=== PATIENT | female | born 1985 | race Caucasian/White ===

== ENCOUNTER → 2017-10-26 15:57 | Outpatient (CLI) | payer OTHER, MEDICAID, SELFPAY ==
[2017-10-26 18:53] LABS: Clostridium Difficile Tox PCR Negative for C. diff
== END ==
PROVIDERS: PCP Physician Assistant; Visit Provider Internal Medicine Gastroenterology
DX: R19.7 Diarrhea, unspecified (principal); A04.72 Enterocolitis due to Clostridium difficile, not specified as recurrent
CPT/HCPCS: 87493

== ENCOUNTER → 2017-10-27 11:32 | Outpatient (CLI) | payer OTHER, MEDICAID, SELFPAY | PROVIDERS: Family Provider Physician Assistant; PCP Physician Assistant; Visit Provider Nurse Practitioner Family | DX: N39.0 Urinary tract infection, site not specified (principal) | CPT/HCPCS: 87086 ==

== ENCOUNTER 2017-11-10 09:04 | Day surgery (SDC) | payer OTHER, MEDICAID, SELFPAY ==
--- NOTE | 2017-11-10 | PATH_ITS ---
[facility] Accession Number: [id number] . 01 Material submitted: . PART A: RANDOM COLON PART B: COLON BIOPSY AT SIGMOID . 02 Diagnosis: A. Random Colon, Biopsies: Colonic mucosa with no diagnostic abnormality. Negative for active or microscopic colitis. Negative for granulomata, dysplasia or malignancy. . B. Sigmoid Colon, Biopsy: Fragments of tubular adenoma. MRV/11/11/2017 . 02 Electronically signed: . Peter Guerrero MD, PhD, Pathologist NPI- [id number] . 01 Gross description: . Received are two formalin-filled containers, both labeled with the patient's name: . A. In a container labeled random colon, are three less than 0.1 cm to 0.3 cm portions of tissue, entirely submitted in cassette A. B. In a container labeled colon polyp at sigmoid, are two 0.2-0.3 cm portions of tissue, entirely submitted in cassette B. ([id number]) /FRR . 02 Pathologist provided ICD-10: D12.5, R19.7 . 02 CPT . 151201, [id number] Performed at: 01 [facility] [address] [facility], [place], [place] [id number] MD Harjeet Pulliam MD Phone: [phone] Performed at: 02 [facility] [address] [place], [place] [id number] MD Danny Dumont MD Phone: [phone]
--- NOTE | 2017-11-10 09:13 | PM.PREOP ---
Pre-operative Note Interval Note Pre-op Check: History & Physical Reviewed by Physician and Exam Performed ASA Class (for procedural sedation): II
--- NOTE | 2017-11-10 09:13 | PM.OP.ENDO ---
Operative Date/Time/Diagnoses - Date of procedure: 11/10/17 Time of procedure: 09:30 Pre-op diagnosis: Diarrhea Post-op diagnosis: same Procedure & Clinicians Surgeon: Luis A Garcia Procedure Notes Procedure in detail: After informed consent was obtained the patient was placed in the left lateral decubitus position. The video colonoscope was introduced in the rectum slowly advanced to cecum. Preparation was good. On slow withdrawal because was carefully examined. The scope was removed, the patient tolerated the procedure well Medications fentanyl 200 mcg Versed 10 mg, Benadryl 25 mg Total sedation time 20 min Blood loss none Complications none Findings: 1. Normal terminal ileum 2. Normal colonoscopy to cecum. Random biopsies taken to rule out microscopic colitis 3. 6 mm sigmoid polyp at 20 cm from the anal verge seen. This was cold biopsied x2 and removed completely Scope withdrawal time: na Sedation minutes: 20 Recommendations: Continue medication(s) and Will call with biopsy results Plan for aftercare: At this point she should remain on probiotics and we will discussed by telephone the results of the biopsies. I doubt that the polyp is adenomatous so she will not likely need any routine follow-up other than colonoscopy at age 49. The issue will be the resolution of her diarrhea.
[2017-11-10 09:22] VITALS: BMI 24.3
[2017-11-10 09:26] VITALS: BP 109/74; PULSE 69; RESP 15; TEMP 36.3; O2SAT 100
[2017-11-10 09:38] VITALS: BMI 24.3
[2017-11-10] MEDS: SODIUM CHLORIDE 0.9% 1,000 ML 200 ML IV (09:39)
[2017-11-10] MEDS: diphenhydrAMINE 50 MG/ML VIAL 25 MG IV (10:04)
[2017-11-10] MEDS: fentaNYL 250 MCG/5 ML INJ IV (10:15)
[2017-11-10] MEDS: MIDAZOLAM 5 MG/5 ML VIAL IV (10:16)
[2017-11-10 10:18] VITALS: BP 103/76; PULSE 66; RESP 13; TEMP 36.6; O2SAT 95
[2017-11-10 10:23] VITALS: BP 110/82; PULSE 70; RESP 14; O2SAT 95
[2017-11-10 10:28] VITALS: BP 101/74; PULSE 66; RESP 16; TEMP 36.4; O2SAT 97
[2017-11-10 11:09] VITALS: BP 94/60; PULSE 60; RESP 15; TEMP 36.9; O2SAT 99
[2017-11-10 11:20] VITALS: BP 101/66; PULSE 62; RESP 15; TEMP 36.8; O2SAT 99
--- NOTE | 2017-11-10 11:22 | SUR.PHASEII ---
pt up to BR to void and pass gas, abdomen is round and soft. Dr Garcia aware that pt is still having abdominal discomfort, pt states she has had this same feeling before procedure and is requesting pain medication. Dr Garcia notified and states no and for her to follow up with pain clinic. instructions reviewed with pt and her mom with verbalized understanding.
== END 2017-11-10 11:30 ==
LOC: ENDO 09:06
PROVIDERS: Family Provider Physician Assistant; PCP Physician Assistant; Visit Provider Internal Medicine Gastroenterology
PROC: 0DJD8ZZ Inspection of Lower Intestinal Tract, Via Natural or Artificial Opening Endoscopic (ICD-10-PCS; CPT 45378; principal; 2017-11-10 10:00)
DX: R19.7 Diarrhea, unspecified (principal); D12.5 Benign neoplasm of sigmoid colon; J45.909 Unspecified asthma, uncomplicated; F17.210 Nicotine dependence, cigarettes, uncomplicated; F10.21 Alcohol dependence, in remission; Z87.19 Personal history of other diseases of the digestive system; Z80.0 Family history of malignant neoplasm of digestive organs
CPT/HCPCS: 45380; J1200; J2250; J3010

== ENCOUNTER → 2018-03-07 10:03 | Outpatient (CLI) | payer OTHER, MEDICAID, SELFPAY ==
[2018-03-16 15:15] LABS: C.trachomatis RNA NOT DETECTED
[2018-03-16 15:16] LABS: N.gonorrhoeae RNA NOT DETECTED
== END ==
PROVIDERS: PCP Family Medicine; Visit Provider Family Medicine
DX: Z01.419 Encounter for gynecological examination (general) (routine) without abnormal findings (principal)
CPT/HCPCS: 87210; 87491; 87591

== ENCOUNTER → 2018-03-07 11:24 | Outpatient (CLI) | payer OTHER, MEDICAID, SELFPAY ==
[2018-03-07 12:40] LABS: Add Manual Diff / Slide Review NO; Basophils Percent Auto 0.4 % (0-2); Eosinophils Percent Auto 0.3 % (2-4); Hematocrit 41.5 % (36-46); Lymphocytes Percent Auto 26.2 % (25-40); Mean Corpuscular HGB Conc 33.7 % (30-36); Mean Corpuscular Hemoglobin 32.4 PG (26-34); Mean Corpuscular Volume 96.1 fL (80-100); Monocytes Percent Auto 3.7 % (3-14); Neutrophils Absolute Auto 7400 /uL (3000-5900); Neutrophils Percent Auto 69.4 % (50-75); Platelet Count 257 X10^3/uL (150-400); Red Blood Cell Count 4.32 X10^6/uL (4.0-5.2); Red Cell Distribution Width 13.1 % (11.6-14.8); White Blood Cell Count 10.7 X10^3/uL (4.5-11.0)
[2018-03-07 12:59] LABS: Cholesterol 182 mg/dL (140-199); HDL Cholesterol 58 mg/dL (40-60); LDL Cholesterol Calculated 87 mg/dL (<100); Triglycerides 185 mg/dL (35-150)
[2018-03-07 13:33] LABS: TSH w/ Reflex to FT4 1.42 uIU/mL (0.47-4.68)
== END ==
PROVIDERS: PCP Family Medicine; Visit Provider Family Medicine
DX: Z01.419 Encounter for gynecological examination (general) (routine) without abnormal findings (principal)
CPT/HCPCS: 36415; 80061; 84443; 85025; 87210; 87491; 87591

== ENCOUNTER → 2018-06-07 12:38 | Outpatient (CLI) | payer OTHER, MEDICAID, SELFPAY ==
[2018-06-07 13:11] LABS: Influenza A and B by PCR Rapid Negative (Negative)
== END ==
PROVIDERS: PCP Family Medicine; Visit Provider Physician Assistant
DX: R50.9 Fever, unspecified (principal); R52 Pain, unspecified
CPT/HCPCS: 87400

== ENCOUNTER → 2018-12-28 12:29 | Outpatient (CLI) | payer OTHER, MEDICAID, SELFPAY ==
[2018-12-28 12:58] LABS: Add Manual Diff / Slide Review NO; Basophils Absolute Auto 0 /uL (0-100); Basophils Percent Auto 0.5 % (0-2); Eosinophils Absolute Auto 100 /uL (0-450); Eosinophils Percent Auto 1.2 % (2-4); Hematocrit 42.4 % (36-46); Lymphocytes Absolute Auto 3800 /uL (1100-4500); Lymphocytes Percent Auto 40.5 % (25-40); Mean Corpuscular HGB Conc 33.1 % (30-36); Mean Corpuscular Hemoglobin 31.2 PG (26-34); Mean Corpuscular Volume 94.3 fL (80-100); Monocytes Absolute Auto 500 /uL (0-900); Monocytes Percent Auto 5.3 % (3-14); Neutrophils Absolute Auto 4900 /uL (1500-7000); Neutrophils Percent Auto 52.5 % (50-75); Platelet Count 241 X10^3/uL (150-400); Red Blood Cell Count 4.49 X10^6/uL (4.0-5.2); Red Cell Distribution Width 12.8 % (11.6-14.8); White Blood Cell Count 9.3 X10^3/uL (4.5-11.0)
[2018-12-28 14:08] LABS: Alanine Aminotransferase 12 IU/L (9-52); Albumin 4.5 g/dL (3.5-5.0); Albumin Globulin Ratio 1.6 (1.0-2.8); Alkaline Phosphatase 66 U/L (38-126); Aspartate Aminotransferase 18 IU/L (14-36); BUN Creatinine Ratio 21.7 (6-22); Bilirubin Total 0.5 mg/dL (0.2-1.3); Blood Urea Nitrogen 13 mg/dL (7-17); Calcium 9.6 mg/dL (8.4-10.2); Carbon Dioxide 27 mmol/L (22-32); Chloride 104 mmol/L (98-107); Cholesterol 177 mg/dL (140-199); Estimated Glomerular Filt Rate > 60.0 mL/min (>60); Globulin 2.8 g/dL (1.7-4.1); Glucose 87 mg/dL (70-100); HDL Cholesterol 51 mg/dL (40-60); HEMOLYSIS < 15 (0-50); LDL Cholesterol Calculated 112 mg/dL (<100); Potassium 4.4 mmol/L (3.4-5.1); Sodium 140 mmol/L (137-145); Total Protein 7.3 g/dL (6.3-8.2); Triglycerides 69 mg/dL (35-150)
[2018-12-28 14:38] LABS: Thyroid Stimulating Hormone 1.59 uIU/mL (0.47-4.68)
== END ==
PROVIDERS: PCP Family Medicine; Visit Provider Family Medicine
DX: Z13.220 Encounter for screening for lipoid disorders (principal); Z51.81 Encounter for therapeutic drug level monitoring
CPT/HCPCS: 36415; 80053; 80061; 84443; 85025

== ENCOUNTER → 2019-02-06 12:59 | Outpatient (CLI) | payer OTHER, MEDICAID, SELFPAY | PROVIDERS: PCP Family Medicine; Visit Provider Physician Assistant | DX: N89.8 Other specified noninflammatory disorders of vagina (principal); R30.0 Dysuria | CPT/HCPCS: 87210 ==

== ENCOUNTER → 2019-04-04 11:48 | Outpatient (CLI) | payer OTHER, MEDICAID, SELFPAY ==
[2019-04-04 12:18] LABS: Hematocrit 41.2 % (36-46); Mean Corpuscular Volume 94.1 fL (80-100); Platelet Count 265 X10^3/uL (150-400); Red Blood Cell Count 4.38 X10^6/uL (4.0-5.2); Red Cell Distribution Width 12.7 % (11.6-14.8); White Blood Cell Count 8.5 X10^3/uL (4.5-11.0)
[2019-04-04 12:25] LABS: INR 1.1 (0.9-1.3); Prothrombin Time 12.3 SECONDS (10.1-12.7)
[2019-04-04 12:39] LABS: Alanine Aminotransferase 12 IU/L (<35); Albumin Globulin Ratio 1.7 (1.0-2.8); Alkaline Phosphatase 73 U/L (38-126); Aspartate Aminotransferase 22 IU/L (14-36); BUN Creatinine Ratio 18.6 (6-22); Bilirubin Total 0.4 mg/dL (0.2-1.3); Blood Urea Nitrogen 13 mg/dL (7-17); Calcium 10.2 mg/dL (8.4-10.2); Carbon Dioxide 28 mmol/L (22-32); Chloride 101 mmol/L (98-107); Estimated Glomerular Filt Rate > 60.0 mL/min (>60); Globulin 2.9 g/dL (1.7-4.1); Glucose 97 mg/dL (70-100); HEMOLYSIS < 15 (0-50); Lipase 86 U/L (23-300); Potassium 4.3 mmol/L (3.4-5.1); Sodium 139 mmol/L (137-145); Total Protein 7.9 g/dL (6.3-8.2)
== END ==
PROVIDERS: PCP Family Medicine; Visit Provider Student in an Organized Health Care Education/Training Program
DX: K52.9 Noninfective gastroenteritis and colitis, unspecified (principal); R10.9 Unspecified abdominal pain; F10.20 Alcohol dependence, uncomplicated; R23.8 Other skin changes; Z86.19 Personal history of other infectious and parasitic diseases
CPT/HCPCS: 36415; 80053; 83516; 83690; 85027; 85610

== ENCOUNTER → 2019-05-08 14:10 | Outpatient (CLI) | payer OTHER, MEDICAID, SELFPAY ==
--- NOTE | 2019-05-08 14:11 | DI.US.S_ITS ---
PROCEDURE: US OB <= 14 WEEKS FETUS INDICATIONS: INTITIAL OB DATING OUTSIDE/PRIOR DATING DATA: Last menstrual period (LMP): 02/02/2019? LMP-based estimated date of delivery (FREDRICK): 11/09/2019. First dating scan (date and location): 05/08/2019. [facility]. Estimated date of delivery (FREDRICK) from first dating scan: 12/25/2019. TECHNIQUE: Real-time scanning was performed of the fetus and maternal pelvic organs, with image documentation. COMPARISON: None. FINDINGS: Embryo: [place]-rump length measures 1 cm corresponding to 7 weeks 0 days. Yolk sac is visualized. No perigestational hemorrhage. Measurement variability in dating: +/- 4 weeks by LMP, +/- 7 days by mean sac diameter (use before 6 weeks gestation if crown-rump length not able to be measured), +/- 5 days by crown-rump length (up to 8 weeks 6 days gestation), +/- 7 days by crown-rump length (up to 13 weeks 6 days gestation). Maternal organs: Ovaries are within normal limits. Right corpus luteum measuring 1.9 cm. IMPRESSION: 1. Lee living intrauterine at 7 weeks 0 days based on today's crown-rump length. 2. No perigestational hemorrhage. Dictated by: Seth Umanzor M.D. on 05/08/2019 at 17:26 Approved by: Seth Umanzor M.D. on 05/08/2019 at 17:28
== END ==
PROVIDERS: PCP Family Medicine; Visit Provider Specialist
DX: Z34.91 Encounter for supervision of normal pregnancy, unspecified, first trimester (principal); Z3A.01 Less than 8 weeks gestation of pregnancy
CPT/HCPCS: 76801

== ENCOUNTER → 2019-05-18 13:04 | Outpatient (CLI) | payer OTHER, MEDICAID, SELFPAY ==
[2019-05-18 13:44] LABS: Influenza A - CEPHEID Flu A NEGATIVE (NEGATIVE); Influenza B - CEPHEID Flu B POSITIVE (NEGATIVE)
== END ==
PROVIDERS: PCP Family Medicine; Visit Provider Physician Assistant
DX: R05 Cough (principal); R07.0 Pain in throat
CPT/HCPCS: 87070; 87502

== ENCOUNTER → 2019-06-05 14:00 | Outpatient (CLI) | payer OTHER, MEDICAID, SELFPAY ==
[2019-06-05 14:38] LABS: Add Manual Diff / Slide Review NO; Appearance Urine UA CLEAR; Basophils Absolute Auto 100 /uL (0-100); Basophils Percent Auto 0.5 % (0-2); Bilirubin Urine UA NEGATIVE (NEGATIVE); Color Urine UA YELLOW; Eosinophils Absolute Auto 100 /uL (0-450); Eosinophils Percent Auto 0.9 % (2-4); Glucose Urine UA NEGATIVE (Negative); Hematocrit 36.2 % (36-46); Hemoglobin 12.8 g/dL (12.0-16.0); Ketones Urine UA NEGATIVE (NEGATIVE); Leukocyte Esterase Urine UA NEGATIVE (NEGATIVE); Lymphocytes Absolute Auto 2600 /uL (1100-4500); Lymphocytes Percent Auto 25.9 % (25-40); Mean Corpuscular HGB Conc 35.4 % (30-36); Mean Corpuscular Hemoglobin 32.2 PG (26-34); Mean Corpuscular Volume 91.1 fL (80-100); Monocytes Absolute Auto 500 /uL (0-900); Monocytes Percent Auto 4.5 % (3-14); Neutrophils Absolute Auto 6900 /uL (1500-7000); Neutrophils Percent Auto 68.2 % (50-75); Nitrite Urine UA NEGATIVE (Negative); Occult Blood Urine UA NEGATIVE (Negative); Platelet Count 266 X10^3/uL (150-400); Protein Urine UA NEGATIVE (Negative); Red Blood Cell Count 3.98 X10^6/uL (4.0-5.2); Red Cell Distribution Width 12.8 % (11.6-14.8); Urobilinogen Urine UA 0.2 E.U./dL (0.2)
[2019-06-05 16:23] LABS: Hepatitis B Surface Antigen NEGATIVE s/c (NEGATIVE); Rubella Antibody IgG 13.3 IU/mL (>15)
[2019-06-05 16:42] LABS: HIV 1 & 2 Ab/Ag 4th Gen Combo NEGATIVE (NEGATIVE); Hep C Virus Ab w/Reflex Quant NEGATIVE s/c (NEGATIVE)
[2019-06-07 18:24] LABS: RPR Screen Nonreactive (Nonreactive)
== END ==
PROVIDERS: PCP Family Medicine; Visit Provider Specialist
DX: O09.529 Supervision of elderly multigravida, unspecified trimester (principal); Z34.81 Encounter for supervision of other normal pregnancy, first trimester; Z3A.11 11 weeks gestation of pregnancy
CPT/HCPCS: 36415; 80055; 81003; 81420; 86787; 86803; 86850; 86900; 86901; 87086; 87389

== ENCOUNTER 2019-07-13 09:39 | Emergency (ER) | payer OTHER, MEDICAID, SELFPAY ==
[2019-07-13 09:43] VITALS: BP 118/62; PULSE 111; RESP 20; TEMP 36.6; O2SAT 99; BMI 23.3
[2019-07-13 10:58] LABS: Add Manual Diff / Slide Review NO; Basophils Absolute Auto 100 /uL (0-100); Basophils Percent Auto 0.6 % (0-2); Eosinophils Absolute Auto 0 /uL (0-450); Eosinophils Percent Auto 0.3 % (2-4); Hematocrit 36.5 % (36-46); Hemoglobin 12.5 g/dL (12.0-16.0); Lymphocytes Absolute Auto 3000 /uL (1100-4500); Mean Corpuscular HGB Conc 34.1 % (30-36); Mean Corpuscular Hemoglobin 31.6 PG (26-34); Mean Corpuscular Volume 92.8 fL (80-100); Monocytes Absolute Auto 600 /uL (0-900); Monocytes Percent Auto 4.4 % (3-14); Neutrophils Absolute Auto 10600 /uL (1500-7000); Neutrophils Percent Auto 73.7 % (50-75); Platelet Count 253 X10^3/uL (150-400); Red Blood Cell Count 3.94 X10^6/uL (4.0-5.2); Red Cell Distribution Width 13.1 % (11.6-14.8); White Blood Cell Count 14.3 X10^3/uL (4.5-11.0)
[2019-07-13 11:09] LABS: PTT Partial Thromboplastin Tim 31 SECONDS (26.4-36.2); Prothrombin Time 11.1 SECONDS (10.1-12.7)
[2019-07-13 11:10] LABS: Alanine Aminotransferase 12 IU/L (<35); Albumin 4.1 g/dL (3.5-5.0); Albumin Globulin Ratio 1.2 (1.0-2.8); Alkaline Phosphatase 48 U/L (38-126); Aspartate Aminotransferase 22 IU/L (14-36); Bilirubin Total 0.3 mg/dL (0.2-1.3); Blood Urea Nitrogen 7 mg/dL (7-17); Calcium 9.3 mg/dL (8.4-10.2); Carbon Dioxide 25 mmol/L (22-32); Chloride 104 mmol/L (98-107); Estimated Glomerular Filt Rate > 60.0 mL/min (>60); Globulin 3.3 g/dL (1.7-4.1); Glucose 84 mg/dL (70-100); HEMOLYSIS < 15 (0-50); Lipase 55 U/L (23-300); Sodium 135 mmol/L (137-145); Total Protein 7.4 g/dL (6.3-8.2)
--- NOTE | 2019-07-13 11:22 | ED.PEDGIA ---
HPI - Pediatric GI General Chief Complaint: Abdominal Pain Stated Complaint: extreme pain ride side Time Seen by Provider: 07/13/19 09:40 Source: patient Mode of arrival: Ambulatory Limitations: no limitations History of Present Illness HPI narrative: 34-year-old female at 15 weeks presents with the chief complaint of severe right-sided flank pain is seems to radiate into her groin. She states that there is no provocation or palliation of her pain that radiates as stated. Her pain is sharp and stabbing and very intense. She denies any dysuria, frequency or urgency. She denies any fever or chills. She has had no vaginal bleeding or discharge. MD complaint: nausea and flank pain Onset (ago): hour(s) Fever: No Hydration status: tolerating fluids Activity level: normal Severity: severe Quality of pain: sharp Consistency of pain: intermittent Relieving factors: nothing Exacerbating factors: nothing Associated symptoms: nausea Related Data Home Medications Medication Instructions Recorded Confirmed Probiotic with Prebiotic 2 cap PO .QDAY 06/07/18 06/30/19 Previous Rx's Medication Instructions Recorded albuterol sulfate 90 mcg/actuation 2 puff INHALATION QIDP PRN #1 ea 09/29/17 aerosol inhaler ondansetron 4 mg disintegrating 4 mg SUBLINGUAL Q6HP PRN #20 odt 08/08/18 tablet vits no.126-ferrous fum 1 tab PO .QD #100 tab 04/28/19 28 mg iron-folic acid 800 mcg tablet ondansetron 4 mg PO TID-QID PRN #10 tab 07/13/19 Allergies Allergy/AdvReac Type Severity Reaction Status Date / Time venom-honey bee Allergy Severe TROUBLE Verified 07/13/19 09:42 [BEE VENOM (HONEY BEE)] BREATHING sertraline Allergy Intermediate Migraine Verified 07/13/19 09:42 cefaclor [CEFACLOR] Allergy Unknown I was Verified 07/13/19 09:42 young. I can't remember. Sulfa (Sulfonamide Allergy Unknown I was Verified 07/13/19 09:42 Antibiotics) young. I [SULFA (SULFONAMIDE can't ANTIBIOTICS)] remember. cyclobenzaprine AdvReac Intermediate Migraine Verified 07/13/19 09:42 methocarbamol AdvReac Intermediate Migraine Verified 07/13/19 09:42 metronidazole AdvReac Intermediate diarrhea Verified 07/13/19 09:42 and cramps Pediatric Review of Systems All systems ED: reviewed and negative except as stated Constitutional: Denies fever and chills Eyes: Denies eye pain and eye discharge ENT: Denies ear pain and sore throat Cardiovascular: Denies chest pain and palpitations Respiratory: Denies cough and dyspnea Gastrointestinal: Reports abdominal pain Genitourinary: Denies dysuria and polyuria Musculoskeletal: Denies back pain and joint swelling Integumentary: Denies rash and lesions Neurological: Denies headache and weakness Psychiatric: Denies change in energy level and fussiness Endocrine: Denies fatigue and heat intolerance Hematological/Lymphatic: Denies easy bleeding and easy bruising Allergic/Immunologic: Denies facial swelling and urticaria Patient History Medical History Abnormal Pap smear of cervix (Chronic 10/30/16) Alcohol abuse (Chronic ~10/2015) Anxiety (Chronic) Arthritis (Chronic) Bacterial vaginosis (Inactive) C. difficile colitis (Resolved 09/2016) Scoliosis (Acute) Surgical History History of umbilical hernia repair (Resolved) Status post appendectomy (Resolved) Family History Brother Age: 31 Asthma NF2 (neurofibromatosis 2) Mother Age: 65 Asthma Thyroid disease Diabetes mellitus Sister Age: 28 Thyroid disease Bipolar 1 disorder Son Alopecia Social History marital status: unmarried,living together household members: significant other and children pets and animals: Yes (indoor and outdoor cat - aware) education level: college (some) occupational status: employed (teaches at the pool) special krupa needs: No Smoking Status: Smoker, status unknown Tobacco: How many years used: 10 quit status: considering quitting (She is working on reducing how many cigarettes she smokes per day : down to 4 per day 05/23/19) second hand exposure: No alcohol intake: former (It is has been over a year ago since I drank (today is 06/07/18).) substance use type: marijuana (stopped with diagnosis) Smoking Status: Smoker, status unknown Pediatric Exam Narrative Physical exam: GENERAL: [34] year old patient appears stated age. Well-nourished, well-developed patient, in moderate distress, tearful, rocking in her garden clutching her right flank HEAD: Atraumatic. Normocephalic. EYES: Pupils equal round and reactive. Extraocular motions intact. No scleral icterus. No injection or drainage. ENT: Nose without bleeding, purulent drainage. Throat without erythema, tonsillar hypertrophy or exudate. Airway patent. NECK: Trachea midline. Non tender CARDIOVASCULAR: Regular rate and rhythm without murmurs, gallops, or rubs. RESPIRATORY: Clear to auscultation. Breath sounds equal bilaterally. No wheezes, rales, or rhonchi. GASTROINTESTINAL: Abdomen soft, non-tender, nondistended. EXTREMITIES: No edema or joint tenderness. BACK: Nontender without deformity or crepitance. Minimal right-sided CVA tenderness. NEURO: AOx3. SKIN: No rash or erythema of visible areas Initial Vital Signs Initial Vital Signs: Vital Signs Temperature 97.8 F 07/13/19 09:43 Pulse Rate 111 H 07/13/19 09:43 Respiratory Rate 07/13/19 09:43 Blood Pressure 118/62 07/13/19 09:43 Pulse Oximetry 99 07/13/19 09:43 General Limitations: no limitations Course Orders Ordered: ED Orders 07/13/19 09:49 EKG-12 Lead Stat 07/13/19 10:50 Complete Blood Count AUTO DIFF Stat Comprehensive Metabolic Panel Stat Lipase Stat Partial Thromboplastin Time Stat Prothrombin Time INR Stat 07/13/19 11:20 Test Urine Stat Urinalysis and Microscopic Stat 07/13/19 11:37 US renal complete Stat Discontinued Medications Hydromorphone HCl (Dilaudid) 0.5 mg IV NOW ONE Stop: 07/13/19 11:45 Last Admin: 07/13/19 12:08 Dose: 0.5 mg Documented by: RASHMISENJacinto Hydromorphone HCl (Dilaudid) 1 mg IV NOW ONE Stop: 07/13/19 14:29 Last Admin: 07/13/19 14:38 Dose: 1 mg Documented by: TRINI Ondansetron HCl (Zofran) 4 mg IV NOW ONE Stop: 07/13/19 12:06 Last Admin: 07/13/19 12:08 Dose: 4 mg Documented by: JAKY Ondansetron HCl (Zofran) 4 mg IV NOW ONE Stop: 07/13/19 15:56 Last Admin: 07/13/19 16:03 Dose: 4 mg Documented by: TRINI Vital Signs Vital signs: Vital Signs - 8 hr 07/13/19 15:06 Pulse Rate 67 Respiratory Rate 16 Blood Pressure [Left Arm] 99/55 L Pulse Oximetry 97 Medical Decision Making Lab Data Result diagrams: 07/13/19 10:50 07/13/19 10:50 Labs: Lab Results 07/13/19 07/13/19 07/13/19 Range/Units 10:50 10:50 10:50 WBC 14.3 H (4.5-11.0) X10^3/uL RBC 3.94 L (4.0-5.2) X10^6/uL Hgb 12.5 (12.0-16.0) g/dL Hct 36.5 (36-46) % MCV 92.8 (80-100) fL MCH 31.6 (26-34) PG MCHC 34.1 (30-36) % RDW 13.1 (11.6-14.8) % Plt Count 253 (150-400) X10^3/uL Neut % (Auto) 73.7 (50-75) % Lymph % (Auto) 21.0 L (25-40) % [place] % (Auto) 4.4 (3-14) % Eos % (Auto) 0.3 L (2-4) % Baso % (Auto) 0.6 (0-2) % Neut # (Auto) 25296 H (3708-8716) /uL Lymph # (Auto) 3000 (3606-3919) /uL [place] # (Auto) 600 (0-900) /uL Eos # (Auto) 0 (0-450) /uL Baso # (Auto) 100 (0-100) /uL PT 11.1 (10.1-12.7) SECONDS INR 1.0 (0.9-1.3) APTT 31 (26.4-36.2) SECONDS Sodium 135 L (137-145) mmol/L Potassium 4.0 (3.4-5.1) mmol/L Chloride 104 (98-107) mmol/L Carbon Dioxide 25 (22-32) mmol/L BUN 7 (7-17) mg/dL Creatinine 0.50 L (0.52-1.04) mg/dL Estimated GFR > 60.0 (>60) mL/min BUN/Creatinine Ratio 14.0 (6-22) Glucose 84 (70-100) mg/dL Calcium 9.3 (8.4-10.2) mg/dL Total Bilirubin 0.3 (0.2-1.3) mg/dL AST 22 (14-36) IU/L ALT 12 (<35) IU/L Alkaline Phosphatase 48 (38-126) U/L Total Protein 7.4 (6.3-8.2) g/dL Albumin 4.1 (3.5-5.0) g/dL Globulin 3.3 (1.7-4.1) g/dL Albumin/Globulin Ratio 1.2 (1.0-2.8) Lipase 55 (23-300) U/L Urine Color Urine Appearance Urine pH (4.5-8.0) Ur Specific [place] (1.000-1.035) Urine Protein (Negative) Urine Glucose (UA) (Negative) g/dL Urine Ketones (NEGATIVE) Urine Occult Blood (Negative) Urine Nitrate (Negative) Urine Bilirubin (NEGATIVE) Urine Urobilinogen (0.2) E.U./dL Ur Leukocyte Esterase (NEGATIVE) Urine RBC (0-5/HPF) Urine WBC (0-5/HPF) Ur Squamous Epith Cells (0-5/HPF) Urine Bacteria (None) Ur Culture Indicated? Urine Test (Negative) 07/13/19 07/13/19 Range/Units 11:20 11:20 WBC (4.5-11.0) X10^3/uL RBC (4.0-5.2) X10^6/uL Hgb (12.0-16.0) g/dL Hct (36-46) % MCV (80-100) fL MCH (26-34) PG MCHC (30-36) % RDW (11.6-14.8) % Plt Count (150-400) X10^3/uL Neut % (Auto) (50-75) % Lymph % (Auto) (25-40) % [place] % (Auto) (3-14) % Eos % (Auto) (2-4) % Baso % (Auto) (0-2) % Neut # (Auto) (4979-0452) /uL Lymph # (Auto) (5435-5876) /uL [place] # (Auto) (0-900) /uL Eos # (Auto) (0-450) /uL Baso # (Auto) (0-100) /uL PT (10.1-12.7) SECONDS INR (0.9-1.3) APTT (26.4-36.2) SECONDS Sodium (137-145) mmol/L Potassium (3.4-5.1) mmol/L Chloride (98-107) mmol/L Carbon Dioxide (22-32) mmol/L BUN (7-17) mg/dL Creatinine (0.52-1.04) mg/dL Estimated GFR (>60) mL/min BUN/Creatinine Ratio (6-22) Glucose (70-100) mg/dL Calcium (8.4-10.2) mg/dL Total Bilirubin (0.2-1.3) mg/dL AST (14-36) IU/L ALT (<35) IU/L Alkaline Phosphatase (38-126) U/L Total Protein (6.3-8.2) g/dL Albumin (3.5-5.0) g/dL Globulin (1.7-4.1) g/dL Albumin/Globulin Ratio (1.0-2.8) Lipase (23-300) U/L Urine Color Yellow Urine Appearance Clear Urine pH 7.0 (4.5-8.0) Ur Specific [place] 1.020 (1.000-1.035) Urine Protein Negative (Negative) Urine Glucose (UA) Negative (Negative) g/dL Urine Ketones Negative (NEGATIVE) Urine Occult Blood Negative (Negative) Urine Nitrate Negative (Negative) Urine Bilirubin Negative (NEGATIVE) Urine Urobilinogen 0.2 (0.2) E.U./dL Ur Leukocyte Esterase Negative (NEGATIVE) Urine RBC None seen (0-5/HPF) Urine WBC None seen (0-5/HPF) Ur Squamous Epith Cells 0-1 /hpf (0-5/HPF) Urine Bacteria None seen (None) Ur Culture Indicated? Cult not indicated Urine Test Positive H (Negative) Point of Care Testing Test Results Positive Urine Dip Bedside Urine Glucose Negative Bedside Urine Bilirubin - Negative Bedside Urine Ketone - Negative Urine Specific [place] 1.020 Bedside Urine Occult Blood - Negative Bedside Urine pH 6.0 Bedside Urine Protein +/- 15 Bedside Urine Urobilinogen - Negative Bedside Urine Nitrite - Negative Bedside Urine Leukocytes +/- 15 Esterase Point of care testing: Point of Care Testing Test Results Positive Urine Dip Bedside Urine Glucose Negative Bedside Urine Bilirubin - Negative Bedside Urine Ketone - Negative Urine Specific [place] 1.020 Bedside Urine Occult Blood - Negative Bedside Urine pH 6.0 Bedside Urine Protein +/- 15 Bedside Urine Urobilinogen - Negative Bedside Urine Nitrite - Negative Bedside Urine Leukocytes +/- 15 Esterase Imaging Data Renal US: Radiologist's Impression: [address] [address] Ultrasound Report Signed Patient: Annie Tamez [facility]#: [id number] : 1985Acct:[id number] Age/Sex: 34 / FDate of Service: 07/13/19 Loc: ED Accession Number: [id number] Procedure: US renal complete Ordering Provider: Piyush Dyson D.O. PROCEDURE: US RENAL COMPLETE INDICATIONS: SEVERE RT FLANK PAIN, AT 15 WEEKS GEST TECHNIQUE: Real-time scanning was performed of the kidneys and bladder, with image documentation. COMPARISON: None. FINDINGS: Kidneys: Kidneys are normal in size. Right kidney measures 11.8 cm long; left kidney measures 10.9 cm long. Right renal cortical thickness is 1.4 cm; left renal cortical thickness is 1.3 cm. Renal cortical echotexture is normal. No hydronephrosis or nephrolithiasis. No suspicious solid mass lesions. Bladder: Pre-void bladder volume is 136 mL. Post-void residual is 32 mL. Pre-void images demonstrate no intraluminal masses or stones. On pre-void images, bilateral ureteral jets are noted with color Doppler interrogation. (Of note, ureteral jets may not be detectable in up to 25% of cases due to insufficient differences in specific gravity between ureteral and bladder urine). Miscellaneous: No free pelvic fluid. Single intrauterine gestation is seen with heart rate measured at 139 beats per minute. IMPRESSION: Unremarkable ultrasound examination of bilateral kidneys and urinary bladder. Dictated by: Aiden Gibbs M.D. on 07/13/2019 at 12:52 Approved by: Aiden Gibbs M.D. on 07/13/2019 at 12:56 [facility] Narrative Medical decision making narrative: Patient presents with colicky type severe right flank pain that radiates into her groin. Urine showed no sign of infection or blood. Ultrasound did not show any hydronephrosis to suggest hydronephrosis of or obstructive uropathy. Patient had a complete resolution of symptoms when visited by gynecology at the bedside. We sure the opinion that the patient's presentation is most consistent with a kidney stone that likely passed. She has a follow-up appointment already scheduled and has been given return precautions. Discharge Plan Departure Patient Disposition: Home Clinical Impression: Renal colic on right side Discharge Date/Time: 07/13/19 16:32 Instructions: Kidney Stones -- Adult Activity Restrictions/Additional Instructions: *You have been diagnosed with [right flank pain ] *What to do: *Take medications as directed *Follow up with your primary care provider in 2-3 days, call for an appointment. Let them know you were seen in the Emergency Department and that we ask that you be seen in follow up *Return to ER if you should have any new, worsening or concerning symptoms Prescriptions: New ondansetron 4 mg tablet,disintegrating 4 mg PO TID-QID PRN (Reason: nausea and vomiting) Qty: 10 RF: 0 No Action Probiotic with Prebiotic 2 cap PO .QDAY RF: 0 albuterol sulfate [Ventolin HFA] 90 mcg/actuation HFA aerosol inhaler 2 puff INHALATION QIDP PRN (Reason: shortness of breath or wheezing) Qty: 1 RF: 3 Hold Instructions: ondansetron [Zofran ODT] 4 mg tablet,disintegrating 4 mg Sublingual Q6HP PRN (Reason: nausea and vomiting) Qty: 20 RF: 1 Hold Instructions: 9278 Classic 28 mg iron- 800 mcg tablet 1 tab PO .QD Qty: 100 RF: 3
[2019-07-13 11:34] LABS: Bacteria Urine None Seen; RBC Urine None Seen (0-5/HPF); WBC Urine None Seen (0-5/HPF)
[2019-07-13 11:36] LABS: Appearance Urine UA CLEAR; Bilirubin Urine UA NEGATIVE (NEGATIVE); Color Urine UA YELLOW; Glucose Urine UA NEGATIVE (Negative); Ketones Urine UA NEGATIVE (NEGATIVE); Leukocyte Esterase Urine UA NEGATIVE (NEGATIVE); Nitrite Urine UA NEGATIVE (Negative); Occult Blood Urine UA NEGATIVE (Negative); Protein Urine UA NEGATIVE (Negative); Urobilinogen Urine UA 0.2 E.U./dL (0.2)
[2019-07-13 11:37] LABS: Pregnancy Test Urine Positive (Negative)
--- NOTE | 2019-07-13 11:37 | DI.US.S_ITS ---
PROCEDURE: US RENAL COMPLETE INDICATIONS: SEVERE RT FLANK PAIN, AT 15 WEEKS GEST TECHNIQUE: Real-time scanning was performed of the kidneys and bladder, with image documentation. COMPARISON: None. FINDINGS: Kidneys: Kidneys are normal in size. Right kidney measures 11.8 cm long; left kidney measures 10.9 cm long. Right renal cortical thickness is 1.4 cm; left renal cortical thickness is 1.3 cm. Renal cortical echotexture is normal. No hydronephrosis or nephrolithiasis. No suspicious solid mass lesions. Bladder: Pre-void bladder volume is 136 mL. Post-void residual is 32 mL. Pre-void images demonstrate no intraluminal masses or stones. On pre-void images, bilateral ureteral jets are noted with color Doppler interrogation. (Of note, ureteral jets may not be detectable in up to 25% of cases due to insufficient differences in specific gravity between ureteral and bladder urine). Miscellaneous: No free pelvic fluid. Single intrauterine gestation is seen with heart rate measured at 139 beats per minute. IMPRESSION: Unremarkable ultrasound examination of bilateral kidneys and urinary bladder. Dictated by: Aiden Gibbs M.D. on 07/13/2019 at 12:52 Approved by: Aiden Gibbs M.D. on 07/13/2019 at 12:56
[2019-07-13 11:49] LABS: Culture Indicated Urine Cult Not Indicated; Squamous Epithelial Cell Urine 0-1 /HPF (0-5/HPF)
[2019-07-13] MEDS: HYDROMORPHONE 0.5 MG INJ IV (12:08)
[2019-07-13] MEDS: ONDANSETRON 4 MG/2 ML INJ IV ×2 (12:08→16:03)
[2019-07-13] MEDS: HYDROMORPHONE 1 MG INJ IV (14:38)
[2019-07-13 15:06] VITALS: BP 99/55; PULSE 67; RESP 16; O2SAT 97
--- NOTE | 2019-07-13 22:55 | PM.CN ---
History of Present Illness Consult details Date Patient Seen: 07/13/19 Time Patient Seen: 15:45 Chief complaint: extreme pain ride side Reason for consult: Severe right flank pain, Requesting provider: ED* *Temp Narrative: 34-year-old female, currently 16 weeks presented to the ED earlier today reporting severe back to flank pain. By report, her general appearance was of not being able to get comfortable. She reported colicky pain, and visibly she appears consistent with someone who may have nephrolithiasis. Urinalysis was negative, including no blood.. Renal ultrasound was normal with no signs of hydronephrosis. Her pain had decreased with pain medication, but then returned as severe and I was consulted. She does have a history of chronic back pain. Patient reports that this does not feel like her back pain. She awoke with sharp pain in right lower back radiating to her side. She reports that the discomfort did move lower during her time in the ED to the lower abdomen then inguinal area. She reports to me that with her last time up to the bathroom she felt a sharp pain from her urethra with urinating which then resolved. She reports the pain is now improved, but has concern that it is only better current may due to the pain medication. She has nausea, but this has been ongoing during , no increase. She has received Zofran here in the ED, and requested some prior to my exam. Meds Home Medications and Allergies Home Medications Medication Instructions Recorded Confirmed Type albuterol sulfate 90 mcg/actuation 2 puff INHALATION QIDP PRN #1 ea 09/29/17 06/30/19 Rx aerosol inhaler Probiotic with Prebiotic 2 cap PO .QDAY 06/07/18 06/30/19 History ondansetron 4 mg disintegrating 4 mg SUBLINGUAL Q6HP PRN #20 odt 08/08/18 06/30/19 Rx tablet vits no.126-ferrous fum 1 tab PO .QD #100 tab 04/28/19 06/30/19 Rx 28 mg iron-folic acid 800 mcg tablet ondansetron 4 mg PO TID-QID PRN #10 tab 07/13/19 Rx Allergies Allergy/AdvReac Type Severity Reaction Status Date / Time venom-honey bee Allergy Severe TROUBLE Verified 07/13/19 09:42 [BEE VENOM (HONEY BEE)] BREATHING sertraline Allergy Intermediate Migraine Verified 07/13/19 09:42 cefaclor [CEFACLOR] Allergy Unknown I was Verified 07/13/19 09:42 young. I can't remember. Sulfa (Sulfonamide Allergy Unknown I was Verified 07/13/19 09:42 Antibiotics) young. I [SULFA (SULFONAMIDE can't ANTIBIOTICS)] remember. cyclobenzaprine AdvReac Intermediate Migraine Verified 07/13/19 09:42 methocarbamol AdvReac Intermediate Migraine Verified 07/13/19 09:42 metronidazole AdvReac Intermediate diarrhea Verified 07/13/19 09:42 and cramps Review of Systems Review of Systems Narrative: Positive for right back, radiating to flank pain, now improved Positive for nausea. Denies fever or chills. Denies vaginal bleeding, menstrual type cramping or leakage of fluid. Exam Vital Signs (past 8 hours): - 07/13/19 15:06 Pulse Rate 67 Respiratory Rate 16 Blood Pressure [Left Arm] 99/55 L Pulse Oximetry 97 Oxygen Delivery Method Room Air Narrative Exam Narrative: General: Appears comfortable. She does get teary eyed on discussing whether pain could recur Back: Some minimal right-sided CVA tenderness, reportedly much improved Abdomen: Soft, nondistended, nontender Note made of fetus with heart rate 139, during bladder ultrasound Objective Labs Result Diagrams: 07/13/19 10:50 07/13/19 10:50 Labs: Laboratory Results - last 24 hr 07/13/19 07/13/19 07/13/19 10:50 10:50 10:50 WBC 14.3 H RBC 3.94 L Hgb 12.5 Hct 36.5 MCV 92.8 MCH 31.6 MCHC 34.1 RDW 13.1 Plt Count 253 Neut % (Auto) 73.7 Lymph % (Auto) 21.0 L [place] % (Auto) 4.4 Eos % (Auto) 0.3 L Baso % (Auto) 0.6 Neut # (Auto) 24338 H Lymph # (Auto) 3000 [place] # (Auto) 600 Eos # (Auto) 0 Baso # (Auto) 100 PT 11.1 INR 1.0 APTT 31 Sodium 135 L Potassium 4.0 Chloride 104 Carbon Dioxide 25 BUN 7 Creatinine 0.50 L Estimated GFR > 60.0 BUN/Creatinine Ratio 14.0 Glucose 84 Calcium 9.3 Total Bilirubin 0.3 AST 22 ALT 12 Alkaline Phosphatase 48 Total Protein 7.4 Albumin 4.1 Globulin 3.3 Albumin/Globulin Ratio 1.2 Lipase 55 Urine Color Urine Appearance Urine pH Ur Specific [place] Urine Protein Urine Glucose (UA) Urine Ketones Urine Occult Blood Urine Nitrate Urine Bilirubin Urine Urobilinogen Ur Leukocyte Esterase Urine RBC Urine WBC Ur Squamous Epith Cells Urine Bacteria Ur Culture Indicated? Urine Test 07/13/19 07/13/19 11:20 11:20 WBC RBC Hgb Hct MCV MCH MCHC RDW Plt Count Neut % (Auto) Lymph % (Auto) [place] % (Auto) Eos % (Auto) Baso % (Auto) Neut # (Auto) Lymph # (Auto) [place] # (Auto) Eos # (Auto) Baso # (Auto) PT INR APTT Sodium Potassium Chloride Carbon Dioxide BUN Creatinine Estimated GFR BUN/Creatinine Ratio Glucose Calcium Total Bilirubin AST ALT Alkaline Phosphatase Total Protein Albumin Globulin Albumin/Globulin Ratio Lipase Urine Color Yellow Urine Appearance Clear Urine pH 7.0 Ur Specific [place] 1.020 Urine Protein Negative Urine Glucose (UA) Negative Urine Ketones Negative Urine Occult Blood Negative Urine Nitrate Negative Urine Bilirubin Negative Urine Urobilinogen 0.2 Ur Leukocyte Esterase Negative Urine RBC None seen Urine WBC None seen Ur Squamous Epith Cells 0-1 /hpf Urine Bacteria None seen Ur Culture Indicated? Cult not indicated Urine Test Positive H Assessment & Plan Assessment and plan (1) Renal colic on right side: Problem details: Urinalysis showed no blood in imaging was negative. However, symptoms and sequential areas of her discomfort are suspicious for acute nephrolithiasis, resolved. Patient anxious regarding not known for certain what discussed the pain, in epic could recur. I discussed with her symptoms appear consistent with possibly passing a kidney stone and thus hopefully not recur in the near future. I advised her to continue with good hydration to help prevent any possible recurrence of a kidney stone. Advised to call or return if severe pain recurs. Otherwise keep next scheduled OB appointment. Current visit: No Status: Acute (2) : Current visit: No Status: Acute (3) Generalized anxiety disorder with panic attacks: Current visit: No Status: Chronic
== END 2019-07-13 16:32 | disposition home or self-care (01) ==
PROVIDERS: Emergency Provider Emergency Medicine
DX: N23 Unspecified renal colic (principal)
CPT/HCPCS: 36415; 76770; 80053; 81001; 81003; 81025; 83690; 85025; 85610; 85730; 93005; 96374; 96375; 96376; 99285; J1170; J2405

== ENCOUNTER → 2019-07-28 09:20 | Outpatient (CLI) | payer OTHER, MEDICAID, SELFPAY ==
[2019-07-31 19:36] LABS: AFP Value 46.5 ng/mL (.); Gest Age on Col Date 23.4 weeks (.); Insulin Dep Diabetes No (.); OSBR Risk 1IN 10000 (.); Results Report (.); Test Results *Screen Negative* (.)
== END ==
PROVIDERS: Referring Provider Specialist; Visit Provider Specialist
DX: O09.522 Supervision of elderly multigravida, second trimester (principal)
CPT/HCPCS: 82105

== ENCOUNTER → 2019-08-03 15:05 | Outpatient (CLI) | payer OTHER, MEDICAID, SELFPAY ==
--- NOTE | 2019-08-03 15:07 | DI.US.S_ITS ---
PROCEDURE: US OB >= 14 WEEKS FETUS INDICATIONS: 20 WEEK ANATOMY SCAN, CHECK CERVICAL LENGTH OUTSIDE/PRIOR DATING DATA: Last menstrual period (LMP): 02/02/2019? LMP-based estimated date of delivery (FREDRICK): 11/09/2019. First dating scan (date and location): 05/08/2019. [facility]. Estimated date of delivery (FREDRICK) from first dating scan: 12/25/2019. TECHNIQUE: Real-time scanning was performed of the fetus, with image documentation and biometric measurements. Endovaginal scanning: No COMPARISON: [facility], , OB >= 14 WEEKS FETUS, 08/03/2019, 9:13. FINDINGS: General: A single living intrauterine gestation is present. Presentation: Variable. Placenta: Placental position is anterior, with a marginal placenta previa with the inferior margin extending to the internal cervical os level. Amniotic fluid index: 18.3 cm, normal range is 5-24 cm. heart rate: 157 beats per minute. Maternal cervical canal: 5.3 cm long. Normal lower limit is 2.5 cm. biometrics: Biparietal diameter: 20 weeks 3 days Head circumference: 19 weeks 3 days Abdominal circumference: 19 weeks 4 days Femur length: 19 weeks 1 day Estimated gestational age from initial scan: 19 weeks 3 days Composite gestational age from present scan: 19 weeks 4 days Estimated weight and percentile: 2 and 90 g; 43rd percentile Measurement variability for biometric dating: +/- 7 days from 14 weeks to 15 weeks 6 days gestation, +/- 10 days from 16 weeks to 21 weeks 6 days gestation, +/- 2 weeks from 22 weeks to 27 weeks 6 days gestation, +/- 3 weeks for 28 weeks gestation or later. weight reference: 4500 g or EFW >90/95% is considered macrosomia or large for gestational age. EFW <10% is small for gestational age. EFW 5% or less is considered intra-uterine growth restriction. Anatomic survey: Neuro: Ventricles are non-dilated at less than 10 mm. Cisterna magna is normal at 3-11 mm. Cerebellum is normal in size and morphology. Nuchal skin fold: Normal at less than 6 mm between 14-21 weeks gestational age. Face: Nose and lips, facial profile are normal. Spine: No evidence for spina bifida. Heart: Suboptimally visualized. Diaphragm: Diaphragm is intact. Stomach: Left-sided stomach is present. Kidneys: No hydronephrosis. Normal is less than 5 mm in 2nd trimester, less than 7 mm in 3rd trimester. Cord: 3-vessel cord has orthotopic insertion. Bladder: Normal in size. Extremities: All 4 extremities identified. IMPRESSION: 1. Normal interval growth. 2. heart not well-visualized; otherwise normal anatomy. 3. Marginal placenta previa. Followup recommended. Dictated by: Diogenes Bal [facility] Interpreted: Farzaneh Neville MD on 08/03/2019 at 16:26 Approved by: Farzaneh Neville M.D. on 08/03/2019 at 16:47
== END ==
PROVIDERS: Referring Provider Specialist; Visit Provider Specialist
DX: Z34.82 Encounter for supervision of other normal pregnancy, second trimester (principal); Z3A.19 19 weeks gestation of pregnancy
CPT/HCPCS: 76811; 76817

== ENCOUNTER → 2019-08-21 09:50 | Outpatient (CLI) | payer OTHER, MEDICAID, SELFPAY ==
--- NOTE | 2019-08-21 09:52 | DI.US.S_ITS ---
PROCEDURE: US OB FOLLOW UP INDICATIONS: FOLLOW UP ON ANATOMY SURVEY, HEART OUTSIDE/PRIOR DATING DATA: Last menstrual period (LMP): 02/02/19. LMP-based estimated date of delivery (FREDRICK): 11/09/19. First dating scan (date and location): 05/08/19. Estimated date of delivery (FREDRICK) from first dating scan: 12/25/19. TECHNIQUE: Real-time scanning was performed of the fetus, with image documentation. Endovaginal scanning: Not needed. COMPARISON: [facility], OB >= 14 WEEKS FETUS, 08/03/2019, 9:13. [facility], , OB >= 14 WEEKS FETUS, 08/03/2019, 15:25. FINDINGS: A single living intrauterine gestation is present. Presentation: Vertex. Placenta: Placental position is anterior, without previa. heart rate: 158 beats per minute. Maternal cervical canal: 3.6 cm long. Normal lower limit is 2.5 cm. Estimated gestational age from initial scan: 22 weeks 0 days. Note: The placental margin is now 2.5 cm from the internal os of the cervical canal. heart four-chamber view and ventricular outflow tract appearance is normal. IMPRESSION: Completion of anatomic survey. The delivery date is projected to be centered on 12/25/19. Currently there is no suspicion for placenta previa by this examination. Dictated by: Antonio Pantoja M.D. on 08/21/2019 at 12:37 Approved by: Antonio Pantoja M.D. on 08/21/2019 at 12:39
== END ==
PROVIDERS: PCP Specialist; Referring Provider Specialist; Visit Provider Obstetrics & Gynecology
DX: Z36.2 Encounter for other antenatal screening follow-up (principal); Z3A.22 22 weeks gestation of pregnancy
CPT/HCPCS: 76816

== ENCOUNTER → 2019-09-11 12:23 | Outpatient (CLI) | payer OTHER, MEDICAID, SELFPAY ==
[2019-09-11 14:37] LABS: Hematocrit 36.1 % (36-46); Hemoglobin 12.2 g/dL (12.0-16.0)
[2019-09-11 14:56] LABS: GTT (PREG) 1 Hour PP 50gm Dose 83 mg/dL (76-139)
== END ==
PROVIDERS: PCP Specialist; Referring Provider Specialist; Visit Provider Specialist
DX: Z34.82 Encounter for supervision of other normal pregnancy, second trimester (principal)
CPT/HCPCS: 36415; 82950; 85014; 85018

== ENCOUNTER 2019-11-22 11:37 | Observation (INO) | payer OTHER, MEDICAID, SELFPAY ==
[2019-11-22] MEDS: LACTATED RINGERS 1,000 ML 1000 ML IV (13:00)
[2019-11-22] MEDS: NIFEdipine 10 MG CAPSULE PO ×4 (13:40→14:45)
[2019-11-22] MEDS: NIFEdipine 30 MG TAB ER PO (15:40)
[2019-11-22] MEDS: PROMETHAZINE 25 MG TABLET PO (15:40)
[2019-11-22] MEDS: MEPERIDINE 50 MG/ML INJ IM (15:42)
--- NOTE | 2019-11-22 16:00 | PM.OBTRLD ---
Visit Information Visit Information Date of evaluation: 11/22/19 Primary OB Provider: Kassie Clifford Reason for Evaluation: Yes pre-term labor [facility] Medical History (Updated 11/22/19 @ 16:03 by Kassie Clifford MD) Abnormal Pap smear of cervix (Chronic 10/30/16) Alcohol abuse (Chronic ~10/2015) Anxiety (Chronic) Arthritis (Chronic) Bacterial vaginosis (Inactive) C. 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 No leakage of fluid. Patient continues to have significant pain. Percocet did not help much for her to get rest. Evaluation Evaluation Variability: Moderate (11-25) monitor accelerations: Present monitor decelerations: Absent Contraction Frequency (minutes): 3 Uterine Contraction Intensity: Moderate Category of Tracing: I Cervical dilation (cm): 0 Cervical effacement (%): 20 station: -1 Diagnosis, Plan/Disposition Final Diagnosis (1) False labor before 37 completed weeks of gestation: Status: Acute Problem details: Patient with contractions that decreased with nifedipine and IV hydration. Patient will continue nifedipine for another week. Return if contractions recur. (2) Back pain with sciatica: Status: Chronic Problem details: Patient with significant pain will give her Demerol and Phenergan prior to discharge to help her get a small amount of rest. Plan/Disposition Plan: Continue p.o. nifedipine OB Disposition: home
== END 2019-11-22 15:45 | disposition home or self-care (01) ==
PROVIDERS: Admitting Provider Specialist; PCP Specialist; Referring Provider Specialist; Visit Provider Specialist
DX: O47.03 False labor before 37 completed weeks of gestation, third trimester (principal); M54.40 Lumbago with sciatica, unspecified side; Z3A.35 35 weeks gestation of pregnancy
CPT/HCPCS: 59025; 96360; 96372; G0378; G0379; J2175

== ENCOUNTER 2019-11-23 12:51 | Outpatient (CLI) | payer OTHER, MEDICAID, SELFPAY ==
--- NOTE | 2019-11-23 13:27 | PM.OBTRLD ---
Visit Information Visit Information Date of evaluation: 11/23/19 Primary OB Provider: Kassie Clifford Reason for Evaluation: Yes pre-term labor Vital Signs Vital Signs: Blood pressure 105/56, temperature 36.6?, pulse of 86 [facility] Medical History (Updated 11/23/19 @ 13:33 by Kassie Clifford MD) 35 weeks gestation of (Acute) Abnormal Pap smear of cervix (Chronic 10/30/16) Alcohol abuse (Chronic ~10/2015) Anxiety (Chronic) Arthritis (Chronic) Bacterial vaginosis (Inactive) C. 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 She did get some short relief with the shot of Demerol yesterday and would like another shot today. Evaluation Evaluation Baseline heart rate: 130 Variability: Moderate (11-25) monitor accelerations: Present monitor decelerations: Absent Contraction Frequency (minutes): 5 Uterine Contraction Intensity: Mild Category of Tracing: I Cervical dilation (cm): 0 Cervical effacement (%): 50 station: 0 Diagnosis, Plan/Disposition Final Diagnosis (1) False labor before 37 completed weeks of gestation: Status: Acute Problem details: Patient with contractions that decreased with nifedipine and IV hydration. Patient will continue nifedipine for another week. Return if contractions recur. (2) 35 weeks gestation of : Status: Acute Plan/Disposition Plan: Patient with no significant change since yesterday. Patient is taking the nifedipine. OB Disposition: home
[2019-11-23] MEDS: ONDANSETRON 4 MG ODT 8 MG PO (13:57)
== END 2019-11-23 14:00 | disposition home or self-care (01) ==
LOC: LABOR 13:27 → OB 11-24 12:44
PROVIDERS: PCP Specialist; Referring Provider Specialist; Visit Provider Specialist
DX: O47.03 False labor before 37 completed weeks of gestation, third trimester (principal); O09.523 Supervision of elderly multigravida, third trimester; O99.333 Smoking (tobacco) complicating pregnancy, third trimester; Z3A.35 35 weeks gestation of pregnancy
CPT/HCPCS: 59025; 96372; G0378; G0379

== ENCOUNTER 2019-11-24 19:28 | Outpatient (CLI) | payer OTHER, MEDICAID, SELFPAY ==
[2019-11-24] MEDS: NIFEdipine 10 MG CAPSULE PO ×4 (20:14→21:16)
[2019-11-24 21:16] LABS: Appearance Urine UA CLEAR; Bilirubin Urine UA NEGATIVE (NEGATIVE); Color Urine UA YELLOW; Glucose Urine UA NEGATIVE (Negative); Ketones Urine UA TRACE (NEGATIVE); Leukocyte Esterase Urine UA TRACE (NEGATIVE); Nitrite Urine UA NEGATIVE (Negative); Occult Blood Urine UA NEGATIVE (Negative); Protein Urine UA NEGATIVE (Negative); Urobilinogen Urine UA 0.2 E.U./dL (0.2)
[2019-11-24] MEDS: ONDANSETRON 4 MG ODT 8 MG PO (21:22)
[2019-11-24] MEDS: MORPHINE 10 MG/ML INJ IM (21:23)
[2019-11-24 21:26] LABS: Bacteria Urine Many (>30); Culture Indicated Urine Cult Not Indicated; RBC Urine 0-1/HPF (0-5/HPF); Squamous Epithelial Cell Urine 5-10 /HPF (0-5/HPF); WBC Urine 0-1/HPF (0-5/HPF)
--- NOTE | 2019-11-25 09:48 | PM.OBTRLD ---
Visit Information Visit Information Date of evaluation: 11/24/19 Primary OB Provider: Kassie Clifford On-call OB Provider: Perla Cannon Reason for Evaluation: Yes non-stress test Comments/Additional reasons for admission: This patient is a 34yo P2 @35+4 presenting for symptomatic contractions as well as rib pain with movement and right hip pain. Denies pelvic pressure, LOF, VB, decreased movement, dysuria, or any other complaints. Has 10mg nifedipine at home, took last dose at 10AM day of admission. Vital Signs Vital Signs: 92/50, HR 69 PFSH Medical History 35 weeks gestation of (Acute) Abnormal Pap smear of cervix (Chronic 10/30/16) Alcohol abuse (Chronic ~10/2015) Anxiety (Chronic) Arthritis (Chronic) Bacterial vaginosis (Inactive) C. 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 Smoking Status: Smoker, status unknown Tobacco: How many years used: 10 quit status: considering quitting (She is working on reducing how many cigarettes she smokes per day : down to 4 per day 05/23/19) second hand exposure: No alcohol intake: former (It is has been over a year ago since I drank (today is 06/07/18).) substance use type: marijuana (stopped with diagnosis) Review of Systems Constitutional Constitutional: Reports system reviewed and no additional complaints, except as documented Objective Labs Labs: Laboratory Results - last 24 hr 11/24/19 21:00 Urine Color Yellow Urine Appearance Clear Urine pH 8.0 Ur Specific [place] 1.010 Urine Protein Negative Urine Glucose (UA) Negative Urine Ketones Trace H Urine Occult Blood Negative Urine Nitrate Negative Urine Bilirubin Negative Urine Urobilinogen 0.2 Ur Leukocyte Esterase Trace H Urine RBC 0-1/hpf Urine WBC 0-1/hpf Ur Squamous Epith Cells 5-10 /hpf H Urine Bacteria Many (>30) H Ur Culture Indicated? Cult not indicated Evaluation Evaluation Baseline heart rate: 135 Variability: Moderate (11-25) monitor accelerations: Present monitor decelerations: Absent Contraction Frequency (minutes): 5 Category of Tracing: I Cervical dilation (cm): 0 Cervical effacement (%): 50 station: -1 Laboratory results: Laboratory Tests 11/24/19 21:00 Urine Color Yellow Urine Appearance Clear Urine pH 8.0 Ur Specific [place] 1.010 Urine Protein Negative Urine Glucose (UA) Negative Urine Ketones Trace H Urine Occult Blood Negative Urine Nitrate Negative Urine Bilirubin Negative Urine Urobilinogen 0.2 Ur Leukocyte Esterase Trace H Urine RBC 0-1/hpf Urine WBC 0-1/hpf Ur Squamous Epith Cells 5-10 /hpf H Urine Bacteria Many (>30) H Ur Culture Indicated? Cult not indicated Comments: Patient received 10mg nifedipine q20 minutes per protocol along with 10mg morphine, and symptoms improved significantly. Diagnosis, Plan/Disposition Plan/Disposition Plan: The patient was not found to be making cervical change during this visit and had not made change from prior visits. Her pain was partly contractions, but did seem to have hip and rib components. status was reassuring and patient did not appear to have a UTI, abruption, intraamniotic infection, or other causes of contractions. Patient desired discharge and was driven home by her partner, discharged with antepartum precautions. OB Disposition: home
== END 2019-11-24 21:51 | disposition home or self-care (01) ==
LOC: OB 11-27 15:27
PROVIDERS: PCP Specialist; Referring Provider Obstetrics & Gynecology; Visit Provider Obstetrics & Gynecology
DX: O47.03 False labor before 37 completed weeks of gestation, third trimester (principal); O09.523 Supervision of elderly multigravida, third trimester; O99.333 Smoking (tobacco) complicating pregnancy, third trimester; M25.551 Pain in right hip; R07.81 Pleurodynia; Z3A.35 35 weeks gestation of pregnancy
CPT/HCPCS: 59050; 81001; 96372; G0378; G0379; J2270

== ENCOUNTER → 2019-11-27 15:18 | Outpatient (CLI) | payer OTHER, MEDICAID, SELFPAY ==
[2019-11-28 14:50] LABS: Strep Grp B PCR NEG for Grp B Strep
== END ==
PROVIDERS: PCP Specialist; Visit Provider Specialist
DX: Z34.83 Encounter for supervision of other normal pregnancy, third trimester (principal); Z3A.36 36 weeks gestation of pregnancy
CPT/HCPCS: 87653

== ENCOUNTER 2019-12-05 23:55 | Observation (INO) | payer OTHER, MEDICAID, SELFPAY ==
[2019-12-06] MEDS: CALCIUM CARBONATE 500 MG TAB PO (01:13)
[2019-12-06] MEDS: MEPERIDINE 50 MG/ML INJ IM (01:13)
--- NOTE | 2019-12-06 17:58 | PM.OBTRLD ---
Visit Information Visit Information Date of evaluation: 12/06/19 Primary OB Provider: Kassie Clifford Reason for Evaluation: Yes rule out labor Vital Signs Vital Signs: Blood pressure 98/61, pulse 71, temperature 97.8? [facility] Medical History (Updated 12/06/19 @ 18:00 by Kassie Clifford MD) Abnormal Pap smear of cervix (Chronic 10/30/16) Alcohol abuse (Chronic ~10/2015) Anxiety (Chronic) Arthritis (Chronic) Bacterial vaginosis (Inactive) C. 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 Good movement. No headaches, scotomata or epigastric pain. Evaluation Evaluation Baseline heart rate: 130 Variability: Moderate (11-25) monitor accelerations: Present monitor decelerations: Absent Contraction Frequency (minutes): 4 Uterine Contraction Intensity: Moderate Category of Tracing: I Cervical dilation (cm): 1 Cervical effacement (%): 50 station: -1 Diagnosis, Plan/Disposition Final Diagnosis (1) 37 weeks gestation of : Status: Acute (2) False labor: Status: Acute Plan/Disposition Plan: Patient was given IM Demerol to help with sleep. OB Disposition: home
== END 2019-12-06 01:20 | disposition home or self-care (01) ==
LOC: LABOR 12-06 00:11
PROVIDERS: Admitting Provider Specialist; PCP Specialist; Referring Provider Specialist; Visit Provider Specialist
DX: O09.523 Supervision of elderly multigravida, third trimester (principal); O99.333 Smoking (tobacco) complicating pregnancy, third trimester; Z3A.37 37 weeks gestation of pregnancy
CPT/HCPCS: 59025; 96372; G0378; G0379; J2175

== ENCOUNTER 2019-12-19 07:22 | Inpatient (IN) | payer OTHER, MEDICAID, SELFPAY ==
[2019-12-19] MEDS: LACTATED RINGERS 1,000 ML 100 ML IV ×3 (08:25→16:39)
[2019-12-19] MEDS: OXYTOCIN PREMIX 30 UNIT/500 ML PLAST..BAG IV (08:25)
[2019-12-19 08:26] LABS: Add Manual Diff / Slide Review NO; Basophils Absolute Auto 100 /uL (0-100); Basophils Percent Auto 0.4 % (0-2); Eosinophils Absolute Auto 100 /uL (0-450); Eosinophils Percent Auto 0.8 % (2-4); Hematocrit 34.2 % (36-46); Hemoglobin 11.7 g/dL (12.0-16.0); Lymphocytes Absolute Auto 3100 /uL (1100-4500); Lymphocytes Percent Auto 26.6 % (25-40); Mean Corpuscular HGB Conc 34.3 % (30-36); Mean Corpuscular Hemoglobin 32.1 PG (26-34); Mean Corpuscular Volume 93.4 fL (80-100); Monocytes Absolute Auto 800 /uL (0-900); Monocytes Percent Auto 7.1 % (3-14); Neutrophils Absolute Auto 7500 /uL (1500-7000); Neutrophils Percent Auto 65.1 % (50-75); Platelet Count 215 X10^3/uL (150-400); Red Blood Cell Count 3.66 X10^6/uL (4.0-5.2); Red Cell Distribution Width 13.6 % (11.6-14.8); White Blood Cell Count 11.5 X10^3/uL (4.5-11.0)
--- NOTE | 2019-12-19 08:45 | PM.OBHP.1 ---
OB HPI Date/Time Date of admission: 12/19/19 Date Patient Seen: 12/19/19 Time Patient Seen: 07:20 History of Present Condition Chief complaint: OBSERVATION OF LABOR : 4 Para: 2 Estimated Date of Delivery: 12/25/19 Estimated Gestational Age (weeks): 39 Narrative: Annie Tamez is a 34 year old female admitted for induction for maternal discomfort Indications Indication for induction OB: maternal discomfort History of Present care: good care, initiated at week # (9), number of visits (13) and pounds weight gain (21) Dating criteria: based on 1st trimester US only Ultrasounds: normal mid trimester US Obstetrical complications: none Medical complications: musculoskeletal ( severe back and sciatic pain from scoliosis) Preadmission Labs Blood type: O (+) positive -: Antibody screen: negative, GBS status: negative, HBsAG: negative, HIV: negative and RPR/VDLR: negative -: Rubella: not immune and Varicella: immune HCAB: negative Cell-free DNA: normal male 1 hr GTT: 83 Prior (ies) History: 2 prior vaginal deliveries see visit records Evaluation Evaluation Baseline heart rate: 125 Variability: Moderate (11-25) monitor accelerations: Present monitor decelerations: Absent Contraction Frequency (minutes): 0 Category of Tracing: I Cervical dilation (cm): 2 Cervical effacement (%): 75 station: -1 Laboratory results: Laboratory Tests 12/19/19 08:05 WBC 11.5 H RBC 3.66 L Hgb 11.7 L Hct 34.2 L MCV 93.4 MCH 32.1 MCHC 34.3 RDW 13.6 Plt Count 215 Neut % (Auto) 65.1 Lymph % (Auto) 26.6 [place] % (Auto) 7.1 Eos % (Auto) 0.8 L Baso % (Auto) 0.4 Neut # (Auto) 7500 H Lymph # (Auto) 3100 [place] # (Auto) 800 Eos # (Auto) 100 Baso # (Auto) 100 PFSH Medical History (Updated 12/11/19 @ 15:04 by Kassie Clifford MD) Abnormal Pap smear of cervix (Chronic 10/30/16) Alcohol abuse (Chronic ~10/2015) Anxiety (Chronic) Arthritis (Chronic) Bacterial vaginosis (Inactive) C. 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[employer]) special krupa needs: No Smoking Status: Smoker, status unknown Tobacco: How many years used: 10 quit status: considering quitting (She is working on reducing how many cigarettes she smokes per day : down to 4 per day 05/23/19) second hand exposure: No alcohol intake: former (It is has been over a year ago since I drank (today is 06/07/18).) substance use type: marijuana (stopped with diagnosis) Meds Home Medications and Allergies Home Medications Medication Instructions Recorded Confirmed Type albuterol sulfate 90 mcg/actuation 2 puff INHALATION QIDP PRN #1 ea 09/29/17 12/11/19 Rx aerosol inhaler Probiotic with Prebiotic 2 cap PO .QDAY 06/07/18 12/11/19 History ondansetron 4 mg disintegrating 4 mg SUBLINGUAL Q6HP PRN #20 odt 08/08/18 12/11/19 Rx tablet vits no.126-ferrous fum 1 tab PO .QD #100 tab 04/28/19 12/11/19 Rx 28 mg iron-folic acid 800 mcg tablet clobetasol 0.05 % topical ointment 1 applictn TOP .COMPLEX #15 gram 08/03/19 12/11/19 Rx omeprazole 40 mg capsule,delayed 40 mg PO DAILY #30 cap 10/06/19 12/11/19 Rx release ondansetron 4 mg disintegrating 4 mg PO TID-QID PRN #10 tab 12/15/19 Rx tablet oxycodone-acetaminophen 5 mg-325 1 tab PO Q4-6H PRN #20 tab 12/15/19 Rx mg tablet Allergies Allergy/AdvReac Type Severity Reaction Status Date / Time venom-honey bee Allergy Severe TROUBLE Verified 12/11/19 14:53 [BEE VENOM (HONEY BEE)] BREATHING sertraline Allergy Intermediate Migraine Verified 12/11/19 14:53 cefaclor [CEFACLOR] Allergy Unknown I was Verified 12/11/19 14:53 young. I can't remember. Sulfa (Sulfonamide Allergy Unknown I was Verified 12/11/19 14:53 Antibiotics) young. I [SULFA (SULFONAMIDE can't ANTIBIOTICS)] remember. cyclobenzaprine AdvReac Intermediate Migraine Verified 12/11/19 14:53 methocarbamol AdvReac Intermediate Migraine Verified 12/11/19 14:53 metronidazole AdvReac Intermediate diarrhea Verified 12/11/19 14:53 and cramps Review of Systems Review of Systems Narrative: Patient denies any change in contractions. Good movement. No leakage of fluid. No headaches, scotomata, epigastric pain. ROS: Yes All systems reviewed with the patient and are negative except as otherwise documented Exam Vital Signs (past 8 hours): Blood pressure 109/63, temperature 98.3?, pulse 71 Narrative Exam Narrative: HEENT exam within normal limits. Lungs are clear to auscultation percussion. Heart is regular rate and rhythm no S3-S4 or murmurs. Abdomen is gravid. Infant is vertex. Extremities without edema and nontender. Objective Labs Result Diagrams: 12/19/19 08:05 Labs: Laboratory Results - last 24 hr 12/19/19 08:05 WBC 11.5 H RBC 3.66 L Hgb 11.7 L Hct 34.2 L MCV 93.4 MCH 32.1 MCHC 34.3 RDW 13.6 Plt Count 215 Neut % (Auto) 65.1 Lymph % (Auto) 26.6 [place] % (Auto) 7.1 Eos % (Auto) 0.8 L Baso % (Auto) 0.4 Neut # (Auto) 7500 H Lymph # (Auto) 3100 [place] # (Auto) 800 Eos # (Auto) 100 Baso # (Auto) 100 Assessment and Plan Assessment and Plan Assessment and Plan narrative: 39 week gestation with significant maternal discomfort admitted for Pitocin induction. Patient signed [facility] consent form for tubal ligation. Time Spent with Patient Total time spent with greater than 50% in coordination of care (as documented) at patient's floor/unit and/or counseling patient:: less than 15 minutes
[2019-12-19 09:01] LABS: COVID19 -Nasal RAPID Negative (Negative)
[2019-12-19 09:40] VITALS: BP 109/63
--- NOTE | 2019-12-19 12:24 | PM.OBPNLAB ---
Date/Time Date Patient Seen: 12/19/19 Time Patient Seen: 12:00 Pain Control Pain control: epidural (patient strongly desires epidural) Pelvic Exam Dilation (cm): 3 Effacement (%): 80 station: -1 Amniotic membrane status: Intact (AROM attempted, poorly tolerated. Patient for epidural, will reattempt.) Contractions Pitocin rate (mU/min): 15 Contraction frequency (min): 1 Contraction duration (min): 1 Contraction pattern: Regular Status status: Category l Heart Rate Baseline: 125 Monitor Accelerations: Present Monitor Decelerations: Absent Monitor Variability: Moderate Assessment and Plan Assessment: induction ongoing Plan: continuous present management
--- NOTE | 2019-12-19 16:51 | PM.OBPRVD ---
Events: Labor Induction (Maternal discomfort) Labor & Delivery Delivery date: 12/19/19 Intrapartal events: None Induction method: per pitocin protocol Delivery monitor: external FHT and external uterine Route of delivery: L&D Laceration Description: None Estimated blood loss (mL): 150 Anesthesia type: Epidural Narrative: Patient arrived on Labor and delivery for induction for maternal discomfort. She was started on Pitocin. She received an epidural catheter for pain control. heart tones category 1 to category 2 throughout labor. Patient had a spontaneous vaginal delivery. The viable male was taken to the warmer per maternal request after approximately 30 seconds delay cord clamping. The placenta delivered spontaneously, intact, with 3 vessels. There were no cervical, vaginal, or perineal tears. Both and mother doing well. Baby 1: Infant gender: Male Presentation: vertex position: Right Occiput Anterior Placenta delivery description: Spontaneous score (1 min): 8 score (5 min): 9 Plan for aftercare: Routine care with planned tubal ligation in am
[2019-12-19] MEDS: IBUPROFEN 600 MG TABLET PO (19:18)
[2019-12-19] MEDS: OXYCODONE/ACETAMINOPHEN 5/325 TABLET 2 TAB PO (20:11)
--- NOTE | 2019-12-20 | PATH_ITS ---
[facility] Accession Number: [id number] . 01 Material submitted: . fallopian tube - BILATERAL FALLOPIAN TUBE SEGMENTS . 02 Diagnosis: Bilateral Fallopian Tube Segments, Bilateral Salpingectomy: Two fimbriated fallopian tubes with simple benign paratubal cysts. No evidence of neoplasm. [facility] 12/22/2019 1237 Local . 02 Electronically signed: . Peter Guerrero MD, PhD, Pathologist NPI- [id number] . 01 Gross description: . Specimen A is received in formalin, labeled with patient identification and bilateral fallopian tube segments. It consists of two undesignated and fimbriated fallopian tube segments measuring 2.9 to 3.8 cm in length and 0.5 cm in diameter each. The longer fallopian tube segment has a 2.7 x 1.9 x 1.2 cm smooth lining, and clear liquidy filling paratubal cysts which is next to the fimbria. The serosae are pink-chaudhary and dull. Sectioning reveals pinpoint and patent lumina which are lined by yellow-chaudhary and grossly unremarkable mucosa. The entire specimen is submitted in five cassettes. . Summary of sections: A1-A2 - the entire bisected fimbria with entire paratubal cysts, longer fallopian tube segment, pair, one piece each. A3 - the entire cross-sections of longer fallopian tube segment, five pieces. A4 - the entire bisected fimbria of shorter fallopian tube segment, two pieces. A5 - the entire cross-sections of shorter fallopian tube segment, four pieces. ([id number]) /[facility] 12/21/2019 1453 Local . 02 Microscopic: . Complete cross-sections of fallopian tube are seen from each tubular structure submitted. . 02 Pathologist provided ICD-10: Z30.2, N83.9 . 02 CPT . 787109 Performed at: 01 [facility] [address] [place] [address], [place], [place] [id number] MD Harjeet Pulliam MD Phone: [phone] Performed at: [facility] [place] [address] [place], [place] [id number] MD Britney Griffiths MD Phone: [phone]
[2019-12-20] MEDS: IBUPROFEN 600 MG TABLET PO ×2 (01:07→07:28)
[2019-12-20] MEDS: OXYCODONE/ACETAMINOPHEN 5/325 TABLET 2 TAB PO ×5 (04:33→16:54)
[2019-12-20] MEDS: PANTOPRAZOLE 40 MG TABLET PO (07:27)
[2019-12-20] MEDS: PRENATAL VIT,CALC/IRON/FOLIC 1 TABLET 1 TAB PO (07:28)
[2019-12-20] MEDS: DOCUSATE 100 MG CAPSULE PO (07:28)
--- NOTE | 2019-12-20 07:53 | PM.PREOP ---
Pre-operative Note COVID-19 COVID-19 status: Negative Result date/Date tested (Pos, Neg/Pending): 12/19/19 Interval Note History & Physical reviewed/Exam performed by Physician: Yes Changes to H&P: No
[2019-12-20] MEDS: MORPHINE 2 MG/ML INJ IV ×2 (08:04→16:55)
[2019-12-20 08:05] LABS: Add Manual Diff / Slide Review NO; Basophils Absolute Auto 100 /uL (0-100); Basophils Percent Auto 0.6 % (0-2); Eosinophils Absolute Auto 0 /uL (0-450); Eosinophils Percent Auto 0.4 % (2-4); Hematocrit 32.8 % (36-46); Hemoglobin 11.3 g/dL (12.0-16.0); Lymphocytes Absolute Auto 2400 /uL (1100-4500); Mean Corpuscular HGB Conc 34.3 % (30-36); Mean Corpuscular Hemoglobin 32.7 PG (26-34); Mean Corpuscular Volume 95.2 fL (80-100); Monocytes Absolute Auto 800 /uL (0-900); Monocytes Percent Auto 7.1 % (3-14); Neutrophils Absolute Auto 7500 /uL (1500-7000); Neutrophils Percent Auto 69.9 % (50-75); Platelet Count 204 X10^3/uL (150-400); Red Blood Cell Count 3.44 X10^6/uL (4.0-5.2); Red Cell Distribution Width 13.7 % (11.6-14.8); White Blood Cell Count 10.7 X10^3/uL (4.5-11.0)
--- NOTE | 2019-12-20 08:52 | P.PNOB_ITS ---
Subjective - OB Subjective Patient comments: other ( patient with significant back, abdominal, hip pain) [place] baby status: nursing well [place] feeding status: exclusively breast feeding Date Patient Seen: 12/20/19 Time Patient Seen: 07:50 Exam Vital Signs (past 8 hours): Blood pressure 104/62, pulse 60 temperature 98? point Narrative Exam Narrative: Abdomen is soft nontender. Uterus is firm, at U, appropriately tender. Mild lochia. Extremities without edema and nontender. Consent form was reviewed with the patient risk of damage to internal structures such as the bowel that might require opening the abdomen to repair or additional surgery. Risk of bleeding enough to require blood transfusion minimal. Risk of infection. 1 in 400 risk of ectopic after tubal ligation and the symptoms of ectopic reviewed with the patient. Con sent form was signed and her questions answered. Objective Labs Result Diagrams: 12/20/19 08:00 Labs: Laboratory Results - last 24 hr 12/19/19 12/19/19 12/20/19 08:05 08:40 08:00 WBC 10.7 RBC 3.44 L Hgb 11.3 L Hct 32.8 L MCV 95.2 MCH 32.7 MCHC 34.3 RDW 13.7 Plt Count 204 Neut % (Auto) 69.9 Lymph % (Auto) 22.0 L [place] % (Auto) 7.1 Eos % (Auto) 0.4 L Baso % (Auto) 0.6 Neut # (Auto) 7500 H Lymph # (Auto) 2400 [place] # (Auto) 800 Eos # (Auto) 0 Baso # (Auto) 100 COVID-19 PCR Negative Blood Type O Positive Antibody Screen Negative Assessment & Plan Assessment and Plan (1) Admission for sterilization: Status: Acute (2) Normal vaginal delivery: Status: Acute (3) Back pain with sciatica: Status: Chronic Plan day: 1 plan OB: routine care Comments: patient is scheduled for tubal ligation later today Time Spent With Patient Time: Total time spent is greater than 50% in coordination of care (as documented) at patient's floor/unit and/or counseling patient: Time with patient: less than 15 minutes
[2019-12-20] MEDS: CLINDAMYCIN 900 MG/50 ML PIGGYBACK 50 MG IV (10:15)
[2019-12-20] MEDS: BUPIVACAINE 0.5% W/ EPI (PF) 30 ML VIAL INJ (10:24)
--- NOTE | 2019-12-20 10:47 | PM.OP.1 ---
Operative Date/Time/Diagnoses Date of procedure: 12/20/19 Time of procedure: 10:47 Pre-op diagnosis: undesired fertility Post-op diagnosis: same Procedure & Clinicians Procedure: mini-laparotomy bilateral tubal ligation Same procedure as scheduled: Yes Indications: undesired fertility Surgeon: Kassie Clifford Click Yes if Unassisted: Yes Anesthesia Type: General Operative Notes Findings: normal fallopian tubes with bilateral paratubal cysts left greater than right Closure Type: primary Specimen(s): other ( bilateral tubal sections) Estimated Blood Loss (mL): 1 Blood products transfused: none Procedure in detail: Patient was brought to the operating room where she underwent general anesthesia. She was prepped and draped in the usual sterile fashion. A check system was reviewed with the staff in the room prior to beginning the case. She was given 900 mg of IV clindamycin prior to the surgery. The area of the umbilical incision was injected with 0.5% Marcaine with epi. An incision was made with scalpel and incision was carried down the fascial layer which was incised transversely. The perineum was entered sharply with no damage to internal structures. The right fallopian tube was grasped with the Cooper and the end of the tube with the paratubal cyst was tied off x2 with 0 plain suture. The section was removed. Adequate hemostasis was noted. The tube was allowed to fall back in the abdomen. the same procedure was performed on the opposite side. The Fascial layer was closed with 0 Vicryl suture. The skin was closed with 4 0 Vicryl. Patient went to the recovery room in good condition. Counts of instruments and sponge were correct. Complications: none Post-operative Condition: stable Disposition: other ( Center) Plan for aftercare: home when recovered from surgery
[2019-12-20 11:01] VITALS: BP 106/66; PULSE 136; RESP 11; O2SAT 99
[2019-12-20 11:06] VITALS: BP 106/80; PULSE 121; RESP 11; O2SAT 97
[2019-12-20 11:12] VITALS: BP 107/79; PULSE 97; RESP 12; O2SAT 96
[2019-12-20 11:15] VITALS: BP 109/80; PULSE 97; RESP 14; TEMP 36.6; O2SAT 96
--- NOTE | 2019-12-20 11:18 | SUR.PHASEI ---
Stable PACU stay, to after reported to [facility].
--- NOTE | 2019-12-20 13:43 | PM.OBDS.1 ---
Discharge Providers Provider Date of admission: 12/19/19 07:22 Discharge Date: 12/20/19 Primary care physician: Kassie Clifford MD Consults: 12/20/19 16:56 Consult to Faculty Neuropsychologist Routine Comment: Discharge provider: Kassie Clifford MD Summary Hospital Course Date Patient Seen: 12/20/19 Time Patient Seen: 13:44 Procedures: Pitocin induction, epidural catheter, spontaneous vaginal delivery, mini-laparotomy tubal ligation Hospital Course: Patient was admitted for induction for maternal discomfort. She had a spontaneous vaginal delivery of a viable male infant. She underwent a tubal ligation the day after delivery. She feels she is ready to go home. She is breast-feeding without difficulty. She is urinating and ambulating well. She continues to have pain from her are back and sciatic as well as cramping from her uterus when she breast feeds. Peripartum Data Infant Delivery Method: Natural Vaginal Laceration Description: None Procedures: Pitocin induction, epidural catheter, spontaneous vaginal delivery, tubal ligation complications: none [place] 1: Gender: Male Discharge Diagnosis (1) Admission for sterilization: Status: Acute (2) Normal vaginal delivery: Status: Acute (3) Back pain with sciatica: Status: Chronic Status at Discharge Cognitive/behavioral status at discharge: oriented Functional status at discharge: independent ambulation Overall status at discharge: patient is progressing back to baseline Time Spent with Patient Time attestation: Total time spent providing and/or coordinating discharge services: Time spent: Less than 30 minutes Objective Labs Result Diagrams: 12/20/19 08:00 Labs: Laboratory Results - last 24 hr 12/20/19 08:00 WBC 10.7 RBC 3.44 L Hgb 11.3 L Hct 32.8 L MCV 95.2 MCH 32.7 MCHC 34.3 RDW 13.7 Plt Count 204 Neut % (Auto) 69.9 Lymph % (Auto) 22.0 L [place] % (Auto) 7.1 Eos % (Auto) 0.4 L Baso % (Auto) 0.6 Neut # (Auto) 7500 H Lymph # (Auto) 2400 [place] # (Auto) 800 Eos # (Auto) 0 Baso # (Auto) 100 Exam Vital Signs (past 8 hours): - 12/20/19 11:01 12/20/19 11:06 12/20/19 11:12 Temperature Pulse Rate 136 H 121 H 97 H Respiratory Rate 11 L 11 L 12 Blood Pressure 106/66 106/80 107/79 Pulse Oximetry 99 97 96 12/20/19 11:15 Temperature 97.8 F Pulse Rate 97 H Respiratory Rate 14 Blood Pressure 109/80 Pulse Oximetry 96 Oxygen Delivery Method Room Air Narrative Exam Narrative: Abdomen is soft, minimally tender. Band-Aid from tubal ligation is dry. Mild lochia. Extremities without edema and nontender. Patient is O positive. She is rubella nonimmune and is still deciding if she will get the vaccine prior to discharge. She did received Tdap in the 3rd trimester Discharge Plan Discharge Plan Patient Disposition: Home Discharge orders & Medications Prescriptions: New oxycodone-acetaminophen 5-325 mg Tablet 2 tab PO Q4HR PRN (Reason: Pain, Severe (7-10)) Qty: 30 RF: 0 ibuprofen 600 mg Tablet 600 mg PO Q6HR PRN (Reason: Pain, Mild (1-3)) Qty: 30 RF: 0 Continued Probiotic with Prebiotic 2 cap PO .QDAY RF: 0 albuterol sulfate [Ventolin HFA] 90 mcg/actuation HFA aerosol inhaler 2 puff INHALATION QIDP PRN (Reason: shortness of breath or wheezing) Qty: 1 RF: 3 Hold Instructions: ondansetron 4 mg tablet,disintegrating 4 mg PO TID-QID PRN (Reason: nausea and vomiting) Qty: 10 RF: 0 oxycodone-acetaminophen 5-325 mg tablet 1 tab PO Q4-6H PRN (Reason: pain) Qty: 20 RF: 0 Classic 28 mg iron- 800 mcg tablet 1 tab PO .QD Qty: 100 RF: 3 clobetasol 0.05 % ointment 1 applictn TOP .COMPLEX Qty: 15 RF: 1 omeprazole 40 mg capsule,delayed release(DR/EC) 40 mg PO DAILY Qty: 30 RF: 1 Discontinued ondansetron [Zofran ODT] 4 mg tablet,disintegrating 4 mg Sublingual Q6HP PRN (Reason: nausea and vomiting) Qty: 20 RF: 1 Hold Instructions: 9278 Follow up/Referrals: Kassie Clifford MD [Primary Care Provider] - 1 Month Diet/Activity/Treatments Diet: Regular Activity: Nothing in vagina for 4 weeks Skin/Wound/Dressing Care Report to your healthcare provider any signs of infection, such as:: chills, fever, increased pain and unusual redness Dressing: May remove Band-Aid in 24 hours. Discharge Data Primary Care Provider: Kassie Clifford
[2019-12-20] MEDS: KETOROLAC 30 MG/ML VIAL IV (16:56)
[2019-12-20 17:19] VITALS: BP 109/80; PULSE 97; RESP 14; TEMP 36.6
== END 2019-12-20 18:00 | disposition home or self-care (01) | DRG 541 ==
PROVIDERS: Admitting Provider Specialist; PCP Specialist; Referring Provider Specialist; Visit Provider Specialist
PROC: (CPT 58605; principal; 2019-12-20 09:45)
DX: O26.813 Pregnancy related exhaustion and fatigue, third trimester (principal); Z3A.39 39 weeks gestation of pregnancy; Z37.0 Single live birth; Z30.2 Encounter for sterilization; O99.334 Smoking (tobacco) complicating childbirth; M54.40 Lumbago with sciatica, unspecified side; Z11.59 Encounter for screening for other viral diseases
CPT/HCPCS: 01967; 36415; 58605; 59050; 59409; 85025; 86850; 86900; 86901; 87635; A9270; G0379; J0330; J1100; J1885; J2270; J2405; J2590; J2704; J3010

== ENCOUNTER → 2019-12-25 13:40 | Outpatient (CLI) | payer OTHER, MEDICAID, SELFPAY ==
[2019-12-25 13:55] LABS: Add Manual Diff / Slide Review NO; Basophils Absolute Auto 0 /uL (0-100); Basophils Percent Auto 0.5 % (0-2); Eosinophils Absolute Auto 200 /uL (0-450); Eosinophils Percent Auto 2.4 % (2-4); Hematocrit 39.2 % (36-46); Hemoglobin 13.6 g/dL (12.0-16.0); Lymphocytes Absolute Auto 3200 /uL (1100-4500); Lymphocytes Percent Auto 37.2 % (25-40); Mean Corpuscular HGB Conc 34.7 % (30-36); Mean Corpuscular Hemoglobin 32.9 PG (26-34); Mean Corpuscular Volume 94.8 fL (80-100); Monocytes Absolute Auto 400 /uL (0-900); Monocytes Percent Auto 4.7 % (3-14); Neutrophils Absolute Auto 4800 /uL (1500-7000); Neutrophils Percent Auto 55.2 % (50-75); Platelet Count 305 X10^3/uL (150-400); Red Blood Cell Count 4.14 X10^6/uL (4.0-5.2); Red Cell Distribution Width 13.6 % (11.6-14.8); White Blood Cell Count 8.6 X10^3/uL (4.5-11.0)
== END ==
PROVIDERS: Referring Provider Specialist; Visit Provider Specialist
DX: O90.89 Other complications of the puerperium, not elsewhere classified (principal); R10.9 Unspecified abdominal pain; R52 Pain, unspecified
CPT/HCPCS: 36415; 85025

== ENCOUNTER 2020-07-15 09:27 | Emergency (ER) | payer OTHER, MEDICAID, SELFPAY ==
[2020-07-15] VITALS (13 sets, daily range): BP systolic 101–115; BP diastolic 55–79; PULSE 62–96; RESP 12–16; TEMP 37.3; O2SAT 92–99; BMI 22.3
--- NOTE | 2020-07-15 09:38 | ED.GENADULT ---
HPI - General Adult General Chief complaint: Back Pain/Injury Stated complaint: think I'm having kidney trouble, maybe stones Time Seen by Provider: 07/15/20 09:33 Source: patient Mode of arrival: Ambulatory Limitations: no limitations History of Present Illness HPI narrative: Patient is a 35-year-old female here for evaluation of left-sided flank/left lower quadrant abdominal pain. She states she has had pain similar to this but not as bad off and on for the past 4 weeks. She states that the symptoms she is currently having have been going on since Wednesday. She has tried uefk-soa-rtshoga anti-inflammatories without any improvement. She has not had any fevers. Minimal increase in discomfort with movement or palpation. She denies any vaginal bleeding. No urinary symptoms. She has had a kidney stone in the past and she states that this feels very similar. She did pass that stone on her own. Related Data Home Medications Medication Instructions Recorded Confirmed Probiotic with Prebiotic 2 cap PO .QDAY 06/07/18 12/25/19 Previous Rx's Medication Instructions Recorded albuterol sulfate 90 mcg/actuation 2 puff INHALATION QIDP PRN #1 ea 09/29/17 aerosol inhaler vits no.126-ferrous fum 1 tab PO .QD #100 tab 04/28/19 28 mg iron-folic acid 800 mcg tablet omeprazole 40 mg capsule,delayed 40 mg PO DAILY #30 cap 10/06/19 release docusate sodium 100 mg tablet 100 mg PO BID #30 tab 12/22/19 ibuprofen 600 mg tablet 600 mg PO Q6HR PRN #30 tab 12/25/19 clotrimazole 1 % vaginal cream 1 applicator VAG BEDTIME #45 gram 02/20/20 ondansetron 4 mg PO Q6H PRN #10 tab 07/15/20 tramadol [Ultram] 50 mg PO Q6H PRN #10 tab 07/15/20 Allergies Allergy/AdvReac Type Severity Reaction Status Date / Time venom-honey bee Allergy Severe TROUBLE Verified 12/25/19 14:09 [BEE VENOM (HONEY BEE)] BREATHING sertraline Allergy Intermediate Migraine Verified 12/25/19 14:09 cefaclor [CEFACLOR] Allergy Unknown I was Verified 12/25/19 14:09 young. I can't remember. Sulfa (Sulfonamide Allergy Unknown I was Verified 12/25/19 14:09 Antibiotics) young. I [SULFA (SULFONAMIDE can't ANTIBIOTICS)] remember. cyclobenzaprine AdvReac Intermediate Migraine Verified 12/25/19 14:09 methocarbamol AdvReac Intermediate Migraine Verified 12/25/19 14:09 metronidazole AdvReac Intermediate diarrhea Verified 12/25/19 14:09 and cramps Review of Systems Constitutional Constitutional: Denies fever(s) and Denies headache(s) ENT Ears, Nose, Mouth, and Throat: Denies headache(s) Cardiovascular Cardiovascular: Denies chest pain and Denies dyspnea Respiratory Respiratory: Denies dyspnea Gastrointestinal Gastrointestinal: Reports abdominal pain, Denies change in bowel habits, Reports nausea and Denies vomiting Genitourinary Genitourinary: Denies dysuria and Reports urinary hesitancy Genitourinary: Denies dysuria and Reports urinary hesitancy Musculoskeletal Musculoskeletal: Reports back pain and Denies myalgias Integumentary/Breasts Skin/Breast: Denies lesions and Denies rash Neurologic Neurologic: Denies behavioral changes and Denies headache(s) Psychiatric Psychiatric: Denies behavioral changes Hematologic/Lymphatic On Anticoagulants: No Allergic/Immunologic Allergic/Immunologic: Denies urticaria Patient History Medical History Abnormal Pap smear of cervix (10/30/16) Alcohol abuse (~10/2015) Anxiety Arthritis Bacterial vaginosis C. difficile colitis (09/2016) Scoliosis Surgical History History of umbilical hernia repair Status post appendectomy Family History Brother Age: 32 Asthma NF2 (neurofibromatosis 2) Mother Age: 66 Asthma Thyroid disease Diabetes mellitus Sister Age: 29 Thyroid disease Bipolar 1 disorder Son Alopecia Social History marital status: unmarried,living together household members: significant other and children pets and animals: Yes (indoor and outdoor cat - aware) education level: college (some) occupational status: employed (teaches at the pool) special krupa needs: No Smoking Status: Current every day smoker Tobacco: How many years used: 10 quit status: considering quitting (She is working on reducing how many cigarettes she smokes per day : down to 4 per day 05/23/19) second hand exposure: No alcohol intake: former (It is has been over a year ago since I drank (today is 06/07/18).) substance use type: marijuana (stopped with diagnosis) Smoking Status: Current every day smoker Exam Initial Vital Signs Initial Vital Signs: Vital Signs Temperature 99.1 F 07/15/20 09:43 Pulse Rate 96 H 07/15/20 09:43 Respiratory Rate 16 07/15/20 09:43 Blood Pressure 115/79 07/15/20 09:43 Pulse Oximetry 97 07/15/20 09:43 Const General: cooperative Limitations: mental status not altered HENMT Head: normal to inspection and normocephalic Resp Effort & Inspection: normal respiratory effort Auscultation: clear to auscultation bilaterally Cardio Rate: regular rate Rhythm: regular rhythm GI Inspection: non-distended Palpation: soft and tender (Left lower quadrant) Skin Lesions: no lesions Rashes: no rashes Neuro General: patient alert, patient awake and patient oriented x3 Cognition: normal cognition Speech: speech normal Extrem General: normal to inspection and capillary refill normal Psych Appearance: grossly normal and well kempt Course Orders Ordered: ED Orders 07/15/20 09:30 Test Urine Stat Urinalysis and Microscopic Stat 07/15/20 09:41 Complete Blood Count AUTO DIFF Stat Comprehensive Metabolic Panel Stat Lipase Stat 07/15/20 09:50 CT abdomen pelvis w con Stat 07/15/20 11:29 US pelvic complete Stat Discontinued Medications Hydromorphone HCl (Hydromorphone 1 Mg Inj) 1 mg IV NOW ONE Stop: 07/15/20 09:43 Last Admin: 07/15/20 09:53 Dose: 1 mg Documented by: SHARITA Hydromorphone HCl (Hydromorphone 0.5 Mg Inj) 0.5 mg IV NOW ONE Stop: 07/15/20 11:29 Last Admin: 07/15/20 11:35 Dose: 0.5 mg Documented by: MARITZA Hydromorphone HCl (Hydromorphone 0.5 Mg Inj) 0.5 mg IV NOW ONE Stop: 07/15/20 13:32 Last Admin: 07/15/20 13:43 Dose: 0.5 mg Documented by: Ketorolac Tromethamine (Ketorolac 60 Mg/2 Ml Vial) 30 mg IV NOW ONE Stop: 07/15/20 09:43 Last Admin: 07/15/20 09:53 Dose: 30 mg Documented by: SHARITA Ondansetron HCl (Ondansetron 4 Mg/2 Ml Inj) 4 mg IV NOW ONE Stop: 07/15/20 09:43 Last Admin: 07/15/20 09:53 Dose: 4 mg Documented by: SHARITA Ondansetron HCl (Ondansetron 4 Mg/2 Ml Inj) 4 mg IV NOW ONE Stop: 07/15/20 11:43 Last Admin: 07/15/20 11:45 Dose: 4 mg Documented by: MARITZA Ondansetron HCl (Ondansetron 4 Mg/2 Ml Inj) 4 mg IV NOW ONE Stop: 07/15/20 13:33 Last Admin: 07/15/20 13:44 Dose: 4 mg Documented by: Vital Signs Vital signs: Vital Signs - 8 hr 07/15/20 09:43 07/15/20 09:56 07/15/20 10:00 Temperature 99.1 F Pulse Rate 96 H 81 85 Respiratory Rate 16 Blood Pressure 115/79 Pulse Oximetry 97 97 92 07/15/20 10:30 07/15/20 11:00 07/15/20 11:30 Temperature Pulse Rate 78 73 62 Respiratory Rate Blood Pressure 113/65 108/67 Pulse Oximetry 93 99 98 07/15/20 12:17 07/15/20 12:19 07/15/20 12:30 Temperature Pulse Rate 68 64 62 Respiratory Rate Blood Pressure 105/64 101/58 L Pulse Oximetry 97 98 96 07/15/20 12:57 07/15/20 13:00 07/15/20 13:30 Temperature Pulse Rate 68 68 76 Respiratory Rate Blood Pressure 106/73 102/60 112/55 L Pulse Oximetry 99 96 98 Medical Decision Making Medical Records Medical records reviewed: Yes I reviewed the patient's medical records. Lab Data Lab results reviewed: Yes I reviewed the patient's lab results. Result diagrams: 07/15/20 09:41 07/15/20 09:41 Labs: Lab Results 07/15/20 07/15/20 07/15/20 Range/Units 09:30 09:30 09:41 WBC 9.8 (4.5-11.0) X10^3/uL RBC 4.27 (4.0-5.2) X10^6/uL Hgb 13.3 (12.0-16.0) g/dL Hct 39.8 (36-46) % MCV 93.1 (80-100) fL MCH 31.2 (26-34) PG MCHC 33.5 (30-36) % RDW 12.3 (11.6-14.8) % Plt Count 246 (150-400) X10^3/uL Neut % (Auto) 50.6 (50-75) % Lymph % (Auto) 41.7 H (25-40) % Willacy % (Auto) 6.1 (3-14) % Eos % (Auto) 0.9 L (2-4) % Baso % (Auto) 0.7 (0-2) % Neut # (Auto) 4900 (6259-4339) /uL Lymph # (Auto) 4100 (4172-8699) /uL Willacy # (Auto) 600 (0-900) /uL Eos # (Auto) 100 (0-450) /uL Baso # (Auto) 100 (0-100) /uL Sodium (137-145) mmol/L Potassium (3.4-5.1) mmol/L Chloride (98-107) mmol/L Carbon Dioxide (22-32) mmol/L BUN (7-17) mg/dL Creatinine (0.52-1.04) mg/dL Estimated GFR (>60) mL/min BUN/Creatinine Ratio (6-22) Glucose (70-100) mg/dL Calcium (8.4-10.2) mg/dL Total Bilirubin (0.2-1.3) mg/dL AST (14-36) IU/L ALT (<35) IU/L Alkaline Phosphatase (38-126) U/L Total Protein (6.3-8.2) g/dL Albumin (3.5-5.0) g/dL Globulin (1.7-4.1) g/dL Albumin/Globulin Ratio (1.0-2.8) Lipase (23-300) U/L Urine Color Yellow Urine Appearance Clear Urine pH 6.5 (4.5-8.0) Ur Specific Isabella 1.010 (1.000-1.035) Urine Protein Negative (Negative) Urine Glucose (UA) Negative (Negative) g/dL Urine Ketones Negative (NEGATIVE) Urine Occult Blood Negative (Negative) Urine Nitrate Negative (Negative) Urine Bilirubin Negative (NEGATIVE) Urine Urobilinogen 0.2 (0.2) E.U./dL Ur Leukocyte Esterase Negative (NEGATIVE) Urine RBC None seen (0-5/HPF) Urine WBC None seen (0-5/HPF) Ur Squamous Epith Cells 10-30 /hpf H (0-5/HPF) Urine Bacteria Occasional (0-1) D (None) Ur Culture Indicated? Cult not indicated Urine Test Negative (Negative) 07/15/20 Range/Units 09:41 WBC (4.5-11.0) X10^3/uL RBC (4.0-5.2) X10^6/uL Hgb (12.0-16.0) g/dL Hct (36-46) % MCV (80-100) fL MCH (26-34) PG MCHC (30-36) % RDW (11.6-14.8) % Plt Count (150-400) X10^3/uL Neut % (Auto) (50-75) % Lymph % (Auto) (25-40) % Willacy % (Auto) (3-14) % Eos % (Auto) (2-4) % Baso % (Auto) (0-2) % Neut # (Auto) (5498-4126) /uL Lymph # (Auto) (1419-4340) /uL Willacy # (Auto) (0-900) /uL Eos # (Auto) (0-450) /uL Baso # (Auto) (0-100) /uL Sodium 137 (137-145) mmol/L Potassium 4.2 (3.4-5.1) mmol/L Chloride 107 (98-107) mmol/L Carbon Dioxide 21 L (22-32) mmol/L BUN 14 (7-17) mg/dL Creatinine 0.64 (0.52-1.04) mg/dL Estimated GFR > 60.0 (>60) mL/min BUN/Creatinine Ratio 21.9 (6-22) Glucose 96 (70-100) mg/dL Calcium 9.3 (8.4-10.2) mg/dL Total Bilirubin 0.1 L (0.2-1.3) mg/dL AST 25 (14-36) IU/L ALT 16 (<35) IU/L Alkaline Phosphatase 67 (38-126) U/L Total Protein 7.4 (6.3-8.2) g/dL Albumin 4.7 (3.5-5.0) g/dL Globulin 2.7 (1.7-4.1) g/dL Albumin/Globulin Ratio 1.7 (1.0-2.8) Lipase 98 (23-300) U/L Urine Color Urine Appearance Urine pH (4.5-8.0) Ur Specific Isabella (1.000-1.035) Urine Protein (Negative) Urine Glucose (UA) (Negative) g/dL Urine Ketones (NEGATIVE) Urine Occult Blood (Negative) Urine Nitrate (Negative) Urine Bilirubin (NEGATIVE) Urine Urobilinogen (0.2) E.U./dL Ur Leukocyte Esterase (NEGATIVE) Urine RBC (0-5/HPF) Urine WBC (0-5/HPF) Ur Squamous Epith Cells (0-5/HPF) Urine Bacteria (None) Ur Culture Indicated? Urine Test (Negative) Imaging Data CT scan - abdomen/pelvis: Radiologist's Impression: [address] Scan ReportSigned Patient: Annie Tamez [facility]#: [id number]: 1985Acct:[id number]/Sex: 35 / FDate of Service: 07/15/20Loc: EDAccession Number: [id number] Procedure: CT abdomen pelvis w con Ordering Provider: Pro Gee D.O. PROCEDURE: CT ABDOMEN PELVIS W CON INDICATIONS: Left-sided abdominal pain TECHNIQUE: After the administration of intravenous contrast, 5 mm thick sections acquired from the diaphragm to the symphysis. 5 mm coronal and sagittal reformats were acquired. For radiation dose reduction, the following was used: automated exposure control, adjustment of mA and/or kV according to patient size. COMPARISON: [facility], CT, ABDOMEN/PELVIS WITH CONTRAST, 11/01/2016, 10:35. FINDINGS: Image quality: Excellent. ABDOMEN: Lung bases: Bibasilar atelectasis/scarring. Hepatic steatosis. The gallbladder is grossly unremarkable. Biliary system is non dilated. Pancreas enhances normally. Spleen is normal in size and enhancement. No adrenal nodules. Kidneys demonstrate normal size and enhancement, without hydronephrosis. Peritoneum and bowel: Bowel loops demonstrate normal wall thickness and caliber. No free fluid or air. Appendix is not clearly identified however no suspicious pericecal inflammatory changes are seen. It may be surgically absent although recommend clinical correlation. Nodes and vessels: No retroperitoneal or mesenteric adenopathy by size criteria. Aorta and inferior vena cava are normal in size. Miscellaneous: No ventral hernias. PELVIS: Genitourinary: Heterogeneous appearance of the uterus raising the possibility of fibroids which could be confirmed with ultrasound as clinically warranted. The bladder is grossly unremarkable. Ring-enhancing left adnexal lesion image 55/2, image 25/4. This measures approximately 1.5 x 1.4 cm. Miscellaneous: No inguinal hernias or adenopathy. Bones: No suspicious bony lesions. No vertebral body compression fractures. IMPRESSION: Heterogeneous appearance of the uterus raising possibility of fibroids. This could be further assessed and confirmed with pelvic ultrasound as clinically necessary. Left adnexal ring-enhancing lesion, technically indeterminate. This could represent hemorrhagic ovarian cyst although recommend confirmation of negative test. Further evaluation could be obtained with dedicated pelvic ultrasound Dictated by: Leobardo Franks M.D. on 07/15/2020 at 11:07 Approved by: Leobardo Franks M.D. on 07/15/2020 at 11:17 US - SEED COLLECTOR: Radiologist's Impression: [address] [id number] ReportSigned Patient: Annie Tamez [facility]#: [id number]: 1985Acct:[id number]/Sex: 35 / FDate of Service: 07/15/20Loc: EDAccession Number: [id number] Procedure: US pelvic complete Ordering Provider: Pro Gee D.O. PROCEDURE: US PELVIC COMPLETE INDICATIONS: LEFT ADNEXAL RING ADHANCING LESION ON CT. History of tubal ligation, LMP 07/01/20. TECHNIQUE: Real-time scanning was performed of the pelvic organs, with image documentation. Additional endovaginal scanning was necessary due to incomplete visualization of the adnexal and endometrial structures by transabdominal scanning. COMPARISON: [facility], CT, CT ABDOMEN PELVIS W CON, 07/15/2020, 10:50. [facility], US, PELVIC COMPLETE, 11/01/2016, 9:47. FINDINGS: Uterus: Uterus is normal in size at 8.7 x 5.3 x 4.2 cm. The endometrium measures 8-9 mm in combined thickness. Simple appearing anterior endometrial cyst measuring 3 mm. Ovaries: Right ovary measures 3.3 x 3.1 x 3.5 cm. Left ovary measures 4.1 x 2.5 x 2.2 cm. Doppler interrogation demonstrates expected waveforms in both ovaries. Simple appearing follicle seen within the right ovary measuring 2.3 cm. Within the left ovary, there is a 1.9 x 1.9 x 1.8 cm heterogeneous lesion with hyperechoic appearance and internal echoes, and associated vascularity . Left ovary was suboptimally imaged by ultrasound due to difficulty with patient positioning and discomfort at the time of the examination. Other: No pathologic free abdominal or pelvic fluid. IMPRESSION: Ill-defined heterogeneous left ovarian focus with associated vascularity (probably reflecting the appearance on the prior CT). Unclear if the vascularity is internal versus peripheral given the small size of the lesion. This could still represent involuting or hemorrhagic ovarian cyst although technically indeterminate and recommend follow-up in 6 weeks with pelvic ultrasound to demonstrate resolution and exclude other etiologies. If clinical suspicion of contraception failure, correlation with test could be performed. Dictated by: Leobardo Franks M.D. on 07/15/2020 at 13:26 Approved by: Leobardo Franks M.D. on 07/15/2020 at 13:36 MDM Narrative Medical decision making narrative: Labs unremarkable, test is negative. CT scan showed left-sided pelvic mass. Ultrasound shows left-sided ovarian cyst. Have low suspicion for ectopic . She has had a tubal ligation and her urine test is negative. Will treat symptomatically for now. Low suspicion for torsion baseline ultrasound result. Patient does have a follow-up appointment already scheduled with a new primary provider. Also informed her that she could contact her old OBGYN for follow-up as well. She was given return precautions. She expressed understanding and agreement plan. Discharge Plan Departure Patient Disposition: Home Clinical Impression: Ovarian cyst Instructions: DI for Ovarian Cyst, DI for Pelvic Pain Activity Restrictions/Additional Instructions: Continue all of your medications as directed. Recommend you contact your prior [employer] providers they may be able to provide further assistance in the treatment of your ovarian cyst. Keep all of your scheduled medical appointments. Return to the emergency department for any new or worsening symptoms Prescriptions: New ondansetron 4 mg tablet,disintegrating 4 mg PO Q6H PRN (Reason: nausea and vomiting) Qty: 10 RF: 0 tramadol [Ultram] 50 mg tablet 50 mg PO Q6H PRN (Reason: pain) Qty: 10 RF: 0 No Action Probiotic with Prebiotic 2 cap PO .QDAY RF: 0 albuterol sulfate [Ventolin HFA] 90 mcg/actuation HFA aerosol inhaler 2 puff INHALATION QIDP PRN (Reason: shortness of breath or wheezing) Qty: 1 RF: 3 Hold Instructions: clotrimazole [Clotrimazole-7] 1 % cream 1 applicator VAG BEDTIME Qty: 45 RF: 1 Classic 28 mg iron- 800 mcg tablet 1 tab PO .QD Qty: 100 RF: 3 omeprazole 40 mg capsule,delayed release(DR/EC) 40 mg PO DAILY Qty: 30 RF: 1 docusate sodium 100 mg tablet 100 mg PO BID Qty: 30 RF: 0 ibuprofen 600 mg tablet 600 mg PO Q6HR PRN (Reason: Pain, Mild (1-3)) Qty: 30 RF: 0 Referrals: Ella Holley DO [Primary Care Provider] -
[2020-07-15 09:40] LABS: RBC Urine None Seen (0-5/HPF); WBC Urine None Seen (0-5/HPF)
[2020-07-15 09:44] LABS: Appearance Urine UA CLEAR; Bilirubin Urine UA NEGATIVE (NEGATIVE); Color Urine UA YELLOW; Glucose Urine UA NEGATIVE (Negative); Ketones Urine UA NEGATIVE (NEGATIVE); Leukocyte Esterase Urine UA NEGATIVE (NEGATIVE); Nitrite Urine UA NEGATIVE (Negative); Occult Blood Urine UA NEGATIVE (Negative); Protein Urine UA NEGATIVE (Negative); Urobilinogen Urine UA 0.2 E.U./dL (0.2); pH Urine UA 6.5 (4.5-8.0)
[2020-07-15 09:46] LABS: Pregnancy Test Urine Negative (Negative)
[2020-07-15 09:48] LABS: Add Manual Diff / Slide Review NO; Basophils Absolute Auto 100 /uL (0-100); Basophils Percent Auto 0.7 % (0-2); Eosinophils Absolute Auto 100 /uL (0-450); Eosinophils Percent Auto 0.9 % (2-4); Hematocrit 39.8 % (36-46); Hemoglobin 13.3 g/dL (12.0-16.0); Lymphocytes Absolute Auto 4100 /uL (1100-4500); Lymphocytes Percent Auto 41.7 % (25-40); Mean Corpuscular HGB Conc 33.5 % (30-36); Mean Corpuscular Hemoglobin 31.2 PG (26-34); Mean Corpuscular Volume 93.1 fL (80-100); Monocytes Absolute Auto 600 /uL (0-900); Monocytes Percent Auto 6.1 % (3-14); Neutrophils Absolute Auto 4900 /uL (1500-7000); Neutrophils Percent Auto 50.6 % (50-75); Platelet Count 246 X10^3/uL (150-400); Red Blood Cell Count 4.27 X10^6/uL (4.0-5.2); Red Cell Distribution Width 12.3 % (11.6-14.8); White Blood Cell Count 9.8 X10^3/uL (4.5-11.0)
--- NOTE | 2020-07-15 09:50 | DI.CT.S_ITS ---
PROCEDURE: CT ABDOMEN PELVIS W CON INDICATIONS: Left-sided abdominal pain TECHNIQUE: After the administration of intravenous contrast, 5 mm thick sections acquired from the diaphragm to the symphysis. 5 mm coronal and sagittal reformats were acquired. For radiation dose reduction, the following was used: automated exposure control, adjustment of mA and/or kV according to patient size. COMPARISON: [facility], CT, ABDOMEN/PELVIS WITH CONTRAST, 11/01/2016, 10:35. FINDINGS: Image quality: Excellent. ABDOMEN: Lung bases: Bibasilar atelectasis/scarring. Hepatic steatosis. The gallbladder is grossly unremarkable. Biliary system is non dilated. Pancreas enhances normally. Spleen is normal in size and enhancement. No adrenal nodules. Kidneys demonstrate normal size and enhancement, without hydronephrosis. Peritoneum and bowel: Bowel loops demonstrate normal wall thickness and caliber. No free fluid or air. Appendix is not clearly identified however no suspicious pericecal inflammatory changes are seen. It may be surgically absent although recommend clinical correlation. Nodes and vessels: No retroperitoneal or mesenteric adenopathy by size criteria. Aorta and inferior vena cava are normal in size. Miscellaneous: No ventral hernias. PELVIS: Genitourinary: Heterogeneous appearance of the uterus raising the possibility of fibroids which could be confirmed with ultrasound as clinically warranted. The bladder is grossly unremarkable. Ring-enhancing left adnexal lesion image 55/2, image 25/4. This measures approximately 1.5 x 1.4 cm. Miscellaneous: No inguinal hernias or adenopathy. Bones: No suspicious bony lesions. No vertebral body compression fractures. IMPRESSION: Heterogeneous appearance of the uterus raising possibility of fibroids. This could be further assessed and confirmed with pelvic ultrasound as clinically necessary. Left adnexal ring-enhancing lesion, technically indeterminate. This could represent hemorrhagic ovarian cyst although recommend confirmation of negative test. Further evaluation could be obtained with dedicated pelvic ultrasound Dictated by: Leobardo Franks M.D. on 07/15/2020 at 11:07 Approved by: Leobardo Franks M.D. on 07/15/2020 at 11:17
[2020-07-15 09:52] LABS: Bacteria Urine Occasional (0-1); Culture Indicated Urine Cult Not Indicated; Squamous Epithelial Cell Urine 10-30 /HPF (0-5/HPF)
[2020-07-15] MEDS: KETOROLAC 60 MG/2 ML VIAL 30 MG IV (09:53)
[2020-07-15] MEDS: HYDROMORPHONE 1 MG INJ IV (09:53)
[2020-07-15] MEDS: ONDANSETRON 4 MG/2 ML INJ IV ×3 (09:53→13:44)
[2020-07-15 09:59] LABS: Alanine Aminotransferase 16 IU/L (<35); Albumin 4.7 g/dL (3.5-5.0); Albumin Globulin Ratio 1.7 (1.0-2.8); Alkaline Phosphatase 67 U/L (38-126); Aspartate Aminotransferase 25 IU/L (14-36); BUN Creatinine Ratio 21.9 (6-22); Bilirubin Total 0.1 mg/dL (0.2-1.3); Blood Urea Nitrogen 14 mg/dL (7-17); Calcium 9.3 mg/dL (8.4-10.2); Carbon Dioxide 21 mmol/L (22-32); Chloride 107 mmol/L (98-107); Estimated Glomerular Filt Rate > 60.0 mL/min (>60); Globulin 2.7 g/dL (1.7-4.1); Glucose 96 mg/dL (70-100); HEMOLYSIS < 15 (0-50); Lipase 98 U/L (23-300); Potassium 4.2 mmol/L (3.4-5.1); Sodium 137 mmol/L (137-145); Total Protein 7.4 g/dL (6.3-8.2)
--- NOTE | 2020-07-15 11:29 | DI.US.S_ITS ---
PROCEDURE: US PELVIC COMPLETE INDICATIONS: LEFT ADNEXAL RING ADHANCING LESION ON CT. History of tubal ligation, LMP 07/01/20. TECHNIQUE: Real-time scanning was performed of the pelvic organs, with image documentation. Additional endovaginal scanning was necessary due to incomplete visualization of the adnexal and endometrial structures by transabdominal scanning. COMPARISON: [facility], CT, CT ABDOMEN PELVIS W CON, 07/15/2020, 10:50. [facility], US, PELVIC COMPLETE, 11/01/2016, 9:47. FINDINGS: Uterus: Uterus is normal in size at 8.7 x 5.3 x 4.2 cm. The endometrium measures 8-9 mm in combined thickness. Simple appearing anterior endometrial cyst measuring 3 mm. Ovaries: Right ovary measures 3.3 x 3.1 x 3.5 cm. Left ovary measures 4.1 x 2.5 x 2.2 cm. Doppler interrogation demonstrates expected waveforms in both ovaries. Simple appearing follicle seen within the right ovary measuring 2.3 cm. Within the left ovary, there is a 1.9 x 1.9 x 1.8 cm heterogeneous lesion with hyperechoic appearance and internal echoes, and associated vascularity . Left ovary was suboptimally imaged by ultrasound due to difficulty with patient positioning and discomfort at the time of the examination. Other: No pathologic free abdominal or pelvic fluid. IMPRESSION: Ill-defined heterogeneous left ovarian focus with associated vascularity (probably reflecting the appearance on the prior CT). Unclear if the vascularity is internal versus peripheral given the small size of the lesion. This could still represent involuting or hemorrhagic ovarian cyst although technically indeterminate and recommend follow-up in 6 weeks with pelvic ultrasound to demonstrate resolution and exclude other etiologies. If clinical suspicion of contraception failure, correlation with test could be performed. Dictated by: Leobardo Franks M.D. on 07/15/2020 at 13:26 Approved by: Leobardo Franks M.D. on 07/15/2020 at 13:36
[2020-07-15] MEDS: HYDROMORPHONE 0.5 MG INJ IV ×2 (11:35→13:43)
--- NOTE | 2020-07-15 14:34 | PC.NURSE ---
The patient left the facility in her vehicle. She was immediately called and informed that she was not safe to drive due to her pain medication and needed to pin puller and find a ride home. She stated that [place] the [place] hospital and was already at her house safely.
== END 2020-07-15 14:35 | disposition home or self-care (01) ==
PROVIDERS: Emergency Provider Emergency Medicine; PCP Family Medicine
DX: N83.202 Unspecified ovarian cyst, left side (principal); R11.0 Nausea; M54.9 Dorsalgia, unspecified
CPT/HCPCS: 36415; 74177; 76830; 76856; 80053; 81001; 81025; 83690; 85025; 96374; 96375; 96376; 99284; J1170; J1885; J2405; Q9967

== ENCOUNTER → 2020-07-30 12:36 | Outpatient (CLI) | payer OTHER, MEDICAID, SELFPAY ==
--- NOTE | 2020-07-30 12:38 | DI.RAD.S_ITS ---
PROCEDURE: XR LUMBAR SPINE MIN 4V INDICATIONS: back pain TECHNIQUE: 5 views of the lumbar spine were acquired, including bilateral oblique views. COMPARISON: [facility], CR, XR THORACIC SPINE 2V, 07/30/2020, 12:36. FINDINGS: Bones: 5 nonrib-bearing vertebrae are present. There is normal bony alignment. No vertebral body compression fractures. No suspicious bony lesions. Soft tissues: Overlying bowel gas pattern is normal. No suspicious soft tissue calcifications. Oblique images: No pars defects. IMPRESSION: Normal lumbar spine. Dictated by: Frank Frias M.D. on 07/30/2020 at 17:16 Approved by: Frank Frias M.D. on 07/30/2020 at 17:17
--- NOTE | 2020-07-30 12:38 | DI.RAD.S_ITS ---
PROCEDURE: XR CERVICAL SPINE 4V OR 5V INDICATIONS: back pain TECHNIQUE: 5 views of the cervical spine acquired. COMPARISON: None. FINDINGS: Bones: No fractures or dislocations to the T1 level. Straightening of cervical curvature. Mild facet arthropathy at C4-C5 and C5-C6. Oblique images demonstrate no bony foraminal stenoses. Soft tissues: No prevertebral soft tissue swelling. IMPRESSION: 1. Mild facet arthropathy at C4-C5 and C5-C6. Dictated by: Frank Frias M.D. on 07/30/2020 at 17:14 Approved by: Frank Frias M.D. on 07/30/2020 at 17:16
--- NOTE | 2020-07-30 12:38 | DI.RAD.S_ITS ---
PROCEDURE: XR THORACIC SPINE 2V INDICATIONS: back pain TECHNIQUE: 3 views of the thoracic spine were acquired. COMPARISON: [facility], CR, XR LUMBAR SPINE MIN 4V, 07/30/2020, 12:36. FINDINGS: Bones: No fractures or dislocations. No suspicious bony lesions. 11 pairs of ribs are noted, and appear intact where visualized. There is vestigial 12 rib on the right. Soft tissues: No paravertebral stripe thickening. IMPRESSION: 1. Vestigial right 12th rib. Otherwise normal thoracic spine. Dictated by: Frank Frias M.D. on 07/30/2020 at 17:18 Approved by: Frank Frias M.D. on 07/30/2020 at 17:19
== END ==
PROVIDERS: PCP Registered Nurse Diabetes Educator; Referring Provider Registered Nurse Diabetes Educator; Visit Provider Registered Nurse Diabetes Educator
DX: M54.10 Radiculopathy, site unspecified (principal); M54.9 Dorsalgia, unspecified; M47.812 Spondylosis without myelopathy or radiculopathy, cervical region
CPT/HCPCS: 72050; 72070; 72110

== ENCOUNTER → 2020-08-20 10:06 | Outpatient (CLI) | payer OTHER, MEDICAID, SELFPAY ==
--- NOTE | 2020-08-20 10:07 | DI.RAD.S_ITS ---
PROCEDURE: XR HAND RT MIN 3V INDICATIONS: firm tender mass palmar aspect R hand TECHNIQUE: 3 views of the hand(s) acquired. COMPARISON: None. FINDINGS: Bones: No fractures or dislocations. Carpal bones are normally aligned. No suspicious bony lesions. Soft tissues: No suspicious soft tissue calcifications. IMPRESSION: No trauma found. Source of current pain is not seen. Dictated by: Antonio Pantoja M.D. on 08/20/2020 at 11:02 Approved by: Antonio Pantoja M.D. on 08/20/2020 at 11:03
[2020-08-20 10:51] LABS: Add Manual Diff / Slide Review NO; Basophils Absolute Auto 100 /uL (0-100); Basophils Percent Auto 0.4 % (0-2); Eosinophils Absolute Auto 100 /uL (0-450); Eosinophils Percent Auto 0.5 % (2-4); Hematocrit 37.9 % (36-46); Hemoglobin 12.8 g/dL (12.0-16.0); Lymphocytes Absolute Auto 3400 /uL (1100-4500); Lymphocytes Percent Auto 24.5 % (25-40); Mean Corpuscular HGB Conc 33.9 % (30-36); Mean Corpuscular Hemoglobin 31.6 PG (26-34); Mean Corpuscular Volume 93.2 fL (80-100); Monocytes Absolute Auto 600 /uL (0-900); Monocytes Percent Auto 4.1 % (3-14); Neutrophils Absolute Auto 9700 /uL (1500-7000); Neutrophils Percent Auto 70.5 % (50-75); Platelet Count 238 X10^3/uL (150-400); Red Blood Cell Count 4.07 X10^6/uL (4.0-5.2); Red Cell Distribution Width 12.8 % (11.6-14.8); White Blood Cell Count 13.8 X10^3/uL (4.5-11.0)
[2020-08-20 11:23] LABS: Rheumatoid Factor < 8.6 IU/mL (<12.0)
[2020-08-20 11:51] LABS: TSH w/ Reflex to FT4 1.75 uIU/mL (0.47-4.68)
[2020-08-20 13:39] LABS: Erythrocyte Sedimentation Rate 5 MM/HR (0-20)
[2020-08-21 16:27] LABS: C-Reactive Protein Quant < 0.5 mg/dL (<1.0)
[2020-08-21 18:26] LABS: ANA Screen, IFA Negative (.); Deamidated Gliadin Ab IgA 3 units (0-19); Deamidated Gliadin Ab IgG 1 units (0-19); Immunoglobulin A,Qn 161 mg/dL (87-352); t-Transglutaminase IgA <2 U/mL (0-3)
[2020-08-22 20:56] LABS: CCP Antibodies IgG/IgA 2 units (0-19)
[2020-08-29 00:44] LABS: HLA B27 Negative (.)
== END ==
PROVIDERS: PCP Registered Nurse Diabetes Educator; Referring Provider Registered Nurse Diabetes Educator; Visit Provider Registered Nurse Diabetes Educator
DX: R22.31 Localized swelling, mass and lump, right upper limb (principal); M25.50 Pain in unspecified joint; M54.9 Dorsalgia, unspecified; R10.9 Unspecified abdominal pain; R19.4 Change in bowel habit
CPT/HCPCS: 36415; 73130; 81374; 82784; 83516; 84443; 85025; 85651; 86038; 86140; 86200; 86430

== ENCOUNTER → 2020-08-22 15:35 | Outpatient (CLI) | payer OTHER, MEDICAID, SELFPAY ==
--- NOTE | 2020-08-22 15:36 | DI.US.S_ITS ---
PROCEDURE: US EXTREMELY NONVASC UPPER RT INDICATIONS: FIRM TENDER MASS RIGHT RIGHT PALMAR HAND TECHNIQUE: Real-time scanning was performed of the right hand, with image documentation. COMPARISON: None. FINDINGS: Multiple grayscale and color Doppler images of the right hand were acquired targeting the patient directed area of palpable concern. There is a superficial wider than tall 0.4 x 0.4 x 0.2 cm simple appearing cyst. No suspicious solid mass lesions. Overlying skin appears normal. IMPRESSION: There is a 0.4 cm simple appearing cyst in the palmar aspect of the right hand correlating with palpable area of patient concern. No suspicious solid mass lesions. Recommend continued clinical surveillance with repeat imaging as indicated. Dictated by: Renny Bedolla M.D. on 08/22/2020 at 16:01 Approved by: Renny Bedolla M.D. on 08/22/2020 at 16:03
== END ==
PROVIDERS: PCP Registered Nurse Diabetes Educator; Referring Provider Registered Nurse Diabetes Educator; Visit Provider Registered Nurse Diabetes Educator
DX: R22.31 Localized swelling, mass and lump, right upper limb (principal)
CPT/HCPCS: 76882

== ENCOUNTER → 2021-03-01 12:42 | Outpatient (CLI) | payer OTHER, MEDICAID, SELFPAY ==
--- NOTE | 2021-03-01 | DI.MRI.S_ITS ---
PROCEDURE: MR HAND RT WO CON INDICATIONS: Ganglion, right hand TECHNIQUE: Noncontrast coronal T1 spin echo and T2 fast spin echo with fat saturation, axial proton density fast spin echo and T2 fast spin echo with fat saturation, sagittal T1 spin echo and STIR through the hand and fingers. COMPARISON: None. FINDINGS: Image quality: Excellent. Bones: The bones are normally aligned, without marrow contusions or fractures. No intra-osseous lesions. Soft tissues: An ovoid lesion is seen in the subcutaneous tissues at the volar aspect of the hand, superficial to the 3rd flexor tendons, of the level of the 3rd metacarpal neck that measures 10 x 4 x 12 mm. The lesion is hypointense on T1-weighted images and hyperintense on T2-weighted images, but slightly less hyperintense than simple fluid. No communication with a joint space is seen. The adjacent flexor tendons are intact. No osseous involvement is seen. No additional soft tissue lesion is seen. Visualized muscles demonstrate normal bulk and internal signal. No intramuscular masses identified. IMPRESSION: Ovoid 12 x 10 x 4 mm lesion is seen in the subcutaneous tissues at the volar aspect of the hand overlying the 3rd flexor tendon. Differential considerations include a nonspecific benign or malignant soft tissue mass such as a tenosynovial giant cell tumor, versus a cystic lesion. Targeted ultrasound or repeat MRI with contrast could be performed to evaluate if lesion is cystic or solid. No definite involvement of the flexor tendons or osseous structures is seen. Dictated by: Ancelmo Barney M.D. on 03/03/2021 at 9:30 Approved by: Ancelmo Barney M.D. on 03/03/2021 at 9:46
== END ==
PROVIDERS: PCP Registered Nurse Diabetes Educator; Referring Provider Physician Assistant; Visit Provider Physician Assistant
DX: M67.441 Ganglion, right hand (principal)
CPT/HCPCS: 73218

== ENCOUNTER 2021-08-15 15:03 | Emergency (ER) | payer OTHER, MEDICAID, SELFPAY ==
[2021-08-15] VITALS (10 sets, daily range): BP systolic 100–106; BP diastolic 53–57; PULSE 73–101; RESP 18; TEMP 37.3; O2SAT 95–98; BMI 20.7
--- NOTE | 2021-08-15 15:13 | ED_ITS ---
HPI - Female Genitourinary General Chief complaint: Urogenital-Female Stated complaint: Thinks possible UTI or Kidney stone Time Seen by Provider: 08/15/21 15:13 History of Present Illness HPI Narrative: 36-year-old female daily smoker with history of ovarian cysts and kidney stones presents with a chief complaint of gradually worsening suprapubic discomfort and burning with urination over the past 12 hours or so. She denies nausea, vomiting or diarrhea. She has no chest pain or shortness of breath. She denies any vaginal bleeding or discharge. She states her symptoms are worse with motion and improves with rest. Related Data Home Medications Medication Instructions Recorded Confirmed Probiotic with Prebiotic 2 cap PO .QDAY 06/07/18 01/07/21 Previous Rx's Medication Instructions Recorded albuterol sulfate 90 mcg/actuation 2 puff INHALATION QIDP PRN #1 ea 09/29/17 aerosol inhaler (Ventolin HFA) ondansetron 4 mg disintegrating 4 mg PO Q6H PRN #10 tab 07/15/20 tablet epinephrine 0.3 mg/0.3 mL 0.3 mg (0.3 mL) IM ONCE #2 ea 08/14/20 injection, auto-injector (EpiPen 2-Al) duloxetine 60 mg capsule,delayed 60 mg PO DAILY #90 cap 01/14/21 release doxycycline hyclate 100 mg tablet 100 mg PO BID #20 tab 08/15/21 hydrocodone 5 mg-acetaminophen 325 1 tab PO Q4-6H PRN #10 tab 08/15/21 mg tablet ondansetron 4 mg disintegrating 4 mg PO TID-QID PRN #10 tab 08/15/21 tablet Allergies Allergy/AdvReac Type Severity Reaction Status Date / Time venom-honey bee Allergy Severe TROUBLE Verified 02/12/21 18:07 [BEE VENOM (HONEY BEE)] BREATHING sertraline Allergy Intermediate Migraine Verified 02/12/21 18:07 cefaclor [CEFACLOR] Allergy Unknown I was Verified 02/12/21 18:07 young. I can't remember. Sulfa (Sulfonamide Allergy Unknown I was Verified 02/12/21 18:07 Antibiotics) young. I [SULFA (SULFONAMIDE can't ANTIBIOTICS)] remember. cyclobenzaprine AdvReac Intermediate Migraine Verified 02/12/21 18:07 escitalopram AdvReac Intermediate vertigo, Verified 02/12/21 18:07 headache, weak feeling, and extremely tired. methocarbamol AdvReac Intermediate Migraine Verified 02/12/21 18:07 metronidazole AdvReac Intermediate diarrhea Verified 02/12/21 18:07 and cramps Review of Systems Review of Systems Narrative: GENERAL: See HPI HEENT: Denies sinus pain, ear pain, sore throat, difficulty swallowing, dizziness. RESPIRATORY: Denies dyspnea, cough, wheezing, hemoptysis, sputum. CARDIOVASCULAR: Denies chest pain, palpitations, orthopnea, edema, GASTROINTESTINAL: Denies nausea, vomiting, abdominal pain, diarrhea, con stipation, melena. : See HPI MUSCULOSKELETAL: denies weakness, joint pain, or bony pain SKIN: Denies rash, skin lesions, or other NEUROLOGIC: Denies weakness, headache, numbness, change in speech, confusion, seizures, incoordination. PSYCHIATRIC: No concerning psychosocial issues. 12 point review of systems is negative except for those stated above Patient History Medical History Abnormal Pap smear of cervix (10/30/16) Admission for sterilization (~12/20/19) Alcohol abuse (~10/2015) Anxiety Arthritis Asthma Bacterial vaginosis Bilateral temporomandibular joint pain C. difficile colitis (09/2016) Chicken pox Chronic back pain Chronic migraine w/o aura w/o status migrainosus, not intractable Chronic neck pain Eczema Scoliosis Surgical History Anesthesia History of umbilical hernia repair Status post appendectomy Family History Brother Age: 33 Asthma NF2 (neurofibromatosis 2) Mother Age: 67 Asthma Thyroid disease Diabetes mellitus Sister Age: 30 Thyroid disease Bipolar 1 disorder Son Alopecia Substance Use Type: marijuana Exam Narrative Exam Narrative: GENERAL: [36] year old patient appears stated age. Well-developed patient, in mild distress. Rubbing her lower abdomen, obviously uncomfortable HEAD: Atraumatic. Normocephalic. EYES: Pupils equal round and reactive. Extraocular motions intact. No scleral icterus. No injection or drainage. ENT: Nose without bleeding, purulent drainage. Throat without erythema, tonsillar hypertrophy or exudate. Airway patent. NECK: Trachea midline. Non tender CARDIOVASCULAR: Regular rate and rhythm without murmurs, gallops, or rubs. RESPIRATORY: Clear to auscultation. Breath sounds equal bilaterally. No wheezes, rales, or rhonchi. GASTROINTESTINAL: Abdomen soft, non-tender, nondistended. PELVIC: Very minimal if any discharge, no cervical erythema or obvious irritation. EXTREMITIES: No edema or joint tenderness. BACK: Nontender without deformity or crepitance. No flank tenderness. NEURO: AOx3. SKIN: No rash or erythema of visible areas Initial Vital Signs Initial Vital Signs: Vital Signs Pulse Rate 98 H 08/15/21 15:14 Pulse Oximetry 97 08/15/21 15:14 Course Orders Ordered: ED Orders 08/15/21 15:30 Complete Blood Count AUTO DIFF Stat Comprehensive Metabolic Panel Stat 08/15/21 16:12 US pelvic complete Stat 08/15/21 17:34 Genital Culture Stat Wet Prep Tric BV Teagan Stat Discontinued Medications Hydromorphone HCl (Hydromorphone 0.5 Mg Inj) 0.5 mg IV NOW ONE Stop: 08/15/21 16:13 Last Admin: 08/15/21 16:21 Dose: 0.5 mg Documented by: DOMINIC Sodium Chloride (Normal Saline 0.9%) 1,000 mls @ 1,000 mls/hr IV BOLUS ONE Stop: 08/15/21 16:20 Last Infusion: 08/15/21 16:46 Dose: 0 mls/hr Documented by: Admin: 08/15/21 15:44 Dose: 1,000 mls/hr Documented by: STEVE Ceftriaxone Sodium 500 mg/ (Dextrose) 50 mls @ 100 mls/hr IV NOW ONE Stop: 08/15/21 17:36 Ketorolac Tromethamine (Ketorolac 30 Mg/Ml Vial) 15 mg IV NOW ONE Stop: 08/15/21 15:22 Last Admin: 08/15/21 15:43 Dose: 15 mg Documented by: STEVE Vital Signs Vital signs: Vital Signs - 8 hr 08/15/21 15:14 08/15/21 15:15 08/15/21 15:18 Temperature 99.1 F Pulse Rate 98 H 101 H 90 Respiratory Rate 18 Blood Pressure 100/57 L 100/57 L Pulse Oximetry 97 97 98 08/15/21 15:30 08/15/21 16:00 08/15/21 16:30 Temperature Pulse Rate 83 77 74 Respiratory Rate Blood Pressure Pulse Oximetry 97 97 96 08/15/21 17:00 08/15/21 17:30 Temperature Pulse Rate 73 76 Respiratory Rate Blood Pressure Pulse Oximetry 96 97 MDM - Female Genitourinary Lab Data Result diagrams: 08/15/21 15:30 08/15/21 15:30 Labs: Lab Results 08/15/21 08/15/21 Range/Units 15:30 15:30 WBC 9.2 (4.5-11.0) X10^3/uL RBC 3.99 L (4.0-5.2) X10^6/uL Hgb 12.9 (12.0-16.0) g/dL Hct 37.0 (36-46) % MCV 92.7 (80-100) fL MCH 32.3 (26-34) PG MCHC 34.8 (30-36) % RDW 12.5 (11.6-14.8) % Plt Count 249 (150-400) X10^3/uL Neut % (Auto) 50.6 (50-75) % Lymph % (Auto) 43.5 H (25-40) % [place] % (Auto) 4.3 (3-14) % Eos % (Auto) 1.0 L (2-4) % Baso % (Auto) 0.6 (0-2) % Neut # (Auto) 4600 (6758-2768) /uL Lymph # (Auto) 4000 (5873-5423) /uL [place] # (Auto) 400 (0-900) /uL Eos # (Auto) 100 (0-450) /uL Baso # (Auto) 100 (0-100) /uL Sodium 140 (137-145) mmol/L Potassium 3.9 (3.4-5.1) mmol/L Chloride 105 (98-107) mmol/L Carbon Dioxide 28 (22-32) mmol/L BUN 14 (7-17) mg/dL Creatinine 0.69 (0.52-1.04) mg/dL Estimated GFR > 60.0 (>60) mL/min BUN/Creatinine Ratio 20.3 (6-22) Glucose 112 H (70-100) mg/dL Calcium 8.7 (8.4-10.2) mg/dL Total Bilirubin 0.5 (0.2-1.3) mg/dL AST 25 (14-36) IU/L ALT 15 (<35) IU/L Alkaline Phosphatase 43 (38-126) U/L Total Protein 7.2 (6.3-8.2) g/dL Albumin 4.4 (3.5-5.0) g/dL Globulin 2.8 (1.7-4.1) g/dL Albumin/Globulin Ratio 1.6 (1.0-2.8) Point of Care Testing Test Results Negative Urine Dip Bedside Urine Glucose Negative Bedside Urine Bilirubin - Negative Bedside Urine Ketone - Negative Urine Specific New Site 1.015 Bedside Urine Occult Blood - Negative Bedside Urine pH 6.5 Bedside Urine Protein - Negative Bedside Urine Urobilinogen - Negative Bedside Urine Nitrite - Negative Bedside Urine Leukocytes - Negative Esterase Imaging Data US - TRAFFIC CONTROL TECHNICIAN: Radiologist's Impression: Chart Viewer Diagnostics Subcategory All Activity ??:?? All Time ??:?? All Subcategories Filter Laboratory Imaging Microbiology Pathology Blood Bank Tests Cardiovascular Other Specialty DATE TYPE STATUS REF RANGE/AUTHOR Hx Today 16:12 Pelvis Ultrasound Signed Karie Owusu 03/01/21 00:00 Hand MRI Signed Ancelmo Barney 08/22/20 15:36 Extremity Ultrasound Signed Renny Bedolla 08/20/20 10:07 Hand X-Ray Signed Antonio Pantoja 07/30/20 12:38 Thoracic Spine X-Ray Signed Ashwini Frias 07/30/20 12:38 Thoracic Spine X-Ray Cancelled 07/30/20 12:38 Lumbar Spine X-Ray Signed Ashwini Frias 07/30/20 12:38 Cervical Spine X-Ray Signed Ashwini Frias 07/30/20 12:38 Cervical Spine X-Ray Cancelled 07/15/20 11:29 Pelvis Ultrasound Signed Leobardo Franks 07/15/20 09:50 Abdomen/Pelvis CT Signed Leobardo Franks 12/19/19 07:22 Telemetry Strips ? 11/22/19 11:37 Telemetry Strips ? 08/21/19 09:52 Obstetrics Ultrasound Signed Antonio Pantoja 08/03/19 15:07 Ultrasound Signed Farzaneh Neville 07/13/19 11:37 Renal Ultrasound Signed Aiden Gibbs 05/08/19 14:11 Ultrasound Signed CallSeth 11/10/17 09:04 Telemetry Strips ? 11/01/16 10:21 Radiology - Historical ? 11/01/16 08:44 Radiology - Historical ? Annie Tamez ED 36, F?1985 MRN#? [id number] [facility] ER,?Main ED??R06?? 162.56cm 54.885kg BMI: 20.8kg/m? Urogenital-Female Acc#? [id number] Resus Status Not Ordered Hx Avail Special Indicators No Data to Display Home Meds Not Confirmed Prescription Monitoring Program Total 30 MME/Day Pending Discharge MEDICATIONS (INSTRUCTIONS) LAST TAKEN Active ??albuterol sulfate 90 mcg/actuation aerosol inhaler ??2 puffINHALATIONQIDPPRN#1 ea doxycycline hyclate 100 mgPOBID#20 tab ??duloxetine 60 mg capsule,delayed release ??60 mgPODAILY#90 cap ??epinephrine 0.3 mg/0.3 mL injection, auto-injector ??0.3 gp2MXXYRV#2 ea hydrocodone-acetaminophen 1 tabPOQ4-6HPRN#10 tab 30 MME/Day ??ondansetron ??4 olDGS4ZWVP#10 tab ondansetron 4 mgPOTID-QIDPRN#10 tab ??Probiotic with Prebiotic ??2 capPO.QDAY ?Not Included in Conflicts Allergies venom-honey bee (BEE VENOM (HONEY BEE)) TROUBLE BREATHING sertraline Migraine cefaclor (CEFACLOR) I was young. I can't remember. Sulfa (Sulfonamide Antibiotics) (SULFA (SULFONAMIDE ANTIBIOTICS)) I was young. I can't remember. cyclobenzaprine Migraine escitalopram vertigo, headache, weak feeling, and extremely tired. methocarbamol Migraine metronidazole diarrhea and cramps Problems ? ONSET Pelvic pain Pelvic congestion Chronic migraine w/o aura w/o status migrainosus, not intractable Bilateral temporomandibular joint pain Eczema Asthma Left lower quadrant pain Dysmenorrhea Menorrhagia with regular cycle Chronic neck pain Chronic back pain Candidiasis of genitalia in female Skin irritation due to topical agent Normal vaginal delivery ~12/19/19 Influenza Chronic diarrhea Back pain with sciatica Alcoholism in remission Generalized anxiety disorder with panic attacks Vital Signs Today 17:30 Pulse 76? O2 Sat 97? Diagnostics Reports Annie Tamez??36??F??1985 ? Allergy/Adv: venom-honey bee, sertraline, cefaclor, Sulfa (Sulfonamide Antibiotics), cyclobenzaprine, escitalopram, methocarbamol, metronidazole (More??) Close Pelvis Ultrasound (Signed) Karie Owusu - 08/15/21 Hand MRI (Signed) Ancelmo Barney - 03/01/21 Extremity Ultrasound (Signed) Renny Bedolla - 08/22/20 Hand X-Ray (Signed) Antonio Pantoja - 08/20/20 Thoracic Spine X-Ray (Signed) Ashwini Frias - 07/30/20 Thoracic Spine X-Ray (Cancelled) 07/30/20 Lumbar Spine X-Ray (Signed) Ashwini Frias - 07/30/20 Cervical Spine X-Ray (Signed) Ashwini Frias - 07/30/20 Cervical Spine X-Ray (Cancelled) 07/30/20 Pelvis Ultrasound (Signed) Leobardo Franks - 07/15/20 Abdomen/Pelvis CT (Signed) Leobardo Franks - 07/15/20 Telemetry Strips 12/19/19 Telemetry Strips 11/22/19 Obstetrics Ultrasound (Signed) Antonio Pantoja - 08/21/19 Ultrasound (Signed) Farzaneh Neville - 08/03/19 Renal Ultrasound (Signed) Aiden Gibbs - 07/13/19 Ultrasound (Signed) Seth Umanzor - 05/08/19 Telemetry Strips 11/10/17 Radiology - Historical 11/01/16 Radiology - Historical 11/01/16 [place] [address] Ultrasound Report Signed Patient: Annie Tamez MR#: [id number] : 1985 Acct:[id number] Age/Sex: 36 / F Date of Service: 08/15/21 Loc: ED Accession Number: [id number] ?? Procedure: US pelvic complete Ordering Provider: Piyush Dyson D.O. PROCEDURE:? US PELVIC COMPLETE ? INDICATIONS:? RLQ PAIN ? TECHNIQUE:? Real-time scanning was performed of the pelvic organs, with image documentation.? Additional endovaginal scanning was necessary due to incomplete visualization of the adnexal and endometrial structures by transabdominal scanning.? ? COMPARISON:? [facility], , US PELVIC COMPLETE, 08/20/2020, 10:58. ? FINDINGS:? ?? Uterus:? Uterus is anteverted and normal in size at 8.4 x 4.0 x 4.8 cm. The myometrium is homogeneous. ? The endometrium measures 5.0 mm combined thickness. ? There incidentally noted tortuous periuterine veins. ? Ovaries:? The right ovary measures 3.4 x 2.8 x 2.4 cm. The left ovary measures 3.2 x 2.4 x 2.6 cm. The ovaries have a normal sonographic appearance. No adnexal masses are seen. ? Other:? No pathologic free abdominal or pelvic fluid. ? ? IMPRESSION:? ? 1. Ectatic vessels adjacent to the uterus.? This is a nonspecific finding but can be associated with pelvic congestion syndrome. ? 2. Otherwise unremarkable pelvic ultrasound. ? We strive to produce accurate, complete, and clear reports of imaging services. To assist us in improving patient care, this report was composed using standard report templates and voice recognition software. Therefore, it may contain abnormal punctuation, insertions and/or omissions. Occasional wrong-word or sound-alike substitutions may occur. Though we review the report and make efforts to correct it, we do recommend that the report be read carefully in proper context to recognize any text inaccuracies. ? ? Dictated by: Karie Owusu M.D. on 08/15/2021 at 16:52 ? ? Approved by: Karie Owusu M.D. on 08/15/2021 at 16:54 MDM Narrative Medical decision making narrative: Multiple etiologies for patient's symptoms considered including: [Kidney stone versus urinary tract infection versus pelvic infection including pelvic inflammatory disease and tubo-ovarian abscess versus torsion versus appendicitis versus other Patient's symptoms improved over duration of stay with above-stated therapies. Findings and discharge diagnosis discussed with patient/family followed by verbalization of understanding Return precautions discussed with patient/family whom verbalize understanding. Discharge Plan Departure Patient Disposition: Home Clinical Impression: Pelvic pain, Pelvic congestion Instructions: DI for Pelvic Pain Activity Restrictions/Additional Instructions: *You have been diagnosed with [pelvic pain. As we discussed your urine shows no sign of infection, your ultrasound would suggest the possibility of pelvic congestion but no ovarian issue. *What to do: *Please continue to take your regular medications as directed. [ x] New medication prescriptions sent to your pharmacy: [[facility] ] [ ] New medication written as a paper prescription [ ] No new medications given *Please follow up with your primary care provider in 2-3 days, call for an appointment. Let them know you were seen in the Emergency Department and that we ask that you be seen in follow up. We will electronically transmit a record of today's note if your PCP is in our system *If you do not have a primary care provider please contact the [facility] line at [phone]. They will ask some questions about your medical history and help get you set up with a doctor in the community. *Return to Emergency Department if you should have any new, worsening or concerning symptoms, such as [fever greater than 101 F, shaking chills, worsening pain, persistent vomiting or other bothersome symptoms] Prescriptions: New hydrocodone-acetaminophen 5-325 mg tablet 1 tab PO Q4-6H PRN (Reason: pain) Qty: 10 0RF ondansetron 4 mg tablet,disintegrating 4 mg PO TID-QID PRN (Reason: nausea and vomiting) Qty: 10 0RF doxycycline hyclate 100 mg tablet 100 mg PO BID Qty: 20 0RF No Action Probiotic with Prebiotic 2 cap PO .QDAY 0RF albuterol sulfate [Ventolin HFA] 90 mcg/actuation HFA aerosol inhaler 2 puff INHALATION QIDP PRN (Reason: shortness of breath or wheezing) Qty: 1 3RF Hold Instructions: duloxetine 60 mg capsule,delayed release(DR/EC) 60 mg PO DAILY Qty: 90 3RF epinephrine [EpiPen 2-Al] 0.3 mg/0.3 mL auto-injector 0.3 mg IM ONCE Qty: 2 0RF Rx Instructions: as a single dose; may repeat once ondansetron 4 mg tablet,disintegrating 4 mg PO Q6H PRN (Reason: nausea and vomiting) Qty: 10 0RF Referrals: Feroz Max ARNP [Primary Care Provider] - Darrell Lopez MD [Physician] -
[2021-08-15 15:42] LABS: Add Manual Diff / Slide Review NO; Basophils Absolute Auto 100 /uL (0-100); Basophils Percent Auto 0.6 % (0-2); Eosinophils Absolute Auto 100 /uL (0-450); Hemoglobin 12.9 g/dL (12.0-16.0); Lymphocytes Absolute Auto 4000 /uL (1100-4500); Lymphocytes Percent Auto 43.5 % (25-40); Mean Corpuscular HGB Conc 34.8 % (30-36); Mean Corpuscular Hemoglobin 32.3 PG (26-34); Mean Corpuscular Volume 92.7 fL (80-100); Monocytes Absolute Auto 400 /uL (0-900); Monocytes Percent Auto 4.3 % (3-14); Neutrophils Absolute Auto 4600 /uL (1500-7000); Neutrophils Percent Auto 50.6 % (50-75); Platelet Count 249 X10^3/uL (150-400); Red Blood Cell Count 3.99 X10^6/uL (4.0-5.2); Red Cell Distribution Width 12.5 % (11.6-14.8); White Blood Cell Count 9.2 X10^3/uL (4.5-11.0)
[2021-08-15] MEDS: KETOROLAC 30 MG/ML VIAL 15 MG IV (15:43)
[2021-08-15] MEDS: SODIUM CHLORIDE 0.9% 1,000 ML 1000 ML IV (15:44)
[2021-08-15 15:55] LABS: Alanine Aminotransferase 15 IU/L (<35); Albumin 4.4 g/dL (3.5-5.0); Albumin Globulin Ratio 1.6 (1.0-2.8); Alkaline Phosphatase 43 U/L (38-126); Aspartate Aminotransferase 25 IU/L (14-36); BUN Creatinine Ratio 20.3 (6-22); Bilirubin Total 0.5 mg/dL (0.2-1.3); Blood Urea Nitrogen 14 mg/dL (7-17); Calcium 8.7 mg/dL (8.4-10.2); Carbon Dioxide 28 mmol/L (22-32); Chloride 105 mmol/L (98-107); Estimated Glomerular Filt Rate > 60.0 mL/min (>60); Globulin 2.8 g/dL (1.7-4.1); Glucose 112 mg/dL (70-100); HEMOLYSIS 22 (0-50); Potassium 3.9 mmol/L (3.4-5.1); Sodium 140 mmol/L (137-145); Total Protein 7.2 g/dL (6.3-8.2)
--- NOTE | 2021-08-15 16:12 | DI.US.S_ITS ---
PROCEDURE: US PELVIC COMPLETE INDICATIONS: RLQ PAIN TECHNIQUE: Real-time scanning was performed of the pelvic organs, with image documentation. Additional endovaginal scanning was necessary due to incomplete visualization of the adnexal and endometrial structures by transabdominal scanning. COMPARISON: [facility], US, US PELVIC COMPLETE, 08/20/2020, 10:58. FINDINGS: Uterus: Uterus is anteverted and normal in size at 8.4 x 4.0 x 4.8 cm. The myometrium is homogeneous. The endometrium measures 5.0 mm combined thickness. There incidentally noted tortuous periuterine veins. Ovaries: The right ovary measures 3.4 x 2.8 x 2.4 cm. The left ovary measures 3.2 x 2.4 x 2.6 cm. The ovaries have a normal sonographic appearance. No adnexal masses are seen. Other: No pathologic free abdominal or pelvic fluid. IMPRESSION: 1. Ectatic vessels adjacent to the uterus. This is a nonspecific finding but can be associated with pelvic congestion syndrome. 2. Otherwise unremarkable pelvic ultrasound. We strive to produce accurate, complete, and clear reports of imaging services. To assist us in improving patient care, this report was composed using standard report templates and voice recognition software. Therefore, it may contain abnormal punctuation, insertions and/or omissions. Occasional wrong-word or sound-alike substitutions may occur. Though we review the report and make efforts to correct it, we do recommend that the report be read carefully in proper context to recognize any text inaccuracies. Dictated by: Karie Owusu M.D. on 08/15/2021 at 16:52 Approved by: Karie Owusu M.D. on 08/15/2021 at 16:54
[2021-08-15] MEDS: HYDROMORPHONE 0.5 MG INJ IV ×2 (16:21→18:08)
[2021-08-15] MEDS: cefTRIAXone 500 MG in DEXTROSE 5 % IN WATER 50 ML 100 ML IV (17:57)
== END 2021-08-15 18:29 | disposition home or self-care (01) ==
PROVIDERS: Emergency Provider Emergency Medicine; PCP Registered Nurse Diabetes Educator
DX: R10.2 Pelvic and perineal pain (principal); N94.89 Other specified conditions associated with female genital organs and menstrual cycle; F17.200 Nicotine dependence, unspecified, uncomplicated; Z88.2 Allergy status to sulfonamides
CPT/HCPCS: 36415; 76830; 76856; 80053; 81003; 81025; 85025; 87070; 87205; 87210; 87252; 96361; 96374; 96375; 96376; 99284; J0696; J1170; J1885

== ENCOUNTER 2021-08-31 17:05 | Emergency (ER) | payer OTHER, MEDICAID, SELFPAY ==
[2021-08-31 17:12] VITALS: BP 111/65; PULSE 84; RESP 20; TEMP 36.7; O2SAT 98
[2021-08-31 17:29] LABS: Appearance Urine UA CLOUDY; Bilirubin Urine UA NEGATIVE (NEGATIVE); Color Urine UA YELLOW; Glucose Urine UA NEGATIVE (Negative); Ketones Urine UA NEGATIVE (NEGATIVE); Leukocyte Esterase Urine UA NEGATIVE (NEGATIVE); Nitrite Urine UA NEGATIVE (Negative); Occult Blood Urine UA NEGATIVE (Negative); Protein Urine UA NEGATIVE (Negative); Specific Gravity Urine UA 1.015 (1.000-1.035); Urobilinogen Urine UA 0.2 E.U./dL (0.2)
[2021-08-31 17:30] LABS: Add Manual Diff / Slide Review NO; Basophils Absolute Auto 100 /uL (0-100); Basophils Percent Auto 0.6 % (0-2); Eosinophils Absolute Auto 200 /uL (0-450); Eosinophils Percent Auto 1.6 % (2-4); Hematocrit 38.3 % (36-46); Hemoglobin 13.1 g/dL (12.0-16.0); Lymphocytes Absolute Auto 2500 /uL (1100-4500); Lymphocytes Percent Auto 21.8 % (25-40); Mean Corpuscular HGB Conc 34.3 % (30-36); Mean Corpuscular Hemoglobin 31.7 PG (26-34); Mean Corpuscular Volume 92.3 fL (80-100); Monocytes Absolute Auto 700 /uL (0-900); Monocytes Percent Auto 5.9 % (3-14); Neutrophils Absolute Auto 8000 /uL (1500-7000); Neutrophils Percent Auto 70.1 % (50-75); Platelet Count 268 X10^3/uL (150-400); Red Blood Cell Count 4.15 X10^6/uL (4.0-5.2); Red Cell Distribution Width 12.8 % (11.6-14.8); White Blood Cell Count 11.4 X10^3/uL (4.5-11.0)
[2021-08-31 17:33] LABS: Pregnancy Test Urine Negative (Negative)
[2021-08-31 17:40] LABS: Alanine Aminotransferase 15 IU/L (<35); Albumin 4.6 g/dL (3.5-5.0); Albumin Globulin Ratio 1.6 (1.0-2.8); Alkaline Phosphatase 51 U/L (38-126); Amorphous Sediment Urine 2+; Aspartate Aminotransferase 23 IU/L (14-36); BUN Creatinine Ratio 20.3 (6-22); Bacteria Urine None Seen; Bilirubin Total 0.2 mg/dL (0.2-1.3); Blood Urea Nitrogen 14 mg/dL (7-17); Calcium 9.1 mg/dL (8.4-10.2); Carbon Dioxide 28 mmol/L (22-32); Chloride 106 mmol/L (98-107); Culture Indicated Urine Cult Not Indicated; Estimated Glomerular Filt Rate > 60 mL/min (>60); Globulin 2.9 g/dL (1.7-4.1); Glucose 115 mg/dL (70-100); HEMOLYSIS < 15 (0-50); Lipase 164 U/L (23-300); Potassium 3.9 mmol/L (3.4-5.1); RBC Urine None Seen (0-5/HPF); Sodium 141 mmol/L (137-145); Squamous Epithelial Cell Urine 10-30 /HPF (0-5/HPF); Total Protein 7.5 g/dL (6.3-8.2); WBC Urine None Seen (0-5/HPF)
--- NOTE | 2021-08-31 18:32 | ED.ABDPAIN ---
HPI - Abdominal Pain <Britney Cortez, [facility] - Last Filed: 08/31/21 18:44> General Chief Complaint: Abdominal Pain Stated Complaint: Intestinal Pain Time Seen by Provider: 08/31/21 18:13 Source: patient Mode of arrival: Ambulatory History of Present Illness HPI narrative: This is a 36 old female of pelvic congestion diagnosed on 08/15/2021 from the emergency department, alcoholism in remission, back pain with sciatica, and chronic migraines presents to the emergency department complaining of pelvic pain that started today after she ate something and says states she had 2 episodes of vomiting and multiple episodes of diarrhea. Currently she is not vomiting or feeling the need to have a bowel movement but states that she is nauseated. She denies any recent illness, fever, cough, shortness of breath, chest pain, abdominal pain or other. She does endorse low back pain which is associated with her chronic back pain. Pelvic ultrasound on 08/15/2021 vessels adjacent to the uterus and states it is nonspecific but can be associated with pelvic congestion syndrome. Patient states that she took 800 mg of ibuprofen just prior to arrival. Related Data Home Medications Medication Instructions Recorded Confirmed Probiotic with Prebiotic 2 cap PO .QDAY 06/07/18 01/07/21 Previous Rx's Medication Instructions Recorded albuterol sulfate 90 mcg/actuation 2 puff INHALATION QIDP PRN #1 ea 09/29/17 aerosol inhaler (Ventolin HFA) ondansetron 4 mg disintegrating 4 mg PO Q6H PRN #10 tab 07/15/20 tablet epinephrine 0.3 mg/0.3 mL 0.3 mg (0.3 mL) IM ONCE #2 ea 08/14/20 injection, auto-injector (EpiPen 2-Al) duloxetine 60 mg capsule,delayed 60 mg PO DAILY #90 cap 01/14/21 release doxycycline hyclate 100 mg tablet 100 mg PO BID #20 tab 08/15/21 hydrocodone 5 mg-acetaminophen 325 1 tab PO Q4-6H PRN #10 tab 08/15/21 mg tablet ondansetron 4 mg disintegrating 4 mg PO TID-QID PRN #10 tab 08/15/21 tablet hydrocodone 5 mg-acetaminophen 325 1 tab PO Q6H PRN #10 tab 08/31/21 mg tablet lidocaine 5 % topical patch 1 patch TOPICAL DAILY PRN #15 ea 08/31/21 Allergies Allergy/AdvReac Type Severity Reaction Status Date / Time venom-honey bee Allergy Severe TROUBLE Verified 02/12/21 18:07 [BEE VENOM (HONEY BEE)] BREATHING sertraline Allergy Intermediate Migraine Verified 02/12/21 18:07 cefaclor [CEFACLOR] Allergy Unknown I was Verified 02/12/21 18:07 young. I can't remember. Sulfa (Sulfonamide Allergy Unknown I was Verified 02/12/21 18:07 Antibiotics) young. I [SULFA (SULFONAMIDE can't ANTIBIOTICS)] remember. cyclobenzaprine AdvReac Intermediate Migraine Verified 02/12/21 18:07 escitalopram AdvReac Intermediate vertigo, Verified 02/12/21 18:07 headache, weak feeling, and extremely tired. methocarbamol AdvReac Intermediate Migraine Verified 02/12/21 18:07 metronidazole AdvReac Intermediate diarrhea Verified 02/12/21 18:07 and cramps Review of Systems <ASHU Ballard - Last Filed: 08/31/21 18:44> Review of Systems Narrative: General: denies fever, chills, malaise, sweats, fatigue Head/Neck: denies headache, neck pain, dizziness Eyes: denies visual changes, eye pain Cardio: denies chest pain, palpitations, edema Respiratory: denies dyspnea, cough, orthopnea GI: denies abdominal pain, nausea, vomiting, or diarrhea : denies dysuria, hematuria, urinary retention, frequency or incontinence Building Contractor: Denies any abnormal vaginal discharge, states pelvic cramping MSK: denies joint pain, muscle weakness Skin: denies rash, itching, skin lesions or other Neuro: denies numbness, tingling Patient History <ASHU Ballard - Last Filed: 08/31/21 18:44> Medical History Abnormal Pap smear of cervix (10/30/16) Admission for sterilization (~12/20/19) Alcohol abuse (~10/2015) Anxiety Arthritis Asthma Bacterial vaginosis Bilateral temporomandibular joint pain C. difficile colitis (09/2016) Chicken pox Chronic back pain Chronic migraine w/o aura w/o status migrainosus, not intractable Chronic neck pain Eczema Scoliosis Surgical History Anesthesia History of umbilical hernia repair Status post appendectomy Family History Brother Age: 33 Asthma NF2 (neurofibromatosis 2) Mother Age: 67 Asthma Thyroid disease Diabetes mellitus Sister Age: 30 Thyroid disease Bipolar 1 disorder Son Alopecia Social History marital status: unmarried,living together household members: significant other and children pets and animals: Yes (indoor and outdoor cat - aware) education level: college occupational status: employed special krupa needs: No Smoking Status: Current every day smoker Tobacco: How many years used: 10 quit status: considering quitting second hand exposure: No alcohol intake: former substance use type: marijuana Smoking Status: Current every day smoker Substance Use Type: marijuana Exam <ASHU Ballard - Last Filed: 08/31/21 18:44> Narrative Exam Narrative: Independently reviewed vitals signs and nursing notes. General: cooperative, comfortable, in no acute distress, well developed and well groomed Head: atraumatic, symmetrical facial expressions Neck: supple, atraumatic, without lymphadenopathy. Eyes: pupils equal round and reactive, EOMI, conjunctiva normal Nose: nares patent, no rhinorrhea Mouth/Throat: uvula midline, moist mucus membranes Cardiovascular: regular rate and rhythm, no peripheral edema, warm extremities Respiratory: normal effort, able to speak in complete sentences, no audible wheezing, stridor, or rales. No retractions or tachypnea. GI: abdomen soft, nontender to palpation, nondistended, no masses, no exquisite tenderness with exam, without guarding or rebound. MSK: moves all extremities, ambulatory w/steady gait, neurovascularly intact, no weakness Skin: brisk capillary refill, no rash, no erythema Neuro: normal speech and cognition, A&O x3, normal tone Psych: mental status is grossly normal, congruent mood, normal affect, pleasant and cooperative Initial Vital Signs Initial Vital Signs: Vital Signs Temperature 98.1 F 08/31/21 17:12 Pulse Rate 84 08/31/21 17:12 Respiratory Rate 20 08/31/21 17:12 Blood Pressure 111/65 08/31/21 17:12 Pulse Oximetry 98 08/31/21 17:12 <Norma Parker DO - Last Filed: 09/02/21 09:56> Initial Vital Signs Initial Vital Signs: Vital Signs Temperature 98.1 F 08/31/21 17:12 Pulse Rate 84 08/31/21 17:12 Respiratory Rate 20 08/31/21 17:12 Blood Pressure 111/65 08/31/21 17:12 Pulse Oximetry 98 08/31/21 17:12 Course <ASHU Ballard - Last Filed: 08/31/21 18:44> Orders Ordered: Discontinued Medications Hydrocodone Bitart/Acetaminophen (Hydrocodone/Acet 5/325 Prepack) 1 bottle MISC SEEINSTR ONE Stop: 08/31/21 18:31 Last Admin: 08/31/21 18:41 Dose: 1 bottle Documented by: SHARITA Lidocaine (Lidocaine Patch 1 Each Adh..Patch) 1 each TOP NOW ONE Stop: 08/31/21 18:23 Last Admin: 08/31/21 18:41 Dose: 1 each Documented by: SHARITA Ondansetron HCl (Ondansetron 4 Mg/2 Ml Inj) 4 mg IV NOW ONE Stop: 08/31/21 18:23 Last Admin: 08/31/21 18:41 Dose: 4 mg Documented by: SHARITA Ondansetron HCl (Ondansetron 4 Mg Odt Prepack) 1 bottle MISC SEEINSTR ONE Stop: 08/31/21 18:33 Last Admin: 08/31/21 18:41 Dose: 1 bottle Documented by: SHARITA Oxycodone/Acetaminophen (Oxycodone/Acetaminophen 5/325 Tablet) 1 tab PO NOW ONE Stop: 08/31/21 18:23 Last Admin: 08/31/21 18:41 Dose: 1 tab Documented by: SHARITA Vital Signs Vital signs: Vital Signs - 8 hr 08/31/21 17:12 Temperature 98.1 F Pulse Rate 84 Respiratory Rate 20 Blood Pressure 111/65 Pulse Oximetry 98 <Norma Parker DO - Last Filed: 09/02/21 09:56> Orders Ordered: Discontinued Medications Hydrocodone Bitart/Acetaminophen (Hydrocodone/Acet 5/325 Prepack) 1 bottle MISC SEEINSTR ONE Stop: 08/31/21 18:31 Last Admin: 08/31/21 18:41 Dose: 1 bottle Documented by: SHARITA Lidocaine (Lidocaine Patch 1 Each Adh..Patch) 1 each TOP NOW ONE Stop: 08/31/21 18:23 Last Admin: 08/31/21 18:41 Dose: 1 each Documented by: SHARITA Ondansetron HCl (Ondansetron 4 Mg/2 Ml Inj) 4 mg IV NOW ONE Stop: 08/31/21 18:23 Last Admin: 08/31/21 18:41 Dose: 4 mg Documented by: SHARITA Ondansetron HCl (Ondansetron 4 Mg Odt Prepack) 1 bottle MISC SEEINSTR ONE Stop: 08/31/21 18:33 Last Admin: 08/31/21 18:41 Dose: 1 bottle Documented by: SHARITA Oxycodone/Acetaminophen (Oxycodone/Acetaminophen 5/325 Tablet) 1 tab PO NOW ONE Stop: 08/31/21 18:23 Last Admin: 08/31/21 18:41 Dose: 1 tab Documented by: SHARITA Vital Signs Vital signs: Vital Signs - 8 hr 08/31/21 17:12 Temperature 98.1 F Pulse Rate 84 Respiratory Rate 20 Blood Pressure 111/65 Pulse Oximetry 98 MDM - Abdominal Pain <ASHU Ballard - Last Filed: 08/31/21 18:44> Lab Data Result diagrams: 08/31/21 17:18 08/31/21 17:18 Labs: Lab Results 08/31/21 08/31/21 08/31/21 Range/Units 17:18 17:18 17:18 WBC 11.4 H (4.5-11.0) X10^3/uL RBC 4.15 (4.0-5.2) X10^6/uL Hgb 13.1 (12.0-16.0) g/dL Hct 38.3 (36-46) % MCV 92.3 (80-100) fL MCH 31.7 (26-34) PG MCHC 34.3 (30-36) % RDW 12.8 (11.6-14.8) % Plt Count 268 (150-400) X10^3/uL Neut % (Auto) 70.1 (50-75) % Lymph % (Auto) 21.8 L (25-40) % Baxter % (Auto) 5.9 (3-14) % Eos % (Auto) 1.6 L (2-4) % Baso % (Auto) 0.6 (0-2) % Neut # (Auto) 8000 H (4637-2821) /uL Lymph # (Auto) 2500 (0538-7796) /uL Baxter # (Auto) 700 (0-900) /uL Eos # (Auto) 200 (0-450) /uL Baso # (Auto) 100 (0-100) /uL Sodium 141 (137-145) mmol/L Potassium 3.9 (3.4-5.1) mmol/L Chloride 106 (98-107) mmol/L Carbon Dioxide 28 (22-32) mmol/L BUN 14 (7-17) mg/dL Creatinine 0.69 (0.52-1.04) mg/dL Estimated GFR > 60 (>60) mL/min BUN/Creatinine Ratio 20.3 (6-22) Glucose 115 H (70-100) mg/dL Calcium 9.1 (8.4-10.2) mg/dL Total Bilirubin 0.2 (0.2-1.3) mg/dL AST 23 (14-36) IU/L ALT 15 (<35) IU/L Alkaline Phosphatase 51 (38-126) U/L Total Protein 7.5 (6.3-8.2) g/dL Albumin 4.6 (3.5-5.0) g/dL Globulin 2.9 (1.7-4.1) g/dL Albumin/Globulin Ratio 1.6 (1.0-2.8) Lipase 164 (23-300) U/L Urine Color Yellow Urine Appearance Cloudy Urine pH 8.0 (4.5-8.0) Ur Specific [place] 1.015 (1.000-1.035) Urine Protein Negative (Negative) Urine Glucose (UA) Negative (Negative) g/dL Urine Ketones Negative (NEGATIVE) Urine Occult Blood Negative (Negative) Urine Nitrate Negative (Negative) Urine Bilirubin Negative (NEGATIVE) Urine Urobilinogen 0.2 (0.2) E.U./dL Ur Leukocyte Esterase Negative (NEGATIVE) Urine RBC None seen (0-5/HPF) Urine WBC None seen (0-5/HPF) Ur Squamous Epith Cells 10-30 /hpf H (0-5/HPF) Amorphous Sediment 2+ Urine Bacteria None seen (None) Ur Culture Indicated? Cult not indicated Urine Test (Negative) 08/31/21 Range/Units 17:18 WBC (4.5-11.0) X10^3/uL RBC (4.0-5.2) X10^6/uL Hgb (12.0-16.0) g/dL Hct (36-46) % MCV (80-100) fL MCH (26-34) PG MCHC (30-36) % RDW (11.6-14.8) % Plt Count (150-400) X10^3/uL Neut % (Auto) (50-75) % Lymph % (Auto) (25-40) % Baxter % (Auto) (3-14) % Eos % (Auto) (2-4) % Baso % (Auto) (0-2) % Neut # (Auto) (7771-6546) /uL Lymph # (Auto) (1748-6110) /uL Baxter # (Auto) (0-900) /uL Eos # (Auto) (0-450) /uL Baso # (Auto) (0-100) /uL Sodium (137-145) mmol/L Potassium (3.4-5.1) mmol/L Chloride (98-107) mmol/L Carbon Dioxide (22-32) mmol/L BUN (7-17) mg/dL Creatinine (0.52-1.04) mg/dL Estimated GFR (>60) mL/min BUN/Creatinine Ratio (6-22) Glucose (70-100) mg/dL Calcium (8.4-10.2) mg/dL Total Bilirubin (0.2-1.3) mg/dL AST (14-36) IU/L ALT (<35) IU/L Alkaline Phosphatase (38-126) U/L Total Protein (6.3-8.2) g/dL Albumin (3.5-5.0) g/dL Globulin (1.7-4.1) g/dL Albumin/Globulin Ratio (1.0-2.8) Lipase (23-300) U/L Urine Color Urine Appearance Urine pH (4.5-8.0) Ur Specific [place] (1.000-1.035) Urine Protein (Negative) Urine Glucose (UA) (Negative) g/dL Urine Ketones (NEGATIVE) Urine Occult Blood (Negative) Urine Nitrate (Negative) Urine Bilirubin (NEGATIVE) Urine Urobilinogen (0.2) E.U./dL Ur Leukocyte Esterase (NEGATIVE) Urine RBC (0-5/HPF) Urine WBC (0-5/HPF) Ur Squamous Epith Cells (0-5/HPF) Amorphous Sediment Urine Bacteria (None) Ur Culture Indicated? Urine Test Negative (Negative) MDM Narrative Medical decision making narrative: This is a 36-year-old female with history of pelvic congestion syndrome with pelvic ultrasound from 08/15/2021 from an emergency department visit for the same complaints. Patient states that she ate something which caused 2 episodes of emesis and diarrhea and this started today. She has been afebrile, denies any blood in her stool her emesis, presents to the emergency department complaining severe pelvic pain and she states she took 800 mg of ibuprofen just prior to arrival. Patient is nontoxic appearing, without any bleeding, lab work is unremarkable, mild leukocytosis of 11.4 nontender abdominal exam, abdomen is nondistended without any peritoneal signs. Patient is not vomiting or having diarrhea at this moment. Recommend supportive care at home. Patient was given Zofran in the emergency department, followed by 1 Percocet, and a lidocaine patch. Patient does not have any concerning signs of an acute abdomen. This could be gastroenteritis, colitis, IBS, pain from an ovarian cyst. No peritoneal signs on abdominal exam. Patient remains p.o. tolerant. Serial abdominal exam without increase in abdominal pain. Given history and exam, low suspicion for acute abdominal process, such as acute cholecystitis, pancreatitis, perforated viscus, atypical appendicitis, colitis, diverticulitis or torsion. Extensive conversation about ER return precautions and need for close follow-up. Discussed responsible use of the emergency department for medications and to follow-up with her primary care provider if she is seeking opiate medications for this in the future. Patient is appropriate and amenable to discharge home. Vital signs are stable on repeat examination is unremarkable. Patient has been informed of results. Patient has been given strict return to ER precautions for any new or worsening symptoms. Patient understands to follow up closely with outpatient providers as instructed. Patient understands plan and agrees to discharge home. All questions and concerns answered at this time. <Normaindy Borgeschristian, DO - Last Filed: 09/02/21 09:56> Lab Data Labs: Lab Results 08/31/21 08/31/21 08/31/21 Range/Units 17:18 17:18 17:18 WBC 11.4 H (4.5-11.0) X10^3/uL RBC 4.15 (4.0-5.2) X10^6/uL Hgb 13.1 (12.0-16.0) g/dL Hct 38.3 (36-46) % MCV 92.3 (80-100) fL MCH 31.7 (26-34) PG MCHC 34.3 (30-36) % RDW 12.8 (11.6-14.8) % Plt Count 268 (150-400) X10^3/uL Neut % (Auto) 70.1 (50-75) % Lymph % (Auto) 21.8 L (25-40) % Baxter % (Auto) 5.9 (3-14) % Eos % (Auto) 1.6 L (2-4) % Baso % (Auto) 0.6 (0-2) % Neut # (Auto) 8000 H (4895-6099) /uL Lymph # (Auto) 2500 (3100-2989) /uL Baxter # (Auto) 700 (0-900) /uL Eos # (Auto) 200 (0-450) /uL Baso # (Auto) 100 (0-100) /uL Sodium 141 (137-145) mmol/L Potassium 3.9 (3.4-5.1) mmol/L Chloride 106 (98-107) mmol/L Carbon Dioxide 28 (22-32) mmol/L BUN 14 (7-17) mg/dL Creatinine 0.69 (0.52-1.04) mg/dL Estimated GFR > 60 (>60) mL/min BUN/Creatinine Ratio 20.3 (6-22) Glucose 115 H (70-100) mg/dL Calcium 9.1 (8.4-10.2) mg/dL Total Bilirubin 0.2 (0.2-1.3) mg/dL AST 23 (14-36) IU/L ALT 15 (<35) IU/L Alkaline Phosphatase 51 (38-126) U/L Total Protein 7.5 (6.3-8.2) g/dL Albumin 4.6 (3.5-5.0) g/dL Globulin 2.9 (1.7-4.1) g/dL Albumin/Globulin Ratio 1.6 (1.0-2.8) Lipase 164 (23-300) U/L Urine Color Yellow Urine Appearance Cloudy Urine pH 8.0 (4.5-8.0) Ur Specific [place] 1.015 (1.000-1.035) Urine Protein Negative (Negative) Urine Glucose (UA) Negative (Negative) g/dL Urine Ketones Negative (NEGATIVE) Urine Occult Blood Negative (Negative) Urine Nitrate Negative (Negative) Urine Bilirubin Negative (NEGATIVE) Urine Urobilinogen 0.2 (0.2) E.U./dL Ur Leukocyte Esterase Negative (NEGATIVE) Urine RBC None seen (0-5/HPF) Urine WBC None seen (0-5/HPF) Ur Squamous Epith Cells 10-30 /hpf H (0-5/HPF) Amorphous Sediment 2+ Urine Bacteria None seen (None) Ur Culture Indicated? Cult not indicated Urine Test (Negative) 08/31/21 Range/Units 17:18 WBC (4.5-11.0) X10^3/uL RBC (4.0-5.2) X10^6/uL Hgb (12.0-16.0) g/dL Hct (36-46) % MCV (80-100) fL MCH (26-34) PG MCHC (30-36) % RDW (11.6-14.8) % Plt Count (150-400) X10^3/uL Neut % (Auto) (50-75) % Lymph % (Auto) (25-40) % Baxter % (Auto) (3-14) % Eos % (Auto) (2-4) % Baso % (Auto) (0-2) % Neut # (Auto) (8659-5380) /uL Lymph # (Auto) (1352-6084) /uL Baxter # (Auto) (0-900) /uL Eos # (Auto) (0-450) /uL Baso # (Auto) (0-100) /uL Sodium (137-145) mmol/L Potassium (3.4-5.1) mmol/L Chloride (98-107) mmol/L Carbon Dioxide (22-32) mmol/L BUN (7-17) mg/dL Creatinine (0.52-1.04) mg/dL Estimated GFR (>60) mL/min BUN/Creatinine Ratio (6-22) Glucose (70-100) mg/dL Calcium (8.4-10.2) mg/dL Total Bilirubin (0.2-1.3) mg/dL AST (14-36) IU/L ALT (<35) IU/L Alkaline Phosphatase (38-126) U/L Total Protein (6.3-8.2) g/dL Albumin (3.5-5.0) g/dL Globulin (1.7-4.1) g/dL Albumin/Globulin Ratio (1.0-2.8) Lipase (23-300) U/L Urine Color Urine Appearance Urine pH (4.5-8.0) Ur Specific [place] (1.000-1.035) Urine Protein (Negative) Urine Glucose (UA) (Negative) g/dL Urine Ketones (NEGATIVE) Urine Occult Blood (Negative) Urine Nitrate (Negative) Urine Bilirubin (NEGATIVE) Urine Urobilinogen (0.2) E.U./dL Ur Leukocyte Esterase (NEGATIVE) Urine RBC (0-5/HPF) Urine WBC (0-5/HPF) Ur Squamous Epith Cells (0-5/HPF) Amorphous Sediment Urine Bacteria (None) Ur Culture Indicated? Urine Test Negative (Negative) Discharge Plan Departure Patient Disposition: Home Clinical Impression: Pelvic congestion syndrome Diarrhea Qualifiers: Diarrhea type: unspecified type Qualified Code(s): R19.7 - Diarrhea, unspecified Instructions: DI for Pelvic Pain, Chronic Pelvic Pain-Female Activity Restrictions/Additional Instructions: *You have been diagnosed with diarrhea for 1 day likely causing your symptoms from pelvic congestion syndrome. Please use your medications as prescribed and try heat packs frequently, try loperamide for diarrhea or stool softeners for constipation. We do not regularly prescribed opiates for pelvic congestion syndrome. Please follow-up with your primary care provider for this in the future. Please continue taking ibuprofen every 8 hours with food and water. Take Tylenol in addition to your hydrocodone as needed but do not exceed 4 g per day. Please stay hydrated and return to the emergency department for any worsening of your symptoms. CONTROLLED SUBSTANCE DISCHARGE (Narcotic/benzodiazepine/Flexeril/Phenergan) 1. You have been prescribed narcotic medications, it does have acetaminophen/Tylenol/paracetamol in it, DO NOT TAKE MORE THAN 4,00mg in 24 hours of Tylenol. *Tramadol does not contain tylenol. 2. Please understand that we cannot provide further refills of narcotics, benzodiazepines or controlled substances through the ED and her pain management will need to be through your provider. 3. While on these medications you cannot drive or operate heavy machinery. 4. You cannot sign legal documents or perform any duties such as this. 5. As long as you are taking opiate pain medications he should also be taking a stool softener such as Colace, Dulcolax, MiraLAX or prune juice, to help avoid constipation. *What to do: *Please continue to take your regular medications as directed. [x ] New medication prescriptions sent to your pharmacy: [ [facility]] [ ] New medication written as a paper prescription [ ] No new medications given *Please follow up with your primary care provider in 2-3 days, call for an appointment. Let them know you were seen in the Emergency Department and that we asked that you be seen for follow-up. We will electronically transmit a record of today's note if your PCP is in our system *If you do not have a primary care provider please contact [phone] to establish care with one of [facility] primary care providers. *Return to Emergency Department if you should have any new, worsening or concerning symptoms, such as [fever greater than 101F, chills, worsening pain, persistent vomiting or other bothersome symptoms] Prescriptions: New hydrocodone-acetaminophen 5-325 mg tablet 1 tab PO Q6H PRN (Reason: pain) Qty: 10 0RF lidocaine 5 % adhesive patch,medicated 1 patch topical DAILY PRN (Reason: pain) Qty: 15 0RF Rx Instructions: leave on most painful area for up to 12 hrs No Action Probiotic with Prebiotic 2 cap PO .QDAY 0RF albuterol sulfate [Ventolin HFA] 90 mcg/actuation HFA aerosol inhaler 2 puff INHALATION QIDP PRN (Reason: shortness of breath or wheezing) Qty: 1 3RF Hold Instructions: duloxetine 60 mg capsule,delayed release(DR/EC) 60 mg PO DAILY Qty: 90 3RF epinephrine [EpiPen 2-Al] 0.3 mg/0.3 mL auto-injector 0.3 mg IM ONCE Qty: 2 0RF Rx Instructions: as a single dose; may repeat once ondansetron 4 mg tablet,disintegrating 4 mg PO Q6H PRN (Reason: nausea and vomiting) Qty: 10 0RF hydrocodone-acetaminophen 5-325 mg tablet 1 tab PO Q4-6H PRN (Reason: pain) Qty: 10 0RF ondansetron 4 mg tablet,disintegrating 4 mg PO TID-QID PRN (Reason: nausea and vomiting) Qty: 10 0RF doxycycline hyclate 100 mg tablet 100 mg PO BID Qty: 20 0RF Referrals: Feroz Max ARNP [Primary Care Provider] - <Norma Parker DO - Last Filed: 09/02/21 09:56> Cosign ED Attending Cospranavature Attestation: I was immediately available in the department for consultation. Documentation has been reviewed.
[2021-08-31] MEDS: LIDOCAINE PATCH 1 EACH ADH..PATCH TOP (18:41)
[2021-08-31] MEDS: ONDANSETRON 4 MG ODT PREPACK 1 BOTTLE MISC (18:41)
[2021-08-31] MEDS: OXYCODONE/ACETAMINOPHEN 5/325 TABLET 1 TAB PO (18:41)
[2021-08-31] MEDS: HYDROCODONE/ACET 5/325 PREPACK 1 BOTTLE MISC (18:41)
[2021-08-31] MEDS: ONDANSETRON 4 MG/2 ML INJ IV (18:41)
[2021-08-31 18:56] VITALS: BP 136/74; PULSE 74; RESP 16; O2SAT 97
== END 2021-08-31 18:57 | disposition home or self-care (01) ==
PROVIDERS: Emergency Medicine; Emergency Provider Nurse Practitioner Critical Care Medicine; PCP Registered Nurse Diabetes Educator
DX: N94.89 Other specified conditions associated with female genital organs and menstrual cycle (principal); R19.7 Diarrhea, unspecified; R11.2 Nausea with vomiting, unspecified
CPT/HCPCS: 36415; 80053; 81001; 81025; 83690; 85025; 96374; 99284; J2405

== ENCOUNTER 2022-01-21 19:19 | Emergency (ER) | payer OTHER, MEDICAID, SELFPAY ==
[2022-01-21] VITALS (9 sets, daily range): BP systolic 102–121; BP diastolic 61–65; PULSE 75–98; RESP 16; TEMP 36.9; O2SAT 95–100; BMI 20.1
--- NOTE | 2022-01-21 19:32 | ED.FEMALEGU ---
HPI - Female Genitourinary General Chief complaint: Urogenital-Female Stated complaint: UTI Time Seen by Provider: 01/21/22 19:21 Source: patient Mode of arrival: Ambulatory History of Present Illness HPI Narrative: 36-year-old female daily smoker with history of kidney stones presents with dysuria, frequency and urgency as well as suprapubic pain and left flank pain for the past day or 2. She is had no fever or chills and is nauseated but denies any vomiting. She states her pain seems to be worse when she moves and when she urinates and improves with rest. She denies any chest pain or shortness of breath. She denies any vaginal bleeding or discharge Related Data Home Medications Medication Instructions Recorded Confirmed Probiotic with Prebiotic 2 cap PO .QDAY 06/07/18 01/07/21 Previous Rx's Medication Instructions Recorded albuterol sulfate 90 mcg/actuation 2 puff inhalation QIDP PRN 09/29/17 aerosol inhaler (Ventolin HFA) shortness of breath or wheezing #1 ea ondansetron 4 mg disintegrating 4 mg PO Q6H PRN nausea and 07/15/20 tablet vomiting #10 tabs epinephrine 0.3 mg/0.3 mL 0.3 mg (0.3 mL) IM ONCE #2 ea 08/14/20 injection, auto-injector (EpiPen 2-Al) doxycycline hyclate 100 mg tablet 100 mg PO BID #20 tabs 08/15/21 hydrocodone 5 mg-acetaminophen 325 1 tab PO Q4-6H PRN pain #10 tabs 08/15/21 mg tablet ondansetron 4 mg disintegrating 4 mg PO TID-QID PRN nausea and 08/15/21 tablet vomiting #10 tabs hydrocodone 5 mg-acetaminophen 325 1 tab PO Q6H PRN pain #10 tabs 08/31/21 mg tablet lidocaine 5 % topical patch 1 patch topical DAILY PRN pain #15 08/31/21 ea duloxetine 60 mg capsule,delayed 60 mg PO DAILY #90 caps 01/13/22 release ciprofloxacin HCl 500 mg tablet 500 mg PO BID #20 tabs 01/21/22 (Cipro) hydrocodone 5 mg-acetaminophen 325 1 tab PO Q4-6H PRN pain #10 tabs 01/21/22 mg tablet ketorolac 10 mg tablet 10 mg PO Q6H PRN pain #14 tabs 01/21/22 ondansetron 4 mg disintegrating 4 mg PO TID-QID PRN nausea and 01/21/22 tablet vomiting #10 tabs Allergies Allergy/AdvReac Type Severity Reaction Status Date / Time venom-honey bee Allergy Severe TROUBLE Verified 02/12/21 18:07 [BEE VENOM (HONEY BEE)] BREATHING sertraline Allergy Intermediate Migraine Verified 02/12/21 18:07 cefaclor [CEFACLOR] Allergy Unknown I was Verified 02/12/21 18:07 young. I can't remember. Sulfa (Sulfonamide Allergy Unknown I was Verified 02/12/21 18:07 Antibiotics) young. I [SULFA (SULFONAMIDE can't ANTIBIOTICS)] remember. cyclobenzaprine AdvReac Intermediate Migraine Verified 02/12/21 18:07 escitalopram AdvReac Intermediate vertigo, Verified 02/12/21 18:07 headache, weak feeling, and extremely tired. methocarbamol AdvReac Intermediate Migraine Verified 02/12/21 18:07 metronidazole AdvReac Intermediate diarrhea Verified 02/12/21 18:07 and cramps Review of Systems Review of Systems Narrative: GENERAL: See HPI HEENT: Denies sinus pain, ear pain, sore throat, difficulty swallowing, dizziness. RESPIRATORY: Denies dyspnea, cough, wheezing, hemoptysis, sputum. CARDIOVASCULAR: Denies chest pain, palpitations, orthopnea, edema, GASTROINTESTINAL: See HPI : See HPI MUSCULOSKELETAL: denies weakness, joint pain, or bony pain SKIN: Denies rash, skin lesions, or other NEUROLOGIC: Denies weakness, headache, numbness, change in speech, confusion, seizures, incoordination. PSYCHIATRIC: No concerning psychosocial issues. 12 point review of systems is negative except for those stated above Patient History Medical History Abnormal Pap smear of cervix (10/30/16) Admission for sterilization (~12/20/19) Alcohol abuse (~10/2015) Anxiety Arthritis Asthma Bacterial vaginosis Bilateral temporomandibular joint pain C. difficile colitis (09/2016) Chicken pox Chronic back pain Chronic migraine w/o aura w/o status migrainosus, not intractable Chronic neck pain Eczema Scoliosis Surgical History Anesthesia History of umbilical hernia repair Status post appendectomy Family History Brother Age: 34 Asthma NF2 (neurofibromatosis 2) Mother Age: 68 Asthma Thyroid disease Diabetes mellitus Sister Age: 31 Thyroid disease Bipolar 1 disorder Son Alopecia Substance Use Type: marijuana Exam Narrative Exam Narrative: GENERAL: [36] year old patient appears stated age. Well-developed patient, in mild distress. Obviously uncomfortable, rubbing her left flank HEAD: Atraumatic. Normocephalic. EYES: Pupils equal round and reactive. Extraocular motions intact. No scleral icterus. No injection or drainage. ENT: Nose without bleeding, purulent drainage. Throat without erythema, tonsillar hypertrophy or exudate. Airway patent. NECK: Trachea midline. Non tender CARDIOVASCULAR: Regular rate and rhythm without murmurs, gallops, or rubs. RESPIRATORY: Clear to auscultation. Breath sounds equal bilaterally. No wheezes, rales, or rhonchi. GASTROINTESTINAL: Abdomen soft, non-tender, nondistended. EXTREMITIES: No edema or joint tenderness. BACK: Nontender without deformity or crepitance. No flank tenderness. NEURO: AOx3. SKIN: No rash or erythema of visible areas Initial Vital Signs Initial Vital Signs: Vital Signs Pulse Rate 98 H 01/21/22 19:28 Respiratory Rate 16 01/21/22 19:28 Blood Pressure 121/65 01/21/22 19:28 Pulse Oximetry 100 01/21/22 19:28 Oxygen Delivery Method 01/21/22 19:28 Course Orders Ordered: ED Orders 01/21/22 19:27 Urine Culture Stat Urine Microscopic Stat 01/21/22 19:46 CT kidney ureter bladder (KUB) Stat 01/21/22 19:50 Complete Blood Count AUTO DIFF Stat Comprehensive Metabolic Panel Stat Discontinued Medications Hydrocodone Bitart/Acetaminophen (Hydrocodone/Acet 5/325 Prepack) 1 bottle MISC SEEINSTR ONE Stop: 01/21/22 20:46 Last Admin: 01/21/22 21:04 Dose: 1 bottle Documented By: NR Hydromorphone HCl (Hydromorphone 0.5 Mg Inj) 0.5 mg IV NOW ONE Stop: 01/21/22 20:17 Last Admin: 01/21/22 20:23 Dose: 0.5 mg Documented By: NR Hydromorphone HCl (Hydromorphone 0.5 Mg Inj) 0.5 mg IV NOW ONE Stop: 01/21/22 21:19 Last Admin: 01/21/22 21:24 Dose: 0.5 mg Documented By: NR Sodium Chloride (Normal Saline 0.9%) 1,000 mls @ 1,000 mls/hr IV BOLUS ONE Stop: 01/21/22 20:44 Last Infusion: 01/21/22 21:39 Dose: 0 mls/hr Documented By: Admin: 01/21/22 20:23 Dose: 1,000 mls/hr Documented By: NR Ketorolac Tromethamine (Ketorolac 30 Mg/Ml Vial) 15 mg IV NOW ONE Stop: 01/21/22 19:46 Last Admin: 01/21/22 19:56 Dose: 15 mg Documented By: NR Levofloxacin (Levofloxacin 250 Mg Tablet) 500 mg PO NOW ONE Stop: 01/21/22 20:46 Last Admin: 01/21/22 21:04 Dose: 500 mg Documented By: NR Ondansetron HCl (Ondansetron 4 Mg/2 Ml Inj) 4 mg IV NOW ONE Stop: 01/21/22 19:46 Last Admin: 01/21/22 19:56 Dose: 4 mg Documented By: PRESTON Ondansetron HCl (Ondansetron 4 Mg Odt Prepack) 1 bottle MISC SEEINSTR ONE Stop: 01/21/22 20:46 Last Admin: 01/21/22 21:03 Dose: 1 bottle Documented By: PRESTON Vital Signs Vital signs: Vital Signs - 8 hr 01/21/22 19:28 01/21/22 19:32 01/21/22 19:44 Temperature 98.5 F Pulse Rate 98 H 88 Respiratory Rate 16 Blood Pressure 121/65 Pulse Oximetry 100 98 Oxygen Delivery Method Room Air 01/21/22 20:23 01/21/22 20:30 01/21/22 21:23 Temperature Pulse Rate 91 H 87 85 Respiratory Rate Blood Pressure Pulse Oximetry 95 95 99 Oxygen Delivery Method 01/21/22 21:30 01/21/22 21:34 01/21/22 21:35 Temperature Pulse Rate 93 H 75 Respiratory Rate Blood Pressure 102/61 Pulse Oximetry 97 96 Oxygen Delivery Method MDM - Female Genitourinary Lab Data Result diagrams: 01/21/22 19:50 01/21/22 19:50 Labs: Lab Results 01/21/22 01/21/22 01/21/22 Range/Units 19:27 19:50 19:50 WBC 11.8 H (4.5-11.0) X10^3/uL RBC 3.64 L (4.0-5.2) X10^6/uL Hgb 11.5 L (12.0-16.0) g/dL Hct 33.7 L (36-46) % MCV 92.4 (80-100) fL MCH 31.5 (26-34) PG MCHC 34.1 (30-36) % RDW 13.0 (11.6-14.8) % Plt Count 250 (150-400) X10^3/uL Neut % (Auto) 54.9 (50-75) % Lymph % (Auto) 36.6 (25-40) % [place] % (Auto) 6.1 (3-14) % Eos % (Auto) 1.7 L (2-4) % Baso % (Auto) 0.7 (0-2) % Neut # (Auto) 6500 (1245-4230) /uL Lymph # (Auto) 4300 (9227-3985) /uL [place] # (Auto) 700 (0-900) /uL Eos # (Auto) 200 (0-450) /uL Baso # (Auto) 100 (0-100) /uL Sodium 137 (137-145) mmol/L Potassium 3.8 (3.4-5.1) mmol/L Chloride 104 (98-107) mmol/L Carbon Dioxide 24 (22-32) mmol/L BUN 11 (7-17) mg/dL Creatinine 0.62 (0.52-1.04) mg/dL Estimated GFR > 60 (>60) mL/min BUN/Creatinine Ratio 17.7 (6-22) Glucose 91 (70-100) mg/dL Calcium 8.4 (8.4-10.2) mg/dL Total Bilirubin 0.2 (0.2-1.3) mg/dL AST 23 (14-36) IU/L ALT 14 (<35) IU/L Alkaline Phosphatase 47 (38-126) U/L Total Protein 6.7 (6.3-8.2) g/dL Albumin 4.0 (3.5-5.0) g/dL Globulin 2.7 (1.7-4.1) g/dL Albumin/Globulin Ratio 1.5 (1.0-2.8) Urine RBC 0-1/hpf (0-5/HPF) Urine WBC 30-100/hpf H (0-5/HPF) Ur Squamous Epith Cells 0-1 /hpf D (0-5/HPF) Ur Transition Epith Cell 0-1/hpf (0-5/HPF) Urine Bacteria Few (2-10) H (None) Ur Culture Indicated? Culture not indicate Point of Care Testing Test Results Negative Urine Dip Bedside Urine Glucose Negative Bedside Urine Bilirubin - Negative Bedside Urine Ketone - Negative Urine Specific [place] 1.015 Bedside Urine Occult Blood +++ Bedside Urine pH 6.5 Bedside Urine Protein + 30 Bedside Urine Urobilinogen - Negative Bedside Urine Nitrite + Positive Bedside Urine Leukocytes ++ 125 Esterase MDM Narrative Medical decision making narrative: Given severity of pain labs and CT KUB ordered to rule out septic stone or other underlying diagnosis. Thankfully in the end blood work and imaging is reassuring. Patient's pain is well controlled, she shows no sign of sepsis. Return precautions discussed and questions answered to her apparent satisfaction Discharge Plan Departure Patient Disposition: Home Clinical Impression: Pyelonephritis Instructions: DI for Kidney Infection Activity Restrictions/Additional Instructions: *You have been diagnosed with [left-sided pyelonephritis. As we discussed your urine is quite convincing for infection but blood work and CT scan are very reassuring and there is no significant abnormality that would require a different plan] *What to do: *Please continue to take your regular medications as directed. [x ] New medication prescriptions sent to your pharmacy: [[facility] ] [ ] New medication written as a paper prescription [ ] No new medications given *Please follow up with your primary care provider in 2-3 days, call for an appointment. Let them know you were seen in the Emergency Department and that we ask that you be seen in follow up. We will electronically transmit a record of today's note if your PCP is in our system *If you do not have a primary care provider please contact the [facility] Resource line at [phone]. They will ask some questions about your medical history and help get you set up with a doctor in the community. *Return to Emergency Department if you should have any new, worsening or concerning symptoms, such as [fever greater than 101 F, shaking chills, worsening pain, persistent vomiting or other bothersome symptoms] Prescriptions: New hydrocodone-acetaminophen 5-325 mg tablet 1 tab PO Q4-6H PRN (Reason: pain) Qty: 10 0RF ketorolac 10 mg tablet 10 mg PO Q6H PRN (Reason: pain) Qty: 14 0RF ondansetron 4 mg tablet,disintegrating 4 mg PO TID-QID PRN (Reason: nausea and vomiting) Qty: 10 0RF ciprofloxacin HCl [Cipro] 500 mg tablet 500 mg PO BID Qty: 20 0RF No Action Probiotic with Prebiotic 2 cap PO .QDAY albuterol sulfate [Ventolin HFA] 90 mcg/actuation HFA aerosol inhaler 2 puff INHALATION QIDP PRN (Reason: shortness of breath or wheezing) Qty: 1 3RF Hold Instructions: epinephrine [EpiPen 2-Al] 0.3 mg/0.3 mL auto-injector 0.3 mg IM ONCE Qty: 2 0RF Rx Instructions: as a single dose; may repeat once duloxetine 60 mg capsule,delayed release(DR/EC) 60 mg PO DAILY Qty: 90 0RF ondansetron 4 mg tablet,disintegrating 4 mg PO Q6H PRN (Reason: nausea and vomiting) Qty: 10 0RF hydrocodone-acetaminophen 5-325 mg tablet 1 tab PO Q4-6H PRN (Reason: pain) Qty: 10 0RF ondansetron 4 mg tablet,disintegrating 4 mg PO TID-QID PRN (Reason: nausea and vomiting) Qty: 10 0RF doxycycline hyclate 100 mg tablet 100 mg PO BID Qty: 20 0RF hydrocodone-acetaminophen 5-325 mg tablet 1 tab PO Q6H PRN (Reason: pain) Qty: 10 0RF lidocaine 5 % adhesive patch,medicated 1 patch topical DAILY PRN (Reason: pain) Qty: 15 0RF Rx Instructions: leave on most painful area for up to 12 hrs Referrals: Feroz Max ARNP [Primary Care Provider] - Visit Report Forms: Patient Portal/API
--- NOTE | 2022-01-21 19:46 | DI.CT.S_ITS ---
PROCEDURE: CT KIDNEY URETER BLADDER (KUB) INDICATIONS: severe L flank pain TECHNIQUE: Axial sections were acquired from the lung bases to the pubic symphysis. Coronal and sagittal reformats were performed. For radiation dose reduction, the following was used: automated exposure control, adjustment of mA and/or kV according to patient size. COMPARISON: None. FINDINGS: Image quality: Excellent. Lung bases: There is minimal atelectasis. Heart: Heart is normal in size. URINARY: Right Kidney and Ureter: There are 2 nonobstructing right renal stones with the largest stone measuring 0.2 cm. No hydronephrosis. No hydroureter. Left Kidney and Ureter: There is a nonobstructing left renal stone also measuring up to 0.2 cm with a few additional punctate nonobstructing stones suspected. No hydronephrosis. No hydroureter. Bladder: Normal wall thickness. No stones. ABDOMEN: Liver: Noncontrast evaluation of the liver demonstrates no discrete mass. Gallbladder: Within normal limits without calcified gallstones. Biliary ducts: No biliary ductal dilatation. Pancreas: Unremarkable. Spleen: Normal in size. Adrenal Glands: No adrenal nodules. Stomach and Bowel: Stomach, small bowel loops, and colon are normal in caliber and wall thickness. No pericecal inflammatory changes to suggest appendicitis. There are few colonic diverticula without acute diverticulitis. Peritoneum: No abnormal intraperitoneal fluid. No free air. Ventral Wall: No hernia. Abdominal Nodes: No retroperitoneal or mesenteric adenopathy by size criteria. Vessels: Aorta and inferior vena cava are normal in size. PELVIS: Pelvic Organs: Unremarkable. Pelvic Nodes: No enlarged lymph nodes. Miscellaneous: No inguinal hernias identified. Bones: Visualized osseous structures demonstrate no suspicious focal lesions. IMPRESSION: 1. Bilateral nephrolithiasis without evidence of obstructive uropathy Dictated by: Harjeet Goldstein M.D. on 01/21/2022 at 20:22 Approved by: Harjeet Goldstein M.D. on 01/21/2022 at 20:32
[2022-01-21] MEDS: ONDANSETRON 4 MG/2 ML INJ IV (19:56)
[2022-01-21] MEDS: KETOROLAC 30 MG/ML VIAL 15 MG IV (19:56)
[2022-01-21 19:58] LABS: Add Manual Diff / Slide Review NO; Basophils Absolute Auto 100 /uL (0-100); Basophils Percent Auto 0.7 % (0-2); Eosinophils Absolute Auto 200 /uL (0-450); Eosinophils Percent Auto 1.7 % (2-4); Hematocrit 33.7 % (36-46); Hemoglobin 11.5 g/dL (12.0-16.0); Lymphocytes Absolute Auto 4300 /uL (1100-4500); Lymphocytes Percent Auto 36.6 % (25-40); Mean Corpuscular HGB Conc 34.1 % (30-36); Mean Corpuscular Hemoglobin 31.5 PG (26-34); Mean Corpuscular Volume 92.4 fL (80-100); Monocytes Absolute Auto 700 /uL (0-900); Monocytes Percent Auto 6.1 % (3-14); Neutrophils Absolute Auto 6500 /uL (1500-7000); Neutrophils Percent Auto 54.9 % (50-75); Platelet Count 250 X10^3/uL (150-400); Red Blood Cell Count 3.64 X10^6/uL (4.0-5.2); White Blood Cell Count 11.8 X10^3/uL (4.5-11.0)
[2022-01-21] MEDS: HYDROMORPHONE 0.5 MG INJ IV ×2 (20:23→21:24)
[2022-01-21] MEDS: SODIUM CHLORIDE 0.9% 1,000 ML 1000 ML IV (20:23)
[2022-01-21 20:28] LABS: Alanine Aminotransferase 14 IU/L (<35); Albumin Globulin Ratio 1.5 (1.0-2.8); Alkaline Phosphatase 47 U/L (38-126); Aspartate Aminotransferase 23 IU/L (14-36); BUN Creatinine Ratio 17.7 (6-22); Bilirubin Total 0.2 mg/dL (0.2-1.3); Blood Urea Nitrogen 11 mg/dL (7-17); Calcium 8.4 mg/dL (8.4-10.2); Carbon Dioxide 24 mmol/L (22-32); Chloride 104 mmol/L (98-107); Estimated Glomerular Filt Rate > 60 mL/min (>60); Globulin 2.7 g/dL (1.7-4.1); Glucose 91 mg/dL (70-100); HEMOLYSIS < 15 (0-50); Potassium 3.8 mmol/L (3.4-5.1); Sodium 137 mmol/L (137-145); Total Protein 6.7 g/dL (6.3-8.2)
[2022-01-21 20:37] LABS: Bacteria Urine Few (2-10); RBC Urine 0-1/HPF (0-5/HPF); Squamous Epithelial Cell Urine 0-1 /HPF (0-5/HPF); Transitional Epi Cells Urine 0-1/HPF (0-5/HPF); WBC Urine 30-100/HPF (0-5/HPF)
[2022-01-21] MEDS: ONDANSETRON 4 MG ODT PREPACK 1 BOTTLE MISC (21:03)
[2022-01-21] MEDS: HYDROCODONE/ACET 5/325 PREPACK 1 BOTTLE MISC (21:04)
[2022-01-21] MEDS: levoFLOXacin 250 MG TABLET 500 MG PO (21:04)
== END 2022-01-21 21:41 | disposition home or self-care (01) ==
PROVIDERS: Emergency Provider Emergency Medicine; PCP Registered Nurse Diabetes Educator
DX: N12 Tubulo-interstitial nephritis, not specified as acute or chronic (principal); Z87.442 Personal history of urinary calculi
CPT/HCPCS: 74176; 80053; 81003; 81015; 81025; 85025; 87077; 87086; 87186; 96361; 96374; 96375; 96376; 99284; J1170; J1885; J2405

== ENCOUNTER 2022-01-25 20:00 | Emergency (ER) | payer OTHER, MEDICAID, SELFPAY ==
[2022-01-25 20:08] VITALS: BP 111/56; PULSE 86; RESP 18; TEMP 36.7; O2SAT 98; BMI 20.7
[2022-01-25 21:05] LABS: RBC Urine 0-1/HPF (0-5/HPF); WBC Urine 0-1/HPF (0-5/HPF)
[2022-01-25 21:06] LABS: Bacteria Urine None Seen; Culture Indicated Urine Cult Not Indicated
[2022-01-25 21:08] LABS: Add Manual Diff / Slide Review NO; Basophils Absolute Auto 0 /uL (0-100); Basophils Percent Auto 0.6 % (0-2); Eosinophils Absolute Auto 200 /uL (0-450); Eosinophils Percent Auto 2.6 % (2-4); Hematocrit 35.8 % (36-46); Hemoglobin 12.2 g/dL (12.0-16.0); Lymphocytes Absolute Auto 4400 /uL (1100-4500); Lymphocytes Percent Auto 56.6 % (25-40); Mean Corpuscular Hemoglobin 31.6 PG (26-34); Mean Corpuscular Volume 93.1 fL (80-100); Monocytes Absolute Auto 500 /uL (0-900); Monocytes Percent Auto 6.7 % (3-14); Neutrophils Absolute Auto 2600 /uL (1500-7000); Neutrophils Percent Auto 33.5 % (50-75); Platelet Count 254 X10^3/uL (150-400); Red Blood Cell Count 3.85 X10^6/uL (4.0-5.2); White Blood Cell Count 7.7 X10^3/uL (4.5-11.0)
[2022-01-25 21:10] LABS: Alanine Aminotransferase 14 IU/L (<35); Albumin 4.3 g/dL (3.5-5.0); Albumin Globulin Ratio 1.6 (1.0-2.8); Alkaline Phosphatase 51 U/L (38-126); Aspartate Aminotransferase 27 IU/L (14-36); BUN Creatinine Ratio 21.7 (6-22); Bilirubin Total 0.2 mg/dL (0.2-1.3); Blood Urea Nitrogen 15 mg/dL (7-17); Carbon Dioxide 29 mmol/L (22-32); Chloride 102 mmol/L (98-107); Estimated Glomerular Filt Rate > 60 mL/min (>60); Globulin 2.7 g/dL (1.7-4.1); Glucose 92 mg/dL (70-100); HEMOLYSIS < 15 (0-50); Lipase 274 U/L (23-300); Potassium 3.8 mmol/L (3.4-5.1); Sodium 139 mmol/L (137-145)
--- NOTE | 2022-01-25 21:11 | ED.GENADULT ---
HPI - General Adult General Chief complaint: Abdominal Pain Stated complaint: Kidney infection with stones Time Seen by Provider: 01/25/22 20:58 Source: patient Mode of arrival: Ambulatory Limitations: no limitations History of Present Illness HPI narrative: 36-year-old female. Was seen here in the emergency department within the past week for evaluation of pelvic pain. That time she had a urinalysis that was concerning for urinary tract infection. Review those records do show a nitrite positive urine. She was sent home on antibiotics. The resulting culture did show greater than 100,000 colony-forming units of E coli that was pansensitive. The CT scan that she had during that visit also showed renal stones. There was no signs of any ureteral stones. There was not any other indication on the CT scan for discomfort. She returns to the emergency department today stating that now she is having generalized abdominal discomfort. Also having lower back discomfort. She is having vaginal discharge but is currently on her menstrual cycle. No fevers. Related Data Home Medications Medication Instructions Recorded Confirmed Probiotic with Prebiotic 2 cap PO .QDAY 06/07/18 01/07/21 Previous Rx's Medication Instructions Recorded albuterol sulfate 90 mcg/actuation 2 puff inhalation QIDP PRN 09/29/17 aerosol inhaler (Ventolin HFA) shortness of breath or wheezing #1 ea ondansetron 4 mg disintegrating 4 mg PO Q6H PRN nausea and 07/15/20 tablet vomiting #10 tabs epinephrine 0.3 mg/0.3 mL 0.3 mg (0.3 mL) IM ONCE #2 ea 08/14/20 injection, auto-injector (EpiPen 2-Al) doxycycline hyclate 100 mg tablet 100 mg PO BID #20 tabs 08/15/21 hydrocodone 5 mg-acetaminophen 325 1 tab PO Q4-6H PRN pain #10 tabs 08/15/21 mg tablet ondansetron 4 mg disintegrating 4 mg PO TID-QID PRN nausea and 08/15/21 tablet vomiting #10 tabs hydrocodone 5 mg-acetaminophen 325 1 tab PO Q6H PRN pain #10 tabs 08/31/21 mg tablet lidocaine 5 % topical patch 1 patch topical DAILY PRN pain #15 08/31/21 ea duloxetine 60 mg capsule,delayed 60 mg PO DAILY #90 caps 01/13/22 release ciprofloxacin HCl 500 mg tablet 500 mg PO BID #20 tabs 01/21/22 (Cipro) hydrocodone 5 mg-acetaminophen 325 1 tab PO Q4-6H PRN pain #10 tabs 01/21/22 mg tablet ketorolac 10 mg tablet 10 mg PO Q6H PRN pain #14 tabs 01/21/22 ondansetron 4 mg disintegrating 4 mg PO TID-QID PRN nausea and 01/21/22 tablet vomiting #10 tabs Allergies Allergy/AdvReac Type Severity Reaction Status Date / Time venom-honey bee Allergy Severe TROUBLE Verified 02/12/21 18:07 [BEE VENOM (HONEY BEE)] BREATHING sertraline Allergy Intermediate Migraine Verified 02/12/21 18:07 cefaclor [CEFACLOR] Allergy Unknown I was Verified 02/12/21 18:07 young. I can't remember. Sulfa (Sulfonamide Allergy Unknown I was Verified 02/12/21 18:07 Antibiotics) young. I [SULFA (SULFONAMIDE can't ANTIBIOTICS)] remember. cyclobenzaprine AdvReac Intermediate Migraine Verified 02/12/21 18:07 escitalopram AdvReac Intermediate vertigo, Verified 02/12/21 18:07 headache, weak feeling, and extremely tired. methocarbamol AdvReac Intermediate Migraine Verified 02/12/21 18:07 metronidazole AdvReac Intermediate diarrhea Verified 02/12/21 18:07 and cramps ketorolac [From Toradol] AdvReac Headache Verified 01/25/22 22:58 Review of Systems Review of Systems ROS Unobtainable: All systems reviewed & are unremarkable except as noted in HPI and below Patient History Medical History Abnormal Pap smear of cervix (10/30/16) Admission for sterilization (~12/20/19) Alcohol abuse (~10/2015) Anxiety Arthritis Asthma Bacterial vaginosis Bilateral temporomandibular joint pain C. difficile colitis (09/2016) Chicken pox Chronic back pain Chronic migraine w/o aura w/o status migrainosus, not intractable Chronic neck pain Eczema Scoliosis Surgical History Anesthesia History of umbilical hernia repair Status post appendectomy Family History Brother Age: 34 Asthma NF2 (neurofibromatosis 2) Mother Age: 68 Asthma Thyroid disease Diabetes mellitus Sister Age: 31 Thyroid disease Bipolar 1 disorder Son Alopecia Social History marital status: unmarried,living together household members: significant other and children pets and animals: Yes (indoor and outdoor cat - aware) education level: college occupational status: employed special krupa needs: No Smoking Status: Current every day smoker Tobacco: How many years used: 10 quit status: considering quitting second hand exposure: No alcohol intake: former substance use type: marijuana Smoking Status: Current every day smoker Substance Use Type: marijuana Exam Initial Vital Signs Initial Vital Signs: Vital Signs Temperature 98.1 F 01/25/22 20:08 Pulse Rate 86 01/25/22 20:08 Respiratory Rate 18 01/25/22 20:08 Blood Pressure 111/56 L 01/25/22 20:08 Pulse Oximetry 98 01/25/22 20:08 Oxygen Delivery Method 01/25/22 20:08 Const General: cooperative and healthy appearing HENMT Head: normal to inspection and normocephalic Resp Effort & Inspection: normal respiratory effort Cardio Rate: regular rate GI Inspection: normal to inspection Palpation: soft, No firm, No guarding and tender Back/Spine/Pelvis Back: No CVA tenderness Thoracic/Lumbar Spine: paraspinal tenderness (Lumbar region) Skin General: no rashes or lesions noted Neuro General: patient alert, patient awake and moves all extremities Extrem General: normal to inspection and capillary refill normal Psych Appearance: grossly normal and well kempt Course Orders Ordered: ED Orders 01/25/22 20:00 Urine Culture Stat Urine Microscopic Stat 01/25/22 20:17 Complete Blood Count AUTO DIFF Stat Comprehensive Metabolic Panel Stat Lipase Stat 01/25/22 21:20 CT abdomen pelvis w con Stat Discontinued Medications Sodium Chloride (Normal Saline 0.9%) 1,000 mls @ 1,000 mls/hr IV BOLUS ONE Stop: 01/25/22 22:19 Last Infusion: 01/26/22 00:04 Dose: 0 mls/hr Documented By: Admin: 01/25/22 21:27 Dose: 1,000 mls/hr Documented By: AT Morphine Sulfate (Morphine 4 Mg/Ml Inj) 4 mg IV NOW ONE Stop: 01/25/22 21:21 Last Admin: 01/25/22 21:27 Dose: 4 mg Documented By: AT Morphine Sulfate (Morphine 4 Mg/Ml Inj) 4 mg IM NOW ONE Stop: 01/25/22 22:59 Last Admin: 01/25/22 23:17 Dose: 4 mg Documented By: JENNI Ondansetron HCl (Ondansetron 4 Mg/2 Ml Inj) 4 mg IV NOW ONE Stop: 01/25/22 21:21 Last Admin: 01/25/22 21:26 Dose: 4 mg Documented By: MELISSA Ondansetron HCl (Ondansetron 4 Mg/2 Ml Inj) 4 mg IV NOW ONE Stop: 01/25/22 23:22 Last Admin: 01/25/22 23:24 Dose: 4 mg Documented By: JENNI Ondansetron HCl (Ondansetron 4 Mg Odt Prepack) 1 bottle MISC SEEINSTR ONE Stop: 01/25/22 23:22 Last Admin: 01/25/22 23:24 Dose: 1 bottle Documented By: JENNI Oxycodone/Acetaminophen (Oxycodone/Apap 5/325 Prepack) 1 bottle MISC SEEINSTR ONE Stop: 01/25/22 23:00 Last Admin: 01/25/22 23:17 Dose: 1 bottle Documented By: JENNI Vital Signs Vital signs: Vital Signs - 8 hr 01/25/22 23:15 01/25/22 23:15 01/25/22 23:30 Pulse Rate 66 75 Blood Pressure 97/53 L Pulse Oximetry 96 97 Oxygen Delivery Method 01/25/22 23:33 01/25/22 23:33 01/25/22 23:52 Pulse Rate 70 Blood Pressure 94/56 L 104/64 Pulse Oximetry 96 Oxygen Delivery Method Room Air 01/25/22 23:45 01/25/22 23:45 Pulse Rate 64 Blood Pressure 97/56 L Pulse Oximetry 95 Oxygen Delivery Method Medical Decision Making Medical Records Medical records reviewed: Yes I reviewed the patient's medical records. Lab Data Lab results reviewed: Yes I reviewed the patient's lab results. Result diagrams: 01/25/22 20:17 01/25/22 20:17 Labs: Lab Results 01/25/22 01/25/22 01/25/22 Range/Units 20:00 20:17 20:17 WBC 7.7 (4.5-11.0) X10^3/uL RBC 3.85 L (4.0-5.2) X10^6/uL Hgb 12.2 (12.0-16.0) g/dL Hct 35.8 L (36-46) % MCV 93.1 (80-100) fL MCH 31.6 (26-34) PG MCHC 34.0 (30-36) % RDW 13.0 (11.6-14.8) % Plt Count 254 (150-400) X10^3/uL Neut % (Auto) 33.5 L (50-75) % Lymph % (Auto) 56.6 H (25-40) % [place] % (Auto) 6.7 (3-14) % Eos % (Auto) 2.6 (2-4) % Baso % (Auto) 0.6 (0-2) % Neut # (Auto) 2600 (0550-6171) /uL Lymph # (Auto) 4400 (7599-3351) /uL [place] # (Auto) 500 (0-900) /uL Eos # (Auto) 200 (0-450) /uL Baso # (Auto) 0 (0-100) /uL Sodium 139 (137-145) mmol/L Potassium 3.8 (3.4-5.1) mmol/L Chloride 102 (98-107) mmol/L Carbon Dioxide 29 (22-32) mmol/L BUN 15 (7-17) mg/dL Creatinine 0.69 (0.52-1.04) mg/dL Estimated GFR > 60 (>60) mL/min BUN/Creatinine Ratio 21.7 (6-22) Glucose 92 (70-100) mg/dL Calcium 9.0 (8.4-10.2) mg/dL Total Bilirubin 0.2 (0.2-1.3) mg/dL AST 27 (14-36) IU/L ALT 14 (<35) IU/L Alkaline Phosphatase 51 (38-126) U/L Total Protein 7.0 (6.3-8.2) g/dL Albumin 4.3 (3.5-5.0) g/dL Globulin 2.7 (1.7-4.1) g/dL Albumin/Globulin Ratio 1.6 (1.0-2.8) Lipase 274 (23-300) U/L Urine RBC 0-1/hpf (0-5/HPF) Urine WBC 0-1/hpf (0-5/HPF) Urine Bacteria None seen (None) Ur Culture Indicated? Cult not indicated Urine Dip Bedside Urine Glucose Negative Bedside Urine Bilirubin - Negative Bedside Urine Ketone - Negative Urine Specific [place] 1.015 Bedside Urine Occult Blood - Negative Bedside Urine pH 7.0 Bedside Urine Protein - Negative Bedside Urine Urobilinogen - Negative Bedside Urine Nitrite - Negative Bedside Urine Leukocytes - Negative Esterase Point of care testing: Urine Dip Bedside Urine Glucose Negative Bedside Urine Bilirubin - Negative Bedside Urine Ketone - Negative Urine Specific [place] 1.015 Bedside Urine Occult Blood - Negative Bedside Urine pH 7.0 Bedside Urine Protein - Negative Bedside Urine Urobilinogen - Negative Bedside Urine Nitrite - Negative Bedside Urine Leukocytes - Negative Esterase Imaging Data CT scan - abdomen/pelvis: Radiologist's Impression: [address] [address] [address] Scan Report Signed Patient: Annie Tamez MR#: [id number] : 1985 Acct:[id number] Age/Sex: 36 / F Date of Service: 01/25/22 Loc: ED Accession Number: [id number] ?? Procedure: CT abdomen pelvis w con Ordering Provider: Pro Gee D.O. PROCEDURE:? CT ABDOMEN PELVIS W CON ? INDICATIONS:? Generalized abdominal pain worse than a couple days ago ? TECHNIQUE:? After the administration of IV contrast, axial sections were acquired from the lung bases to the pubic symphysis.? Coronal and sagittal reformats were performed.? For radiation dose reduction, the following was used:? automated exposure control, adjustment of mA and/or kV according to patient size. ? COMPARISON:? [facility], CT, CT KIDNEY URETER BLADDER (KUB), 01/21/2022, 19:54.? [facility], CT, CT ABDOMEN PELVIS W CON, 07/15/2020, 10:50. ? FINDINGS:? Image quality:? None.? The liver demonstrates increased echogenicity ? Lung bases:? There is minimal dependent atelectasis.? ? Heart:? Heart is normal in size. ? ? ABDOMEN: Liver:? No mass lesion. Gallbladder:? Within normal limits without calcified gallstones.? ? Biliary ducts:? No biliary ductal dilatation.? ? Pancreas:? Unremarkable.? ? Spleen:? Normal in size.? ? Adrenal Glands:? No adrenal nodules.? ? Kidneys and Ureters:? No hydronephrosis.? There are small bilateral nonobstructing renal stones redemonstrated.? No hydroureter.? ? Stomach and Bowel:? Stomach, small bowel loops, and colon are normal in caliber and wall thickness.? There are surgical sutures along the cecum likely reflecting prior appendectomy.? Peritoneum:? No abnormal intraperitoneal fluid.? No free air.? ? Ventral Wall: ? No hernia.? Abdominal Nodes:? No retroperitoneal or mesenteric adenopathy by size criteria.? Vessels:? Aorta and inferior vena cava are normal in size.? ? PELVIS: Pelvic Organs:? The uterus and ovaries appear within normal size limits.? There are prominent parametrial vessels bilaterally, left greater than right. Bladder:? Unremarkable.? ? Pelvic Nodes: No enlarged lymph nodes.? Miscellaneous: No inguinal hernias are seen. ? ? ? Bones:? Visualized osseous structures demonstrate no suspicious focal lesions. ? IMPRESSION:? ? 1.? Bilateral nephrolithiasis redemonstrated without evidence of obstructive uropathy. ? 2. Prominent parametrial vessels demonstrated in the pelvis, left greater than right.? The findings are nonspecific but may be associated with pelvic congestion syndrome in the appropriate clinical context.? ? ? Dictated by: Harjeet Goldstein M.D. on 01/25/2022 at 22:01 ? ? Approved by: Harjeet Goldstein M.D. on 01/25/2022 at 22:17? [facility] Narrative Medical decision making narrative: Urinalysis today is not consistent with a urinary tract infection however she was being treated with antibiotics. The antibiotics she was discharged home with should be effective against the E coli that was seen on the urine culture. She does have generalized abdominal tenderness that was worse than a couple days ago. A repeat CT scan again shows the renal stones which I have low concern is the cause of her discomfort today. There is no signs of ureteral stones. There is also no CT evidence of pyelonephritis. There were no other specific findings on the EKG that would warrant change in the antibiotics or surgical consultation. She does have findings that could be consistent with pelvic congestion syndrome. I reviewed her medical record shows that she has been diagnosed with this in the past. When I discuss this with her she did stated that she is never been told this before. She has been evaluated in the past for endometriosis. Informed patient that the next step in the process of her abdominal discomfort will be to talk with her primary doctor about referral to see child caregiver private home and/or Gastroenterology. She was given return precautions. She expressed understanding and agreement. Discharge Plan Departure Patient Disposition: Home Clinical Impression: Abdominal pain Instructions: DI for Abdominal Pain-Adult Activity Restrictions/Additional Instructions: Continue all of your medications as directed. I recommend that you keep your appointment that you have scheduled with your primary doctor and discuss the indications for referral to see either Gastroenterology or OBGYN. Return to the emergency department for any new symptoms. Prescriptions: No Action Probiotic with Prebiotic 2 cap PO .QDAY albuterol sulfate [Ventolin HFA] 90 mcg/actuation HFA aerosol inhaler 2 puff INHALATION QIDP PRN (Reason: shortness of breath or wheezing) Qty: 1 3RF Hold Instructions: epinephrine [EpiPen 2-Al] 0.3 mg/0.3 mL auto-injector 0.3 mg IM ONCE Qty: 2 0RF Rx Instructions: as a single dose; may repeat once duloxetine 60 mg capsule,delayed release(DR/EC) 60 mg PO DAILY Qty: 90 0RF ondansetron 4 mg tablet,disintegrating 4 mg PO Q6H PRN (Reason: nausea and vomiting) Qty: 10 0RF hydrocodone-acetaminophen 5-325 mg tablet 1 tab PO Q4-6H PRN (Reason: pain) Qty: 10 0RF ondansetron 4 mg tablet,disintegrating 4 mg PO TID-QID PRN (Reason: nausea and vomiting) Qty: 10 0RF doxycycline hyclate 100 mg tablet 100 mg PO BID Qty: 20 0RF hydrocodone-acetaminophen 5-325 mg tablet 1 tab PO Q6H PRN (Reason: pain) Qty: 10 0RF lidocaine 5 % adhesive patch,medicated 1 patch topical DAILY PRN (Reason: pain) Qty: 15 0RF Rx Instructions: leave on most painful area for up to 12 hrs hydrocodone-acetaminophen 5-325 mg tablet 1 tab PO Q4-6H PRN (Reason: pain) Qty: 10 0RF ketorolac 10 mg tablet 10 mg PO Q6H PRN (Reason: pain) Qty: 14 0RF ondansetron 4 mg tablet,disintegrating 4 mg PO TID-QID PRN (Reason: nausea and vomiting) Qty: 10 0RF ciprofloxacin HCl [Cipro] 500 mg tablet 500 mg PO BID Qty: 20 0RF Referrals: Feroz Max ARNP [Primary Care Provider] - Visit Report Forms: Patient Portal/API
--- NOTE | 2022-01-25 21:20 | DI.CT.S_ITS ---
PROCEDURE: CT ABDOMEN PELVIS W CON INDICATIONS: Generalized abdominal pain worse than a couple days ago TECHNIQUE: After the administration of IV contrast, axial sections were acquired from the lung bases to the pubic symphysis. Coronal and sagittal reformats were performed. For radiation dose reduction, the following was used: automated exposure control, adjustment of mA and/or kV according to patient size. COMPARISON: [facility], CT, CT KIDNEY URETER BLADDER (KUB), 01/21/2022, 19:54. [facility], CT, CT ABDOMEN PELVIS W CON, 07/15/2020, 10:50. FINDINGS: Image quality: None. The liver demonstrates increased echogenicity Lung bases: There is minimal dependent atelectasis. Heart: Heart is normal in size. ABDOMEN: Liver: No mass lesion. Gallbladder: Within normal limits without calcified gallstones. Biliary ducts: No biliary ductal dilatation. Pancreas: Unremarkable. Spleen: Normal in size. Adrenal Glands: No adrenal nodules. Kidneys and Ureters: No hydronephrosis. There are small bilateral nonobstructing renal stones redemonstrated. No hydroureter. Stomach and Bowel: Stomach, small bowel loops, and colon are normal in caliber and wall thickness. There are surgical sutures along the cecum likely reflecting prior appendectomy. Peritoneum: No abnormal intraperitoneal fluid. No free air. Ventral Wall: No hernia. Abdominal Nodes: No retroperitoneal or mesenteric adenopathy by size criteria. Vessels: Aorta and inferior vena cava are normal in size. PELVIS: Pelvic Organs: The uterus and ovaries appear within normal size limits. There are prominent parametrial vessels bilaterally, left greater than right. Bladder: Unremarkable. Pelvic Nodes: No enlarged lymph nodes. Miscellaneous: No inguinal hernias are seen. Bones: Visualized osseous structures demonstrate no suspicious focal lesions. IMPRESSION: 1. Bilateral nephrolithiasis redemonstrated without evidence of obstructive uropathy. 2. Prominent parametrial vessels demonstrated in the pelvis, left greater than right. The findings are nonspecific but may be associated with pelvic congestion syndrome in the appropriate clinical context. Dictated by: Harjeet Goldstein M.D. on 01/25/2022 at 22:01 Approved by: Harjeet Goldstein M.D. on 01/25/2022 at 22:17
[2022-01-25] MEDS: ONDANSETRON 4 MG/2 ML INJ IV ×2 (21:26→23:24)
[2022-01-25] MEDS: SODIUM CHLORIDE 0.9% 1,000 ML 1000 ML IV (21:27)
[2022-01-25] MEDS: MORPHINE 4 MG/ML INJ IV (21:27)
--- NOTE | 2022-01-25 22:37 | PC.NURSE ---
Pt c/o worsening pain after ambulating in the hallway. States she had good relief after morphine earlier. Will notify Dr Gee
[2022-01-25 23:15] VITALS: BP 97/53; PULSE 66; O2SAT 96
[2022-01-25] MEDS: OXYCODONE/APAP 5/325 PREPACK 1 BOTTLE MISC (23:17)
[2022-01-25] MEDS: MORPHINE 4 MG/ML INJ IM (23:17)
[2022-01-25] MEDS: ONDANSETRON 4 MG ODT PREPACK 1 BOTTLE MISC (23:24)
[2022-01-25 23:30] VITALS: PULSE 75; O2SAT 97
[2022-01-25 23:33] VITALS: BP 94/56; PULSE 70; O2SAT 96
[2022-01-25 23:45] VITALS: BP 97/56; PULSE 64; O2SAT 95
--- NOTE | 2022-01-25 23:50 | PC.NURSE ---
pt ambulated to the restroom with a steady gait
[2022-01-25 23:52] VITALS: BP 104/64
== END 2022-01-26 00:06 | disposition home or self-care (01) ==
PROVIDERS: Emergency Provider Emergency Medicine; PCP Registered Nurse Diabetes Educator
DX: R10.84 Generalized abdominal pain (principal); N20.0 Calculus of kidney
CPT/HCPCS: 36415; 74177; 80053; 81003; 81015; 83690; 85025; 87086; 96361; 96372; 96374; 96375; 96376; 99284; J2270; J2405; Q9967

== ENCOUNTER 2022-02-02 19:22 | Emergency (ER) | payer OTHER, MEDICAID, SELFPAY ==
[2022-02-02] VITALS (15 sets, daily range): BP systolic 83–112; BP diastolic 50–69; PULSE 63–124; RESP 12–24; TEMP 37.2; O2SAT 95–99
[2022-02-02] MEDS: SODIUM CHLORIDE 0.9% 1,000 ML 1000 ML IV ×2 (19:48→23:01)
[2022-02-02] MEDS: ONDANSETRON 4 MG/2 ML INJ IV (19:49)
[2022-02-02 19:51] LABS: Add Manual Diff / Slide Review NO; Basophils Absolute Auto 100 /uL (0-100); Basophils Percent Auto 0.9 % (0-2); Eosinophils Absolute Auto 100 /uL (0-450); Eosinophils Percent Auto 1.8 % (2-4); Hematocrit 36.7 % (36-46); Hemoglobin 12.7 g/dL (12.0-16.0); Lymphocytes Absolute Auto 4300 /uL (1100-4500); Lymphocytes Percent Auto 55.8 % (25-40); Mean Corpuscular HGB Conc 34.4 % (30-36); Mean Corpuscular Hemoglobin 31.6 PG (26-34); Mean Corpuscular Volume 91.9 fL (80-100); Monocytes Absolute Auto 600 /uL (0-900); Monocytes Percent Auto 7.9 % (3-14); Neutrophils Absolute Auto 2600 /uL (1500-7000); Neutrophils Percent Auto 33.6 % (50-75); Platelet Count 272 X10^3/uL (150-400); White Blood Cell Count 7.6 X10^3/uL (4.5-11.0)
--- NOTE | 2022-02-02 19:51 | ED.ABDPAIN ---
HPI - Abdominal Pain General Chief Complaint: Abdominal Pain Stated Complaint: Sharp stabbing pains in L shape in ABD Time Seen by Provider: 02/02/22 19:46 Source: patient Mode of arrival: Ambulatory Limitations: no limitations History of Present Illness HPI narrative: Patient presents with left lower quadrant and left mid abdomen pain, onset today. She has nausea, emesis. She is having normal bowel movements. She just finished her menstrual cycle. She denies dysuria or hematuria. She was seen here 01/21/2022 with a diagnosis pyelonephritis. Evaluation for sepsis was negative. KUB CT was done, there is no suggestion of a septic stone. She was discharged on Cipro. Urine culture grew E coli. She returned 01/25/2022 due to pain. She had generalized abdominal pain and low back pain. Abdomen/ pelvis CT demonstrated bilateral stones, no obstructive uropathy. Blood was reassuring. As she presents today with left flank pain, she has no fever or chills. She has no URI symptoms. She has no chest discomfort. She denies . She has no vaginal complaints. Related Data Home Medications Medication Instructions Recorded Confirmed Probiotic with Prebiotic 2 cap PO .QDAY 06/07/18 01/07/21 Previous Rx's Medication Instructions Recorded albuterol sulfate 90 mcg/actuation 2 puff inhalation QIDP PRN 09/29/17 aerosol inhaler (Ventolin HFA) shortness of breath or wheezing #1 ea ondansetron 4 mg disintegrating 4 mg PO Q6H PRN nausea and 07/15/20 tablet vomiting #10 tabs epinephrine 0.3 mg/0.3 mL 0.3 mg (0.3 mL) IM ONCE #2 ea 08/14/20 injection, auto-injector (EpiPen 2-Al) doxycycline hyclate 100 mg tablet 100 mg PO BID #20 tabs 08/15/21 hydrocodone 5 mg-acetaminophen 325 1 tab PO Q4-6H PRN pain #10 tabs 08/15/21 mg tablet ondansetron 4 mg disintegrating 4 mg PO TID-QID PRN nausea and 08/15/21 tablet vomiting #10 tabs hydrocodone 5 mg-acetaminophen 325 1 tab PO Q6H PRN pain #10 tabs 08/31/21 mg tablet lidocaine 5 % topical patch 1 patch topical DAILY PRN pain #15 08/31/21 ea duloxetine 60 mg capsule,delayed 60 mg PO DAILY #90 caps 01/13/22 release ciprofloxacin HCl 500 mg tablet 500 mg PO BID #20 tabs 01/21/22 (Cipro) hydrocodone 5 mg-acetaminophen 325 1 tab PO Q4-6H PRN pain #10 tabs 01/21/22 mg tablet ketorolac 10 mg tablet 10 mg PO Q6H PRN pain #14 tabs 01/21/22 ondansetron 4 mg disintegrating 4 mg PO TID-QID PRN nausea and 01/21/22 tablet vomiting #10 tabs Allergies Allergy/AdvReac Type Severity Reaction Status Date / Time venom-honey bee Allergy Severe TROUBLE Verified 02/12/21 18:07 [BEE VENOM (HONEY BEE)] BREATHING sertraline Allergy Intermediate Migraine Verified 02/12/21 18:07 cefaclor [CEFACLOR] Allergy Unknown I was Verified 02/12/21 18:07 young. I can't remember. Sulfa (Sulfonamide Allergy Unknown I was Verified 02/12/21 18:07 Antibiotics) young. I [SULFA (SULFONAMIDE can't ANTIBIOTICS)] remember. cyclobenzaprine AdvReac Intermediate Migraine Verified 02/12/21 18:07 escitalopram AdvReac Intermediate vertigo, Verified 02/12/21 18:07 headache, weak feeling, and extremely tired. methocarbamol AdvReac Intermediate Migraine Verified 02/12/21 18:07 metronidazole AdvReac Intermediate diarrhea Verified 02/12/21 18:07 and cramps ketorolac [From Toradol] AdvReac Headache Verified 01/25/22 22:58 Review of Systems Constitutional Constitutional: Reports as per HPI, Reports system reviewed and no additional complaints, except as documented, Reports body ache(s), Denies chills, Denies fatigue, Denies fever(s) and Denies headache(s) ENT Ears, Nose, Mouth, and Throat: Denies vertigo, Denies dizziness, Denies headache(s), Denies sinus pressure, Denies sore throat and Denies throat swelling Cardiovascular Cardiovascular: Denies chest pain, Denies leg ulcers, Denies lightheadedness and Denies dyspnea on exertion Respiratory Respiratory: Denies chest congestion, Denies dyspnea on exertion, Denies stridor and Denies wheezing Gastrointestinal Gastrointestinal: Reports as per HPI, Denies melena, Denies nausea and Denies vomiting Genitourinary Genitourinary: Denies flank pain, Denies urinary incontinence, Denies urinary hesitancy and Denies urinary urgency Musculoskeletal Musculoskeletal: Denies back pain Integumentary/Breasts Skin/Breast: Denies lesions and Denies rash Neurologic Neurologic: Denies confusion, Denies vertigo, Denies dizziness and Denies headache(s) Psychiatric Psychiatric: Denies confusion Endocrine Endocrine: Denies fatigue Hematologic/Lymphatic On Anticoagulants: No Allergic/Immunologic Allergic/Immunologic: Denies throat swelling and Denies wheezing Patient History Medical History Abnormal Pap smear of cervix (10/30/16) Admission for sterilization (~12/20/19) Alcohol abuse (~10/2015) Anxiety Arthritis Asthma Bacterial vaginosis Bilateral temporomandibular joint pain C. difficile colitis (09/2016) Chicken pox Chronic back pain Chronic migraine w/o aura w/o status migrainosus, not intractable Chronic neck pain Eczema Scoliosis Surgical History Anesthesia History of umbilical hernia repair Status post appendectomy Family History Brother Age: 34 Asthma NF2 (neurofibromatosis 2) Mother Age: 68 Asthma Thyroid disease Diabetes mellitus Sister Age: 31 Thyroid disease Bipolar 1 disorder Son Alopecia Social History marital status: unmarried,living together household members: significant other and children pets and animals: Yes (indoor and outdoor cat - aware) education level: college occupational status: employed special krupa needs: No Smoking Status: Current every day smoker Tobacco: How many years used: 10 quit status: considering quitting second hand exposure: No alcohol intake: former substance use type: marijuana Smoking Status: Current every day smoker Substance Use Type: marijuana Exam Initial Vital Signs Initial Vital Signs: Vital Signs Temperature 99.0 F 02/02/22 19:29 Pulse Rate 124 H 02/02/22 19:29 Respiratory Rate 24 02/02/22 19:29 Blood Pressure 99/68 02/02/22 19:29 Pulse Oximetry 99 02/02/22 19:29 Oxygen Delivery Method 02/02/22 19:29 Const General: cooperative, healthy appearing and No acute distress [facility] Head: normal to inspection, normocephalic and atraumatic Face and sinus: normal facial exam Mouth: oral mucosae normal Eyes General: Yes appearance normal, both eyes and all related structures Conjunctivae: conjunctivae normal Sclera: sclerae normal Pupils: PERRL EOM: EOM intact bilaterally Neck Neck: full ROM and supple Resp Auscultation: clear to auscultation bilaterally Cardio Rate: regular rate Rhythm: regular rhythm Heart Sounds: S1 normal, S2 normal and no murmurs GI Other: Left lower quadrant/left flank tenderness. Mild guarding. No rebound. No distension. Bowel sounds are normal. No masses. External Female Exam: normal external appearance Speculum Exam - Vagina: normal appearance of the vagina Speculum Exam - Cervix: normal appearance of the cervix and nontender Bimanual Exam- Vagina & Uterus: normal bimanual exam, uterine mobility normal and No tender Bimanual Exam- Adnexa, other: normal adnexae Back/Spine/Pelvis Back: No CVA tenderness Thoracic/Lumbar Spine: thoracic and lumbar spine normal to inspection Skin General: no rashes or lesions noted Neuro General: patient alert, patient awake and patient oriented x3 Extrem General: normal to inspection and no calf tenderness Psych Appearance: grossly normal Course Course Course Narrative: Evaluation has no suggestive UTI, or kidney stones. There is no pelvic pathology. CT indicates diverticulosis, no diverticulitis. She initially had a dose of Dilaudid. She was discharged home with a dispense pack for Glide. Otherwise, she is advised use of OTC analgesics. She should seek follow up with her PCM. Colonoscopy may be necessary if pain continues. Orders Ordered: ED Orders 02/02/22 19:38 Chlamydia Gonorrhea PCR -URINE Stat Urine Culture Stat Urine Microscopic Stat 02/02/22 19:40 Complete Blood Count AUTO DIFF Stat Comprehensive Metabolic Panel Stat Lactate (Lactic Acid) Stat Lipase Stat 02/02/22 19:54 EKG-12 Lead Stat 02/02/22 20:07 CT abdomen pelvis w con Stat 02/02/22 20:11 Blood Culture Stat Discontinued Medications Hydrocodone Bitart/Acetaminophen (Hydrocodone/Acet 5/325 Prepack) 1 bottle MISC SEEINSTR ONE Stop: 02/02/22 22:32 Last Admin: 02/02/22 22:48 Dose: 1 bottle Documented By: JUAN Diphenhydramine HCl (Diphenhydramine 50 Mg/Ml Vial) 25 mg IV NOW ONE Stop: 02/02/22 20:53 Last Admin: 02/02/22 21:05 Dose: 25 mg Documented By: JUAN Hydromorphone HCl (Hydromorphone 1 Mg Inj) 1 mg IV NOW ONE Stop: 02/02/22 20:14 Last Admin: 02/02/22 20:16 Dose: 1 mg Documented By: JOANNE Sodium Chloride (Normal Saline 0.9%) 1,000 mls @ 1,000 mls/hr IV BOLUS ONE Stop: 02/02/22 20:44 Last Infusion: 02/02/22 21:20 Dose: 0 mls/hr Documented By: Admin: 02/02/22 19:48 Dose: 1,000 mls/hr Documented By: JUAN Sodium Chloride (Normal Saline 0.9%) 1,000 mls @ 1,000 mls/hr IV BOLUS ONE Stop: 02/02/22 23:58 Last Infusion: 02/02/22 23:40 Dose: 0 mls/hr Documented By: Admin: 02/02/22 23:01 Dose: 1,000 mls/hr Documented By: JUAN Metoclopramide HCl (Metoclopramide 10 Mg/2 Ml Inj) 10 mg IV NOW ONE Stop: 02/02/22 20:53 Last Admin: 02/02/22 21:05 Dose: 10 mg Documented By: JUAN Ondansetron HCl (Ondansetron 4 Mg/2 Ml Inj) 4 mg IV NOW ONE Stop: 02/02/22 19:46 Last Admin: 02/02/22 19:49 Dose: 4 mg Documented By: JUAN Vital Signs Vital signs: Vital Signs - 8 hr 02/02/22 19:56 02/02/22 19:56 02/02/22 20:00 Pulse Rate 89 Respiratory Rate Blood Pressure 97/52 L 112/59 L Pulse Oximetry 98 Oxygen Delivery Method 02/02/22 20:00 02/02/22 20:33 02/02/22 21:00 Pulse Rate 92 H 83 78 Respiratory Rate 24 12 Blood Pressure Pulse Oximetry 96 Oxygen Delivery Method 02/02/22 21:02 02/02/22 21:02 02/02/22 21:30 Pulse Rate 84 Respiratory Rate 14 Blood Pressure 110/69 108/55 L Pulse Oximetry 97 Oxygen Delivery Method 02/02/22 21:30 02/02/22 22:00 02/02/22 22:00 Pulse Rate 77 70 Respiratory Rate 13 16 Blood Pressure 95/50 L Pulse Oximetry 96 95 Oxygen Delivery Method 02/02/22 22:30 02/02/22 22:30 02/02/22 22:50 Pulse Rate 73 Respiratory Rate 20 Blood Pressure 95/53 L 90/53 L Pulse Oximetry 95 Oxygen Delivery Method 02/02/22 22:50 02/02/22 22:51 02/02/22 22:51 Pulse Rate 76 76 Respiratory Rate 16 Blood Pressure 87/53 L Pulse Oximetry 97 97 Oxygen Delivery Method 02/02/22 22:53 02/02/22 22:53 02/02/22 23:39 Pulse Rate 74 67 Respiratory Rate 24 16 Blood Pressure 83/54 L 105/65 Pulse Oximetry 96 99 Oxygen Delivery Method Room Air 02/02/22 23:00 02/02/22 23:00 02/02/22 23:30 Pulse Rate 70 Respiratory Rate 17 Blood Pressure 89/52 L 103/60 Pulse Oximetry 96 Oxygen Delivery Method 02/02/22 23:30 Pulse Rate 63 Respiratory Rate 19 Blood Pressure Pulse Oximetry 96 Oxygen Delivery Method MDM - Abdominal Pain Lab Data Result diagrams: 02/02/22 19:40 02/02/22 19:40 Labs: Lab Results 02/02/22 02/02/22 02/02/22 Range/Units 19:38 19:38 19:40 WBC 7.6 (4.5-11.0) X10^3/uL RBC 4.00 (4.0-5.2) X10^6/uL Hgb 12.7 (12.0-16.0) g/dL Hct 36.7 (36-46) % MCV 91.9 (80-100) fL MCH 31.6 (26-34) PG MCHC 34.4 (30-36) % RDW 13.0 (11.6-14.8) % Plt Count 272 (150-400) X10^3/uL Neut % (Auto) 33.6 L (50-75) % Lymph % (Auto) 55.8 H (25-40) % [place] % (Auto) 7.9 (3-14) % Eos % (Auto) 1.8 L (2-4) % Baso % (Auto) 0.9 (0-2) % Neut # (Auto) 2600 (7427-9338) /uL Lymph # (Auto) 4300 (8233-8226) /uL [place] # (Auto) 600 (0-900) /uL Eos # (Auto) 100 (0-450) /uL Baso # (Auto) 100 (0-100) /uL Sodium (137-145) mmol/L Potassium (3.4-5.1) mmol/L Chloride (98-107) mmol/L Carbon Dioxide (22-32) mmol/L BUN (7-17) mg/dL Creatinine (0.52-1.04) mg/dL Estimated GFR (>60) mL/min BUN/Creatinine Ratio (6-22) Glucose (70-100) mg/dL Lactate (0.7-2.1) mmol/L Calcium (8.4-10.2) mg/dL Total Bilirubin (0.2-1.3) mg/dL AST (14-36) IU/L ALT (<35) IU/L Alkaline Phosphatase (38-126) U/L Total Protein (6.3-8.2) g/dL Albumin (3.5-5.0) g/dL Globulin (1.7-4.1) g/dL Albumin/Globulin Ratio (1.0-2.8) Lipase (23-300) U/L Urine RBC 0-1/hpf (0-5/HPF) Urine WBC 0-1/hpf (0-5/HPF) Ur Squamous Epith Cells 0-1 /hpf (0-5/HPF) Urine Bacteria None seen (None) Ur Culture Indicated? Cult not indicated Ur Chlamydia DNA (PCR) Not detected N gonorrhoeae DNA (PCR) Not detected 02/02/22 02/02/22 Range/Units 19:40 19:40 WBC (4.5-11.0) X10^3/uL RBC (4.0-5.2) X10^6/uL Hgb (12.0-16.0) g/dL Hct (36-46) % MCV (80-100) fL MCH (26-34) PG MCHC (30-36) % RDW (11.6-14.8) % Plt Count (150-400) X10^3/uL Neut % (Auto) (50-75) % Lymph % (Auto) (25-40) % [place] % (Auto) (3-14) % Eos % (Auto) (2-4) % Baso % (Auto) (0-2) % Neut # (Auto) (2175-4908) /uL Lymph # (Auto) (1545-1233) /uL [place] # (Auto) (0-900) /uL Eos # (Auto) (0-450) /uL Baso # (Auto) (0-100) /uL Sodium 139 (137-145) mmol/L Potassium 3.8 (3.4-5.1) mmol/L Chloride 105 (98-107) mmol/L Carbon Dioxide 24 (22-32) mmol/L BUN 17 (7-17) mg/dL Creatinine 0.63 (0.52-1.04) mg/dL Estimated GFR > 60 (>60) mL/min BUN/Creatinine Ratio 27.0 H (6-22) Glucose 124 H (70-100) mg/dL Lactate 1.8 (0.7-2.1) mmol/L Calcium 9.0 (8.4-10.2) mg/dL Total Bilirubin 0.4 (0.2-1.3) mg/dL AST 22 (14-36) IU/L ALT 17 (<35) IU/L Alkaline Phosphatase 53 (38-126) U/L Total Protein 7.5 (6.3-8.2) g/dL Albumin 4.6 (3.5-5.0) g/dL Globulin 2.9 (1.7-4.1) g/dL Albumin/Globulin Ratio 1.6 (1.0-2.8) Lipase 178 (23-300) U/L Urine RBC (0-5/HPF) Urine WBC (0-5/HPF) Ur Squamous Epith Cells (0-5/HPF) Urine Bacteria (None) Ur Culture Indicated? Ur Chlamydia DNA (PCR) N gonorrhoeae DNA (PCR) Point of care testing: Point of Care Testing Test Results Negative Urine Dip Bedside Urine Glucose Negative Bedside Urine Bilirubin - Negative Bedside Urine Ketone - Negative Urine Specific [place] 1.015 Bedside Urine Occult Blood +/- Bedside Urine pH 6.0 Bedside Urine Protein - Negative Bedside Urine Urobilinogen - Negative Bedside Urine Nitrite - Negative Bedside Urine Leukocytes - Negative Esterase Imaging Data CT scan - abdomen/pelvis: Radiologist's Impression: 1. Colonic diverticulosis without acute diverticulitis. ? 2. Bilateral nephrolithiasis without evidence of obstructive uropathy. ? 3. Vaginal wall thickening and hyperemia of the uterus.? The findings are nonspecific and may reflect physiologic changes but the differential also includes an infectious or inflammatory process.? Discharge Plan Departure Patient Disposition: Home Clinical Impression: Diverticulosis Instructions: DI for Diverticulosis Activity Restrictions/Additional Instructions: There is no evidence of an active kidney stone, or urinary infection. There is no evidence of pelvic infection. Evaluation was suggest pain from her colon. I would recommend a high-fiber diet, drink plenty of water. Advil 2 tabs every 6 hours for pain. You may also take Tylenol. I would suggest colonoscopy, follow-up with your doctor to make arrangements. Return here if obviously worse. Prescriptions: No Action Probiotic with Prebiotic 2 cap PO .QDAY albuterol sulfate [Ventolin HFA] 90 mcg/actuation HFA aerosol inhaler 2 puff INHALATION QIDP PRN (Reason: shortness of breath or wheezing) Qty: 1 3RF Hold Instructions: epinephrine [EpiPen 2-Al] 0.3 mg/0.3 mL auto-injector 0.3 mg IM ONCE Qty: 2 0RF Rx Instructions: as a single dose; may repeat once duloxetine 60 mg capsule,delayed release(DR/EC) 60 mg PO DAILY Qty: 90 0RF ondansetron 4 mg tablet,disintegrating 4 mg PO Q6H PRN (Reason: nausea and vomiting) Qty: 10 0RF hydrocodone-acetaminophen 5-325 mg tablet 1 tab PO Q4-6H PRN (Reason: pain) Qty: 10 0RF ondansetron 4 mg tablet,disintegrating 4 mg PO TID-QID PRN (Reason: nausea and vomiting) Qty: 10 0RF doxycycline hyclate 100 mg tablet 100 mg PO BID Qty: 20 0RF hydrocodone-acetaminophen 5-325 mg tablet 1 tab PO Q6H PRN (Reason: pain) Qty: 10 0RF lidocaine 5 % adhesive patch,medicated 1 patch topical DAILY PRN (Reason: pain) Qty: 15 0RF Rx Instructions: leave on most painful area for up to 12 hrs hydrocodone-acetaminophen 5-325 mg tablet 1 tab PO Q4-6H PRN (Reason: pain) Qty: 10 0RF ketorolac 10 mg tablet 10 mg PO Q6H PRN (Reason: pain) Qty: 14 0RF ondansetron 4 mg tablet,disintegrating 4 mg PO TID-QID PRN (Reason: nausea and vomiting) Qty: 10 0RF ciprofloxacin HCl [Cipro] 500 mg tablet 500 mg PO BID Qty: 20 0RF Referrals: Feroz Max ARNP [Primary Care Provider] - Visit Report Forms: Patient Portal/API
[2022-02-02 20:03] LABS: Alanine Aminotransferase 17 IU/L (<35); Albumin 4.6 g/dL (3.5-5.0); Albumin Globulin Ratio 1.6 (1.0-2.8); Alkaline Phosphatase 53 U/L (38-126); Aspartate Aminotransferase 22 IU/L (14-36); Bilirubin Total 0.4 mg/dL (0.2-1.3); Blood Urea Nitrogen 17 mg/dL (7-17); Carbon Dioxide 24 mmol/L (22-32); Chloride 105 mmol/L (98-107); Estimated Glomerular Filt Rate > 60 mL/min (>60); Globulin 2.9 g/dL (1.7-4.1); Glucose 124 mg/dL (70-100); HEMOLYSIS < 15 (0-50); Lipase 178 U/L (23-300); Potassium 3.8 mmol/L (3.4-5.1); Sodium 139 mmol/L (137-145); Total Protein 7.5 g/dL (6.3-8.2)
[2022-02-02 20:03] LABS: Bacteria Urine None Seen; Culture Indicated Urine Cult Not Indicated; RBC Urine 0-1/HPF (0-5/HPF); Squamous Epithelial Cell Urine 0-1 /HPF (0-5/HPF); WBC Urine 0-1/HPF (0-5/HPF)
--- NOTE | 2022-02-02 20:07 | DI.CT.S_ITS ---
PROCEDURE: CT ABDOMEN PELVIS W CON INDICATIONS: LLQ pain TECHNIQUE: After the administration of IV contrast, axial sections were acquired from the lung bases to the pubic symphysis. Coronal and sagittal reformats were performed. For radiation dose reduction, the following was used: automated exposure control, adjustment of mA and/or kV according to patient size. COMPARISON: [facility], CT, CT ABDOMEN PELVIS W CON, 01/25/2022, 21:32. FINDINGS: Image quality: Excellent. Lung bases: There is minimal dependent atelectasis. Heart: Heart is normal in size. ABDOMEN: Liver: No mass lesion. Gallbladder: Within normal limits without calcified gallstones. Biliary ducts: No biliary ductal dilatation. Pancreas: Unremarkable. Spleen: Normal in size. Adrenal Glands: No adrenal nodules. Kidneys and Ureters: No hydronephrosis. There are small punctate nonobstructing stones redemonstrated in the kidneys. Stomach and Bowel: Stomach, small bowel loops, and colon are normal in caliber and wall thickness. There are surgical sutures along the cecum likely related to prior appendectomy. There is colonic diverticulosis without acute diverticulitis. Peritoneum: No abnormal intraperitoneal fluid. No free air. Ventral Wall: No hernia. Abdominal Nodes: No retroperitoneal or mesenteric adenopathy by size criteria. Vessels: Aorta and inferior vena cava are normal in size. PELVIS: Pelvic Organs: There is vaginal wall thickening and hyperemia of the parametrial and periuterine vessels. Bladder: Unremarkable. Pelvic Nodes: No enlarged lymph nodes. Miscellaneous: No inguinal hernias are seen. Bones: Visualized osseous structures demonstrate no suspicious focal lesions. IMPRESSION: 1. Colonic diverticulosis without acute diverticulitis. 2. Bilateral nephrolithiasis without evidence of obstructive uropathy. 3. Vaginal wall thickening and hyperemia of the uterus. The findings are nonspecific and may reflect physiologic changes but the differential also includes an infectious or inflammatory process. Dictated by: Harjeet Goldstein M.D. on 02/02/2022 at 21:25 Approved by: Harjeet Goldstein M.D. on 02/02/2022 at 21:29
[2022-02-02] MEDS: HYDROMORPHONE 1 MG INJ IV (20:16)
[2022-02-02 20:44] LABS: Lactate (Lactic Acid) 1.8 mmol/L (0.7-2.1)
--- NOTE | 2022-02-02 20:55 | PC.NURSE ---
pt ambulated to the restroom with a steady gait
[2022-02-02] MEDS: METOCLOPRAMIDE 10 MG/2 ML INJ IV (21:05)
[2022-02-02] MEDS: diphenhydrAMINE 50 MG/ML VIAL 25 MG IV (21:05)
[2022-02-02] MEDS: HYDROCODONE/ACET 5/325 PREPACK 1 BOTTLE MISC (22:48)
--- NOTE | 2022-02-02 22:58 | PC.NURSE ---
Notified provider of pt's blood pressures. Verbal order of bolus of NS.
[2022-02-03 01:25] LABS: Urine N gonorrhoeae NOT DETECTED
[2022-02-03 01:29] LABS: Urine Chlamydia NOT DETECTED
== END 2022-02-02 23:45 | disposition home or self-care (01) ==
PROVIDERS: Emergency Provider Emergency Medicine; PCP Registered Nurse Diabetes Educator
DX: K57.90 Diverticulosis of intestine, part unspecified, without perforation or abscess without bleeding (principal); R11.2 Nausea with vomiting, unspecified; M54.50 Low back pain, unspecified; R10.32 Left lower quadrant pain
CPT/HCPCS: 36415; 74177; 80053; 81003; 81015; 81025; 83605; 83690; 85025; 87040; 87086; 87491; 87591; 93005; 93010; 96361; 96374; 96375; 99284; 99285; J1170; J1200; J2405; J2765; Q9967

== ENCOUNTER 2022-02-04 19:47 | Emergency (ER) | payer OTHER, MEDICAID, SELFPAY ==
[2022-02-04] VITALS (11 sets, daily range): BP systolic 95–110; BP diastolic 53–74; PULSE 65–100; RESP 9–24; TEMP 36.9; O2SAT 95–98
[2022-02-04 20:25] LABS: Alanine Aminotransferase 15 IU/L (<35); Albumin 4.2 g/dL (3.5-5.0); Albumin Globulin Ratio 1.4 (1.0-2.8); Alkaline Phosphatase 54 U/L (38-126); Aspartate Aminotransferase 22 IU/L (14-36); BUN Creatinine Ratio 17.5 (6-22); Bilirubin Total 0.2 mg/dL (0.2-1.3); Blood Urea Nitrogen 11 mg/dL (7-17); Calcium 8.9 mg/dL (8.4-10.2); Carbon Dioxide 28 mmol/L (22-32); Chloride 102 mmol/L (98-107); Estimated Glomerular Filt Rate > 60 mL/min (>60); Glucose 105 mg/dL (70-100); HEMOLYSIS < 15 (0-50); Lipase 136 U/L (23-300); Potassium 3.5 mmol/L (3.4-5.1); Sodium 141 mmol/L (137-145); Total Protein 7.2 g/dL (6.3-8.2)
[2022-02-04 20:29] LABS: Add Manual Diff / Slide Review NO; Basophils Absolute Auto 100 /uL (0-100); Basophils Percent Auto 0.6 % (0-2); Eosinophils Absolute Auto 200 /uL (0-450); Eosinophils Percent Auto 1.9 % (2-4); Hematocrit 35.1 % (36-46); Hemoglobin 12.2 g/dL (12.0-16.0); Lymphocytes Absolute Auto 4300 /uL (1100-4500); Lymphocytes Percent Auto 47.4 % (25-40); Mean Corpuscular HGB Conc 34.7 % (30-36); Mean Corpuscular Hemoglobin 31.8 PG (26-34); Mean Corpuscular Volume 91.5 fL (80-100); Monocytes Absolute Auto 600 /uL (0-900); Monocytes Percent Auto 6.5 % (3-14); Neutrophils Absolute Auto 3900 /uL (1500-7000); Neutrophils Percent Auto 43.6 % (50-75); Platelet Count 264 X10^3/uL (150-400); Red Blood Cell Count 3.83 X10^6/uL (4.0-5.2)
--- NOTE | 2022-02-04 20:43 | ED.ABDPAIN ---
HPI - Abdominal Pain General Chief Complaint: Abdominal Pain Stated Complaint: abd pain Time Seen by Provider: 02/04/22 20:28 Source: patient Mode of arrival: Ambulatory History of Present Illness HPI narrative: Patient is a 36-year-old presents abdominal pain. This is actually her 4th visit this month. She initially was seen on January 23 diagnosed with pyelonephritis put on antibiotics and discharged home. She returned on the with pelvic pain and then returned again on the . She has had 3 CT scans already this month, and full workups. Blood work was appears normal. Today she says that he is experiencing bilateral lower abdominal pain severe cramping she appears very uncomfortable. She says it goes U like shape. Her last CT 2 days ago shows diverticulosis without diverticulitis, bilateral nephrolithiasis without obstructive uropathy and vaginal wall thickening. Related Data Home Medications Medication Instructions Recorded Confirmed Probiotic with Prebiotic 2 cap PO .QDAY 06/07/18 01/07/21 Previous Rx's Medication Instructions Recorded albuterol sulfate 90 mcg/actuation 2 puff inhalation QIDP PRN 09/29/17 aerosol inhaler (Ventolin HFA) shortness of breath or wheezing #1 ea ondansetron 4 mg disintegrating 4 mg PO Q6H PRN nausea and 07/15/20 tablet vomiting #10 tabs epinephrine 0.3 mg/0.3 mL 0.3 mg (0.3 mL) IM ONCE #2 ea 08/14/20 injection, auto-injector (EpiPen 2-Al) doxycycline hyclate 100 mg tablet 100 mg PO BID #20 tabs 08/15/21 hydrocodone 5 mg-acetaminophen 325 1 tab PO Q4-6H PRN pain #10 tabs 08/15/21 mg tablet ondansetron 4 mg disintegrating 4 mg PO TID-QID PRN nausea and 08/15/21 tablet vomiting #10 tabs hydrocodone 5 mg-acetaminophen 325 1 tab PO Q6H PRN pain #10 tabs 08/31/21 mg tablet lidocaine 5 % topical patch 1 patch topical DAILY PRN pain #15 08/31/21 ea duloxetine 60 mg capsule,delayed 60 mg PO DAILY #90 caps 01/13/22 release ciprofloxacin HCl 500 mg tablet 500 mg PO BID #20 tabs 01/21/22 (Cipro) hydrocodone 5 mg-acetaminophen 325 1 tab PO Q4-6H PRN pain #10 tabs 01/21/22 mg tablet ketorolac 10 mg tablet 10 mg PO Q6H PRN pain #14 tabs 01/21/22 ondansetron 4 mg disintegrating 4 mg PO TID-QID PRN nausea and 01/21/22 tablet vomiting #10 tabs Allergies Allergy/AdvReac Type Severity Reaction Status Date / Time venom-honey bee Allergy Severe TROUBLE Verified 02/12/21 18:07 [BEE VENOM (HONEY BEE)] BREATHING sertraline Allergy Intermediate Migraine Verified 02/12/21 18:07 cefaclor [CEFACLOR] Allergy Unknown I was Verified 02/12/21 18:07 young. I can't remember. Sulfa (Sulfonamide Allergy Unknown I was Verified 02/12/21 18:07 Antibiotics) young. I [SULFA (SULFONAMIDE can't ANTIBIOTICS)] remember. cyclobenzaprine AdvReac Intermediate Migraine Verified 02/12/21 18:07 escitalopram AdvReac Intermediate vertigo, Verified 02/12/21 18:07 headache, weak feeling, and extremely tired. methocarbamol AdvReac Intermediate Migraine Verified 02/12/21 18:07 metronidazole AdvReac Intermediate diarrhea Verified 02/12/21 18:07 and cramps ketorolac [From Toradol] AdvReac Headache Verified 01/25/22 22:58 Review of Systems Review of Systems Narrative: GENERAL: Denies chills, fatigue, malaise, fever, sweats, travel HEENT: Denies sinus pain, ear pain, sore throat, difficulty swallowing, neck pain RESPIRATORY: Denies dyspnea, cough, wheezing, hemoptysis, sputum. CARDIOVASCULAR: Denies chest pain, palpitations, orthopnea, edema GASTROINTESTINAL: See HPI : Denies dysuria, frequency, incontinence, hematuria, urinary retention, flank pain. MUSCULOSKELETAL: Denies weakness, joint pain, or bony pain SKIN: No rash, no erythema, no pruritus NEUROLOGIC: Denies weakness, dizziness, headache, numbness, change in speech, confusion PSYCHIATRIC: No concerning psychosocial issues. 12 point review of systems is negative except for those stated above and HPI Patient History Medical History Abnormal Pap smear of cervix (06/16/17) Admission for sterilization (~12/20/19) Alcohol abuse (~10/2015) Anxiety Arthritis Asthma Bacterial vaginosis Bilateral temporomandibular joint pain C. difficile colitis (09/2016) Chicken pox Chronic back pain Chronic migraine w/o aura w/o status migrainosus, not intractable Chronic neck pain Eczema Scoliosis Surgical History Anesthesia History of umbilical hernia repair Status post appendectomy Family History Brother Age: 34 Asthma NF2 (neurofibromatosis 2) Mother Age: 68 Asthma Thyroid disease Diabetes mellitus Sister Age: 31 Thyroid disease Bipolar 1 disorder Son Alopecia Social History marital status: unmarried,living together household members: significant other and children pets and animals: Yes (indoor and outdoor cat - aware) education level: college occupational status: employed special krupa needs: No Smoking Status: Current every day smoker Tobacco: How many years used: 10 quit status: considering quitting second hand exposure: No alcohol intake: former substance use type: marijuana Smoking Status: Current every day smoker Substance Use Type: does not use Exam Initial Vital Signs Initial Vital Signs: Vital Signs Pulse Rate 95 H 02/04/22 19:54 Pulse Oximetry 98 02/04/22 19:54 GENERAL: Alert 36-year-old female appears in quite a bit of and in no acute distress. HEENT: Head atraumatic,EOMI, pupils reactive, face symmetric, moist mucous membranes CARDIOVASCULAR: Regular rate and rhythm without murmurs, rubs or gallops. RESPIRATORY: Breath sounds equal bilaterally, no wheezes rales or rhonchi. ABDOMEN: Soft, severe tenderness lower abdomen no distension EXTREMITIES: Normal range of motion, no clubbing or edema. Neurovascularly intact NEUROLOGICAL: Alert and oriented x4 SKIN: Warm, dry, no laceration, no petechiae, no rashes or lesions. Course Orders Ordered: ED Orders 02/04/22 20:44 US pelvic complete Stat Discontinued Medications Hydromorphone HCl (Hydromorphone 0.5 Mg Inj) 0.5 mg IV NOW ONE Stop: 02/04/22 21:09 Last Admin: 02/04/22 21:13 Dose: 0.5 mg Documented By: DANIELLE Hydromorphone HCl (Hydromorphone 1 Mg Inj) 1 mg IV NOW ONE Stop: 02/04/22 22:31 Last Admin: 02/04/22 22:36 Dose: 1 mg Documented By: DANIELLE Sodium Chloride (Normal Saline 0.9%) 1,000 mls @ 1,000 mls/hr IV BOLUS ONE Stop: 02/04/22 22:07 Last Infusion: 02/04/22 23:58 Dose: 0 mls/hr Documented By: Admin: 02/04/22 21:13 Dose: 1,000 mls/hr Documented By: DANIELLE Morphine Sulfate (Morphine 4 Mg/Ml Inj) 4 mg IV NOW ONE Stop: 02/04/22 20:45 Last Admin: 02/04/22 20:48 Dose: 4 mg Documented By: DANIELLE Ondansetron HCl (Ondansetron 4 Mg/2 Ml Inj) 4 mg IV NOW ONE Stop: 02/04/22 20:45 Last Admin: 02/04/22 20:48 Dose: 4 mg Documented By: DANIELLE Ondansetron HCl (Ondansetron 4 Mg/2 Ml Inj) 4 mg IV NOW ONE Stop: 02/04/22 22:40 Last Admin: 02/04/22 22:42 Dose: 4 mg Documented By: DANIELLE Vital Signs Vital signs: Vital Signs - 8 hr 02/04/22 21:29 02/04/22 21:30 02/04/22 23:08 Pulse Rate 75 66 Respiratory Rate 19 16 Blood Pressure 98/54 L 103/58 L Pulse Oximetry 95 98 Oxygen Delivery Method Room Air 02/04/22 23:50 Pulse Rate 65 Respiratory Rate 16 Blood Pressure 103/74 Pulse Oximetry 97 Oxygen Delivery Method Room Air MDM - Abdominal Pain Lab Data Result diagrams: 02/04/22 20:03 02/04/22 20:03 Labs: Lab Results 02/04/22 02/04/22 Range/Units 20:03 20:03 WBC 9.0 (4.5-11.0) X10^3/uL RBC 3.83 L (4.0-5.2) X10^6/uL Hgb 12.2 (12.0-16.0) g/dL Hct 35.1 L (36-46) % MCV 91.5 (80-100) fL MCH 31.8 (26-34) PG MCHC 34.7 (30-36) % RDW 13.0 (11.6-14.8) % Plt Count 264 (150-400) X10^3/uL Neut % (Auto) 43.6 L (50-75) % Lymph % (Auto) 47.4 H (25-40) % Carbon % (Auto) 6.5 (3-14) % Eos % (Auto) 1.9 L (2-4) % Baso % (Auto) 0.6 (0-2) % Neut # (Auto) 3900 (7013-3504) /uL Lymph # (Auto) 4300 (9018-0133) /uL Carbon # (Auto) 600 (0-900) /uL Eos # (Auto) 200 (0-450) /uL Baso # (Auto) 100 (0-100) /uL Sodium 141 (137-145) mmol/L Potassium 3.5 (3.4-5.1) mmol/L Chloride 102 (98-107) mmol/L Carbon Dioxide 28 (22-32) mmol/L BUN 11 (7-17) mg/dL Creatinine 0.63 (0.52-1.04) mg/dL Estimated GFR > 60 (>60) mL/min BUN/Creatinine Ratio 17.5 (6-22) Glucose 105 H (70-100) mg/dL Calcium 8.9 (8.4-10.2) mg/dL Total Bilirubin 0.2 (0.2-1.3) mg/dL AST 22 (14-36) IU/L ALT 15 (<35) IU/L Alkaline Phosphatase 54 (38-126) U/L Total Protein 7.2 (6.3-8.2) g/dL Albumin 4.2 (3.5-5.0) g/dL Globulin 3.0 (1.7-4.1) g/dL Albumin/Globulin Ratio 1.4 (1.0-2.8) Lipase 136 (23-300) U/L Point of care testing: Point of Care Testing Test Results Negative Urine Dip Bedside Urine Glucose Negative Bedside Urine Bilirubin - Negative Bedside Urine Ketone - Negative Bedside Urine Occult Blood - Negative Bedside Urine Urobilinogen - Negative Bedside Urine Nitrite - Negative Bedside Urine Leukocytes - Negative Esterase Imaging Data US - PUBLIC TRANSPORTATION INSPECTOR: Radiologist's Impression: Signed Patient: Annie Tamez MR#: [id number] : 1985 Acct:[id number] Age/Sex: 36 / F Date of Service: 02/04/22 Loc: ED Accession Number: [id number] ?? Procedure: US pelvic complete Ordering Provider: Loly Gonzales D.O. PROCEDURE:? US PELVIC COMPLETE ? INDICATIONS:? PAIN ? TECHNIQUE:? Real-time scanning was performed of the pelvic organs, with image documentation.? Additional endovaginal scanning was necessary due to incomplete visualization of the adnexal and endometrial structures by transabdominal scanning.? ? COMPARISON:[facility], PELVIC COMPLETE, 08/15/2021, 16:29. ? FINDINGS:? ?? Uterus:? Uterus is anteverted and measures 8.6 x 3.8 x 5.5 cm.? The endometrium measures up to 0.6 cm in thickness.? Mildly prominent peripheral vessels are demonstrated along the uterus. ? Ovaries:? The right ovary measures 2.3 x 2.1 x 2.6 cm, with a calculated ovarian volume of 6.4 cc. The left ovary measures 3.6 x 2.5 x 3.1 cm, with a calculated ovarian volume of 14.5 cc. The ovaries have a normal sonographic appearance. Less than 12 follicles can be seen in each ovary.? No discrete adnexal masses.? There is a anechoic simple cyst in the left ovary measuring up to 1.3 cm consistent with a dominant follicle.? There is patent arterial flow demonstrated within the ovaries. ? Other:? No pathologic free abdominal or pelvic fluid. ? ? IMPRESSION:? ? 1. No acute sonographic abnormality in the pelvis.? Specifically, no evidence of ovarian torsion. ? ? We strive to produce accurate, complete, and clear reports of imaging services. To assist us in improving patient care, this report was composed using standard report templates and voice recognition software. Therefore, it may contain abnormal punctuation, insertions and/or omissions. Occasional wrong-word or sound-alike substitutions may occur. Though we review the report and make efforts to correct it, we do recommend that the report be read carefully in proper context to recognize any text inaccuracies. ? ? Dictated by: Harjeet Goldstein M.D. on 02/04/2022 at 23:24 ?? [facility] Narrative Medical decision making narrative: Patient has had multiple workups this month multiple CTs including 1, 2 days ago. Her blood work is overall reassuring. On exam she is quite tender but no significant distention. She has received multiple doses of morphine and dilaudid. Blood pressure is slightly low in the 90s, however does improve with IV fluids and time. However it has been low previously. She states that she has had a pelvic exam within the last month as well, which is documented on her last visit on the 2 days ago. Her ultrasound today is negative. At this time I see no need to repeat a pelvic exam or repeat a CT. She is not getting a prescription for any more opiate medications here. I do strongly encourage her to follow up with her primary care provider and possibly see a GI specialist. At this time there is nothing further they emergency department can offer. Differential diagnosis includes bowel obstruction, pyelonephritis, UTI, PID, ovarian torsion, ovarian cyst, diverticulitis. All of these have been successfully ruled out Discharge Plan Departure Patient Disposition: Home Clinical Impression: Abdominal pain Instructions: DI for Abdominal Pain-Adult Activity Restrictions/Additional Instructions: *You have been diagnosed with abdominal pain *What to do: At this time multiple emergency department visits have not found a cause of your abdominal pain. You may need to see a specialist such as a GI doctor *Continue to take medications as directed Tylenol 1000 mg every 6 hours if needed for severe pain do not exceed more to cope 4000 mg in 1 day Ibuprofen 600 mg every 6 hours if needed for [id number] *Follow up with your primary care provider in 2-3 days or call [phone] *Return to ER if you should have increasing pain persistent vomiting fever or any new, worsening or concerning symptoms Prescriptions: No Action Probiotic with Prebiotic 2 cap PO .QDAY albuterol sulfate [Ventolin HFA] 90 mcg/actuation HFA aerosol inhaler 2 puff INHALATION QIDP PRN (Reason: shortness of breath or wheezing) Qty: 1 3RF Hold Instructions: epinephrine [EpiPen 2-Al] 0.3 mg/0.3 mL auto-injector 0.3 mg IM ONCE Qty: 2 0RF Rx Instructions: as a single dose; may repeat once duloxetine 60 mg capsule,delayed release(DR/EC) 60 mg PO DAILY Qty: 90 0RF ondansetron 4 mg tablet,disintegrating 4 mg PO Q6H PRN (Reason: nausea and vomiting) Qty: 10 0RF hydrocodone-acetaminophen 5-325 mg tablet 1 tab PO Q4-6H PRN (Reason: pain) Qty: 10 0RF ondansetron 4 mg tablet,disintegrating 4 mg PO TID-QID PRN (Reason: nausea and vomiting) Qty: 10 0RF doxycycline hyclate 100 mg tablet 100 mg PO BID Qty: 20 0RF hydrocodone-acetaminophen 5-325 mg tablet 1 tab PO Q6H PRN (Reason: pain) Qty: 10 0RF lidocaine 5 % adhesive patch,medicated 1 patch topical DAILY PRN (Reason: pain) Qty: 15 0RF Rx Instructions: leave on most painful area for up to 12 hrs hydrocodone-acetaminophen 5-325 mg tablet 1 tab PO Q4-6H PRN (Reason: pain) Qty: 10 0RF ketorolac 10 mg tablet 10 mg PO Q6H PRN (Reason: pain) Qty: 14 0RF ondansetron 4 mg tablet,disintegrating 4 mg PO TID-QID PRN (Reason: nausea and vomiting) Qty: 10 0RF ciprofloxacin HCl [Cipro] 500 mg tablet 500 mg PO BID Qty: 20 0RF Referrals: Feroz Max ARNP [Primary Care Provider] - Visit Report Forms: Patient Portal/API
--- NOTE | 2022-02-04 20:44 | DI.US.S_ITS ---
PROCEDURE: US PELVIC COMPLETE INDICATIONS: PAIN TECHNIQUE: Real-time scanning was performed of the pelvic organs, with image documentation. Additional endovaginal scanning was necessary due to incomplete visualization of the adnexal and endometrial structures by transabdominal scanning. COMPARISON: [facility], [place], US PELVIC COMPLETE, 08/15/2021, 16:29. FINDINGS: Uterus: Uterus is anteverted and measures 8.6 x 3.8 x 5.5 cm. The endometrium measures up to 0.6 cm in thickness. Mildly prominent peripheral vessels are demonstrated along the uterus. Ovaries: The right ovary measures 2.3 x 2.1 x 2.6 cm, with a calculated ovarian volume of 6.4 cc. The left ovary measures 3.6 x 2.5 x 3.1 cm, with a calculated ovarian volume of 14.5 cc. The ovaries have a normal sonographic appearance. Less than 12 follicles can be seen in each ovary. No discrete adnexal masses. There is a anechoic simple cyst in the left ovary measuring up to 1.3 cm consistent with a dominant follicle. There is patent arterial flow demonstrated within the ovaries. Other: No pathologic free abdominal or pelvic fluid. IMPRESSION: 1. No acute sonographic abnormality in the pelvis. Specifically, no evidence of ovarian torsion. We strive to produce accurate, complete, and clear reports of imaging services. To assist us in improving patient care, this report was composed using standard report templates and voice recognition software. Therefore, it may contain abnormal punctuation, insertions and/or omissions. Occasional wrong-word or sound-alike substitutions may occur. Though we review the report and make efforts to correct it, we do recommend that the report be read carefully in proper context to recognize any text inaccuracies. Dictated by: Harjeet Goldstein M.D. on 02/04/2022 at 23:24 Approved by: Harjeet Goldstein M.D. on 02/04/2022 at 23:26
[2022-02-04] MEDS: ONDANSETRON 4 MG/2 ML INJ IV ×2 (20:48→22:42)
[2022-02-04] MEDS: MORPHINE 4 MG/ML INJ IV (20:48)
[2022-02-04] MEDS: SODIUM CHLORIDE 0.9% 1,000 ML 1000 ML IV (21:13)
[2022-02-04] MEDS: HYDROMORPHONE 0.5 MG INJ IV (21:13)
[2022-02-04] MEDS: HYDROMORPHONE 1 MG INJ IV (22:36)
== END 2022-02-04 23:50 | disposition home or self-care (01) ==
PROVIDERS: Emergency Provider Emergency Medicine; PCP Registered Nurse Diabetes Educator
DX: R10.30 Lower abdominal pain, unspecified (principal)
CPT/HCPCS: 36415; 76830; 76856; 80053; 81003; 81025; 83690; 85025; 93005; 93010; 93975; 96361; 96374; 96375; 96376; 99284; J1170; J2270; J2405

== ENCOUNTER 2022-02-09 15:16 | Emergency (ER) | payer OTHER, MEDICAID, SELFPAY ==
[2022-02-09 15:59] VITALS: BP 101/58; PULSE 78; RESP 18; TEMP 37.3; O2SAT 99; BMI 20.7
--- NOTE | 2022-02-09 18:45 | DI.CT.S_ITS ---
PROCEDURE: CT ABDOMEN PELVIS W CON INDICATIONS: Generalized abdominal pain TECHNIQUE: After the administration of intravenous contrast, axial sections acquired from the lung bases to the pubic symphysis. Coronal and sagittal reformats were performed. For radiation dose reduction, the following was used: automated exposure control, adjustment of mA and/or kV according to patient size. COMPARISON: None. FINDINGS: Image quality: Excellent. Lung bases: GGO in the left lung base Heart: No significant findings. ABDOMEN: Liver: No acute finding. Gallbladder: Contracted. Biliary ducts: Unremarkable. Pancreas: Unremarkable. Spleen: Unremarkable. Adrenal Glands: Unremarkable. Kidneys and Ureters: Unremarkable. Stomach and Bowel: Stomach, small bowel loops, and colon are unremarkable. Peritoneum: No abnormal intraperitoneal fluid. No free air. Ventral Wall: No hernias. Abdominal Nodes: No retroperitoneal or mesenteric adenopathy by size criteria. Vessels: Aorta and inferior vena cava are normal in size. PELVIS: Small volume free fluid is within normal limits. Left ovarian corpus luteum cyst. Uterus normal. Bladder unremarkable. Bones: No acute or suspicious bone finding. IMPRESSION: Left lung base ground glass opacity may be infectious infiltrate. No acute finding otherwise. Dictated by: Austin Palma M.D. on 02/09/2022 at 20:04 Approved by: Austin Palma M.D. on 02/09/2022 at 20:08
[2022-02-09] MEDS: MORPHINE 4 MG/ML INJ IV (19:16)
[2022-02-09] MEDS: ONDANSETRON 4 MG/2 ML INJ IV (19:19)
--- NOTE | 2022-02-09 19:32 | ED.ABDPAIN ---
HPI - Abdominal Pain <Sue Dao PA-C - Last Filed: 02/09/22 20:26> General Chief Complaint: Abdominal Pain Stated Complaint: ABD PAIN TOWARDS THE RIGHT AND BACK Time Seen by Provider: 02/09/22 18:01 Source: patient Mode of arrival: Wheelchair History of Present Illness HPI narrative: 36-year-old female with past medical history diverticulosis, abdominal pain, TMJ, eczema, asthma, chronic neck pain, chronic migraine, back pain with sciatica, alcoholism in remission, utilized anxiety disorder with panic attacks presents to the ED with 3 weeks of lower abdominal pain. Patient states the pain is in the lower abdomen, periumbilical region. Patient also endorses nausea, vomiting. Patient denies fever, chills, chest pain, shortness of breath, cough, diarrhea, constipation, hematochezia, melena, dysuria, urinary urgency, urinary frequency, lightheadedness, dizziness, syncope. Patient states that she sees Dr. Warren who is her PCP, is out of town currently, other office directed her to the ED. patient has not seen a GI specialist thus far. Patient had a colonoscopy in 2018 with some polyps and no other acute findings. Related Data Home Medications Medication Instructions Recorded Confirmed Probiotic with Prebiotic 2 cap PO .QDAY 06/07/18 01/07/21 Previous Rx's Medication Instructions Recorded albuterol sulfate 90 mcg/actuation 2 puff inhalation QIDP PRN 09/29/17 aerosol inhaler (Ventolin HFA) shortness of breath or wheezing #1 ea ondansetron 4 mg disintegrating 4 mg PO Q6H PRN nausea and 07/15/20 tablet vomiting #10 tabs epinephrine 0.3 mg/0.3 mL 0.3 mg (0.3 mL) IM ONCE #2 ea 08/14/20 injection, auto-injector (EpiPen 2-Al) doxycycline hyclate 100 mg tablet 100 mg PO BID #20 tabs 08/15/21 hydrocodone 5 mg-acetaminophen 325 1 tab PO Q4-6H PRN pain #10 tabs 08/15/21 mg tablet ondansetron 4 mg disintegrating 4 mg PO TID-QID PRN nausea and 08/15/21 tablet vomiting #10 tabs hydrocodone 5 mg-acetaminophen 325 1 tab PO Q6H PRN pain #10 tabs 08/31/21 mg tablet lidocaine 5 % topical patch 1 patch topical DAILY PRN pain #15 08/31/21 ea duloxetine 60 mg capsule,delayed 60 mg PO DAILY #90 caps 01/13/22 release ciprofloxacin HCl 500 mg tablet 500 mg PO BID #20 tabs 01/21/22 (Cipro) hydrocodone 5 mg-acetaminophen 325 1 tab PO Q4-6H PRN pain #10 tabs 01/21/22 mg tablet ketorolac 10 mg tablet 10 mg PO Q6H PRN pain #14 tabs 01/21/22 ondansetron 4 mg disintegrating 4 mg PO TID-QID PRN nausea and 01/21/22 tablet vomiting #10 tabs azithromycin 250 mg tablet See Rx Instructions PO .COMPLEX #6 02/09/22 (Zithromax Z-Al) tabs Allergies Allergy/AdvReac Type Severity Reaction Status Date / Time venom-honey bee Allergy Severe TROUBLE Verified 02/12/21 18:07 [BEE VENOM (HONEY BEE)] BREATHING sertraline Allergy Intermediate Migraine Verified 02/12/21 18:07 cefaclor [CEFACLOR] Allergy Unknown I was Verified 02/12/21 18:07 young. I can't remember. Sulfa (Sulfonamide Allergy Unknown I was Verified 02/12/21 18:07 Antibiotics) young. I [SULFA (SULFONAMIDE can't ANTIBIOTICS)] remember. cyclobenzaprine AdvReac Intermediate Migraine Verified 02/12/21 18:07 escitalopram AdvReac Intermediate vertigo, Verified 02/12/21 18:07 headache, weak feeling, and extremely tired. methocarbamol AdvReac Intermediate Migraine Verified 02/12/21 18:07 metronidazole AdvReac Intermediate diarrhea Verified 02/12/21 18:07 and cramps ketorolac [From Toradol] AdvReac Headache Verified 01/25/22 22:58 Review of Systems <Sue Dao PA-C - Last Filed: 02/09/22 20:26> Review of Systems ROS Unobtainable: All systems reviewed & are unremarkable except as noted in HPI and below Constitutional Constitutional: Denies chills, Denies fatigue, Denies fever(s), Denies frequent falls, Denies lethargy and Denies weakness Eyes Eyes: Denies change in vision, Denies eye discharge, Denies irritation and Denies loss of vision ENT Ears, Nose, Mouth, and Throat: Denies change in voice, Denies dizziness, Denies neck pain, Denies sore throat and Denies throat swelling Cardiovascular Cardiovascular: Denies chest pain, Denies irregular heart rhythm, Denies lightheadedness, Denies palpitations, Denies dyspnea, Denies dyspnea on exertion and Denies orthopnea Respiratory Respiratory: Denies cough, Denies dyspnea, Denies dyspnea on exertion and Denies wheezing Gastrointestinal Gastrointestinal: Reports abdominal pain, Denies change in bowel habits, Denies diarrhea, Reports nausea and Reports vomiting Genitourinary Genitourinary: Denies hematuria, Denies flank pain, Denies urinary incontinence and Denies urinary urgency Musculoskeletal Musculoskeletal: Denies back pain, Denies muscle weakness, Denies neck pain, Denies numbness and Denies tingling Integumentary/Breasts Skin/Breast: Denies pruritus, Denies erythema, Denies rash and Denies wounds Neurologic Neurologic: Denies behavioral changes, Denies confusion, Denies dizziness, Denies frequent falls, Denies loss of vision, Denies numbness, Denies tingling and Denies weakness Psychiatric Psychiatric: Denies anxiety, Denies behavioral changes, Denies confusion, Denies depression, Denies homicidal ideation and Denies suicidal ideation Endocrine Endocrine: Denies fatigue, Denies flushing and Denies palpitations Hematologic/Lymphatic Hematologic/Lymphatic: Denies easy bruising Allergic/Immunologic Allergic/Immunologic: Denies urticaria, Denies throat swelling and Denies wheezing Patient History <Sue Dao PA-C - Last Filed: 02/09/22 20:26> Medical History Abnormal Pap smear of cervix (10/30/16) Admission for sterilization (~12/20/19) Alcohol abuse (~10/2015) Anxiety Arthritis Asthma Bacterial vaginosis Bilateral temporomandibular joint pain C. difficile colitis (09/2016) Chicken pox Chronic back pain Chronic migraine w/o aura w/o status migrainosus, not intractable Chronic neck pain Eczema Scoliosis Surgical History Anesthesia History of umbilical hernia repair Status post appendectomy Family History Brother Age: 34 Asthma NF2 (neurofibromatosis 2) Mother Age: 68 Asthma Thyroid disease Diabetes mellitus Sister Age: 31 Thyroid disease Bipolar 1 disorder Son Alopecia Social History marital status: unmarried,living together household members: significant other and children pets and animals: Yes (indoor and outdoor cat - aware) education level: college occupational status: employed special krupa needs: No Smoking Status: Current every day smoker Tobacco: How many years used: 10 quit status: considering quitting second hand exposure: No alcohol intake: former substance use type: marijuana Smoking Status: Current every day smoker Substance Use Type: does not use Exam <Sue Dao PA-C - Last Filed: 02/09/22 20:26> Narrative Exam Narrative: Const General:?cooperative, healthy appearing and comfortable HENMT Head:?normal to inspection Ears:?hearing grossly normal bilaterally Nose:?external nose normal Face and sinus:?normal facial exam and sinuses nontender Mouth:?oral mucosae normal Throat:?posterior oropharynx normal Eyes General:?appearance normal, both eyes and all related structures Neck Neck:?normal visual inspection and no lymphadenopathy noted Resp Effort & Inspection:?normal respiratory effort Auscultation:?clear to auscultation bilaterally Cardio Rate:?regular rate Rhythm:?regular rhythm GI Abdomen is soft, nondistended. There is generalized tenderness to palpation. There is bilateral CVA tenderness, right greater than left. Neuro General:?patient alert, patient awake and patient oriented x3 Initial Vital Signs Initial Vital Signs: Vital Signs Temperature 99.2 F 02/09/22 15:59 Pulse Rate 78 02/09/22 15:59 Respiratory Rate 18 02/09/22 15:59 Blood Pressure 101/58 L 02/09/22 15:59 Pulse Oximetry 99 02/09/22 15:59 Oxygen Delivery Method 02/09/22 15:59 <Loly Gonzales DO - Last Filed: 02/10/22 10:00> Initial Vital Signs Initial Vital Signs: Vital Signs Temperature 99.2 F 02/09/22 15:59 Pulse Rate 78 02/09/22 15:59 Respiratory Rate 18 02/09/22 15:59 Blood Pressure 101/58 L 02/09/22 15:59 Pulse Oximetry 99 02/09/22 15:59 Oxygen Delivery Method 02/09/22 15:59 Course <Sue Dao PA-C - Last Filed: 02/09/22 20:26> Orders Ordered: Discontinued Medications Morphine Sulfate (Morphine 4 Mg/Ml Inj) 4 mg IV NOW ONE Stop: 02/09/22 18:47 Last Admin: 02/09/22 19:16 Dose: 4 mg Documented By: RENE Morphine Sulfate (Morphine 2 Mg/Ml Inj) 4 mg IV NOW ONE Stop: 02/09/22 20:05 Last Admin: 02/09/22 20:11 Dose: 4 mg Documented By: LIZABETH Ondansetron HCl (Ondansetron 4 Mg/2 Ml Inj) 4 mg IV NOW ONE Stop: 02/09/22 19:15 Last Admin: 02/09/22 19:19 Dose: 4 mg Documented By: RENE Vital Signs Vital signs: Vital Signs - 8 hr 02/09/22 15:59 Temperature 99.2 F Pulse Rate 78 Respiratory Rate 18 Blood Pressure 101/58 L Pulse Oximetry 99 Oxygen Delivery Method Room Air <Loly Gonzales DO - Last Filed: 02/10/22 10:00> Orders Ordered: Discontinued Medications Morphine Sulfate (Morphine 4 Mg/Ml Inj) 4 mg IV NOW ONE Stop: 02/09/22 18:47 Last Admin: 02/09/22 19:16 Dose: 4 mg Documented By: RENE Morphine Sulfate (Morphine 2 Mg/Ml Inj) 4 mg IV NOW ONE Stop: 02/09/22 20:05 Last Admin: 02/09/22 20:11 Dose: 4 mg Documented By: LIZABETH Ondansetron HCl (Ondansetron 4 Mg/2 Ml Inj) 4 mg IV NOW ONE Stop: 02/09/22 19:15 Last Admin: 02/09/22 19:19 Dose: 4 mg Documented By: RENE Vital Signs Vital signs: Vital Signs - 8 hr 02/09/22 15:59 Temperature 99.2 F Pulse Rate 78 Respiratory Rate 18 Blood Pressure 101/58 L Pulse Oximetry 99 Oxygen Delivery Method Room Air MDM - Abdominal Pain <Sue Dao PA-C - Last Filed: 02/09/22 20:26> Lab Data Result diagrams: 02/09/22 19:16 02/09/22 19:16 Labs: Lab Results 02/09/22 02/09/2222 Range/Units 19:16 19:16 19:16 WBC 8.6 (4.5-11.0) X10^3/uL RBC 3.66 L (4.0-5.2) X10^6/uL Hgb 11.6 L (12.0-16.0) g/dL Hct 34.0 L (36-46) % MCV 92.8 (80-100) fL MCH 31.7 (26-34) PG MCHC 34.2 (30-36) % RDW 13.2 (11.6-14.8) % Plt Count 257 (150-400) X10^3/uL Neut % (Auto) 45.1 L (50-75) % Lymph % (Auto) 46.6 H (25-40) % [place] % (Auto) 6.0 (3-14) % Eos % (Auto) 1.4 L (2-4) % Baso % (Auto) 0.9 (0-2) % Neut # (Auto) 3900 (9371-2152) /uL Lymph # (Auto) 4000 (4353-6495) /uL [place] # (Auto) 500 (0-900) /uL Eos # (Auto) 100 (0-450) /uL Baso # (Auto) 100 (0-100) /uL Sodium 136 L (137-145) mmol/L Potassium 3.6 (3.4-5.1) mmol/L Chloride 103 (98-107) mmol/L Carbon Dioxide 25 (22-32) mmol/L BUN 10 (7-17) mg/dL Creatinine 0.71 (0.52-1.04) mg/dL Estimated GFR > 60 (>60) mL/min BUN/Creatinine Ratio 14.1 (6-22) Glucose 73 (70-100) mg/dL Lactate 1.4 (0.7-2.1) mmol/L Calcium 8.5 (8.4-10.2) mg/dL Total Bilirubin 0.2 (0.2-1.3) mg/dL AST 19 (14-36) IU/L ALT 13 (<35) IU/L Alkaline Phosphatase 42 (38-126) U/L Total Protein 6.5 (6.3-8.2) g/dL Albumin 4.0 (3.5-5.0) g/dL Globulin 2.5 (1.7-4.1) g/dL Albumin/Globulin Ratio 1.6 (1.0-2.8) Lipase 371 H D (23-300) U/L Point of care testing: Point of Care Testing Test Results Negative Urine Dip Bedside Urine Glucose Negative Bedside Urine Bilirubin - Negative Bedside Urine Ketone - Negative Urine Specific [place] 1.010 Bedside Urine Occult Blood - Negative Bedside Urine pH 6.0 Bedside Urine Protein - Negative Bedside Urine Urobilinogen - Negative Bedside Urine Nitrite - Negative Bedside Urine Leukocytes - Negative Esterase Imaging Data CT scan - abdomen/pelvis: Radiologist's Impression: PROCEDURE:? CT ABDOMEN PELVIS W CON ? INDICATIONS:? Generalized abdominal pain ? TECHNIQUE:? After the administration of intravenous contrast, axial sections acquired from the lung bases to the pubic symphysis.? Coronal and sagittal reformats were performed.? For radiation dose reduction, the following was used:? automated exposure control, adjustment of mA and/or kV according to patient size.? ? COMPARISON:? None. ? FINDINGS:? Image quality:? Excellent.? ? Lung bases:? GGO in the left lung base Heart:? No significant findings. ? ABDOMEN: Liver:? No acute finding. Gallbladder:? Contracted. ? ? Biliary ducts:? Unremarkable.? ? Pancreas:? Unremarkable.? ? Spleen:? Unremarkable.? ? Adrenal Glands:? Unremarkable.? ? Kidneys and Ureters:? Unremarkable.? ? ? Stomach and Bowel:? Stomach, small bowel loops, and colon are unremarkable.? Peritoneum:? No abnormal intraperitoneal fluid.? No free air.? ? Ventral Wall: ? No hernias.? Abdominal Nodes:? No retroperitoneal or mesenteric adenopathy by size criteria.? Vessels:? Aorta and inferior vena cava are normal in size.? ? PELVIS: Small volume free fluid is within normal limits. Left ovarian corpus luteum cyst. Uterus normal. Bladder unremarkable. ? Bones:? No acute or suspicious bone finding. ? ? IMPRESSION:? ? Left lung base ground glass opacity may be infectious infiltrate. ? No acute finding otherwise. ? ? ? Dictated by: Austin Palma M.D. on 02/09/2022 at 20:04 ? ? Approved by: Austin Palma M.D. on 02/09/2022 at 20:08 ? MDM Narrative Medical decision making narrative: 36-year-old female with past medical history diverticulosis, abdominal pain, TMJ, eczema, asthma, chronic neck pain, chronic migraine, back pain with sciatica, alcoholism in remission, utilized anxiety disorder with panic attacks presents to the ED with 3 weeks of lower abdominal pain. Concern for diverticulitis versus nephrolithiasis versus UTI versus pyelonephritis versus other intra-abdominal pathology. Will obtain labs, lactate, UA, CT abdomen pelvis. Will give morphine, Zofran for symptoms, reassess. Patient's pain improved with morphine. Labs, CT abdomen pelvis did not show any acute intra-abdominal findings. The CT abdomen pelvis did show possible infectious infiltrate in the left lung base. Prescribed azithromycin. ED return precautions were discussed with patient. Patient verbalized understanding. Patient agrees to follow-up with a GI specialist and PCP as soon as possible for further workup. <Loly Gonzales, - Last Filed: 02/10/22 10:00> Lab Data Labs: Lab Results 02/09/22 02/09/22 02/09/22 Range/Units 19:16 19:16 19:16 WBC 8.6 (4.5-11.0) X10^3/uL RBC 3.66 L (4.0-5.2) X10^6/uL Hgb 11.6 L (12.0-16.0) g/dL Hct 34.0 L (36-46) % MCV 92.8 (80-100) fL MCH 31.7 (26-34) PG MCHC 34.2 (30-36) % RDW 13.2 (11.6-14.8) % Plt Count 257 (150-400) X10^3/uL Neut % (Auto) 45.1 L (50-75) % Lymph % (Auto) 46.6 H (25-40) % [place] % (Auto) 6.0 (3-14) % Eos % (Auto) 1.4 L (2-4) % Baso % (Auto) 0.9 (0-2) % Neut # (Auto) 3900 (4498-8742) /uL Lymph # (Auto) 4000 (0607-9554) /uL [place] # (Auto) 500 (0-900) /uL Eos # (Auto) 100 (0-450) /uL Baso # (Auto) 100 (0-100) /uL Sodium 136 L (137-145) mmol/L Potassium 3.6 (3.4-5.1) mmol/L Chloride 103 (98-107) mmol/L Carbon Dioxide 25 (22-32) mmol/L BUN 10 (7-17) mg/dL Creatinine 0.71 (0.52-1.04) mg/dL Estimated GFR > 60 (>60) mL/min BUN/Creatinine Ratio 14.1 (6-22) Glucose 73 (70-100) mg/dL Lactate 1.4 (0.7-2.1) mmol/L Calcium 8.5 (8.4-10.2) mg/dL Total Bilirubin 0.2 (0.2-1.3) mg/dL AST 19 (14-36) IU/L ALT 13 (<35) IU/L Alkaline Phosphatase 42 (38-126) U/L Total Protein 6.5 (6.3-8.2) g/dL Albumin 4.0 (3.5-5.0) g/dL Globulin 2.5 (1.7-4.1) g/dL Albumin/Globulin Ratio 1.6 (1.0-2.8) Lipase 371 H D (23-300) U/L Point of care testing: Point of Care Testing Test Results Negative Urine Dip Bedside Urine Glucose Negative Bedside Urine Bilirubin - Negative Bedside Urine Ketone - Negative Urine Specific [place] 1.010 Bedside Urine Occult Blood - Negative Bedside Urine pH 6.0 Bedside Urine Protein - Negative Bedside Urine Urobilinogen - Negative Bedside Urine Nitrite - Negative Bedside Urine Leukocytes - Negative Esterase Discharge Plan Departure Patient Disposition: Home Clinical Impression: Abdominal pain Instructions: DI for Pneumonia -- Adult, DI for Abdominal Pain-Adult Activity Restrictions/Additional Instructions: You were evaluated in the ED today for abdominal pain. Your labs, CT abdomen pelvis did not show any abnormalities in the abdomen. The CT did show some left-sided infiltrate in the lung base which could be due to an infectious cause such as pneumonia. You are being prescribed the antibiotic azithromycin. Please complete the full course of antibiotics. Return to the ED if your symptoms worsen. Please follow-up with a GI specialist and your PCP for further evaluation of the abdominal pain as soon as possible. Prescriptions: New azithromycin [Zithromax Z-Al] 250 mg tablet See Rx Instructions .ROUTE .COMPLEX Qty: 6 0RF Rx Instructions: For 250 mg dose pack: take 500 mg today (day 1), then 250 mg for 4 days (days 2-5) No Action Probiotic with Prebiotic 2 cap PO .QDAY albuterol sulfate [Ventolin HFA] 90 mcg/actuation HFA aerosol inhaler 2 puff INHALATION QIDP PRN (Reason: shortness of breath or wheezing) Qty: 1 3RF Hold Instructions: epinephrine [EpiPen 2-Al] 0.3 mg/0.3 mL auto-injector 0.3 mg IM ONCE Qty: 2 0RF Rx Instructions: as a single dose; may repeat once duloxetine 60 mg capsule,delayed release(DR/EC) 60 mg PO DAILY Qty: 90 0RF ondansetron 4 mg tablet,disintegrating 4 mg PO Q6H PRN (Reason: nausea and vomiting) Qty: 10 0RF hydrocodone-acetaminophen 5-325 mg tablet 1 tab PO Q4-6H PRN (Reason: pain) Qty: 10 0RF ondansetron 4 mg tablet,disintegrating 4 mg PO TID-QID PRN (Reason: nausea and vomiting) Qty: 10 0RF doxycycline hyclate 100 mg tablet 100 mg PO BID Qty: 20 0RF hydrocodone-acetaminophen 5-325 mg tablet 1 tab PO Q6H PRN (Reason: pain) Qty: 10 0RF lidocaine 5 % adhesive patch,medicated 1 patch topical DAILY PRN (Reason: pain) Qty: 15 0RF Rx Instructions: leave on most painful area for up to 12 hrs hydrocodone-acetaminophen 5-325 mg tablet 1 tab PO Q4-6H PRN (Reason: pain) Qty: 10 0RF ketorolac 10 mg tablet 10 mg PO Q6H PRN (Reason: pain) Qty: 14 0RF ondansetron 4 mg tablet,disintegrating 4 mg PO TID-QID PRN (Reason: nausea and vomiting) Qty: 10 0RF ciprofloxacin HCl [Cipro] 500 mg tablet 500 mg PO BID Qty: 20 0RF Referrals: Feroz Max ARNP [Primary Care Provider] - Visit Report Forms: Patient Portal/API <Loly Gonzales DO - Last Filed: 02/10/22 10:00> Cosign ED Attending Cosignature Attestation: I was immediately available in the department for consultation. Documentation has been reviewed. I agree with assessment and plan.
[2022-02-09 19:50] LABS: Add Manual Diff / Slide Review NO; Alanine Aminotransferase 13 IU/L (<35); Albumin Globulin Ratio 1.6 (1.0-2.8); Alkaline Phosphatase 42 U/L (38-126); Aspartate Aminotransferase 19 IU/L (14-36); BUN Creatinine Ratio 14.1 (6-22); Basophils Absolute Auto 100 /uL (0-100); Basophils Percent Auto 0.9 % (0-2); Bilirubin Total 0.2 mg/dL (0.2-1.3); Blood Urea Nitrogen 10 mg/dL (7-17); Calcium 8.5 mg/dL (8.4-10.2); Carbon Dioxide 25 mmol/L (22-32); Chloride 103 mmol/L (98-107); Eosinophils Absolute Auto 100 /uL (0-450); Eosinophils Percent Auto 1.4 % (2-4); Estimated Glomerular Filt Rate > 60 mL/min (>60); Globulin 2.5 g/dL (1.7-4.1); Glucose 73 mg/dL (70-100); HEMOLYSIS 18 (0-50); Hemoglobin 11.6 g/dL (12.0-16.0); Lipase 371 U/L (23-300); Lymphocytes Absolute Auto 4000 /uL (1100-4500); Lymphocytes Percent Auto 46.6 % (25-40); Mean Corpuscular HGB Conc 34.2 % (30-36); Mean Corpuscular Hemoglobin 31.7 PG (26-34); Mean Corpuscular Volume 92.8 fL (80-100); Monocytes Absolute Auto 500 /uL (0-900); Neutrophils Absolute Auto 3900 /uL (1500-7000); Neutrophils Percent Auto 45.1 % (50-75); Platelet Count 257 X10^3/uL (150-400); Potassium 3.6 mmol/L (3.4-5.1); Red Blood Cell Count 3.66 X10^6/uL (4.0-5.2); Red Cell Distribution Width 13.2 % (11.6-14.8); Sodium 136 mmol/L (137-145); Total Protein 6.5 g/dL (6.3-8.2); White Blood Cell Count 8.6 X10^3/uL (4.5-11.0)
[2022-02-09 19:51] LABS: Lactate (Lactic Acid) 1.4 mmol/L (0.7-2.1)
[2022-02-09] MEDS: MORPHINE 2 MG/ML INJ 4 MG IV (20:11)
[2022-02-09 20:27] VITALS: BP 95/53; PULSE 73; RESP 16; O2SAT 98
== END 2022-02-09 20:30 | disposition home or self-care (01) ==
PROVIDERS: Emergency Medicine; Emergency Provider Student in an Organized Health Care Education/Training Program; PCP Registered Nurse Diabetes Educator
DX: R10.30 Lower abdominal pain, unspecified (principal); R11.2 Nausea with vomiting, unspecified
CPT/HCPCS: 74177; 80053; 81003; 81025; 83605; 83690; 85025; 96374; 96375; 96376; 99284; J2270; J2405; Q9967

== ENCOUNTER → 2022-02-13 17:11 | Outpatient (CLI) | payer OTHER, MEDICAID, SELFPAY ==
[2022-02-13 17:32] LABS: Add Manual Diff / Slide Review NO; Basophils Absolute Auto 100 /uL (0-100); Basophils Percent Auto 0.9 % (0-2); Eosinophils Absolute Auto 100 /uL (0-450); Eosinophils Percent Auto 1.3 % (2-4); Hematocrit 35.3 % (36-46); Hemoglobin 12.3 g/dL (12.0-16.0); Lymphocytes Absolute Auto 3900 /uL (1100-4500); Lymphocytes Percent Auto 42.6 % (25-40); Mean Corpuscular HGB Conc 34.8 % (30-36); Mean Corpuscular Hemoglobin 32.1 PG (26-34); Mean Corpuscular Volume 92.2 fL (80-100); Monocytes Absolute Auto 700 /uL (0-900); Monocytes Percent Auto 7.1 % (3-14); Neutrophils Absolute Auto 4500 /uL (1500-7000); Neutrophils Percent Auto 48.1 % (50-75); Platelet Count 265 X10^3/uL (150-400); Red Blood Cell Count 3.83 X10^6/uL (4.0-5.2); Red Cell Distribution Width 13.2 % (11.6-14.8); White Blood Cell Count 9.3 X10^3/uL (4.5-11.0)
[2022-02-13 17:44] LABS: Alanine Aminotransferase 12 IU/L (<35); Albumin 4.2 g/dL (3.5-5.0); Albumin Globulin Ratio 1.4 (1.0-2.8); Alkaline Phosphatase 50 U/L (38-126); Aspartate Aminotransferase 20 IU/L (14-36); BUN Creatinine Ratio 21.2 (6-22); Bilirubin Total 0.2 mg/dL (0.2-1.3); Blood Urea Nitrogen 18 mg/dL (7-17); Calcium 8.7 mg/dL (8.4-10.2); Carbon Dioxide 24 mmol/L (22-32); Chloride 104 mmol/L (98-107); Estimated Glomerular Filt Rate > 60 mL/min (>60); Globulin 2.9 g/dL (1.7-4.1); Glucose 83 mg/dL (70-100); HEMOLYSIS < 15 (0-50); Lipase 204 U/L (23-300); Potassium 3.9 mmol/L (3.4-5.1); Sodium 138 mmol/L (137-145); Total Protein 7.1 g/dL (6.3-8.2)
== END ==
PROVIDERS: PCP Registered Nurse Diabetes Educator; Referring Provider Family Medicine; Visit Provider Family Medicine
DX: R10.9 Unspecified abdominal pain (principal)
CPT/HCPCS: 36415; 80053; 83690; 85025

== ENCOUNTER → 2022-03-03 09:52 | Outpatient (CLI) | payer OTHER, MEDICAID, SELFPAY ==
--- NOTE | 2022-03-03 09:53 | DI.NM.S_ITS ---
PROCEDURE: NM HIDA WITH CCK PHARMACEUTICAL: 5.2 mCi Tc-99m mebrofenin IV; 1.0 mcg CCK IV. INDICATIONS: chronic abdominal pain TECHNIQUE: Following intravenous administration of Tc-99m mebrofenin, sequential anterior abdominal images were obtained. To evaluate the contractile response of the gallbladder in response to Cholecystokinin (CCK), sincalide (0.02 ?g/kg) was administered by slow intravenous infusion approximately 60 minutes after the administration of the radiopharmaceutical. Sequential imaging was continued for 30 minutes after the start of CCK infusion. Gallbladder ejection fraction was calculated. COMPARISON: None. FINDINGS: Biliary scan: There is normal tracer uptake and excretion by the liver. There is normal visualization of the intrahepatic ducts, common bile duct, and gallbladder. There is normal tracer transit into the duodenum. CCK stimulation: There is normal contractile response of the gallbladder to CCK infusion. The calculated gallbladder ejection fraction is 41%; normal values are above 35%. It has been shown that any patient abdominal pain after CCK administration is related to the rate of CCK injection, rather than to any underlying gallbladder disease (Clinical Nuclear Medicine 2012; 37: 63-70. Journal of Nuclear Medicine 2014; 55: 1-9). IMPRESSION: No scintigraphic evidence of cholecystitis. Dictated by: Lizbeth Mead MD, PhD on 03/03/2022 at 13:22 Approved by: Lizbeth Mead MD, PhD on 03/03/2022 at 13:24
== END ==
PROVIDERS: PCP Registered Nurse Diabetes Educator; Referring Provider Family Medicine; Visit Provider Family Medicine
DX: R10.9 Unspecified abdominal pain (principal)
CPT/HCPCS: 78227; A9537; J2805

== ENCOUNTER → 2022-04-22 15:55 | Outpatient (CLI) | payer OTHER, MEDICAID, SELFPAY | PROVIDERS: PCP Registered Nurse Diabetes Educator; Visit Provider Registered Nurse Diabetes Educator | DX: L08.9 Local infection of the skin and subcutaneous tissue, unspecified (principal); L72.9 Follicular cyst of the skin and subcutaneous tissue, unspecified | CPT/HCPCS: 87070; 87075; 87077; 87147; 87205 ==

== ENCOUNTER 2022-04-24 20:34 | Emergency (ER) | payer OTHER, MEDICAID, SELFPAY ==
[2022-04-24 20:40] VITALS: BP 111/63; PULSE 86; RESP 15; TEMP 36.7; O2SAT 96; BMI 20.9
--- NOTE | 2022-04-25 00:53 | ED_ITS ---
HPI - Skin/Abscess/Foreign Bdy General Chief complaint: Skin/Abscess/Foreign Body Stated complaint: Procedure a few days ago, Thinks infected Time Seen by Provider: 04/24/22 23:13 Source: patient Mode of arrival: Ambulatory Limitations: no limitations History of Present Illness HPI narrative: 36-year-old female daily smoker with history of asthma and chronic back pain presents with pain and swelling on her scalp. She states that she had had a painful lump there for quite some time and recently was seen by her primary care provider and had a cyst drained. There was a culture obtained and initially there was no sign of infection and though she was given a prescription for antibiotics she was encouraged not to take it unless it showed signs of infection. Over the past day or 2 she is had increasing pain but denies any drainage. She denies systemic complaints such as fever, chills nor nausea or vomiting. She has no chest pain, shortness of breath or cough. She denies recent injury or trauma. She states that she had been given a few hydrocodone the day of the procedure but is having pain that is not controlled by Tylenol or Motrin. Her pain is worse with motion and palpation. Related Data Home Medications Medication Instructions Recorded Confirmed Probiotic with Prebiotic 2 cap PO .QDAY 06/07/18 04/22/22 Previous Rx's Medication Instructions Recorded albuterol sulfate 90 mcg/actuation 2 puff inhalation QIDP PRN 09/29/17 aerosol inhaler (Ventolin HFA) shortness of breath or wheezing #1 ea epinephrine 0.3 mg/0.3 mL 0.3 mg (0.3 mL) IM ONCE #2 ea 08/14/20 injection, auto-injector (EpiPen 2-La) lidocaine 5 % topical patch 1 patch topical DAILY PRN pain #15 08/31/21 ea ondansetron 4 mg disintegrating 4 mg PO TID-QID PRN nausea and 01/21/22 tablet vomiting #10 tabs mefenamic acid 250 mg capsule 250 mg PO Q6H PRN menstrual cramps 04/01/22 7 days #28 caps duloxetine 30 mg capsule,delayed 30 mg PO DAILY #90 caps 04/14/22 release duloxetine 60 mg capsule,delayed 60 mg PO DAILY #90 caps 04/14/22 release clindamycin HCl 300 mg capsule 300 mg PO QID #28 caps 04/22/22 hydrocodone 5 mg-acetaminophen 325 1 tab PO Q6H PRN pain (scale score 04/22/22 mg tablet 7-10) #4 tabs Allergies Allergy/AdvReac Type Severity Reaction Status Date / Time venom-honey bee Allergy Severe TROUBLE Verified 04/24/22 20:42 [BEE VENOM (HONEY BEE)] BREATHING sertraline Allergy Intermediate Migraine Verified 04/24/22 20:42 cefaclor [CEFACLOR] Allergy Unknown I was Verified 04/24/22 20:42 young. I can't remember. Sulfa (Sulfonamide Allergy Unknown I was Verified 04/24/22 20:42 Antibiotics) young. I [SULFA (SULFONAMIDE can't ANTIBIOTICS)] remember. cyclobenzaprine AdvReac Intermediate Migraine Verified 04/24/22 20:42 escitalopram AdvReac Intermediate vertigo, Verified 04/24/22 20:42 headache, weak feeling, and extremely tired. methocarbamol AdvReac Intermediate Migraine Verified 04/24/22 20:42 metronidazole AdvReac Intermediate diarrhea Verified 04/24/22 20:42 and cramps ketorolac [From Toradol] AdvReac Headache Verified 04/24/22 20:42 Review of Systems Review of Systems Narrative: GENERAL: Denies chills, fatigue, malaise, fever, sweats. HEENT: Denies sinus pain, ear pain, sore throat, difficulty swallowing, dizziness. RESPIRATORY: Denies dyspnea, cough, wheezing, hemoptysis, sputum. CARDIOVASCULAR: Denies chest pain, palpitations, orthopnea, edema, GASTROINTESTINAL: Denies nausea, vomiting, abdominal pain, diarrhea, constipation, melena. : Denies dysuria, frequency, incontinence, hematuria, urinary retention. MUSCULOSKELETAL: denies weakness, joint pain, or bony pain SKIN: See HPI NEUROLOGIC: Denies weakness, headache, numbness, change in speech, confusion, seizures, incoordination. PSYCHIATRIC: No concerning psychosocial issues. 12 point review of systems is negative except for those stated above Patient History Medical History Abnormal Pap smear of cervix (10/30/16) Admission for sterilization (~12/20/19) Alcohol abuse (~10/2015) Anxiety Arthritis Asthma Bacterial vaginosis Bilateral temporomandibular joint pain C. difficile colitis (09/2016) Chicken pox Chronic back pain Chronic migraine w/o aura w/o status migrainosus, not intractable Chronic neck pain Eczema Primary dysmenorrhea Scoliosis Surgical History Anesthesia History of umbilical hernia repair Status post appendectomy Family History Brother Age: 34 Asthma NF2 (neurofibromatosis 2) Mother Age: 68 Asthma Thyroid disease Diabetes mellitus Sister Age: 31 Thyroid disease Bipolar 1 disorder Son Alopecia Social History marital status: unmarried,living together household members: significant other and children pets and animals: Yes (indoor and outdoor cat - aware) education level: college occupational status: employed special krupa needs: No Smoking Status: Current every day smoker Tobacco: How many years used: 10 quit status: considering quitting second hand exposure: No alcohol intake: former substance use type: marijuana Smoking Status: Current every day smoker alcohol intake frequency: holidays/special occasions only Substance Use Type: does not use Exam Narrative Exam Narrative: GEN: AOx3 and in mild distress HEAD: scalp lesion with tenderness to palpation and some erythema with induration but no fluctuance or active drainage EYES: Pupils are equal, round, and reactive to light and accommodation. Extraoccular muscles are intact bilaterally. There is no subconjunctival hemorrhage or exudate. CHEST: Lungs are clear to auscultation bilaterally and free of wheezes, rales, or rhonchi. Heart rate is regular rhythm, there are no murmurs, clicks, rubs, or gallops. There is no chest wall tenderness. ABD: Abdomen is soft and nontender. There is no guarding or rebound. Bowel sounds are normal in all 4 quadrants. There is no mass or organomegaly. EXT: Full painless ROM of all extremities with no loss of sensation or strength. SKIN: Warm, pink, and dry. No erythema or rash Initial Vital Signs Initial Vital Signs: Vital Signs Temperature 98.1 F 04/24/22 20:40 Pulse Rate 86 04/24/22 20:40 Respiratory Rate 15 04/24/22 20:40 Blood Pressure 111/63 04/24/22 20:40 Pulse Oximetry 96 04/24/22 20:40 Oxygen Delivery Method 04/24/22 20:40 Course Orders Ordered: Discontinued Medications Hydrocodone Bitart/Acetaminophen (Hydrocodone/Acet 5/325 Prepack) 1 bottle MISC SEEINSTR ONE Stop: 04/25/22 00:58 Last Admin: 04/25/22 01:04 Dose: 1 bottle Documented By: DANIELLE Vital Signs Vital signs: Vital Signs - 8 hr 04/24/22 20:40 Temperature 98.1 F Pulse Rate 86 Respiratory Rate 15 Blood Pressure 111/63 Pulse Oximetry 96 Oxygen Delivery Method Room Air MDM - Skin/Abscess/Foreign Bdy MDM Narrative Medical decision making narrative: Patient with recent cyst drainage on scalp presents with increasing pain. She had procedure a few days ago and was written antibiotics but has not taken them at the request of her primary care provider. Her pain is increasing as is the swelling and surrounding erythema. This is suggestive of infection, there is no fluctuance to suggest a repeat incision and drainage is appropriate. She has no systemic complaints and denies fever, nausea, vomiting, she is not confused and is otherwise at her baseline. I have encouraged her to start taking the antibiotics (clindamycin) that her primary care provider had written as well as sent her home with a few hydrocodone. She is given return precautions and questions have been answered to her apparent satisfaction Discharge Plan Departure Patient Disposition: Home Clinical Impression: Wound, open, scalp Instructions: DI for Wound Infection Activity Restrictions/Additional Instructions: *You have been diagnosed with [scalp wound with infection] *What to do: *Please take the antibiotic that was prescribed for you by your primary care provider *Please follow up with your primary care provider in 2-3 days, call for an appointment. Let them know you were seen in the Emergency Department and that we ask that you be seen in follow up. We will electronically transmit a record of today's note if your PCP is in our system *Return to Emergency Department if you should have any new, worsening or concerning symptoms You have been prescribed a short course of narcotic medications. These are potentially dangerous and addictive medications that should be used carefully. While on these medications you cannot drive or operate heavy machinery. Additionally, you cannot sign legal documents or perform any duties such as this. Many people get constipated on narcotic medications so it would be advisable to discuss stool softeners with the pharmacist when you tow picker your prescription. Please understand that we cannot provide further refills of narcotics or controlled substances through the ED and your pain management will need to be through your Primary Care Provider Prescriptions: No Action Probiotic with Prebiotic 2 cap PO .QDAY albuterol sulfate [Ventolin HFA] 90 mcg/actuation HFA aerosol inhaler 2 puff INHALATION QIDP PRN (Reason: shortness of breath or wheezing) Qty: 1 3RF Hold Instructions: duloxetine 60 mg capsule,delayed release(DR/EC) 60 mg PO DAILY Qty: 90 1RF Rx Instructions: Total duloxetine dose of 90 mg daily duloxetine 30 mg capsule,delayed release(DR/EC) 30 mg PO DAILY Qty: 90 1RF Rx Instructions: Total duloxetine dose of 90 mg daily clindamycin HCl 300 mg capsule 300 mg PO QID Qty: 28 0RF hydrocodone-acetaminophen 5-325 mg tablet 1 tab PO Q6H PRN (Reason: pain (scale score 7-10)) Qty: 4 0RF epinephrine [EpiPen 2-Al] 0.3 mg/0.3 mL auto-injector 0.3 mg IM ONCE Qty: 2 0RF Rx Instructions: as a single dose; may repeat once mefenamic acid 250 mg capsule 250 mg PO Q6H PRN (Reason: menstrual cramps) 7 Days Qty: 28 12RF lidocaine 5 % adhesive patch,medicated 1 patch topical DAILY PRN (Reason: pain) Qty: 15 0RF Rx Instructions: leave on most painful area for up to 12 hrs ondansetron 4 mg tablet,disintegrating 4 mg PO TID-QID PRN (Reason: nausea and vomiting) Qty: 10 0RF Referrals: Feroz Max ARNP [Primary Care Provider] - Visit Report Forms: Patient Portal/API
[2022-04-25] MEDS: HYDROCODONE/ACET 5/325 PREPACK 1 BOTTLE MISC (01:04)
[2022-04-25 01:07] VITALS: BP 103/63; PULSE 60; RESP 16; O2SAT 99
== END 2022-04-25 01:08 | disposition home or self-care (01) ==
PROVIDERS: Emergency Provider Emergency Medicine; PCP Registered Nurse Diabetes Educator
DX: S01.00XA Unspecified open wound of scalp, initial encounter (principal); X58.XXXA Exposure to other specified factors, initial encounter
CPT/HCPCS: 99281

== ENCOUNTER 2022-05-17 15:16 | Emergency (ER) | payer OTHER, MEDICAID, SELFPAY ==
[2022-05-17 15:30] VITALS: BP 113/75; PULSE 69; RESP 16; TEMP 36.6; O2SAT 99; BMI 20.5
--- NOTE | 2022-05-17 15:38 | ED_ITS ---
HPI - Fall <Taylor Naik PA-C - Last Filed: 05/17/22 17:27> General Chief Complaint: Fall Stated Complaint: fell/injury to left side of body Time Seen by Provider: 05/17/22 15:28 Source: patient Mode of arrival: Wheelchair History of Present Illness HPI Narrative: The patient is 36 years old female who is history of chronic neck pain back pain, chronic migraines, asthma, apparently fell off the height approximately 5 ft, while she was hanging some item high up the ceiling. She states her step stool bowel and she fell across the room, landing on her left side, hit the left nondenominational with the corner of the the [facility], which apparently made her unconscious. She does not exactly remember which parts of the body she had 1st, she was knocked out unconscious. Her did not witness fall, he however ran to her soon as she fell, and since her Veronique. Patient was able to transfer to the [facility] with some assistance. She was complaining of dizziness headache blurred vision. She noticed bruise on her left orbit and significant tenderness in that area headache. She also has had nausea no vomiting. She was not able drink and eat much yesterday but today her appetite seemed to be returning. She also complains of right hand pain, as she suspect she was trying to break the fall with the hand. She has stiffness and numbness in her left shoulder left neck radiating towards the left arm. Her pain level is 8/10. Related Data Home Medications Medication Instructions Recorded Confirmed Probiotic with Prebiotic 2 cap PO .QDAY 06/07/18 04/22/22 Previous Rx's Medication Instructions Recorded albuterol sulfate 90 mcg/actuation 2 puff inhalation QIDP PRN 09/29/17 aerosol inhaler (Ventolin HFA) shortness of breath or wheezing #1 ea epinephrine 0.3 mg/0.3 mL 0.3 mg (0.3 mL) IM ONCE #2 ea 08/14/20 injection, auto-injector (EpiPen 2-Al) lidocaine 5 % topical patch 1 patch topical DAILY PRN pain #15 08/31/21 ea ondansetron 4 mg disintegrating 4 mg PO TID-QID PRN nausea and 01/21/22 tablet vomiting #10 tabs mefenamic acid 250 mg capsule 250 mg PO Q6H PRN menstrual cramps 04/01/22 7 days #28 caps duloxetine 30 mg capsule,delayed 30 mg PO DAILY #90 caps 04/14/22 release duloxetine 60 mg capsule,delayed 60 mg PO DAILY #90 caps 04/14/22 release clindamycin HCl 300 mg capsule 300 mg PO QID #28 caps 04/22/22 hydrocodone 5 mg-acetaminophen 325 1 tab PO Q6H PRN pain (scale score 04/22/22 mg tablet 7-10) #4 tabs methocarbamol 500 mg tablet 500 mg PO TID #30 tabs 05/17/22 Allergies Allergy/AdvReac Type Severity Reaction Status Date / Time venom-honey bee Allergy Severe TROUBLE Verified 05/17/22 15:30 [BEE VENOM (HONEY BEE)] BREATHING sertraline Allergy Intermediate Migraine Verified 05/17/22 15:30 cefaclor [CEFACLOR] Allergy Unknown I was Verified 05/17/22 15:30 young. I can't remember. Sulfa (Sulfonamide Allergy Unknown I was Verified 05/17/22 15:30 Antibiotics) young. I [SULFA (SULFONAMIDE can't ANTIBIOTICS)] remember. cyclobenzaprine AdvReac Intermediate Migraine Verified 05/17/22 15:30 escitalopram AdvReac Intermediate vertigo, Verified 05/17/22 15:30 headache, weak feeling, and extremely tired. methocarbamol AdvReac Intermediate Migraine Verified 05/17/22 15:30 metronidazole AdvReac Intermediate diarrhea Verified 05/17/22 15:30 and cramps ketorolac [From Toradol] AdvReac Headache Verified 05/17/22 15:30 Review of Systems <Taylor Naik PA-C - Last Filed: 05/17/22 17:27> Review of Systems Narrative: GENERAL: Denies chills, admits to regularly feeling fatigue, malaise, but no fever, sweats. HEENT: admits left nondenominational pain, head pain lt side, no ear pain, sore throat, difficulty swallowing, admits to dizziness when gets up . RESPIRATORY: Denies dyspnea, cough, wheezing, hemoptysis, sputum. CARDIOVASCULAR: Denies chest pain, palpitations, orthopnea, edema, GASTROINTESTINAL: Denies nausea, vomiting, abdominal pain, diarrhea, constipation, melena. : Denies dysuria, frequency, incontinence, hematuria, urinary retention. MUSCULOSKELETAL: denies left arm weakness, but has left shoulder pain , left neck pain SKIN: Denies rash, skin lesions, has a bruise left periorbit upper lid NEUROLOGIC: Denies focal weakness,admits to headache, and dizziness when squats ot gets up , no numbness, change in speech, confusion, seizures, incoordination. 12 point review of systems is negative except for those stated above Patient History <Taylor Naik PA-C - Last Filed: 05/17/22 17:27> Medical History Abnormal Pap smear of cervix (10/30/16) Admission for sterilization (~12/20/19) Alcohol abuse (~10/2015) Anxiety Arthritis Asthma Bacterial vaginosis Bilateral temporomandibular joint pain C. difficile colitis (09/2016) Chicken pox Chronic back pain Chronic migraine w/o aura w/o status migrainosus, not intractable Chronic neck pain Eczema Primary dysmenorrhea Scoliosis Surgical History Anesthesia History of umbilical hernia repair Status post appendectomy Family History Brother Age: 34 Asthma NF2 (neurofibromatosis 2) Mother Age: 68 Asthma Thyroid disease Diabetes mellitus Sister Age: 31 Thyroid disease Bipolar 1 disorder Son Alopecia Social History marital status: unmarried,living together household members: significant other and children pets and animals: Yes (indoor and outdoor cat - aware) education level: college occupational status: employed special krupa needs: No Smoking Status: Current every day smoker Tobacco: How many years used: 10 quit status: considering quitting second hand exposure: No alcohol intake: former substance use type: marijuana Smoking Status: Current every day smoker tobacco type: cigarettes alcohol intake frequency: holidays/special occasions only Substance Use Type: does not use Exam <Taylor Naik PA-C - Last Filed: 05/17/22 17:27> Narrative Exam Narrative: GENERAL: 36 year old patient appears stated age. Well-developed patient, in mild distress due to pain on left side of her neck left temp HEAD: Atraumatic. Normocephalic. EYES: Pupils equal round and reactive. Extraocular motions intact. No scleral icterus. No injection or drainage. Left upper lid bruising noted funduscopic is normal bilaterally ENT: Nose without bleeding, purulent drainage. Throat without erythema, tonsillar hypertrophy or exudate. Airway patent. NECK: Trachea midline. Left-sided paraspinal area is tender CARDIOVASCULAR: Regular rate and rhythm without murmurs, gallops, or rubs. RESPIRATORY: Clear to auscultation. Breath sounds equal bilaterally. No wheezes, rales, or rhonchi. GASTROINTESTINAL: Abdomen soft, non-tender, nondistended. EXTREMITIES: No edema Musculoskeletal there is left shoulder joint tenderness. Paracervical left- sided muscle spasm left arm decreased abduction. Right hand with palmar bruising and some decreased ship liner strength noted BACK: Nontender without deformity or crepitance. No flank tenderness. NEURO: AOx3. Light touch pinprick sensation intact in upper lower extremities. Memory intact, speech is goal-directed. SKIN: No rash or erythema of visible areas bruises on the left eye, and right palm Initial Vital Signs Initial Vital Signs: Vital Signs Temperature 97.8 F 05/17/22 15:30 Pulse Rate 69 05/17/22 15:30 Respiratory Rate 16 05/17/22 15:30 Blood Pressure 113/75 05/17/22 15:30 Pulse Oximetry 99 05/17/22 15:30 Oxygen Delivery Method 05/17/22 15:30 <Loly Gonzales DO - Last Filed: 05/22/22 07:35> Initial Vital Signs Initial Vital Signs: Vital Signs Temperature 97.8 F 05/17/22 15:30 Pulse Rate 69 05/17/22 15:30 Respiratory Rate 16 05/17/22 15:30 Blood Pressure 113/75 05/17/22 15:30 Pulse Oximetry 99 05/17/22 15:30 Oxygen Delivery Method 05/17/22 15:30 Course <Taylor Naik PA-C - Last Filed: 05/17/22 17:27> Orders Ordered: Discontinued Medications Acetaminophen (Acetaminophen 325 Mg Tablet) 975 mg PO NOW ONE Stop: 05/17/22 16:59 Last Admin: 05/17/22 17:31 Dose: 975 mg Documented By: LIZABETH Methocarbamol (Methocarbamol 500 Mg Tablet) 500 mg PO NOW ONE Stop: 05/17/22 16:59 Last Admin: 05/17/22 17:32 Dose: 500 mg Documented By: LIZABETH Vital Signs Vital signs: Vital Signs - 8 hr 05/17/22 15:30 Temperature 97.8 F Pulse Rate 69 Respiratory Rate 16 Blood Pressure 113/75 Pulse Oximetry 99 Oxygen Delivery Method Room Air <Loly Gonzales DO - Last Filed: 05/22/22 07:35> Orders Ordered: Discontinued Medications Acetaminophen (Acetaminophen 325 Mg Tablet) 975 mg PO NOW ONE Stop: 05/17/22 16:59 Last Admin: 05/17/22 17:31 Dose: 975 mg Documented By: LIZABETH Methocarbamol (Methocarbamol 500 Mg Tablet) 500 mg PO NOW ONE Stop: 05/17/22 16:59 Last Admin: 05/17/22 17:32 Dose: 500 mg Documented By: RL Vital Signs Vital signs: Vital Signs - 8 hr 05/17/22 15:30 Temperature 97.8 F Pulse Rate 69 Respiratory Rate 16 Blood Pressure 113/75 Pulse Oximetry 99 Oxygen Delivery Method Room Air MDM - Fall <Taylor Naik PA-C - Last Filed: 05/17/22 17:27> Imaging Data CT scan - head: Radiologist's Impression: Sinuses:? Visualized sinuses and mastoids are clear.? ? IMPRESSION:? Normal CT of the brain C-spine CT IMPRESSION:? ? Straightening of the normal cervical lordosis may be positional or related to muscle spasm. ? No fracture or traumatic malalignment Maxillofacial CT IMPRESSION:? Normal maxillofacial CT ? [facility] Narrative Medical decision making narrative: Patient sustained fall, which resulted in contusion of her left nondenominational, cervical muscle spasm. CT scans were negative for acute findings. Patient received Tylenol, muscle relaxant in ED department. She received relief from that. Discussed with patient diagnosis and treatment. Advised on conservative management, may try [id number] Tylenol ibuprofen combination of both, also add muscle relaxant. Heat, gentle [id number] exercise also advisable. Discharge Plan Departure Patient Disposition: Home Clinical Impression: Cervical paraspinal muscle spasm, Contusion of head, Status post fall Instructions: DI for Contusion, How to Prevent Falls, DI for Muscle Spasm Activity Restrictions/Additional Instructions: *You have been diagnosed with muscle spasm contusion of soft tissue of periorbit and nondenominational *What to do: *Please continue to take your regular medications as directed. New medication prescriptions sent to your pharmacy: Methocarbamol 500 mg Over - the- counter Tylenol, Ibuprofen *Please follow up with your primary care provider in 2-3 days, call for an appointment. Let them know you were seen in the Emergency Department and that we ask that you be seen in follow up. We will electronically transmit a record of today's note if your PCP is in our system *If you do not have a primary care provider please contact the [facility] Resource line at [phone]. They will ask some questions about your medical history and help get you set up with a doctor in the community. *Return to Emergency Department if you should have any new, worsening or concerning symptoms, such as worsening pain, persistent vomiting or other bothersome symptoms] Prescriptions: New methocarbamol 500 mg tablet 500 mg PO TID Qty: 30 0RF No Action Probiotic with Prebiotic 2 cap PO .QDAY albuterol sulfate [Ventolin HFA] 90 mcg/actuation HFA aerosol inhaler 2 puff INHALATION QIDP PRN (Reason: shortness of breath or wheezing) Qty: 1 3RF Hold Instructions: duloxetine 60 mg capsule,delayed release(DR/EC) 60 mg PO DAILY Qty: 90 1RF Rx Instructions: Total duloxetine dose of 90 mg daily duloxetine 30 mg capsule,delayed release(DR/EC) 30 mg PO DAILY Qty: 90 1RF Rx Instructions: Total duloxetine dose of 90 mg daily clindamycin HCl 300 mg capsule 300 mg PO QID Qty: 28 0RF hydrocodone-acetaminophen 5-325 mg tablet 1 tab PO Q6H PRN (Reason: pain (scale score 7-10)) Qty: 4 0RF epinephrine [EpiPen 2-Al] 0.3 mg/0.3 mL auto-injector 0.3 mg IM ONCE Qty: 2 0RF Rx Instructions: as a single dose; may repeat once mefenamic acid 250 mg capsule 250 mg PO Q6H PRN (Reason: menstrual cramps) 7 Days Qty: 28 12RF lidocaine 5 % adhesive patch,medicated 1 patch topical DAILY PRN (Reason: pain) Qty: 15 0RF Rx Instructions: leave on most painful area for up to 12 hrs ondansetron 4 mg tablet,disintegrating 4 mg PO TID-QID PRN (Reason: nausea and vomiting) Qty: 10 0RF Referrals: Feroz Max ARNP [Primary Care Provider] - <Loly Gonzales DO - Last Filed: 05/22/22 07:35> Cosign ED Attending Kristopher Attestation: I was immediately available in the department for consultation. Documentation has been reviewed. I agree with assessment and plan.
--- NOTE | 2022-05-17 16:18 | DI.CT.S_ITS ---
PROCEDURE: CT HEAD/BRAIN WO CON INDICATIONS: fall left facial swelling TECHNIQUE: Noncontrast 4.5 mm thick angled axial sections acquired from the foramen magnum to the vertex, with coronal and sagittal reformats. For radiation dose reduction, the following was used: automated exposure control, adjustment of mA and/or kV according to patient size. COMPARISON: None. FINDINGS: Image quality: Excellent. CSF spaces: Basal cisterns are patent. No extra-axial fluid collections. Ventricles are normal in size and shape. Brain: No midline shift. No intracranial masses or hemorrhage. Hartman-white matter interface is normal. Skull and face: Calvarium and visualized facial bones are intact, without suspicious lesions. Sinuses: Visualized sinuses and mastoids are clear. IMPRESSION: Normal CT of the brain Approved by: Lion Napier M.D. on 05/17/2022 at 15:53
--- NOTE | 2022-05-17 16:18 | DI.CT.S_ITS ---
PROCEDURE: CT FACIAL BONES WO CON INDICATIONS: left facial swelling after fall TECHNIQUE: Noncontrast 2.5 mm thick axial images acquired from the mandible through the frontal sinuses, with coronal and sagittal reformatting. For radiation dose reduction, the following was used: automated exposure control, adjustment of mA and/or kV according to patient size. COMPARISON: None. FINDINGS: Image quality: Excellent. Bones and teeth: Orbital foss are intact. Sinus foss show no fracture or deformity. Nasal bones and septum are intact. Visualized portions of the mandible demonstrate no fractures or subluxation. Zygomatic arches are intact. Pterygoid plates are intact. Visualized portions of the skull base and auditory canals are intact. Sinuses: Paranasal sinuses are aerated, without fluid levels, mucosal thickening, or mucoceles. Mastoid air cells are aerated. Soft tissues: No edema, masses, or fluid collections. No enlarged lymph nodes. No soft tissue lacerations or debris. Vascular: Visualized vascular structures appear normal in the absence of contrast. Bony vascular foramina and canals are intact. IMPRESSION: Normal maxillofacial CT Approved by: Lion Napier M.D. on 05/17/2022 at 15:57
--- NOTE | 2022-05-17 16:18 | DI.CT.S_ITS ---
PROCEDURE: CT CERVICAL SPINE WO CON INDICATIONS: fall TECHNIQUE: Noncontrast 3 mm thick sections acquired from the skull base to the T4 level. Sagittal and coronal reformats were then constructed. For radiation dose reduction, the following was used: automated exposure control, adjustment of mA and/or kV according to patient size. COMPARISON: None. FINDINGS: Image quality: Excellent. Bones: No fractures or dislocations. Visualized superior ribs are intact. 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 Straightening of the normal cervical lordosis Soft tissues: Prevertebral soft tissues are normal in thickness. No paravertebral hematomas. No apical pneumothoraces. IMPRESSION: Straightening of the normal cervical lordosis may be positional or related to muscle spasm. No fracture or traumatic malalignment Approved by: Lion Napier M.D. on 05/17/2022 at 15:50
--- NOTE | 2022-05-17 16:46 | DI.RAD.S_ITS ---
PROCEDURE: XR HAND RT MIN 3V INDICATIONS: s fall bruise rt hand difficulty moving TECHNIQUE: 3 views of the hand(s) acquired. COMPARISON: [facility], CR, XR HAND RT MIN 3V, 08/20/2020, 10:05. FINDINGS: Bones: No fractures or dislocations. Carpal bones are normally aligned. No suspicious bony lesions. Soft tissues: No suspicious soft tissue calcifications. IMPRESSION: Normal right hand radiographs Approved by: Lion Napier M.D. on 05/17/2022 at 16:34
[2022-05-17] MEDS: ACETAMINOPHEN 325 MG TABLET 975 MG PO (17:31)
[2022-05-17] MEDS: methocarbamoL 500 MG TABLET PO (17:32)
[2022-05-17 17:35] VITALS: BP 95/58; PULSE 80; RESP 16; O2SAT 97
--- NOTE | 2022-05-17 17:37 | PC.NURSE ---
At time of discharge went to administer ordered medications. Patient stated she had an allergy to methocarbamol which is listed as migraines. Educated patient that she didn't have to take the medication, to which she replied fine whatever and this RN clarified if that meant she wanted it to which she replied yeah. Patient took medication without complaint.
== END 2022-05-17 17:39 | disposition home or self-care (01) ==
PROVIDERS: Emergency Provider Physician Assistant Medical; PCP Registered Nurse Diabetes Educator
DX: S00.93XA Contusion of unspecified part of head, initial encounter (principal); M62.838 Other muscle spasm; W08.XXXA Fall from other furniture, initial encounter
CPT/HCPCS: 70450; 70486; 72125; 73130; 99284

== ENCOUNTER 2022-06-05 17:59 | Emergency (ER) | payer OTHER, MEDICAID, SELFPAY ==
[2022-06-05 18:13] VITALS: BP 101/59; PULSE 100; RESP 16; TEMP 36.9; O2SAT 97; BMI 20.7
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
[2022-06-05] MEDS: OXYCODONE/APAP 5/325 PREPACK 1 BOTTLE MISC (21:33)
[2022-06-05 21:45] VITALS: BP 110/50; PULSE 88; O2SAT 98
== END 2022-06-05 21:44 | disposition home or self-care (01) ==
PROVIDERS: Emergency Provider Emergency Medicine; PCP Registered Nurse Diabetes Educator
DX: S32.10XA Unspecified fracture of sacrum, initial encounter for closed fracture (principal); X58.XXXA Exposure to other specified factors, initial encounter; Y93.23 Activity, snow (alpine) (downhill) skiing, snowboarding, sledding, tobogganing and snow tubing; Y92.9 Unspecified place or not applicable
CPT/HCPCS: 99281; 99282

== ENCOUNTER 2022-06-09 16:32 | Emergency (ER) | payer OTHER, MEDICAID, SELFPAY ==
[2022-06-09 16:42] VITALS: BP 105/52; PULSE 91; RESP 18; TEMP 36.6; O2SAT 97; BMI 20.7
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
== END 2022-06-09 18:11 | disposition home or self-care (01) ==
PROVIDERS: Emergency Provider Student in an Organized Health Care Education/Training Program; PCP Registered Nurse Diabetes Educator
DX: S32.10XA Unspecified fracture of sacrum, initial encounter for closed fracture (principal)
CPT/HCPCS: 99281

== ENCOUNTER 2022-07-08 03:34 | Emergency (ER) | payer OTHER, MEDICAID, SELFPAY ==
[2022-07-08 03:35] VITALS: BP 109/70; PULSE 75; RESP 20; TEMP 36.1; O2SAT 100; BMI 20.7
[2022-07-08 04:09] LABS: Add Manual Diff / Slide Review NO; Basophils Absolute Auto 0 /uL (0-100); Basophils Percent Auto 0.1 % (0-2); Eosinophils Absolute Auto 0 /uL (0-450); Eosinophils Percent Auto 0.1 % (2-4); Hematocrit 40.6 % (36-46); Hemoglobin 13.3 g/dL (12.0-16.0); Lymphocytes Absolute Auto 1100 /uL (1100-4500); Lymphocytes Percent Auto 6.4 % (25-40); Mean Corpuscular HGB Conc 32.8 % (30-36); Mean Corpuscular Hemoglobin 30.3 PG (26-34); Mean Corpuscular Volume 92.4 fL (80-100); Monocytes Absolute Auto 400 /uL (0-900); Monocytes Percent Auto 2.6 % (3-14); Neutrophils Absolute Auto 15400 /uL (1500-7000); Neutrophils Percent Auto 90.8 % (50-75); Platelet Count 278 X10^3/uL (150-400); Red Blood Cell Count 4.39 X10^6/uL (4.0-5.2); Red Cell Distribution Width 12.8 % (11.6-14.8); White Blood Cell Count 16.9 X10^3/uL (4.5-11.0)
[2022-07-08 04:15] LABS: Alanine Aminotransferase 17 IU/L (<35); Albumin 4.7 g/dL (3.5-5.0); Albumin Globulin Ratio 1.6 (1.0-2.8); Alkaline Phosphatase 79 U/L (38-126); Aspartate Aminotransferase 21 IU/L (14-36); BUN Creatinine Ratio 37.9 (6-22); Blood Urea Nitrogen 22 mg/dL (7-17); Calcium 9.2 mg/dL (8.4-10.2); Carbon Dioxide 19 mmol/L (22-32); Chloride 102 mmol/L (98-107); Estimated Glomerular Filt Rate > 60 mL/min (>60); Glucose 157 mg/dL (70-100); HEMOLYSIS < 15 (0-50); Lipase 112 U/L (23-300); Potassium 3.9 mmol/L (3.4-5.1); Sodium 138 mmol/L (137-145); Total Protein 7.7 g/dL (6.3-8.2)
--- NOTE | 2022-07-08 05:34 | ED.NAVMDI ---
HPI - Nausea/Vomiting/Diarrhea General Chief complaint: Nausea/Vomiting/Diarrhea Stated complaint: N/V/D Time Seen by Provider: 07/08/22 04:03 Source: patient and EMS Mode of arrival: EMS Limitations: no limitations History of Present Illness HPI Narrative: Patient is a 37-year-old female who arrives by EMS for evaluation of upper abdominal discomfort and nausea and vomiting. Symptoms were fairly sudden onset last evening. Patient did receive Zofran prior to arrival. She was able to drink water in triage. No urinary symptoms. Difficult for her to describe her symptoms. At time she reports that it is pain other times she reports it is nausea. No fevers. No recent travel. Related Data Home Medications Medication Instructions Recorded Confirmed Probiotic with Prebiotic 2 cap PO .QDAY 06/07/18 06/10/22 duloxetine 30 mg capsule,delayed 90 mg PO DAILY 06/09/22 06/10/22 release Previous Rx's Medication Instructions Recorded albuterol sulfate 90 mcg/actuation 2 puff inhalation QIDP PRN 09/29/17 aerosol inhaler (Ventolin HFA) shortness of breath or wheezing #1 ea epinephrine 0.3 mg/0.3 mL 0.3 mg (0.3 mL) IM ONCE #2 ea 08/14/20 injection, auto-injector (EpiPen 2-Al) oxycodone-acetaminophen 5 mg-325 1 tab PO Q4-6H PRN pain #8 tabs 06/09/22 mg tablet (Percocet) Allergies Allergy/AdvReac Type Severity Reaction Status Date / Time venom-honey bee Allergy Severe TROUBLE Verified 07/08/22 03:52 [BEE VENOM (HONEY BEE)] BREATHING sertraline Allergy Intermediate Migraine Verified 07/08/22 03:52 cefaclor [CEFACLOR] Allergy Unknown I was Verified 07/08/22 03:52 young. I can't remember. Sulfa (Sulfonamide Allergy Unknown I was Verified 07/08/22 03:52 Antibiotics) young. I [SULFA (SULFONAMIDE can't ANTIBIOTICS)] remember. cyclobenzaprine AdvReac Intermediate Migraine Verified 07/08/22 03:52 escitalopram AdvReac Intermediate vertigo, Verified 07/08/22 03:52 headache, weak feeling, and extremely tired. methocarbamol AdvReac Intermediate Migraine Verified 07/08/22 03:52 metronidazole AdvReac Intermediate diarrhea Verified 07/08/22 03:52 and cramps ketorolac [From Toradol] AdvReac Headache Verified 07/08/22 03:52 Review of Systems Review of Systems Narrative: Limited secondary to patient's willingness to participate in review of systems Patient History Medical History Abnormal Pap smear of cervix (10/30/16) Admission for sterilization (~12/20/19) Alcohol abuse (~10/2015) Anxiety Arthritis Asthma Bacterial vaginosis Bilateral temporomandibular joint pain C. difficile colitis (09/2016) Chicken pox Chronic back pain Chronic migraine w/o aura w/o status migrainosus, not intractable Chronic neck pain Eczema Primary dysmenorrhea Scoliosis Surgical History Anesthesia History of umbilical hernia repair Status post appendectomy Family History Brother Age: 34 Asthma NF2 (neurofibromatosis 2) Mother Age: 68 Asthma Thyroid disease Diabetes mellitus Sister Age: 31 Thyroid disease Bipolar 1 disorder Son Alopecia Social History marital status: unmarried,living together household members: significant other and children pets and animals: Yes (indoor and outdoor cat - aware) education level: college occupational status: employed special krupa needs: No Smoking Status: Current every day smoker Tobacco: How many years used: 10 quit status: considering quitting second hand exposure: No alcohol intake: former substance use type: marijuana Smoking Status: Current every day smoker tobacco type: cigarettes alcohol intake frequency: holidays/special occasions only Substance Use Type: does not use Exam Initial Vital Signs Initial Vital Signs: Vital Signs Temperature 96.9 F L 07/08/22 03:35 Pulse Rate 75 07/08/22 03:35 Respiratory Rate 20 07/08/22 03:35 Blood Pressure 109/70 07/08/22 03:35 Pulse Oximetry 100 07/08/22 03:35 Oxygen Delivery Method 07/08/22 03:35 Const General: cooperative and No ill appearing HENMT Head: normal to inspection and normocephalic Resp Effort & Inspection: normal respiratory effort Cardio Rate: regular rate GI Inspection: normal to inspection and non-distended Palpation: firm and guarding Back/Spine/Pelvis Back: No CVA tenderness Skin General: no rashes or lesions noted Neuro General: patient alert, patient awake and moves all extremities Course Orders Ordered: ED Orders 07/08/22 03:50 Complete Blood Count AUTO DIFF Stat Comprehensive Metabolic Panel Stat Lipase Stat Test Serum,Qual Stat 07/08/22 05:35 CT abdomen pelvis w con Stat Ondansetron HCl (Ondansetron 4 Mg Odt) 4 mg PO NOW PRN PRN Reason: Nausea And Vomiting Ondansetron HCl (Ondansetron 4 Mg/2 Ml Inj) 4 mg IV NOW PRN PRN Reason: Nausea And Vomiting Last Admin: 07/08/22 05:46 Dose: 4 mg Documented By: OW Discontinued Medications Metoclopramide HCl (Metoclopramide 10 Mg/2 Ml Inj) 10 mg IV NOW ONE Stop: 07/08/22 06:03 Last Admin: 07/08/22 06:06 Dose: 10 mg Documented By: LITZY Morphine Sulfate (Morphine 4 Mg/Ml Inj) 4 mg IV NOW ONE Stop: 07/08/22 06:59 Last Admin: 07/08/22 07:07 Dose: 4 mg Documented By: TURNER Vital Signs Vital signs: Vital Signs - 8 hr 07/08/22 03:35 Temperature 96.9 F L Pulse Rate 75 Respiratory Rate 20 Blood Pressure 109/70 Pulse Oximetry 100 Oxygen Delivery Method Room Air MDM - Nausea/Vomiting/Diarrhea Lab Data 07/08/22 03:50 07/08/22 03:50 Labs: Lab Results 07/08/22 07/08/22 07/08/22 Range/Units 03:50 03:50 03:50 WBC 16.9 H (4.5-11.0) X10^3/uL RBC 4.39 (4.0-5.2) X10^6/uL Hgb 13.3 (12.0-16.0) g/dL Hct 40.6 (36-46) % MCV 92.4 (80-100) fL MCH 30.3 (26-34) PG MCHC 32.8 (30-36) % RDW 12.8 (11.6-14.8) % Plt Count 278 (150-400) X10^3/uL Neut % (Auto) 90.8 H (50-75) % Lymph % (Auto) 6.4 L (25-40) % Anson % (Auto) 2.6 L (3-14) % Eos % (Auto) 0.1 L (2-4) % Baso % (Auto) 0.1 (0-2) % Neut # (Auto) 01342 H (2396-4561) /uL Lymph # (Auto) 1100 (1964-3320) /uL Anson # (Auto) 400 (0-900) /uL Eos # (Auto) 0 (0-450) /uL Baso # (Auto) 0 (0-100) /uL Sodium 138 (137-145) mmol/L Potassium 3.9 (3.4-5.1) mmol/L Chloride 102 (98-107) mmol/L Carbon Dioxide 19 L (22-32) mmol/L BUN 22 H (7-17) mg/dL Creatinine 0.58 (0.52-1.04) mg/dL Estimated GFR > 60 (>60) mL/min BUN/Creatinine Ratio 37.9 H (6-22) Glucose 157 H (70-100) mg/dL Calcium 9.2 (8.4-10.2) mg/dL Total Bilirubin 1.0 (0.2-1.3) mg/dL AST 21 (14-36) IU/L ALT 17 (<35) IU/L Alkaline Phosphatase 79 (38-126) U/L Total Protein 7.7 (6.3-8.2) g/dL Albumin 4.7 (3.5-5.0) g/dL Globulin 3.0 (1.7-4.1) g/dL Albumin/Globulin Ratio 1.6 (1.0-2.8) Lipase 112 (23-300) U/L Serum , Qual Negative (Negative) Imaging Data CT scan - abdomen/pelvis: Radiologist's Impression: No evidence of colitis, diverticulitis, bowel obstruction or obstructive uropathy Prominent uterine vessels which can be seen in the setting of pelvic congestion syndrome Involuting left corpus luteum cyst MDM Narrative Medical decision making narrative: Patient does have a fairly significant upper abdominal pain. CT scan is unremarkable. Does have leukocytosis however this could be because of the vomiting and diarrhea. test is negative. LFTs unremarkable. Lipase is negative. Carlos Manuel have done little to help her symptoms. Will try pain medication. Patient reports improvement of symptoms after pain medication. No indication for antibiotics. No indication for surgical consultation. Will discharge patient home with return precautions. Discharge Plan Departure Patient Disposition: Home Clinical Impression: Nausea, vomiting, and diarrhea Instructions: Nausea and Vomiting-Adult Activity Restrictions/Additional Instructions: Continue to take all of your medications as directed. Recommend that you contact your primary doctor for follow-up. Return to the emergency department for new symptoms. Prescriptions: No Action Probiotic with Prebiotic 2 cap PO .QDAY albuterol sulfate [Ventolin HFA] 90 mcg/actuation HFA aerosol inhaler 2 puff INHALATION QIDP PRN (Reason: shortness of breath or wheezing) Qty: 1 3RF Hold Instructions: epinephrine [EpiPen 2-Al] 0.3 mg/0.3 mL auto-injector 0.3 mg IM ONCE Qty: 2 0RF Rx Instructions: as a single dose; may repeat once duloxetine 30 mg capsule,delayed release(DR/EC) 90 mg PO DAILY Rx Instructions: Total duloxetine dose of 90 mg daily oxycodone-acetaminophen [Percocet] 5-325 mg tablet 1 tab PO Q4-6H PRN (Reason: pain) Qty: 8 0RF Referrals: Feroz Max ARNP [Primary Care Provider] - Stand Alone Forms: Patient Portal/API
--- NOTE | 2022-07-08 05:35 | DI.CT.S_ITS ---
PROCEDURE: CT ABDOMEN PELVIS W CON INDICATIONS: Generalized abdominal tenderness TECHNIQUE: After the administration of intravenous contrast, axial sections acquired from the lung bases to the pubic symphysis. Coronal and sagittal reformats were performed. For radiation dose reduction, the following was used: automated exposure control, adjustment of mA and/or kV according to patient size. COMPARISON: [facility], CT, CT ABDOMEN PELVIS W CON, 02/09/2022, 18:53. FINDINGS: Image quality: Excellent. Lung bases: Unremarkable. Heart: No significant findings. ABDOMEN: Liver: Unremarkable. Gallbladder: Unremarkable. Biliary ducts: Unremarkable. Pancreas: Unremarkable. Spleen: Unremarkable. Adrenal Glands: Unremarkable. Kidneys and Ureters: Unremarkable. Stomach and Bowel: Stomach, small bowel loops, and colon are unremarkable. Peritoneum: No abnormal intraperitoneal fluid. No free air. Ventral Wall: No hernias. Abdominal Nodes: No retroperitoneal or mesenteric adenopathy by size criteria. Vessels: Aorta and inferior vena cava are normal in size. Dilated left arcuate and pelvic vasculature. PELVIS: Pelvic Organs: Left-sided corpus luteum. Bladder: Unremarkable. Pelvic Nodes: No enlarged lymph nodes. Miscellaneous: No hernias are seen. Bones: Unremarkable. IMPRESSION: 1. No acute abnormality. 2. Dilated left pelvic vasculature, which can be seen in the setting of pelvic congestion syndrome. Agree with preliminary interpretation. Dictated by: Maury Mejias M.D. on 07/08/2022 at 7:41 Approved by: Maury Mejias M.D. on 07/08/2022 at 7:45
[2022-07-08 05:44] LABS: Pregnancy Test Serum,Qual Negative (Negative)
[2022-07-08] MEDS: ONDANSETRON 4 MG/2 ML INJ IV (05:46)
[2022-07-08] MEDS: METOCLOPRAMIDE 10 MG/2 ML INJ IV (06:06)
[2022-07-08] MEDS: MORPHINE 4 MG/ML INJ IV (07:07)
--- NOTE | 2022-07-08 07:20 | PC.NURSE ---
0430: Pt drank an entire bottle of water in the waiting room and did not provide a urine sample when she went to the restroom, despite this RN's specific instructions to remain NPO and provide a urine sample when capable.
--- NOTE | 2022-07-08 07:34 | PC.NURSE ---
Patient able to tolerate some ice chips, reports improvement in pain since morphine. I just want to go home, nothing more to do here Provider updated
== END 2022-07-08 07:45 | disposition home or self-care (01) ==
PROVIDERS: Emergency Provider Emergency Medicine; PCP Registered Nurse Diabetes Educator
DX: R11.2 Nausea with vomiting, unspecified (principal); R19.7 Diarrhea, unspecified
CPT/HCPCS: 36415; 74177; 80053; 81003; 81025; 83690; 84703; 85025; 96374; 96375; 99284; J2270; J2405; J2765; Q9967

== ENCOUNTER 2022-07-13 05:39 | Emergency (ER) | payer OTHER, MEDICAID, SELFPAY ==
--- NOTE | 2022-07-13 06:00 | ED.NAVMDI ---
HPI - Nausea/Vomiting/Diarrhea <Piyush Dyson, DO - Last Filed: 07/17/22 06:40> General Chief complaint: Nausea/Vomiting/Diarrhea Stated complaint: throwing up Time Seen by Provider: 07/13/22 05:57 History of Present Illness HPI Narrative: 37-year-old female daily smoker with history of chronic neck pain, chronic back pain, chronic diarrhea, chronic migraines presents for the 2nd time this week in the chief complaint of severe and colicky generalized abdominal pain with nausea, vomiting and diarrhea. She had been seen and evaluated earlier in the week and had a very thorough evaluation with reassuring labs and even a CT that was unremarkable. She had been doing a bit better and presents today when her symptoms have significantly worsened. She denies any recent antibiotics, bad food, travel or exposure to other ill persons. She is tearful and quite uncomfortable Related Data Home Medications Medication Instructions Recorded Confirmed Probiotic with Prebiotic 2 cap PO .QDAY 06/07/18 06/10/22 duloxetine 30 mg capsule,delayed 90 mg PO DAILY 06/09/22 06/10/22 release Previous Rx's Medication Instructions Recorded albuterol sulfate 90 mcg/actuation 2 puff inhalation QIDP PRN 09/29/17 aerosol inhaler (Ventolin HFA) shortness of breath or wheezing #1 ea epinephrine 0.3 mg/0.3 mL 0.3 mg (0.3 mL) IM ONCE #2 ea 08/14/20 injection, auto-injector (EpiPen 2-Al) oxycodone-acetaminophen 5 mg-325 1 tab PO Q4-6H PRN pain #8 tabs 06/09/22 mg tablet (Percocet) metoclopramide HCl 10 mg tablet 10 mg PO Q6H PRN nausea and 07/13/22 (Reglan) vomiting #10 tabs Allergies Allergy/AdvReac Type Severity Reaction Status Date / Time venom-honey bee Allergy Severe TROUBLE Verified 07/08/22 03:52 [BEE VENOM (HONEY BEE)] BREATHING sertraline Allergy Intermediate Migraine Verified 07/08/22 03:52 cefaclor [CEFACLOR] Allergy Unknown I was Verified 07/08/22 03:52 young. I can't remember. Sulfa (Sulfonamide Allergy Unknown I was Verified 07/08/22 03:52 Antibiotics) young. I [SULFA (SULFONAMIDE can't ANTIBIOTICS)] remember. cyclobenzaprine AdvReac Intermediate Migraine Verified 07/08/22 03:52 escitalopram AdvReac Intermediate vertigo, Verified 07/08/22 03:52 headache, weak feeling, and extremely tired. methocarbamol AdvReac Intermediate Migraine Verified 07/08/22 03:52 metronidazole AdvReac Intermediate diarrhea Verified 07/08/22 03:52 and cramps ketorolac [From Toradol] AdvReac Headache Verified 07/08/22 03:52 Review of Systems <Piyush Dyson DO - Last Filed: 07/17/22 06:40> Review of Systems Narrative: GENERAL: Denies chills, fatigue, malaise, fever, sweats. HEENT: Denies sinus pain, ear pain, sore throat, difficulty swallowing, dizziness. RESPIRATORY: Denies dyspnea, cough, wheezing, hemoptysis, sputum. CARDIOVASCULAR: Denies chest pain, palpitations, orthopnea, edema, GASTROINTESTINAL: See HPI : Denies dysuria, frequency, incontinence, hematuria, urinary retention. MUSCULOSKELETAL: denies weakness, joint pain, or bony pain SKIN: Denies rash, skin lesions, or other NEUROLOGIC: Denies weakness, headache, numbness, change in speech, confusion, seizures, incoordination. PSYCHIATRIC: No concerning psychosocial issues. 12 point review of systems is negative except for those stated above Patient History <Piyush Dyson DO - Last Filed: 07/17/22 06:40> Medical History Abnormal Pap smear of cervix (10/30/16) Admission for sterilization (~12/20/19) Alcohol abuse (~10/2015) Anxiety Arthritis Asthma Bacterial vaginosis Bilateral temporomandibular joint pain C. difficile colitis (09/2016) Chicken pox Chronic back pain Chronic migraine w/o aura w/o status migrainosus, not intractable Chronic neck pain Eczema Primary dysmenorrhea Scoliosis Surgical History Anesthesia History of umbilical hernia repair Status post appendectomy Family History Brother Age: 34 Asthma NF2 (neurofibromatosis 2) Mother Age: 68 Asthma Thyroid disease Diabetes mellitus Sister Age: 31 Thyroid disease Bipolar 1 disorder Son Alopecia Social History marital status: unmarried,living together household members: significant other and children pets and animals: Yes (indoor and outdoor cat - aware) education level: college occupational status: employed special krupa needs: No Smoking Status: Current every day smoker Tobacco: How many years used: 10 quit status: considering quitting second hand exposure: No alcohol intake: former substance use type: marijuana Smoking Status: Current every day smoker tobacco type: cigarettes alcohol intake frequency: holidays/special occasions only Substance Use Type: does not use Exam <Piyush Dyson DO - Last Filed: 07/17/22 06:40> Narrative Exam Narrative: GENERAL: [37] year old patient appears stated age. Well-developed patient, in obvious discomfort, rubbing her abdomen, hunched over and complaining of pain, holding an emesis bag HEAD: Atraumatic. Normocephalic. EYES: Pupils equal round and reactive. Extraocular motions intact. No scleral icterus. No injection or drainage. ENT: Nose without bleeding, purulent drainage. Throat without erythema, tonsillar hypertrophy or exudate. Airway patent. NECK: Trachea midline. Non tender CARDIOVASCULAR: Regular rate and rhythm without murmurs, gallops, or rubs. RESPIRATORY: Clear to auscultation. Breath sounds equal bilaterally. No wheezes, rales, or rhonchi. GASTROINTESTINAL: Abdomen soft, generalized tenderness, nondistended. Bowel sounds present in all 4 quadrants if not increased EXTREMITIES: No edema or joint tenderness. BACK: Nontender without deformity or crepitance. No flank tenderness. NEURO: AOx3. SKIN: No rash or erythema of visible areas Initial Vital Signs Initial Vital Signs: Vital Signs Temperature 98.5 F 07/13/22 06:03 Pulse Rate 68 07/13/22 06:03 Respiratory Rate 20 07/13/22 06:03 Blood Pressure 121/87 07/13/22 06:03 Pulse Oximetry 100 07/13/22 06:03 Oxygen Delivery Method Room Air 07/13/22 06:03 <Pro Gee DO - Last Filed: 07/13/22 08:19> Initial Vital Signs Initial Vital Signs: Vital Signs Temperature 98.5 F 07/13/22 06:03 Pulse Rate 68 07/13/22 06:03 Respiratory Rate 20 07/13/22 06:03 Blood Pressure 121/87 07/13/22 06:03 Pulse Oximetry 100 07/13/22 06:03 Oxygen Delivery Method Room Air 07/13/22 06:03 Course <Piyush Dyson DO - Last Filed: 07/17/22 06:40> Orders Ordered: Discontinued Medications Haloperidol (Haloperidol 5 Mg/Ml Vial) 2 mg IV NOW ONE Stop: 07/13/22 06:43 Last Admin: 07/13/22 06:52 Dose: 2 mg Documented By: RENE Sodium Chloride (Normal Saline 0.9%) 1,000 mls @ 1,000 mls/hr IV BOLUS ONE Stop: 07/13/22 07:00 Last Infusion: 07/13/22 07:34 Dose: 0 mls/hr Documented By: Admin: 07/13/22 06:20 Dose: 1,000 mls/hr Documented By: RENE Ondansetron HCl (Ondansetron 4 Mg/2 Ml Inj) 4 mg IV NOW ONE Stop: 07/13/22 06:02 Last Admin: 07/13/22 06:18 Dose: 4 mg Documented By: RENE Pantoprazole Sodium (Pantoprazole 40 Mg Vial) 40 mg IV NOW ONE Stop: 07/13/22 06:02 Last Admin: 07/13/22 06:22 Dose: 40 mg Documented By: RENE Vital Signs Vital signs: Vital Signs - 8 hr 07/13/22 06:03 07/13/22 06:30 07/13/22 06:32 Temperature 98.5 F Pulse Rate 68 69 74 Respiratory Rate 20 22 20 Blood Pressure 121/87 Pulse Oximetry 100 100 100 Oxygen Delivery Method Room Air Room Air Room Air 07/13/22 06:32 Temperature Pulse Rate Respiratory Rate Blood Pressure 119/89 Pulse Oximetry Oxygen Delivery Method <DO Grecia Weaver Last Filed: 07/13/22 08:19> Orders Ordered: Discontinued Medications Haloperidol (Haloperidol 5 Mg/Ml Vial) 2 mg IV NOW ONE Stop: 07/13/22 06:43 Last Admin: 07/13/22 06:52 Dose: 2 mg Documented By: RENE Sodium Chloride (Normal Saline 0.9%) 1,000 mls @ 1,000 mls/hr IV BOLUS ONE Stop: 07/13/22 07:00 Last Infusion: 07/13/22 07:34 Dose: 0 mls/hr Documented By: Admin: 07/13/22 06:20 Dose: 1,000 mls/hr Documented By: RENE Ondansetron HCl (Ondansetron 4 Mg/2 Ml Inj) 4 mg IV NOW ONE Stop: 07/13/22 06:02 Last Admin: 07/13/22 06:18 Dose: 4 mg Documented By: RENE Pantoprazole Sodium (Pantoprazole 40 Mg Vial) 40 mg IV NOW ONE Stop: 07/13/22 06:02 Last Admin: 07/13/22 06:22 Dose: 40 mg Documented By: RENE Vital Signs Vital signs: Vital Signs - 8 hr 07/13/22 06:03 07/13/22 06:30 07/13/22 06:32 Temperature 98.5 F Pulse Rate 68 69 74 Respiratory Rate 20 22 20 Blood Pressure 121/87 Pulse Oximetry 100 100 100 Oxygen Delivery Method Room Air Room Air Room Air 07/13/22 06:32 Temperature Pulse Rate Respiratory Rate Blood Pressure 119/89 Pulse Oximetry Oxygen Delivery Method MDM - Nausea/Vomiting/Diarrhea <Piyush Dyson DO - Last Filed: 07/17/22 06:40> Medical Records Medical records narrative: CC: 37-year-old female with generalized, colicky abdominal pain, nausea, vomiting and diarrhea Complicating co-morbidities: Chronic diarrhea, chronic neck and back pain Data collected from: Patient Medical records reviewed: Prior notes reviewed in our EMR Differential considered, but not limited to: Gastroparesis, gastroenteritis, infectious diarrhea, bowel obstruction, versus other Exam documented above, pertinent findings include: Abdominal pain though soft, bowel sounds present in all 4 quadrants, heart rate regular, no labored breathing Lab Test results independently reviewed as above. Pertinent findings: Independently reviewed EKG as above Imaging studies independently reviewed: Scores Used: MIPS Elements: Consultations: Treatments: Re-evaluations: Discussion: Disposition: see below, along with detailed discharge instructions that have been reviewed with patient as well as indications for ED re-evaluation and additional outpatient follow up Lab Data 07/13/22 06:08 07/13/22 06:08 Labs: Lab Results 07/13/22 07/13/22 07/13/22 Range/Units 06:08 06:08 06:08 WBC 10.4 (4.5-11.0) X10^3/uL RBC 4.30 (4.0-5.2) X10^6/uL Hgb 13.3 (12.0-16.0) g/dL Hct 38.8 (36-46) % MCV 90.1 (80-100) fL MCH 30.9 (26-34) PG MCHC 34.2 (30-36) % RDW 12.5 (11.6-14.8) % Plt Count 279 (150-400) X10^3/uL Neut % (Auto) 80.6 H (50-75) % Lymph % (Auto) 16.3 L (25-40) % [place] % (Auto) 2.7 L (3-14) % Eos % (Auto) 0.1 L (2-4) % Baso % (Auto) 0.3 (0-2) % Neut # (Auto) 8400 H (1793-8310) /uL Lymph # (Auto) 1700 (6444-4375) /uL [place] # (Auto) 300 (0-900) /uL Eos # (Auto) 0 (0-450) /uL Baso # (Auto) 0 (0-100) /uL Sodium 137 (137-145) mmol/L Potassium 3.6 (3.4-5.1) mmol/L Chloride 104 (98-107) mmol/L Carbon Dioxide 20 L (22-32) mmol/L BUN 17 (7-17) mg/dL Creatinine 0.52 (0.52-1.04) mg/dL Estimated GFR > 60 (>60) mL/min BUN/Creatinine Ratio 32.7 H (6-22) Glucose 126 H (70-100) mg/dL Lactate 1.4 (0.7-2.1) mmol/L Calcium 9.2 (8.4-10.2) mg/dL Magnesium 1.7 (1.6-2.3) mg/dL Total Bilirubin 0.7 (0.2-1.3) mg/dL AST 32 (14-36) IU/L ALT 27 (<35) IU/L Alkaline Phosphatase 66 (38-126) U/L Total Protein 7.7 (6.3-8.2) g/dL Albumin 4.6 (3.5-5.0) g/dL Globulin 3.1 (1.7-4.1) g/dL Albumin/Globulin Ratio 1.5 (1.0-2.8) Urine RBC (0-5/HPF) Urine WBC (0-5/HPF) Ur Squamous Epith Cells (0-5/HPF) Urine Bacteria (None) Ur Culture Indicated? SARS-CoV-2 (PCR) (Negative) Influenza A (RT-PCR) (NEGATIVE) Influenza B (RT-PCR) (NEGATIVE) RSV (PCR) (Negative) 07/13/22 07/13/22 Range/Units 06:27 07:00 WBC (4.5-11.0) X10^3/uL RBC (4.0-5.2) X10^6/uL Hgb (12.0-16.0) g/dL Hct (36-46) % MCV (80-100) fL MCH (26-34) PG MCHC (30-36) % RDW (11.6-14.8) % Plt Count (150-400) X10^3/uL Neut % (Auto) (50-75) % Lymph % (Auto) (25-40) % [place] % (Auto) (3-14) % Eos % (Auto) (2-4) % Baso % (Auto) (0-2) % Neut # (Auto) (0095-7294) /uL Lymph # (Auto) (2253-1874) /uL [place] # (Auto) (0-900) /uL Eos # (Auto) (0-450) /uL Baso # (Auto) (0-100) /uL Sodium (137-145) mmol/L Potassium (3.4-5.1) mmol/L Chloride (98-107) mmol/L Carbon Dioxide (22-32) mmol/L BUN (7-17) mg/dL Creatinine (0.52-1.04) mg/dL Estimated GFR (>60) mL/min BUN/Creatinine Ratio (6-22) Glucose (70-100) mg/dL Lactate (0.7-2.1) mmol/L Calcium (8.4-10.2) mg/dL Magnesium (1.6-2.3) mg/dL Total Bilirubin (0.2-1.3) mg/dL AST (14-36) IU/L ALT (<35) IU/L Alkaline Phosphatase (38-126) U/L Total Protein (6.3-8.2) g/dL Albumin (3.5-5.0) g/dL Globulin (1.7-4.1) g/dL Albumin/Globulin Ratio (1.0-2.8) Urine RBC 0-1/hpf (0-5/HPF) Urine WBC 1-5/hpf (0-5/HPF) Ur Squamous Epith Cells 1-5 /hpf (0-5/HPF) Urine Bacteria Few (2-10) H (None) Ur Culture Indicated? Cult not indicated SARS-CoV-2 (PCR) Negative (Negative) Influenza A (RT-PCR) Flu a negative (NEGATIVE) Influenza B (RT-PCR) Flu b negative (NEGATIVE) RSV (PCR) Negative (Negative) Point of Care Testing Test Results Negative Urine Dip Bedside Urine Glucose Negative Bedside Urine Bilirubin - Negative Bedside Urine Ketone + 15 Urine Specific [place] 1.005 Bedside Urine Occult Blood - Negative Bedside Urine pH 9.0 Bedside Urine Protein + 30 Bedside Urine Urobilinogen - Negative Bedside Urine Nitrite - Negative Bedside Urine Leukocytes - Negative Esterase <Pro Gee DO - Last Filed: 07/13/22 08:19> Medical Records Medical records narrative: CC: 37-year-old female with generalized, colicky abdominal pain, nausea, vomiting and diarrhea Complicating co-morbidities: Chronic diarrhea, chronic neck and back pain Data collected from: Patient Medical records reviewed: Prior notes reviewed in our EMR Differential considered, but not limited to: Gastroparesis, gastroenteritis, infectious diarrhea, bowel obstruction, versus other Exam documented above, pertinent findings include: Abdominal pain though soft, bowel sounds present in all 4 quadrants, heart rate regular, no labored breathing Lab Test results independently reviewed as above. Pertinent findings: Independently reviewed EKG as above Imaging studies independently reviewed: Scores Used: MIPS Elements: Consultations: Treatments: Re-evaluations: Discussion: Disposition: see below, along with detailed discharge instructions that have been reviewed with patient as well as indications for ED re-evaluation and additional outpatient follow up Lab Data Labs: Lab Results 07/13/22 07/13/22 07/13/22 Range/Units 06:08 06:08 06:08 WBC 10.4 (4.5-11.0) X10^3/uL RBC 4.30 (4.0-5.2) X10^6/uL Hgb 13.3 (12.0-16.0) g/dL Hct 38.8 (36-46) % MCV 90.1 (80-100) fL MCH 30.9 (26-34) PG MCHC 34.2 (30-36) % RDW 12.5 (11.6-14.8) % Plt Count 279 (150-400) X10^3/uL Neut % (Auto) 80.6 H (50-75) % Lymph % (Auto) 16.3 L (25-40) % [place] % (Auto) 2.7 L (3-14) % Eos % (Auto) 0.1 L (2-4) % Baso % (Auto) 0.3 (0-2) % Neut # (Auto) 8400 H (4547-5351) /uL Lymph # (Auto) 1700 (8826-6129) /uL [place] # (Auto) 300 (0-900) /uL Eos # (Auto) 0 (0-450) /uL Baso # (Auto) 0 (0-100) /uL Sodium 137 (137-145) mmol/L Potassium 3.6 (3.4-5.1) mmol/L Chloride 104 (98-107) mmol/L Carbon Dioxide 20 L (22-32) mmol/L BUN 17 (7-17) mg/dL Creatinine 0.52 (0.52-1.04) mg/dL Estimated GFR > 60 (>60) mL/min BUN/Creatinine Ratio 32.7 H (6-22) Glucose 126 H (70-100) mg/dL Lactate 1.4 (0.7-2.1) mmol/L Calcium 9.2 (8.4-10.2) mg/dL Magnesium 1.7 (1.6-2.3) mg/dL Total Bilirubin 0.7 (0.2-1.3) mg/dL AST 32 (14-36) IU/L ALT 27 (<35) IU/L Alkaline Phosphatase 66 (38-126) U/L Total Protein 7.7 (6.3-8.2) g/dL Albumin 4.6 (3.5-5.0) g/dL Globulin 3.1 (1.7-4.1) g/dL Albumin/Globulin Ratio 1.5 (1.0-2.8) Urine RBC (0-5/HPF) Urine WBC (0-5/HPF) Ur Squamous Epith Cells (0-5/HPF) Urine Bacteria (None) Ur Culture Indicated? SARS-CoV-2 (PCR) (Negative) Influenza A (RT-PCR) (NEGATIVE) Influenza B (RT-PCR) (NEGATIVE) RSV (PCR) (Negative) 07/13/22 07/13/22 Range/Units 06:27 07:00 WBC (4.5-11.0) X10^3/uL RBC (4.0-5.2) X10^6/uL Hgb (12.0-16.0) g/dL Hct (36-46) % MCV (80-100) fL MCH (26-34) PG MCHC (30-36) % RDW (11.6-14.8) % Plt Count (150-400) X10^3/uL Neut % (Auto) (50-75) % Lymph % (Auto) (25-40) % [place] % (Auto) (3-14) % Eos % (Auto) (2-4) % Baso % (Auto) (0-2) % Neut # (Auto) (9972-2301) /uL Lymph # (Auto) (8430-6140) /uL [place] # (Auto) (0-900) /uL Eos # (Auto) (0-450) /uL Baso # (Auto) (0-100) /uL Sodium (137-145) mmol/L Potassium (3.4-5.1) mmol/L Chloride (98-107) mmol/L Carbon Dioxide (22-32) mmol/L BUN (7-17) mg/dL Creatinine (0.52-1.04) mg/dL Estimated GFR (>60) mL/min BUN/Creatinine Ratio (6-22) Glucose (70-100) mg/dL Lactate (0.7-2.1) mmol/L Calcium (8.4-10.2) mg/dL Magnesium (1.6-2.3) mg/dL Total Bilirubin (0.2-1.3) mg/dL AST (14-36) IU/L ALT (<35) IU/L Alkaline Phosphatase (38-126) U/L Total Protein (6.3-8.2) g/dL Albumin (3.5-5.0) g/dL Globulin (1.7-4.1) g/dL Albumin/Globulin Ratio (1.0-2.8) Urine RBC 0-1/hpf (0-5/HPF) Urine WBC 1-5/hpf (0-5/HPF) Ur Squamous Epith Cells 1-5 /hpf (0-5/HPF) Urine Bacteria Few (2-10) H (None) Ur Culture Indicated? Cult not indicated SARS-CoV-2 (PCR) Negative (Negative) Influenza A (RT-PCR) Flu a negative (NEGATIVE) Influenza B (RT-PCR) Flu b negative (NEGATIVE) RSV (PCR) Negative (Negative) Point of Care Testing Test Results Negative Urine Dip Bedside Urine Glucose Negative Bedside Urine Bilirubin - Negative Bedside Urine Ketone + 15 Urine Specific [place] 1.005 Bedside Urine Occult Blood - Negative Bedside Urine pH 9.0 Bedside Urine Protein + 30 Bedside Urine Urobilinogen - Negative Bedside Urine Nitrite - Negative Bedside Urine Leukocytes - Negative Esterase MDM Narrative Medical decision making narrative: Dr Gee: Received turned over. Reviewed patient's history and physical and workup up to this point. Patient states that as far as the nausea go she is feeling somewhat better. She was able to tolerate oral intake. She does have Zofran at home. States that Reglan has worked for her in the past as well so we will send home a prescription for this. She recently had a CT scan of her abdomen for abdominal pain and it was unremarkable. I do feel that we can hold on further radiologic studies for now. test was negative. Labs unremarkable. Will discharge patient with return precautions. Discharge Plan Departure Patient Disposition: Home Clinical Impression: Nausea and vomiting, Abdominal pain Instructions: DI for Abdominal Pain-Adult, DI for Nausea -- Adult, DI for Vomiting -- Adult Activity Restrictions/Additional Instructions: I do recommend that you increase your fluid intake by drinking small amounts over longer periods of time. Contact your primary doctor for a follow-up. Continue to take all of your medications as directed. Prescriptions: New metoclopramide HCl [Reglan] 10 mg tablet 10 mg PO Q6H PRN (Reason: nausea and vomiting) Qty: 10 0RF No Action Probiotic with Prebiotic 2 cap PO .QDAY albuterol sulfate [Ventolin HFA] 90 mcg/actuation HFA aerosol inhaler 2 puff INHALATION QIDP PRN (Reason: shortness of breath or wheezing) Qty: 1 3RF Hold Instructions: epinephrine [EpiPen 2-Al] 0.3 mg/0.3 mL auto-injector 0.3 mg IM ONCE Qty: 2 0RF Rx Instructions: as a single dose; may repeat once duloxetine 30 mg capsule,delayed release(DR/EC) 90 mg PO DAILY Rx Instructions: Total duloxetine dose of 90 mg daily oxycodone-acetaminophen [Percocet] 5-325 mg tablet 1 tab PO Q4-6H PRN (Reason: pain) Qty: 8 0RF Referrals: Feroz Max ARNP [Primary Care Provider] - Stand Alone Forms: Patient Portal/API
[2022-07-13 06:03] VITALS: BP 121/87; PULSE 68; RESP 20; TEMP 36.9; O2SAT 100; BMI 20.7
[2022-07-13 06:17] LABS: Add Manual Diff / Slide Review NO; Basophils Absolute Auto 0 /uL (0-100); Basophils Percent Auto 0.3 % (0-2); Eosinophils Absolute Auto 0 /uL (0-450); Eosinophils Percent Auto 0.1 % (2-4); Hematocrit 38.8 % (36-46); Hemoglobin 13.3 g/dL (12.0-16.0); Lymphocytes Absolute Auto 1700 /uL (1100-4500); Lymphocytes Percent Auto 16.3 % (25-40); Mean Corpuscular HGB Conc 34.2 % (30-36); Mean Corpuscular Hemoglobin 30.9 PG (26-34); Mean Corpuscular Volume 90.1 fL (80-100); Monocytes Absolute Auto 300 /uL (0-900); Monocytes Percent Auto 2.7 % (3-14); Neutrophils Absolute Auto 8400 /uL (1500-7000); Neutrophils Percent Auto 80.6 % (50-75); Platelet Count 279 X10^3/uL (150-400); Red Cell Distribution Width 12.5 % (11.6-14.8); White Blood Cell Count 10.4 X10^3/uL (4.5-11.0)
[2022-07-13] MEDS: ONDANSETRON 4 MG/2 ML INJ IV (06:18)
[2022-07-13] MEDS: SODIUM CHLORIDE 0.9% 1,000 ML 1000 ML IV (06:20)
[2022-07-13] MEDS: PANTOPRAZOLE 40 MG VIAL IV (06:22)
[2022-07-13 06:30] VITALS: PULSE 69; RESP 22; O2SAT 100
[2022-07-13 06:32] VITALS: BP 119/89; PULSE 74; RESP 20; O2SAT 100
[2022-07-13 06:45] LABS: Lactate (Lactic Acid) 1.4 mmol/L (0.7-2.1)
[2022-07-13 06:46] LABS: Alanine Aminotransferase 27 IU/L (<35); Albumin 4.6 g/dL (3.5-5.0); Albumin Globulin Ratio 1.5 (1.0-2.8); Alkaline Phosphatase 66 U/L (38-126); Aspartate Aminotransferase 32 IU/L (14-36); BUN Creatinine Ratio 32.7 (6-22); Bilirubin Total 0.7 mg/dL (0.2-1.3); Blood Urea Nitrogen 17 mg/dL (7-17); Calcium 9.2 mg/dL (8.4-10.2); Carbon Dioxide 20 mmol/L (22-32); Chloride 104 mmol/L (98-107); Estimated Glomerular Filt Rate > 60 mL/min (>60); Globulin 3.1 g/dL (1.7-4.1); Glucose 126 mg/dL (70-100); HEMOLYSIS < 15 (0-50); Magnesium 1.7 mg/dL (1.6-2.3); Potassium 3.6 mmol/L (3.4-5.1); Sodium 137 mmol/L (137-145); Total Protein 7.7 g/dL (6.3-8.2)
[2022-07-13] MEDS: HALOPERIDOL 5 MG/ML VIAL 2 MG IV (06:52)
[2022-07-13 07:00] VITALS: BP 109/61; PULSE 65; RESP 15; O2SAT 99
[2022-07-13 07:24] LABS: Bacteria Urine Few (2-10); Culture Indicated Urine Cult Not Indicated; RBC Urine 0-1/HPF (0-5/HPF); Squamous Epithelial Cell Urine 1-5 /HPF (0-5/HPF); WBC Urine 1-5/HPF (0-5/HPF)
[2022-07-13 07:30] VITALS: BP 102/61; PULSE 68; O2SAT 97
[2022-07-13 07:37] LABS: Influenza A - CEPHEID Flu A NEGATIVE (NEGATIVE); Influenza B - CEPHEID Flu B NEGATIVE (NEGATIVE); Respiratory Syncytial Virus Negative (Negative)
[2022-07-13 07:43] LABS: COVID-19 CEPHEID 4-PLEX PCR Negative (Negative)
[2022-07-13 08:00] VITALS: PULSE 72; RESP 22; O2SAT 96
== END 2022-07-13 08:31 | disposition home or self-care (01) ==
PROVIDERS: Emergency Medicine; Emergency Provider Emergency Medicine; PCP Registered Nurse Diabetes Educator
DX: R10.84 Generalized abdominal pain (principal); R11.2 Nausea with vomiting, unspecified; Z20.822 Contact with and (suspected) exposure to COVID-19
CPT/HCPCS: 0241U; 36415; 80053; 81003; 81015; 81025; 83605; 83735; 85025; 96361; 96374; 96375; 99284; C9113; J1630; J2405

== ENCOUNTER 2022-07-29 22:02 | Emergency (ER) | payer OTHER, MEDICAID, SELFPAY ==
[2022-07-29 22:10] VITALS: BP 105/63; PULSE 93; RESP 18; TEMP 36.6; O2SAT 98; BMI 20.7
--- NOTE | 2022-07-29 22:43 | DI.CT.S_ITS ---
PROCEDURE: CT KIDNEY URETER BLADDER (KUB) INDICATIONS: left sided pain TECHNIQUE: Axial sections were acquired from the lung bases to the pubic symphysis. Coronal and sagittal reformats were performed. For radiation dose reduction, the following was used: automated exposure control, adjustment of mA and/or kV according to patient size. COMPARISON: [facility], CT, CT ABDOMEN PELVIS W CON, 07/08/2022, 5:39. [facility], CT, CT KIDNEY URETER BLADDER (KUB), 01/21/2022, 19:54. FINDINGS: Image quality: Excellent. Lung bases: There is minimal atelectasis. Heart: Heart is normal in size. URINARY: Right Kidney and Ureter: There are least 2 nonobstructing right renal stones with the largest measuring up to 0.2 cm. No hydronephrosis. No hydroureter. Left Kidney and Ureter: There is a nonobstructing left renal stone measuring up to 0.2 cm. No hydronephrosis. No hydroureter. Bladder: Normal wall thickness. No stones. ABDOMEN: Liver: Noncontrast evaluation of the liver demonstrates no discrete mass. Gallbladder: Within normal limits without calcified gallstones. Biliary ducts: No biliary ductal dilatation. Pancreas: Unremarkable. Spleen: Normal in size. Adrenal Glands: No adrenal nodules. Stomach and Bowel: Stomach, small bowel loops, and colon are normal in caliber and wall thickness. The appendix is likely surgically absent. No pericecal inflammatory changes. There is colonic diverticulosis without acute diverticulitis. Peritoneum: No abnormal intraperitoneal fluid. No free air. Ventral Wall: No hernia. Abdominal Nodes: No retroperitoneal or mesenteric adenopathy by size criteria. Vessels: Aorta and inferior vena cava are normal in size. PELVIS: Pelvic Organs: Unremarkable. Pelvic Nodes: No enlarged lymph nodes. Miscellaneous: No inguinal hernias identified. Bones: Visualized osseous structures demonstrate no suspicious focal lesions. IMPRESSION: 1. Bilateral small nonobstructing renal stones without evidence of obstructive uropathy. 2. Colonic diverticulosis without acute diverticulitis. Dictated by: Harjeet Goldstein M.D. on 07/30/2022 at 0:09 Approved by: Harjeet Goldstein M.D. on 07/30/2022 at 0:12
--- NOTE | 2022-07-29 22:43 | ED.ABDPAIN ---
HPI - Abdominal Pain General Chief Complaint: Abdominal Pain Stated Complaint: left lower abd pain Time Seen by Provider: 07/29/22 22:39 Source: patient Mode of arrival: Ambulatory History of Present Illness HPI narrative: Patient is a 37-year-old female who history of chronic neck pain, back pain has been to the ED multiple times for abdominal pain and presents with abdominal pain. She is been to the ED multiple times with abdominal pain. She says that she is a history of kidney stones. She reports today that pain started suddenly at 1 to took ibuprofen without any relief. She denies any nausea or vomiting. It is in her left flank and side. No significant suprapubic pain no fever no chills. She was here on the 08 of July and July 13 for similar things. She denies any chest pain palpitations shortness of breath or other symptoms Related Data Home Medications Medication Instructions Recorded Confirmed Probiotic with Prebiotic 2 cap PO .QDAY 06/07/18 06/10/22 duloxetine 30 mg capsule,delayed 90 mg PO DAILY 06/09/22 06/10/22 release Previous Rx's Medication Instructions Recorded albuterol sulfate 90 mcg/actuation 2 puff inhalation QIDP PRN 09/29/17 aerosol inhaler (Ventolin HFA) shortness of breath or wheezing #1 ea epinephrine 0.3 mg/0.3 mL 0.3 mg (0.3 mL) IM ONCE #2 ea 08/14/20 injection, auto-injector (EpiPen 2-Al) oxycodone-acetaminophen 5 mg-325 1 tab PO Q4-6H PRN pain #8 tabs 06/09/22 mg tablet (Percocet) metoclopramide HCl 10 mg tablet 10 mg PO Q6H PRN nausea and 07/13/22 (Reglan) vomiting #10 tabs Allergies Allergy/AdvReac Type Severity Reaction Status Date / Time venom-honey bee Allergy Severe TROUBLE Verified 07/08/22 03:52 [BEE VENOM (HONEY BEE)] BREATHING sertraline Allergy Intermediate Migraine Verified 07/08/22 03:52 cefaclor [CEFACLOR] Allergy Unknown I was Verified 07/08/22 03:52 young. I can't remember. Sulfa (Sulfonamide Allergy Unknown I was Verified 07/08/22 03:52 Antibiotics) young. I [SULFA (SULFONAMIDE can't ANTIBIOTICS)] remember. cyclobenzaprine AdvReac Intermediate Migraine Verified 07/08/22 03:52 escitalopram AdvReac Intermediate vertigo, Verified 07/08/22 03:52 headache, weak feeling, and extremely tired. methocarbamol AdvReac Intermediate Migraine Verified 07/08/22 03:52 metronidazole AdvReac Intermediate diarrhea Verified 07/08/22 03:52 and cramps ketorolac [From Toradol] AdvReac Headache Verified 07/08/22 03:52 Review of Systems Review of Systems ROS Unobtainable: All systems reviewed & are unremarkable except as noted in HPI and below Patient History Medical History Abnormal Pap smear of cervix (10/30/16) Admission for sterilization (~12/20/19) Alcohol abuse (~10/2015) Anxiety Arthritis Asthma Bacterial vaginosis Bilateral temporomandibular joint pain C. difficile colitis (09/2016) Chicken pox Chronic back pain Chronic migraine w/o aura w/o status migrainosus, not intractable Chronic neck pain Eczema Primary dysmenorrhea Scoliosis Surgical History Anesthesia History of umbilical hernia repair Status post appendectomy Family History Brother Age: 34 Asthma NF2 (neurofibromatosis 2) Mother Age: 68 Asthma Thyroid disease Diabetes mellitus Sister Age: 31 Thyroid disease Bipolar 1 disorder Son Alopecia Social History marital status: unmarried,living together household members: significant other and children pets and animals: Yes (indoor and outdoor cat - aware) education level: college occupational status: employed special krupa needs: No Smoking Status: Current every day smoker Tobacco: How many years used: 10 quit status: considering quitting second hand exposure: No alcohol intake: former substance use type: marijuana Smoking Status: Current every day smoker tobacco type: cigarettes alcohol intake frequency: holidays/special occasions only Substance Use Type: does not use Exam Initial Vital Signs Initial Vital Signs: Vital Signs Temperature 98 F 07/29/22 22:10 Pulse Rate 93 H 07/29/22 22:10 Respiratory Rate 18 07/29/22 22:10 Blood Pressure 105/63 07/29/22 22:10 Pulse Oximetry 98 07/29/22 22:10 Oxygen Delivery Method Room Air 07/29/22 22:10 GENERAL: Alert 37-year-old female appears in pain HEENT: Head atraumatic,EOMI, pupils reactive, face symmetric, moist mucous membranes CARDIOVASCULAR: Regular rate and rhythm without murmurs, rubs or gallops. RESPIRATORY: Breath sounds equal bilaterally, no wheezes rales or rhonchi. ABDOMEN: Soft, tender left lower-mid quadrant no guarding no rebound : No CVA tenderness EXTREMITIES: Normal range of motion, no clubbing or edema. Neurovascularly intact NEUROLOGICAL: Alert and oriented x4. SKIN: Warm, dry, no laceration, no petechiae, no rashes or lesions. Course Orders Ordered: ED Orders 07/29/22 22:43 CT kidney ureter bladder (KUB) Stat 07/29/22 22:55 Complete Blood Count AUTO DIFF Stat Comprehensive Metabolic Panel Stat Lipase Stat Discontinued Medications Acetaminophen (Acetaminophen 325 Mg Tablet) 975 mg PO NOW ONE Stop: 07/29/22 23:50 Last Admin: 07/30/22 00:11 Dose: 975 mg Documented By: VIVIAN Hydromorphone HCl (Hydromorphone 0.5 Mg Inj) 0.5 mg IV NOW ONE Stop: 07/30/22 00:34 Last Admin: 07/30/22 00:40 Dose: 0.5 mg Documented By: VIVIAN Morphine Sulfate (Morphine 4 Mg/Ml Inj) 4 mg IV NOW ONE Stop: 07/29/22 22:44 Last Admin: 07/29/22 23:05 Dose: 4 mg Documented By: ROBERT Ondansetron HCl (Ondansetron 4 Mg/2 Ml Inj) 4 mg IV NOW ONE Stop: 07/29/22 22:44 Last Admin: 07/29/22 23:05 Dose: 4 mg Documented By: ROBERT Vital Signs Vital signs: Vital Signs - 8 hr 07/29/22 22:10 07/29/22 23:42 07/29/22 23:43 Temperature 98 F Pulse Rate 93 H 81 Respiratory Rate 18 16 Blood Pressure 105/63 97/55 L Pulse Oximetry 98 97 Oxygen Delivery Method Room Air 07/29/22 23:43 07/30/22 00:00 07/30/22 00:00 Temperature Pulse Rate 80 77 Respiratory Rate Blood Pressure 91/54 L Pulse Oximetry 97 97 Oxygen Delivery Method 07/30/22 00:30 07/30/22 01:00 Temperature Pulse Rate 74 78 Respiratory Rate Blood Pressure Pulse Oximetry 95 95 Oxygen Delivery Method MDM - Abdominal Pain Lab Data 07/29/22 22:55 07/29/22 22:55 Labs: Lab Results 07/29/22 07/29/22 Range/Units 22:55 22:55 WBC 8.6 (4.5-11.0) X10^3/uL RBC 3.88 L (4.0-5.2) X10^6/uL Hgb 12.2 (12.0-16.0) g/dL Hct 35.7 L (36-46) % MCV 92.0 (80-100) fL MCH 31.5 (26-34) PG MCHC 34.2 (30-36) % RDW 13.4 (11.6-14.8) % Plt Count 246 (150-400) X10^3/uL Neut % (Auto) 36.9 L (50-75) % Lymph % (Auto) 52.3 H (25-40) % [place] % (Auto) 7.0 (3-14) % Eos % (Auto) 3.0 (2-4) % Baso % (Auto) 0.8 (0-2) % Neut # (Auto) 3200 (9456-3937) /uL Lymph # (Auto) 4500 (6557-2453) /uL [place] # (Auto) 600 (0-900) /uL Eos # (Auto) 300 (0-450) /uL Baso # (Auto) 100 (0-100) /uL Sodium 137 (137-145) mmol/L Potassium 3.5 (3.4-5.1) mmol/L Chloride 103 (98-107) mmol/L Carbon Dioxide 26 (22-32) mmol/L BUN 17 (7-17) mg/dL Creatinine 0.60 (0.52-1.04) mg/dL Estimated GFR > 60 (>60) mL/min BUN/Creatinine Ratio 28.3 H (6-22) Glucose 94 (70-100) mg/dL Calcium 8.6 (8.4-10.2) mg/dL Total Bilirubin 0.3 (0.2-1.3) mg/dL AST 19 (14-36) IU/L ALT 14 (<35) IU/L Alkaline Phosphatase 61 (38-126) U/L Total Protein 6.7 (6.3-8.2) g/dL Albumin 4.0 (3.5-5.0) g/dL Globulin 2.7 (1.7-4.1) g/dL Albumin/Globulin Ratio 1.5 (1.0-2.8) Lipase 189 (23-300) U/L Point of care testing: Point of Care Testing Test Results Negative Urine Dip Bedside Urine Glucose Negative Bedside Urine Bilirubin - Negative Bedside Urine Ketone - Negative Urine Specific [place] 1.015 Bedside Urine Occult Blood - Negative Bedside Urine pH 6.0 Bedside Urine Protein - Negative Bedside Urine Urobilinogen - Negative Bedside Urine Nitrite - Negative Bedside Urine Leukocytes - Negative Esterase Imaging Data CT scan - abdomen/pelvis: Radiologist's Impression: PROCEDURE:? CT KIDNEY URETER BLADDER (KUB) ? INDICATIONS:? left sided pain ? TECHNIQUE:? Axial sections were acquired from the lung bases to the pubic symphysis.? Coronal and sagittal reformats were performed.? For radiation dose reduction, the following was used: ?automated exposure control, adjustment of mA and/or kV according to patient size.? ? COMPARISON:? [facility], CT, CT ABDOMEN PELVIS W CON, 07/08/2022, 5:39.? [facility], CT, CT KIDNEY URETER BLADDER (KUB), 01/21/2022, 19:54. ? FINDINGS:? Image quality:? Excellent.? ? Lung bases:? There is minimal atelectasis.? ? Heart:? Heart is normal in size. ? URINARY: Right Kidney and Ureter: ? There are least 2 nonobstructing right renal stones with the largest measuring up to 0.2 cm.? No hydronephrosis.? No hydroureter.? ? Left Kidney and Ureter: ? There is a nonobstructing left renal stone measuring up to 0.2 cm. No hydronephrosis.? No hydroureter. ? Bladder:? Normal wall thickness. No stones. ? ? ? ABDOMEN: Liver:? Noncontrast evaluation of the liver demonstrates no discrete? mass. Gallbladder:? Within normal limits without calcified gallstones.? ? Biliary ducts:? No biliary ductal dilatation.? ? Pancreas:? Unremarkable.? ? Spleen:? Normal in size.? ? Adrenal Glands:? No adrenal nodules.? ? ? Stomach and Bowel:? Stomach, small bowel loops, and colon are normal in caliber and wall thickness.? The appendix is likely surgically absent.? No pericecal inflammatory changes. ?There is colonic diverticulosis without acute diverticulitis.? Peritoneum:? No abnormal intraperitoneal fluid.? No free air.? ? Ventral Wall: ? No hernia.? Abdominal Nodes:? No retroperitoneal or mesenteric adenopathy by size criteria.? Vessels:? Aorta and inferior vena cava are normal in size.? ? PELVIS: Pelvic Organs:? Unremarkable.? ? Pelvic Nodes: No enlarged lymph nodes.? Miscellaneous: No inguinal hernias identified. ? ? ? Bones:? Visualized osseous structures demonstrate no suspicious focal lesions. IMPRESSION:? ? 1. Bilateral small nonobstructing renal stones without evidence of obstructive uropathy. ? 2. Colonic diverticulosis without acute diverticulitis.? ? Dictated by: Harjeet Goldstein M.D. on 07/30/2022 at 0:09 ? ? [facility] Narrative Medical decision making narrative: Patient 37-year-old female who has had ongoing abdominal issues and chronic pain for awhile. This is her 3rd ER visit in the last month for abdominal issues. Blood work today is overall reassuring without leukocytosis anemia electrolyte abnormality or COLTON. Urinalysis is negative. CT does show she has persistent renal stones. She reports that she is trying to get into a GI but the GI does not take her insurance she is trying to get a 2nd 1. She got morphine and Tylenol for pain. She requesting 1 more thing for pain. There is also possibility of drug-seeking behavior here as well I have told her I will not write her a prescription which she understands. There is no evidence infection. Discharge Plan Departure Patient Disposition: Home Clinical Impression: Abdominal pain Instructions: DI for Abdominal Pain-Adult Activity Restrictions/Additional Instructions: *You have been diagnosed with abdominal pain *What to do: At this time I recommend you see GI for further evaluation *Continue to take medications as directed *Follow up with your primary care provider in 2-3 days or call [phone] *Return to ER if you should have increasing pain persistent vomiting or any new, worsening or concerning symptoms Prescriptions: No Action Probiotic with Prebiotic 2 cap PO .QDAY albuterol sulfate [Ventolin HFA] 90 mcg/actuation HFA aerosol inhaler 2 puff INHALATION QIDP PRN (Reason: shortness of breath or wheezing) Qty: 1 3RF Hold Instructions: epinephrine [EpiPen 2-Al] 0.3 mg/0.3 mL auto-injector 0.3 mg IM ONCE Qty: 2 0RF Rx Instructions: as a single dose; may repeat once duloxetine 30 mg capsule,delayed release(DR/EC) 90 mg PO DAILY Rx Instructions: Total duloxetine dose of 90 mg daily oxycodone-acetaminophen [Percocet] 5-325 mg tablet 1 tab PO Q4-6H PRN (Reason: pain) Qty: 8 0RF metoclopramide HCl [Reglan] 10 mg tablet 10 mg PO Q6H PRN (Reason: nausea and vomiting) Qty: 10 0RF Referrals: Feroz Max ARNP [Primary Care Provider] - Stand Alone Forms: Patient Portal/API
[2022-07-29] MEDS: ONDANSETRON 4 MG/2 ML INJ IV (23:05)
[2022-07-29] MEDS: MORPHINE 4 MG/ML INJ IV (23:05)
[2022-07-29 23:07] LABS: Add Manual Diff / Slide Review NO; Basophils Absolute Auto 100 /uL (0-100); Basophils Percent Auto 0.8 % (0-2); Eosinophils Absolute Auto 300 /uL (0-450); Hematocrit 35.7 % (36-46); Hemoglobin 12.2 g/dL (12.0-16.0); Lymphocytes Absolute Auto 4500 /uL (1100-4500); Lymphocytes Percent Auto 52.3 % (25-40); Mean Corpuscular HGB Conc 34.2 % (30-36); Mean Corpuscular Hemoglobin 31.5 PG (26-34); Monocytes Absolute Auto 600 /uL (0-900); Neutrophils Absolute Auto 3200 /uL (1500-7000); Neutrophils Percent Auto 36.9 % (50-75); Platelet Count 246 X10^3/uL (150-400); Red Blood Cell Count 3.88 X10^6/uL (4.0-5.2); Red Cell Distribution Width 13.4 % (11.6-14.8); White Blood Cell Count 8.6 X10^3/uL (4.5-11.0)
[2022-07-29 23:18] LABS: Alanine Aminotransferase 14 IU/L (<35); Albumin Globulin Ratio 1.5 (1.0-2.8); Alkaline Phosphatase 61 U/L (38-126); Aspartate Aminotransferase 19 IU/L (14-36); BUN Creatinine Ratio 28.3 (6-22); Bilirubin Total 0.3 mg/dL (0.2-1.3); Blood Urea Nitrogen 17 mg/dL (7-17); Calcium 8.6 mg/dL (8.4-10.2); Carbon Dioxide 26 mmol/L (22-32); Chloride 103 mmol/L (98-107); Estimated Glomerular Filt Rate > 60 mL/min (>60); Globulin 2.7 g/dL (1.7-4.1); Glucose 94 mg/dL (70-100); HEMOLYSIS < 15 (0-50); Lipase 189 U/L (23-300); Potassium 3.5 mmol/L (3.4-5.1); Sodium 137 mmol/L (137-145); Total Protein 6.7 g/dL (6.3-8.2)
[2022-07-29 23:42] VITALS: PULSE 81; O2SAT 97
[2022-07-29 23:43] VITALS: BP 97/55; PULSE 80; RESP 16; O2SAT 97
[2022-07-30] VITALS: BP 91/54; PULSE 77; O2SAT 97
[2022-07-30] MEDS: ACETAMINOPHEN 325 MG TABLET 975 MG PO (00:11)
[2022-07-30 00:30] VITALS: PULSE 74; O2SAT 95
[2022-07-30] MEDS: HYDROMORPHONE 0.5 MG INJ IV (00:40)
[2022-07-30 01:00] VITALS: PULSE 78; O2SAT 95
== END 2022-07-30 01:14 | disposition home or self-care (01) ==
PROVIDERS: Emergency Provider Emergency Medicine; PCP Registered Nurse Diabetes Educator
DX: R10.32 Left lower quadrant pain (principal)
CPT/HCPCS: 36415; 74176; 80053; 81003; 81025; 83690; 85025; 96374; 96375; 99284; J1170; J2270; J2405

== ENCOUNTER 2022-09-01 21:14 | Emergency (ER) | payer OTHER, MEDICAID, SELFPAY ==
[2022-09-01 21:35] VITALS: BP 97/70; PULSE 87; RESP 18; TEMP 37; O2SAT 99; BMI 20.7
[2022-09-01 22:11] LABS: Alanine Aminotransferase 12 IU/L (<35); Albumin 3.9 g/dL (3.5-5.0); Albumin Globulin Ratio 1.4 (1.0-2.8); Alkaline Phosphatase 54 U/L (38-126); Aspartate Aminotransferase 19 IU/L (14-36); BUN Creatinine Ratio 15.5 (6-22); Bilirubin Total 0.3 mg/dL (0.2-1.3); Blood Urea Nitrogen 11 mg/dL (7-17); Calcium 8.3 mg/dL (8.4-10.2); Carbon Dioxide 26 mmol/L (22-32); Chloride 105 mmol/L (98-107); Estimated Glomerular Filt Rate > 60 mL/min (>60); Globulin 2.8 g/dL (1.7-4.1); Glucose 91 mg/dL (70-100); HEMOLYSIS < 15 (0-50); Lipase 129 U/L (23-300); Sodium 137 mmol/L (137-145); Total Protein 6.7 g/dL (6.3-8.2)
[2022-09-01 22:20] LABS: Add Manual Diff / Slide Review NO; Basophils Absolute Auto 0 /uL (0-100); Basophils Percent Auto 0.5 % (0-2); Eosinophils Absolute Auto 300 /uL (0-450); Eosinophils Percent Auto 2.8 % (2-4); Hematocrit 35.8 % (36-46); Hemoglobin 12.2 g/dL (12.0-16.0); Lymphocytes Absolute Auto 4600 /uL (1100-4500); Lymphocytes Percent Auto 49.6 % (25-40); Mean Corpuscular Hemoglobin 31.2 PG (26-34); Mean Corpuscular Volume 91.8 fL (80-100); Monocytes Absolute Auto 700 /uL (0-900); Monocytes Percent Auto 7.1 % (3-14); Neutrophils Absolute Auto 3700 /uL (1500-7000); Platelet Count 237 X10^3/uL (150-400); Red Cell Distribution Width 12.8 % (11.6-14.8); White Blood Cell Count 9.3 X10^3/uL (4.5-11.0)
[2022-09-01 23:15] VITALS: BP 95/50; PULSE 85; O2SAT 97
[2022-09-01] MEDS: ONDANSETRON 4 MG/2 ML INJ IV (23:22)
[2022-09-02] VITALS (9 sets, daily range): BP systolic 92–110; BP diastolic 50–75; PULSE 61–87; RESP 16; O2SAT 91–96
--- NOTE | 2022-09-02 02:19 | ED.ABDPAIN ---
HPI - Abdominal Pain General Chief Complaint: Abdominal Pain Stated Complaint: bilateral lower abd pain Time Seen by Provider: 09/02/22 01:16 Source: patient Mode of arrival: Ambulatory History of Present Illness HPI narrative: Patient is a 37-year-old female with chronic neck pain back pain and ongoing abdominal pain. She is been ED multiple times for abdominal pain since June. She reports that she changed her diet she feels like her abdominal pain is more under control and has been. She has received multiple abdominal CTs as well. Today she reports that she started having some left-sided pain and cramping it comes and goes in waves. Not necessarily flank pain. She is been nauseous. She does not think she ate anything to make it flare she is frustrated because she feels like it has been under control. She is taken Tylenol ibuprofen without significant relief. No fever or chills. She was trying to get into GI doctor however due to insurance was not able to do so and then she felt like it was under control. Related Data Home Medications Medication Instructions Recorded Confirmed Probiotic with Prebiotic 2 cap PO .QDAY 06/07/18 06/10/22 duloxetine 30 mg capsule,delayed 90 mg PO DAILY 06/09/22 06/10/22 release Previous Rx's Medication Instructions Recorded albuterol sulfate 90 mcg/actuation 2 puff inhalation QIDP PRN 09/29/17 aerosol inhaler (Ventolin HFA) shortness of breath or wheezing #1 ea epinephrine 0.3 mg/0.3 mL 0.3 mg (0.3 mL) IM ONCE #2 ea 08/14/20 injection, auto-injector (EpiPen 2-Al) oxycodone-acetaminophen 5 mg-325 1 tab PO Q4-6H PRN pain #8 tabs 06/09/22 mg tablet (Percocet) metoclopramide HCl 10 mg tablet 10 mg PO Q6H PRN nausea and 07/13/22 (Reglan) vomiting #10 tabs Allergies Allergy/AdvReac Type Severity Reaction Status Date / Time venom-honey bee Allergy Severe TROUBLE Verified 07/08/22 03:52 [BEE VENOM (HONEY BEE)] BREATHING sertraline Allergy Intermediate Migraine Verified 07/08/22 03:52 cefaclor [CEFACLOR] Allergy Unknown I was Verified 07/08/22 03:52 young. I can't remember. Sulfa (Sulfonamide Allergy Unknown I was Verified 07/08/22 03:52 Antibiotics) young. I [SULFA (SULFONAMIDE can't ANTIBIOTICS)] remember. cyclobenzaprine AdvReac Intermediate Migraine Verified 07/08/22 03:52 escitalopram AdvReac Intermediate vertigo, Verified 07/08/22 03:52 headache, weak feeling, and extremely tired. methocarbamol AdvReac Intermediate Migraine Verified 07/08/22 03:52 metronidazole AdvReac Intermediate diarrhea Verified 07/08/22 03:52 and cramps ketorolac [From Toradol] AdvReac Headache Verified 07/08/22 03:52 Review of Systems Review of Systems ROS Unobtainable: All systems reviewed & are unremarkable except as noted in HPI and below Patient History Medical History Abnormal Pap smear of cervix (10/30/16) Admission for sterilization (~12/20/19) Alcohol abuse (~10/2015) Anxiety Arthritis Asthma Bacterial vaginosis Bilateral temporomandibular joint pain C. difficile colitis (09/2016) Chicken pox Chronic back pain Chronic migraine w/o aura w/o status migrainosus, not intractable Chronic neck pain Eczema Primary dysmenorrhea Scoliosis Surgical History Anesthesia History of umbilical hernia repair Status post appendectomy Family History Brother Age: 34 Asthma NF2 (neurofibromatosis 2) Mother Age: 68 Asthma Thyroid disease Diabetes mellitus Sister Age: 31 Thyroid disease Bipolar 1 disorder Son Alopecia Social History marital status: unmarried,living together household members: significant other and children pets and animals: Yes (indoor and outdoor cat - aware) education level: college occupational status: employed special krupa needs: No Smoking Status: Current every day smoker Tobacco: How many years used: 10 quit status: considering quitting second hand exposure: No alcohol intake: former substance use type: marijuana Smoking Status: Current every day smoker tobacco type: cigarettes alcohol intake frequency: holidays/special occasions only Substance Use Type: does not use Exam Initial Vital Signs Initial Vital Signs: Vital Signs Temperature 98.6 F 09/01/22 21:35 Pulse Rate 87 09/01/22 21:35 Respiratory Rate 18 09/01/22 21:35 Blood Pressure 97/70 09/01/22 21:35 Pulse Oximetry 99 09/01/22 21:35 Oxygen Delivery Method Room Air 09/01/22 21:35 GENERAL: Alert 37 year-old female and in [no acute] distress. HEENT: Head atraumatic,EOMI, pupils reactive, face symmetric, [moist] mucous membranes CARDIOVASCULAR: Regular rate and rhythm without murmurs, rubs or gallops. RESPIRATORY: Breath sounds equal bilaterally, no wheezes rales or rhonchi. ABDOMEN: Soft, mild left lower quadrant : Minimal left CVA tenderness EXTREMITIES: Normal range of motion, no clubbing or edema. Neurovascularly intact NEUROLOGICAL: Alert and oriented x4. SKIN: Warm, dry, no laceration, no petechiae, no rashes or lesions. Course Orders Ordered: ED Orders 09/01/22 21:50 Complete Blood Count AUTO DIFF Stat Comprehensive Metabolic Panel Stat Lipase Stat 09/02/22 02:56 Test Serum,Qual Stat Discontinued Medications Acetaminophen (Acetaminophen 325 Mg Tablet) 975 mg PO NOW ONE Stop: 09/02/22 03:41 Last Admin: 09/02/22 04:15 Dose: 975 mg Documented By: JOSE Hydromorphone HCl (Hydromorphone 0.5 Mg Inj) 0.5 mg IV NOW ONE Stop: 09/02/22 02:38 Last Admin: 09/02/22 03:04 Dose: 0.5 mg Documented By: JOSE Hydromorphone HCl (Hydromorphone 0.5 Mg Inj) 0.5 mg IV NOW ONE Stop: 09/02/22 03:41 Last Admin: 09/02/22 04:16 Dose: 0.5 mg Documented By: JOSE Ondansetron HCl (Ondansetron 4 Mg Odt) 4 mg PO NOW PRN PRN Reason: Nausea And Vomiting Ondansetron HCl (Ondansetron 4 Mg/2 Ml Inj) 4 mg IV NOW PRN PRN Reason: Nausea And Vomiting Last Admin: 09/01/22 23:22 Dose: 4 mg Documented By: PARKER Vital Signs Vital signs: Vital Signs - 8 hr 09/01/22 23:15 09/01/22 23:15 09/02/22 00:20 Pulse Rate 85 Respiratory Rate Blood Pressure 95/50 L 100/55 L Pulse Oximetry 97 Oxygen Delivery Method Room Air 09/02/22 00:20 09/02/22 00:30 09/02/22 00:30 Pulse Rate 71 64 Respiratory Rate Blood Pressure 98/54 L Pulse Oximetry 95 96 Oxygen Delivery Method 09/02/22 01:00 09/02/22 01:00 09/02/22 01:30 Pulse Rate 70 Respiratory Rate Blood Pressure 92/50 L 102/57 L Pulse Oximetry 95 Oxygen Delivery Method 09/02/22 01:30 09/02/22 02:00 09/02/22 02:02 Pulse Rate 70 68 Respiratory Rate Blood Pressure 101/60 Pulse Oximetry 95 95 Oxygen Delivery Method 09/02/22 02:02 09/02/22 02:30 09/02/22 02:30 Pulse Rate 76 87 Respiratory Rate Blood Pressure 110/75 Pulse Oximetry 95 91 Oxygen Delivery Method Room Air 09/02/22 03:00 09/02/22 03:00 09/02/22 03:30 Pulse Rate 61 64 Respiratory Rate 16 Blood Pressure 97/54 L Pulse Oximetry 95 94 Oxygen Delivery Method Room Air MDM - Abdominal Pain Lab Data 09/01/22 21:50 09/01/22 21:50 Labs: Lab Results 09/01/22 09/01/22 09/01/22 Range/Units 21:50 21:50 21:50 WBC 9.3 (4.5-11.0) X10^3/uL RBC 3.90 L (4.0-5.2) X10^6/uL Hgb 12.2 (12.0-16.0) g/dL Hct 35.8 L (36-46) % MCV 91.8 (80-100) fL MCH 31.2 (26-34) PG MCHC 34.0 (30-36) % RDW 12.8 (11.6-14.8) % Plt Count 237 (150-400) X10^3/uL Neut % (Auto) 40.0 L (50-75) % Lymph % (Auto) 49.6 H (25-40) % [place] % (Auto) 7.1 (3-14) % Eos % (Auto) 2.8 (2-4) % Baso % (Auto) 0.5 (0-2) % Neut # (Auto) 3700 (3376-8062) /uL Lymph # (Auto) 4600 H (6765-8941) /uL [place] # (Auto) 700 (0-900) /uL Eos # (Auto) 300 (0-450) /uL Baso # (Auto) 0 (0-100) /uL Sodium 137 (137-145) mmol/L Potassium 4.0 (3.4-5.1) mmol/L Chloride 105 (98-107) mmol/L Carbon Dioxide 26 (22-32) mmol/L BUN 11 (7-17) mg/dL Creatinine 0.71 (0.52-1.04) mg/dL Estimated GFR > 60 (>60) mL/min BUN/Creatinine Ratio 15.5 (6-22) Glucose 91 (70-100) mg/dL Calcium 8.3 L (8.4-10.2) mg/dL Total Bilirubin 0.3 (0.2-1.3) mg/dL AST 19 (14-36) IU/L ALT 12 (<35) IU/L Alkaline Phosphatase 54 (38-126) U/L Total Protein 6.7 (6.3-8.2) g/dL Albumin 3.9 (3.5-5.0) g/dL Globulin 2.8 (1.7-4.1) g/dL Albumin/Globulin Ratio 1.4 (1.0-2.8) Lipase 129 (23-300) U/L Serum , Qual Negative (Negative) Point of care testing: Urine Dip Bedside Urine Glucose Negative Bedside Urine Bilirubin - Negative Bedside Urine Ketone - Negative Urine Specific [place] 1.015 Bedside Urine Occult Blood - Negative Bedside Urine pH 6.0 Bedside Urine Protein - Negative Bedside Urine Urobilinogen - Negative Bedside Urine Nitrite - Negative Bedside Urine Leukocytes - Negative Esterase MDM Narrative Medical decision making narrative: Patient 37-year-old female presenting today with abdominal pain. She is presented numerous times in January with abdominal pain she is had multiple CTs. Today blood work is again reassuring without leukocytosis electrolyte abnormality or COLTON. Liver enzymes and bilirubin are also within normal limits. She does have some tenderness in the left side. She is also previously had pelvic ultrasounds as well. Pain seems to be on her side not down in her suprapubic area low suspicion for ovarian cyst although considered. Previous ultrasound did show abnormality. Urine is negative. To say what is causing her pain today. It it was previously controlled with diet. She is requiring multiple doses of Dilaudid. Seems as though after reviewing other visits she has also previously gotten narcotics she reports Toradol as an allergy causing a headache. She is given total 1 mg of Dilaudid and Tylenol here in the emergency department. No further medications are to be given. Still recommend GI consult Discharge Plan Departure Patient Disposition: Home Clinical Impression: Abdominal pain Instructions: DI for Abdominal Pain-Adult Activity Restrictions/Additional Instructions: *You have been diagnosed with abdominal pain *What to do: At this time keep following her diet it does seem to be working for you. We did not do a CT scan for you today. You have had many over *Continue to take medications as directed Tylenol 1000 mg every 6 hours if needed for [id number] pain *Follow up with your primary care provider in 2-3 days or call [phone] *Return to ER if you should have increasing pain nausea vomiting [or] any new, worsening or concerning symptoms Prescriptions: No Action Probiotic with Prebiotic 2 cap PO .QDAY albuterol sulfate [Ventolin HFA] 90 mcg/actuation HFA aerosol inhaler 2 puff INHALATION QIDP PRN (Reason: shortness of breath or wheezing) Qty: 1 3RF Hold Instructions: epinephrine [EpiPen 2-Al] 0.3 mg/0.3 mL auto-injector 0.3 mg IM ONCE Qty: 2 0RF Rx Instructions: as a single dose; may repeat once duloxetine 30 mg capsule,delayed release(DR/EC) 90 mg PO DAILY Rx Instructions: Total duloxetine dose of 90 mg daily oxycodone-acetaminophen [Percocet] 5-325 mg tablet 1 tab PO Q4-6H PRN (Reason: pain) Qty: 8 0RF metoclopramide HCl [Reglan] 10 mg tablet 10 mg PO Q6H PRN (Reason: nausea and vomiting) Qty: 10 0RF Referrals: Feroz Max ARNP [Primary Care Provider] - Stand Alone Forms: Patient Portal/API
[2022-09-02] MEDS: HYDROMORPHONE 0.5 MG INJ IV ×2 (03:04→04:16)
[2022-09-02 03:09] LABS: Pregnancy Test Serum,Qual Negative (Negative)
[2022-09-02] MEDS: ACETAMINOPHEN 325 MG TABLET 975 MG PO (04:15)
== END 2022-09-02 04:25 | disposition home or self-care (01) ==
PROVIDERS: Emergency Provider Emergency Medicine; PCP Registered Nurse Diabetes Educator
DX: R10.9 Unspecified abdominal pain (principal)
CPT/HCPCS: 36415; 80053; 81003; 83690; 84703; 85025; 96374; 96375; 96376; 99284; J1170; J2405

== ENCOUNTER 2022-09-07 21:06 | Emergency (ER) | payer OTHER, MEDICAID, SELFPAY ==
[2022-09-07 21:14] VITALS: BP 118/72; PULSE 104; RESP 16; TEMP 36.8; O2SAT 98; BMI 21.4
[2022-09-07 21:27] LABS: Appearance Urine UA CLEAR; Bilirubin Urine UA NEGATIVE (NEGATIVE); Glucose Urine UA NEGATIVE (Negative); Ketones Urine UA NEGATIVE (NEGATIVE); Leukocyte Esterase Urine UA NEGATIVE (NEGATIVE); Nitrite Urine UA NEGATIVE (Negative); Occult Blood Urine UA NEGATIVE (Negative); Protein Urine UA NEGATIVE (Negative); Specific Gravity Urine UA <=1.005 (1.000-1.035); Urobilinogen Urine UA 0.2 E.U./dL (0.2)
[2022-09-07 21:28] LABS: Color Urine UA Straw
[2022-09-07 21:35] LABS: Bacteria Urine None Seen; Culture Indicated Urine Cult Not Indicated; RBC Urine None Seen (0-5/HPF); Squamous Epithelial Cell Urine 5-10 /HPF (0-5/HPF); WBC Urine None Seen (0-5/HPF)
--- NOTE | 2022-09-07 21:49 | ED.GENADULT ---
HPI - General Adult General Chief complaint: Urogenital-Female Stated complaint: UTI? Time Seen by Provider: 09/07/22 21:08 Source: patient Mode of arrival: Family Vehicle History of Present Illness HPI narrative: Patient is a 29-year-old female who is here for evaluation of lower pelvic pain and which she states his symptoms that are consistent with a urinary tract infection. States she is having some dysuria and frequency. Some burning with urination. No changes in bowel habits. She is having vaginal discharge but this is somewhat normal for her. She was seen here recently for upper abdominal pain but she feels that this is different from that. No vomiting. No fevers. Has not tried anything for the symptoms prior to arrival. Related Data Home Medications Medication Instructions Recorded Confirmed Probiotic with Prebiotic 2 cap PO .QDAY 06/07/18 06/10/22 duloxetine 30 mg capsule,delayed 90 mg PO DAILY 06/09/22 06/10/22 release Previous Rx's Medication Instructions Recorded albuterol sulfate 90 mcg/actuation 2 puff inhalation QIDP PRN 09/29/17 aerosol inhaler (Ventolin HFA) shortness of breath or wheezing #1 ea epinephrine 0.3 mg/0.3 mL 0.3 mg (0.3 mL) IM ONCE #2 ea 08/14/20 injection, auto-injector (EpiPen 2-Al) oxycodone-acetaminophen 5 mg-325 1 tab PO Q4-6H PRN pain #8 tabs 06/09/22 mg tablet (Percocet) metoclopramide HCl 10 mg tablet 10 mg PO Q6H PRN nausea and 07/13/22 (Reglan) vomiting #10 tabs Allergies Allergy/AdvReac Type Severity Reaction Status Date / Time venom-honey bee Allergy Severe TROUBLE Verified 07/08/22 03:52 [BEE VENOM (HONEY BEE)] BREATHING sertraline Allergy Intermediate Migraine Verified 07/08/22 03:52 cefaclor [CEFACLOR] Allergy Unknown I was Verified 07/08/22 03:52 young. I can't remember. Sulfa (Sulfonamide Allergy Unknown I was Verified 07/08/22 03:52 Antibiotics) young. I [SULFA (SULFONAMIDE can't ANTIBIOTICS)] remember. cyclobenzaprine AdvReac Intermediate Migraine Verified 07/08/22 03:52 escitalopram AdvReac Intermediate vertigo, Verified 07/08/22 03:52 headache, weak feeling, and extremely tired. methocarbamol AdvReac Intermediate Migraine Verified 07/08/22 03:52 metronidazole AdvReac Intermediate diarrhea Verified 07/08/22 03:52 and cramps ketorolac [From Toradol] AdvReac Headache Verified 07/08/22 03:52 Review of Systems Constitutional Constitutional: Reports system reviewed and no additional complaints, except as documented Gastrointestinal Gastrointestinal: Reports system reviewed and no additional complaints, except as documented Genitourinary Genitourinary: Reports system reviewed and no additional complaints, except as documented Musculoskeletal Musculoskeletal: Reports system reviewed and no additional complaints, except as documented Integumentary/Breasts Skin/Breast: Reports system reviewed and no additional complaints, except as documented Hematologic/Lymphatic On Anticoagulants: No Patient History Medical History Abnormal Pap smear of cervix (10/30/16) Admission for sterilization (~12/20/19) Alcohol abuse (~10/2015) Anxiety Arthritis Asthma Bacterial vaginosis Bilateral temporomandibular joint pain C. difficile colitis (09/2016) Chicken pox Chronic back pain Chronic migraine w/o aura w/o status migrainosus, not intractable Chronic neck pain Eczema Primary dysmenorrhea Scoliosis Surgical History Anesthesia History of umbilical hernia repair Status post appendectomy Family History Brother Age: 34 Asthma NF2 (neurofibromatosis 2) Mother Age: 68 Asthma Thyroid disease Diabetes mellitus Sister Age: 31 Thyroid disease Bipolar 1 disorder Son Alopecia Social History marital status: unmarried,living together household members: significant other and children pets and animals: Yes (indoor and outdoor cat - aware) education level: college occupational status: employed special krupa needs: No Smoking Status: Current every day smoker Tobacco: How many years used: 10 quit status: considering quitting second hand exposure: No alcohol intake: former substance use type: marijuana Smoking Status: Current every day smoker tobacco type: cigarettes alcohol intake frequency: holidays/special occasions only Substance Use Type: does not use Exam Initial Vital Signs Initial Vital Signs: Vital Signs Temperature 98.3 F 09/07/22 21:14 Pulse Rate 104 H 09/07/22 21:14 Respiratory Rate 16 09/07/22 21:14 Blood Pressure 118/72 09/07/22 21:14 Pulse Oximetry 98 09/07/22 21:14 Oxygen Delivery Method Room Air 09/07/22 21:14 Const General: cooperative and No ill appearing HENMT Head: normal to inspection and normocephalic Resp Effort & Inspection: normal respiratory effort Cardio Rate: regular rate GI Inspection: normal to inspection Palpation: soft and tender (Suprapubic/left adnexa) Other: With nursing at bedside pelvic exam was performed. No cervical motion tenderness. Did have left adnexal tenderness. Did have some vaginal discharge. No lesions noted. Back/Spine/Pelvis Back: No CVA tenderness Skin General: no rashes or lesions noted Neuro General: patient alert and patient awake Course Orders Ordered: ED Orders 09/07/22 21:19 Chlamydia Gonorrhea PCR -URINE Stat Urinalysis and Microscopic Stat 09/07/22 22:15 JAIDA prep [JAIDA Prep] Stat Wet Prep Tric BV Teagan Stat 09/07/22 22:16 US pelvic complete Stat Discontinued Medications Hydrocodone Bitart/Acetaminophen (Hydrocodone/Acet 5/325 Tablet) 1 tab PO NOW ONE Stop: 09/07/22 21:50 Last Admin: 09/07/22 22:10 Dose: 1 tab Documented By: ARASELI Hydrocodone Bitart/Acetaminophen (Hydrocodone/Acet 5/325 Tablet) 1 tab PO NOW ONE Stop: 09/07/22 22:25 Last Admin: 09/07/22 22:29 Dose: 1 tab Documented By: AZRA Hydrocodone Bitart/Acetaminophen (Hydrocodone/Acet 5/325 Prepack) 1 bottle MISC SEEINSTR ONE Stop: 09/08/22 00:49 Last Admin: 09/08/22 00:53 Dose: 1 bottle Documented By: AZRA Vital Signs Vital signs: Vital Signs - 8 hr 09/07/22 21:14 09/08/22 00:55 Temperature 98.3 F 97.8 F Pulse Rate 104 H 68 Respiratory Rate 16 16 Blood Pressure 118/72 128/64 Pulse Oximetry 98 100 Oxygen Delivery Method Room Air Room Air Medical Decision Making Medical Records Medical records reviewed: Yes I reviewed the patient's medical records. Lab Data Lab results reviewed: Yes I reviewed the patient's lab results. Labs: Lab Results 09/07/22 09/07/22 Range/Units 21:19 21:19 Urine Color Straw Urine Appearance Clear Urine pH 7.0 (4.5-8.0) Ur Specific Gay <=1.005 (1.000-1.035) Urine Protein Negative (Negative) Urine Glucose (UA) Negative (Negative) g/dL Urine Ketones Negative (NEGATIVE) Urine Occult Blood Negative (Negative) Urine Nitrate Negative (Negative) Urine Bilirubin Negative (NEGATIVE) Urine Urobilinogen 0.2 (0.2) E.U./dL Ur Leukocyte Esterase Negative (NEGATIVE) Urine RBC None seen (0-5/HPF) Urine WBC None seen (0-5/HPF) Ur Squamous Epith Cells 5-10 /hpf H (0-5/HPF) Urine Bacteria None seen (None) Ur Culture Indicated? Cult not indicated Ur Chlamydia DNA (PCR) Not detected N gonorrhoeae DNA (PCR) Not detected Point of Care Testing Test Results Negative Point of care testing: Point of Care Testing Test Results Negative Imaging Data US - abdomen: Radiologist's Impression: PROCEDURE:? US PELVIC COMPLETE ? INDICATIONS:? L adnexa pain eval for ovary pathology ? TECHNIQUE:? Real-time scanning was performed of the pelvic organs, with image documentation.? Additional endovaginal scanning was necessary due to incomplete visualization of the adnexal and endometrial structures by transabdominal scanning.? ? COMPARISON:? [facility], CT, CT KIDNEY URETER BLADDER (KUB), 07/29/2022, 22:47.? [facility], US, US PELVIC COMPLETE, 02/04/2022, 21:10. ? FINDINGS:? ?? Uterus:? Uterus is anteverted and measures 8.4 x 5.2 x 4.2 cm. Endometrial complex measures up to 0.9 cm.? No internal vascularity within the endometrium on color Doppler interrogation.? There is a small anechoic cyst anterior to the endometrium measuring up to 0.2 cm. ? Ovaries:? The right ovary measures 4.2 x 2.6 x 2.5 cm, with a calculated ovarian volume of 14 cc. The left ovary measures 3.2 x 2.3 x 2.0 cm, with a calculated ovarian volume of 0.3 cc. The ovaries have a normal sonographic appearance. Less than 12 follicles can be seen in each ovary.? No adnexal masses are identified.? There is patent arterial and venous flow demonstrated within the ovaries.? An anechoic cyst within the right ovary measuring up to 2.1 cm likely represents a prominent follicle. ? Other:? No pathologic free abdominal or pelvic fluid.? There are prominent veins in the adnexa bilaterally. ? ? IMPRESSION:? ? 1. No evidence of ovarian torsion. ? 2. Prominent veins in the adnexa bilaterally may reflect pelvic congestion syndrome in the appropriate clinical context. [facility] Narrative Medical decision making narrative: Urinalysis does not show any signs that are consistent with a UTI. test was negative. GC and chlamydia negative. JAIDA wet prep negative. There is no signs of bacterial vaginosis. She is no cervical motion tenderness. Low suspicion for PID. An pelvic ultrasound is unremarkable except for findings that could potentially be pelvic congestion syndrome. Patient has had her appendix removed. There is no indication for antibiotics. No indication for surgical consultation. I did advise that she follow-up with GI/impregnator helper/urology and also her primary doctor. No indication for admission hospital. She does express understanding of the lack of definitive diagnosis. She was given return precautions. She expressed understanding and agreement. Discharge Plan Departure Patient Disposition: Home Clinical Impression: Pelvic pain Instructions: DI for Pelvic Pain Activity Restrictions/Additional Instructions: I do recommend that you continue to take all of your medications as directed. Also recommend that you contact your primary doctor for follow-up and also consider following up with your scientific associate. Turned to the emergency department for new symptoms. Prescriptions: No Action Probiotic with Prebiotic 2 cap PO .QDAY albuterol sulfate [Ventolin HFA] 90 mcg/actuation HFA aerosol inhaler 2 puff INHALATION QIDP PRN (Reason: shortness of breath or wheezing) Qty: 1 3RF Hold Instructions: epinephrine [EpiPen 2-Al] 0.3 mg/0.3 mL auto-injector 0.3 mg IM ONCE Qty: 2 0RF Rx Instructions: as a single dose; may repeat once duloxetine 30 mg capsule,delayed release(DR/EC) 90 mg PO DAILY Rx Instructions: Total duloxetine dose of 90 mg daily oxycodone-acetaminophen [Percocet] 5-325 mg tablet 1 tab PO Q4-6H PRN (Reason: pain) Qty: 8 0RF metoclopramide HCl [Reglan] 10 mg tablet 10 mg PO Q6H PRN (Reason: nausea and vomiting) Qty: 10 0RF Referrals: Feroz Max ARNP [Primary Care Provider] - Stand Alone Forms: Patient Portal/API
[2022-09-07] MEDS: HYDROCODONE/ACET 5/325 TABLET 1 TAB PO ×2 (22:10→22:29)
--- NOTE | 2022-09-07 22:16 | DI.US.S_ITS ---
PROCEDURE: US PELVIC COMPLETE INDICATIONS: L adnexa pain eval for ovary pathology TECHNIQUE: Real-time scanning was performed of the pelvic organs, with image documentation. Additional endovaginal scanning was necessary due to incomplete visualization of the adnexal and endometrial structures by transabdominal scanning. COMPARISON: [facility], CT, CT KIDNEY URETER BLADDER (KUB), 07/29/2022, 22:47. [facility], US, US PELVIC COMPLETE, 02/04/2022, 21:10. FINDINGS: Uterus: Uterus is anteverted and measures 8.4 x 5.2 x 4.2 cm. Endometrial complex measures up to 0.9 cm. No internal vascularity within the endometrium on color Doppler interrogation. There is a small anechoic cyst anterior to the endometrium measuring up to 0.2 cm. Ovaries: The right ovary measures 4.2 x 2.6 x 2.5 cm, with a calculated ovarian volume of 14 cc. The left ovary measures 3.2 x 2.3 x 2.0 cm, with a calculated ovarian volume of 0.3 cc. The ovaries have a normal sonographic appearance. Less than 12 follicles can be seen in each ovary. No adnexal masses are identified. There is patent arterial and venous flow demonstrated within the ovaries. An anechoic cyst within the right ovary measuring up to 2.1 cm likely represents a prominent follicle. Other: No pathologic free abdominal or pelvic fluid. There are prominent veins in the adnexa bilaterally. IMPRESSION: 1. No evidence of ovarian torsion. 2. Prominent veins in the adnexa bilaterally may reflect pelvic congestion syndrome in the appropriate clinical context. We strive to produce accurate, complete, and clear reports of imaging services. To assist us in improving patient care, this report was composed using standard report templates and voice recognition software. Therefore, it may contain abnormal punctuation, insertions and/or omissions. Occasional wrong-word or sound-alike substitutions may occur. Though we review the report and make efforts to correct it, we do recommend that the report be read carefully in proper context to recognize any text inaccuracies. Dictated by: Harjeet Goldstein M.D. on 09/08/2022 at 0:27 Approved by: Harjeet Goldstein M.D. on 09/08/2022 at 0:30
[2022-09-08 00:15] LABS: Urine N gonorrhoeae NOT DETECTED
[2022-09-08 00:16] LABS: Urine Chlamydia NOT DETECTED
[2022-09-08] MEDS: HYDROCODONE/ACET 5/325 PREPACK 1 BOTTLE MISC (00:53)
[2022-09-08 00:55] VITALS: BP 128/64; PULSE 68; RESP 16; TEMP 36.6; O2SAT 100
== END 2022-09-08 00:56 | disposition home or self-care (01) ==
PROVIDERS: Emergency Provider Emergency Medicine; PCP Registered Nurse Diabetes Educator
DX: R10.2 Pelvic and perineal pain (principal); R30.0 Dysuria
CPT/HCPCS: 76830; 76856; 81001; 81025; 87210; 87220; 87491; 87591; 99283

== ENCOUNTER 2022-09-30 21:13 | Emergency (ER) | payer OTHER, MEDICAID, SELFPAY ==
[2022-09-30 21:20] VITALS: BP 104/66; PULSE 79; RESP 18; TEMP 36.6; O2SAT 99; BMI 20.9
--- NOTE | 2022-09-30 22:24 | ED.SKABFB ---
HPI - Skin/Abscess/Foreign Bdy General Chief complaint: Skin/Abscess/Foreign Body Stated complaint: Welts on shoulder, Painful Time Seen by Provider: 09/30/22 21:52 Source: patient Mode of arrival: Ambulatory History of Present Illness HPI narrative: Patient here for painful rash for the past 2 weeks on her left shoulder and left upper arm. Denies any other rashes. Pain started 2 weeks ago and rash started 3 days later. Patient states has history of chickenpox as a child. No prior history of shingles. No fever chills. Denies does not want a test. No recent illness no fever chills cough cold or congestion. No new products in her life. No new detergents or medications Related Data Home Medications Medication Instructions Recorded Confirmed Probiotic with Prebiotic 2 cap PO .QDAY 06/07/18 09/14/22 Previous Rx's Medication Instructions Recorded albuterol sulfate 90 mcg/actuation 2 puff inhalation QIDP PRN 09/29/17 aerosol inhaler (Ventolin HFA) shortness of breath or wheezing #1 ea epinephrine 0.3 mg/0.3 mL 0.3 mg (0.3 mL) IM ONCE #2 ea 08/14/20 injection, auto-injector (EpiPen 2-Al) oxycodone-acetaminophen 5 mg-325 1 tab PO Q4-6H PRN pain #8 tabs 06/09/22 mg tablet (Percocet) duloxetine 30 mg capsule,delayed 90 mg PO DAILY #270 caps 09/14/22 release hydrocodone 5 mg-acetaminophen 325 1 tab PO Q6H PRN pain #12 tabs 09/30/22 mg tablet methylprednisolone 4 mg tablets in See Rx Instructions PO .COMPLEX 09/30/22 a dose pack (Medrol (Al)) #21 ea ondansetron 4 mg disintegrating 4 mg PO Q8H PRN nausea and 09/30/22 tablet vomiting #10 tabs valacyclovir 1 gram tablet 1,000 mg PO TID #21 tabs 09/30/22 (Valtrex) Allergies Allergy/AdvReac Type Severity Reaction Status Date / Time venom-honey bee Allergy Severe TROUBLE Verified 09/14/22 11:10 [BEE VENOM (HONEY BEE)] BREATHING sertraline Allergy Intermediate Migraine Verified 09/14/22 11:10 cefaclor [CEFACLOR] Allergy Unknown I was Verified 09/14/22 11:10 young. I can't remember. Sulfa (Sulfonamide Allergy Unknown I was Verified 09/14/22 11:10 Antibiotics) young. I [SULFA (SULFONAMIDE can't ANTIBIOTICS)] remember. cyclobenzaprine AdvReac Intermediate Migraine Verified 09/14/22 11:10 escitalopram AdvReac Intermediate vertigo, Verified 09/14/22 11:10 headache, weak feeling, and extremely tired. methocarbamol AdvReac Intermediate Migraine Verified 09/14/22 11:10 metronidazole AdvReac Intermediate diarrhea Verified 09/14/22 11:10 and cramps ketorolac [From Toradol] AdvReac Headache Verified 09/14/22 11:10 Review of Systems Review of Systems Narrative: GENERAL: negative chills, fatigue, malaise, fever, sweats. HEENT: negative sinus pain, ear pain, sore throat RESPIRATORY: negative dyspnea, cough CARDIOVASCULAR: negative chest pain, palpitations GASTROINTESTINAL: negative nausea, vomiting, abdominal pain : negative dysuria, frequency, hematuria MUSCULOSKELETAL: negative muscle or bony pain SKIN: Positive rash, skin lesions NEUROLOGIC: negative weakness, numbness ROS Unobtainable: All systems reviewed & are unremarkable except as noted in HPI and below Patient History Medical History Abnormal Pap smear of cervix (10/30/16) Admission for sterilization (~12/20/19) Alcohol abuse (~10/2015) Anxiety Arthritis Asthma Bacterial vaginosis Bilateral temporomandibular joint pain C. difficile colitis (09/2016) Chicken pox Chronic back pain Chronic migraine w/o aura w/o status migrainosus, not intractable Chronic neck pain Eczema Primary dysmenorrhea Scoliosis Surgical History Anesthesia History of umbilical hernia repair Status post appendectomy Family History Brother Age: 34 Asthma NF2 (neurofibromatosis 2) Mother Age: 68 Asthma Thyroid disease Diabetes mellitus Sister Age: 31 Thyroid disease Bipolar 1 disorder Son Alopecia Social History marital status: unmarried,living together household members: significant other and children pets and animals: Yes (indoor and outdoor cat - aware) education level: college occupational status: employed special krupa needs: No Smoking Status: Current every day smoker Tobacco: How many years used: 10 quit status: considering quitting second hand exposure: No alcohol intake: former substance use type: marijuana Smoking Status: Current every day smoker tobacco type: cigarettes alcohol intake frequency: holidays/special occasions only Substance Use Type: does not use Exam Narrative Exam Narrative: GENERAL: in no distress, not toxic not dyspneic HEAD: Normocephalic. EYES: Pupils equal round ENT: Mucous membranes moist. NECK: Trachea midline. EXTREMITIES: No gross deformities. BACK: No flank tenderness. NEURO: AOx4. SKIN: Warm and dry, there is papular rash at the left shoulder deltoid and lateral upper half of the arm. No known the neck. No vesicles. It does not akil. PSYCH: Not anxious, is cooperative Initial Vital Signs Initial Vital Signs: Vital Signs Temperature 98 F 09/30/22 21:20 Pulse Rate 79 09/30/22 21:20 Respiratory Rate 18 09/30/22 21:20 Blood Pressure 104/66 09/30/22 21:20 Pulse Oximetry 99 09/30/22 21:20 Oxygen Delivery Method Room Air 09/30/22 21:20 Course Orders Ordered: Discontinued Medications Hydrocodone Bitart/Acetaminophen (Hydrocodone/Acet 5/325 Tablet) 1 tab PO NOW ONE Stop: 09/30/22 21:53 Last Admin: 09/30/22 22:25 Dose: 1 tab Documented By: TREASURE Ondansetron HCl (Ondansetron 4 Mg Odt) 4 mg SL NOW ONE Stop: 09/30/22 21:53 Last Admin: 09/30/22 22:25 Dose: 4 mg Documented By: TREASURE Valacyclovir HCl (Valacyclovir 500 Mg Tablet) 1,000 mg PO NOW ONE Stop: 09/30/22 21:53 Last Admin: 09/30/22 22:41 Dose: 1,000 mg Documented By: TREASURE Vital Signs Vital signs: Vital Signs - 8 hr 09/30/22 22:44 Pulse Rate 74 Respiratory Rate 18 Blood Pressure 111/71 Pulse Oximetry 99 Oxygen Delivery Method Room Air MDM - Skin/Abscess/Foreign Bdy MDM Narrative Medical decision making narrative: Patient here for painful rash for the past 2 weeks on her left shoulder and left upper arm. Denies any other rashes. Pain started 2 weeks ago and rash started 3 days later. Patient states has history of chickenpox as a child. No prior history of shingles. No fever chills. Denies does not want a test. No recent illness no fever chills cough cold or congestion. No new products in her life. No new detergents or medications After history and exam no laboratory studies indicated. Clinically this is herpes zoster/shingles. Valacyclovir Zofran hydrocodone ordered. Patient does have a route sales delivery driver. MDM CC: Rash Complicating co-morbidities: History of chickenpox Data collected from: Patient Medical records reviewed: No previous visits here for this complaint Differential considered: Includes but not limited to shingles cellulitis syphilis chickenpox Exam documented above, pertinent findings include: Papular rash on the arm Treatments: Valacyclovir hydrocodone Zofran Re-evaluations: Reviewed my exam with patient. Clinically is shingles. She states no other areas of rash that she is inspected on her body. She did show me here right lateral malleolus, nonspecific erythema, however she states that area itches and is not painful like her left shoulder area. Agrees with treatment plan for shingles. Return precautions reviewed with her. She states she does have a family doctor. She has a route sales delivery driver here tonight. Discussion: Appropriate for discharge home. Clinically is shingles. No laboratory studies indicated. Return precautions reviewed with her. She desires discharge home. She does have a family doctor and a route sales delivery driver for tonight. Prescriptions provided for her as well. Including prednisone. Diagnosis: Shingles Discharge Plan Departure Patient Disposition: Home Clinical Impression: Herpes zoster Instructions: DI for Shingles Activity Restrictions/Additional Instructions: Please see family doctor within a week for re-evaluation. Return if worse if any questions or concerns. Prescription medication has been provided for you. No driving or operating machinery tonight or when taking prescribed pain medication. Return if worse if any questions or concerns. Your rash appears at this time to be shingles. It is contagious. Please be sure not to have contact with other people with direct skin contact or people that may be on immunosuppression/cancer therapy medication or women. Prescriptions: New valacyclovir [Valtrex] 1 gram tablet 1,000 mg PO TID Qty: 21 0RF hydrocodone-acetaminophen 5-325 mg tablet 1 tab PO Q6H PRN (Reason: pain) Qty: 12 0RF methylprednisolone [Medrol (Al)] 4 mg tablets,dose pack See Rx Instructions .ROUTE .COMPLEX Qty: 21 0RF Rx Instructions: orally per package directions ondansetron 4 mg tablet,disintegrating 4 mg PO Q8H PRN (Reason: nausea and vomiting) Qty: 10 0RF No Action Probiotic with Prebiotic 2 cap PO .QDAY albuterol sulfate [Ventolin HFA] 90 mcg/actuation HFA aerosol inhaler 2 puff INHALATION QIDP PRN (Reason: shortness of breath or wheezing) Qty: 1 3RF Hold Instructions: epinephrine [EpiPen 2-Al] 0.3 mg/0.3 mL auto-injector 0.3 mg IM ONCE Qty: 2 0RF Rx Instructions: as a single dose; may repeat once duloxetine 30 mg capsule,delayed release(DR/EC) 90 mg PO DAILY Qty: 270 1RF Rx Instructions: Total duloxetine dose of 90 mg daily oxycodone-acetaminophen [Percocet] 5-325 mg tablet 1 tab PO Q4-6H PRN (Reason: pain) Qty: 8 0RF Referrals: Feroz Max ARNP [Primary Care Provider] - Stand Alone Forms: Patient Portal/API
[2022-09-30] MEDS: HYDROCODONE/ACET 5/325 TABLET 1 TAB PO (22:25)
[2022-09-30] MEDS: ONDANSETRON 4 MG ODT SL (22:25)
[2022-09-30] MEDS: valACYclovir 500 MG TABLET 1000 MG PO (22:41)
[2022-09-30 22:44] VITALS: BP 111/71; PULSE 74; RESP 18; O2SAT 99
== END 2022-09-30 22:45 | disposition home or self-care (01) ==
PROVIDERS: Emergency Provider Emergency Medicine; PCP Registered Nurse Diabetes Educator
DX: B02.9 Zoster without complications (principal)
CPT/HCPCS: 99283

== ENCOUNTER 2022-10-07 21:06 | Emergency (ER) | payer OTHER, MEDICAID, SELFPAY ==
[2022-10-07 21:25] VITALS: BP 108/54; PULSE 96; RESP 18; TEMP 36.2; O2SAT 96; BMI 20.9
[2022-10-07 22:08] LABS: Add Manual Diff / Slide Review NO; Basophils Absolute Auto 100 /uL (0-100); Basophils Percent Auto 0.6 % (0-2); Eosinophils Absolute Auto 100 /uL (0-450); Eosinophils Percent Auto 1.4 % (2-4); Hematocrit 37.3 % (36-46); Hemoglobin 12.8 g/dL (12.0-16.0); Lymphocytes Absolute Auto 4900 /uL (1100-4500); Lymphocytes Percent Auto 50.2 % (25-40); Mean Corpuscular HGB Conc 34.3 % (30-36); Mean Corpuscular Hemoglobin 31.6 PG (26-34); Mean Corpuscular Volume 92.3 fL (80-100); Monocytes Absolute Auto 500 /uL (0-900); Neutrophils Absolute Auto 4200 /uL (1500-7000); Neutrophils Percent Auto 42.8 % (50-75); Platelet Count 277 X10^3/uL (150-400); Red Blood Cell Count 4.04 X10^6/uL (4.0-5.2); Red Cell Distribution Width 12.9 % (11.6-14.8); White Blood Cell Count 9.9 X10^3/uL (4.5-11.0)
[2022-10-07 22:11] VITALS: PULSE 82; O2SAT 96
[2022-10-07] MEDS: ONDANSETRON 4 MG/2 ML INJ IV (22:12)
--- NOTE | 2022-10-07 22:12 | ED_ITS ---
HPI - General Adult General Chief complaint: Abdominal Pain Stated complaint: stomach pains Time Seen by Provider: 10/07/22 22:00 Source: patient Mode of arrival: Wheelchair Limitations: no limitations History of Present Illness HPI narrative: Patient is a 37-year-old female. Does have a history of chronic abdominal pain and pelvic pain. She is here for evaluation of left-sided abdominal pain. States it started approximately 3 days ago. Seven some nausea. No fevers. No urinary symptoms. No change in bowel habits. She does have an appointment to see a GI doctor but that is not until December. Has had an extensive workup of her abdominal pain in this emergency department to include CT scans and ultraso unds. This pain is similar to prior discomfort. Has not tried anything for the symptoms prior to arrival. Related Data Home Medications Medication Instructions Recorded Confirmed Probiotic with Prebiotic 2 cap PO .QDAY 06/07/18 09/14/22 Previous Rx's Medication Instructions Recorded albuterol sulfate 90 mcg/actuation 2 puff inhalation QIDP PRN 09/29/17 aerosol inhaler (Ventolin HFA) shortness of breath or wheezing #1 ea epinephrine 0.3 mg/0.3 mL 0.3 mg (0.3 mL) IM ONCE #2 ea 08/14/20 injection, auto-injector (EpiPen 2-Al) oxycodone-acetaminophen 5 mg-325 1 tab PO Q4-6H PRN pain #8 tabs 06/09/22 mg tablet (Percocet) duloxetine 30 mg capsule,delayed 90 mg PO DAILY #270 caps 09/14/22 release hydrocodone 5 mg-acetaminophen 325 1 tab PO Q6H PRN pain #12 tabs 09/30/22 mg tablet methylprednisolone 4 mg tablets in See Rx Instructions PO .COMPLEX 09/30/22 a dose pack (Medrol (Al)) #21 ea ondansetron 4 mg disintegrating 4 mg PO Q8H PRN nausea and 09/30/22 tablet vomiting #10 tabs valacyclovir 1 gram tablet 1,000 mg PO TID #21 tabs 09/30/22 (Valtrex) Allergies Allergy/AdvReac Type Severity Reaction Status Date / Time venom-honey bee Allergy Severe TROUBLE Verified 09/14/22 11:10 [BEE VENOM (HONEY BEE)] BREATHING sertraline Allergy Intermediate Migraine Verified 09/14/22 11:10 cefaclor [CEFACLOR] Allergy Unknown I was Verified 09/14/22 11:10 young. I can't remember. Sulfa (Sulfonamide Allergy Unknown I was Verified 09/14/22 11:10 Antibiotics) young. I [SULFA (SULFONAMIDE can't ANTIBIOTICS)] remember. cyclobenzaprine AdvReac Intermediate Migraine Verified 09/14/22 11:10 escitalopram AdvReac Intermediate vertigo, Verified 09/14/22 11:10 headache, weak feeling, and extremely tired. methocarbamol AdvReac Intermediate Migraine Verified 09/14/22 11:10 metronidazole AdvReac Intermediate diarrhea Verified 09/14/22 11:10 and cramps ketorolac [From Toradol] AdvReac Headache Verified 09/14/22 11:10 Review of Systems Constitutional Constitutional: Reports system reviewed and no additional complaints, except as documented Cardiovascular Cardiovascular: Reports system reviewed and no additional complaints, except as documented Respiratory Respiratory: Reports system reviewed and no additional complaints, except as documented Gastrointestinal Gastrointestinal: Reports system reviewed and no additional complaints, except as documented Genitourinary Genitourinary: Reports system reviewed and no additional complaints, except as documented Integumentary/Breasts Skin/Breast: Reports system reviewed and no additional complaints, except as documented Patient History Medical History Abnormal Pap smear of cervix (10/30/16) Admission for sterilization (~12/20/19) Alcohol abuse (~10/2015) Anxiety Arthritis Asthma Bacterial vaginosis Bilateral temporomandibular joint pain C. difficile colitis (09/2016) Chicken pox Chronic back pain Chronic migraine w/o aura w/o status migrainosus, not intractable Chronic neck pain Eczema Primary dysmenorrhea Scoliosis Surgical History Anesthesia History of umbilical hernia repair Status post appendectomy Family History Brother Age: 34 Asthma NF2 (neurofibromatosis 2) Mother Age: 68 Asthma Thyroid disease Diabetes mellitus Sister Age: 31 Thyroid disease Bipolar 1 disorder Son Alopecia Social History marital status: unmarried,living together household members: significant other and children pets and animals: Yes (indoor and outdoor cat - aware) education level: college occupational status: employed special krupa needs: No Smoking Status: Current every day smoker Tobacco: How many years used: 10 quit status: considering quitting second hand exposure: No alcohol intake: former substance use type: marijuana Smoking Status: Current every day smoker tobacco type: cigarettes alcohol intake frequency: holidays/special occasions only Substance Use Type: does not use Exam Initial Vital Signs Initial Vital Signs: Vital Signs Temperature 97.1 F L 10/07/22 21:25 Pulse Rate 96 H 10/07/22 21:25 Respiratory Rate 18 10/07/22 21:25 Blood Pressure 108/54 L 10/07/22 21:25 Pulse Oximetry 96 10/07/22 21:25 Oxygen Delivery Method Room Air 10/07/22 21:25 HENMT Head: normal to inspection and normocephalic Resp Effort & Inspection: normal respiratory effort Auscultation: clear to auscultation bilaterally Cardio Rate: regular rate Rhythm: regular rhythm GI Inspection: normal to inspection and non-distended Palpation: No firm, No guarding and tender Back/Spine/Pelvis Back: No CVA tenderness Skin General: no rashes or lesions noted Course Orders Ordered: ED Orders 10/07/22 21:40 EKG-12 Lead Stat 10/07/22 21:52 Complete Blood Count AUTO DIFF Stat Comprehensive Metabolic Panel Stat Lipase Stat Discontinued Medications Hydrocodone Bitart/Acetaminophen (Hydrocodone/Acet 5/325 Tablet) 1 tab PO NOW ONE Stop: 10/07/22 22:13 Last Admin: 10/07/22 22:24 Dose: 1 tab Documented By: PARKER Hydromorphone HCl (Hydromorphone 0.5 Mg Inj) 0.5 mg IV NOW ONE Stop: 10/08/22 00:01 Last Admin: 10/08/22 00:07 Dose: 0.5 mg Documented By: AIDAN Ondansetron HCl (Ondansetron 4 Mg Odt) 4 mg PO NOW PRN PRN Reason: Nausea And Vomiting Ondansetron HCl (Ondansetron 4 Mg/2 Ml Inj) 4 mg IV NOW PRN PRN Reason: Nausea And Vomiting Last Admin: 10/07/22 22:12 Dose: 4 mg Documented By: PARKER Vital Signs Vital signs: Vital Signs - 8 hr 10/07/22 21:25 10/07/22 22:11 10/07/22 22:30 Temperature 97.1 F L Pulse Rate 96 H 82 Respiratory Rate 18 Blood Pressure 108/54 L 101/60 Pulse Oximetry 96 96 Oxygen Delivery Method Room Air Room Air 10/07/22 22:30 10/07/22 22:46 10/07/22 22:46 Temperature Pulse Rate 77 73 Respiratory Rate Blood Pressure 110/60 Pulse Oximetry 94 97 Oxygen Delivery Method 10/07/22 23:00 10/07/22 23:00 10/07/22 23:30 Temperature Pulse Rate 80 Respiratory Rate Blood Pressure 109/66 113/64 Pulse Oximetry 94 Oxygen Delivery Method 10/07/22 23:30 10/08/22 00:00 10/08/22 00:00 Temperature Pulse Rate 78 82 Respiratory Rate Blood Pressure 102/66 Pulse Oximetry 94 92 Oxygen Delivery Method 10/08/22 00:29 Temperature Pulse Rate 76 Respiratory Rate 18 Blood Pressure 118/80 Pulse Oximetry 98 Oxygen Delivery Method Room Air Medical Decision Making Medical Records Medical records reviewed: Yes I reviewed the patient's medical records. Lab Data Lab results reviewed: Yes I reviewed the patient's lab results. 10/07/22 21:52 10/07/22 21:52 Labs: Lab Results 10/07/22 10/07/22 Range/Units 21:52 21:52 WBC 9.9 (4.5-11.0) X10^3/uL RBC 4.04 (4.0-5.2) X10^6/uL Hgb 12.8 (12.0-16.0) g/dL Hct 37.3 (36-46) % MCV 92.3 (80-100) fL MCH 31.6 (26-34) PG MCHC 34.3 (30-36) % RDW 12.9 (11.6-14.8) % Plt Count 277 (150-400) X10^3/uL Neut % (Auto) 42.8 L (50-75) % Lymph % (Auto) 50.2 H (25-40) % [place] % (Auto) 5.0 (3-14) % Eos % (Auto) 1.4 L (2-4) % Baso % (Auto) 0.6 (0-2) % Neut # (Auto) 4200 (8416-5699) /uL Lymph # (Auto) 4900 H (1548-8510) /uL [place] # (Auto) 500 (0-900) /uL Eos # (Auto) 100 (0-450) /uL Baso # (Auto) 100 (0-100) /uL Sodium 136 L (137-145) mmol/L Potassium 3.3 L (3.4-5.1) mmol/L Chloride 103 (98-107) mmol/L Carbon Dioxide 26 (22-32) mmol/L BUN 12 (7-17) mg/dL Creatinine 0.58 (0.52-1.04) mg/dL Estimated GFR > 60 (>60) mL/min BUN/Creatinine Ratio 20.7 (6-22) Glucose 150 H (70-100) mg/dL Calcium 8.8 (8.4-10.2) mg/dL Total Bilirubin 0.6 (0.2-1.3) mg/dL AST 17 (14-36) IU/L ALT 14 (<35) IU/L Alkaline Phosphatase 62 (38-126) U/L Total Protein 7.1 (6.3-8.2) g/dL Albumin 4.4 (3.5-5.0) g/dL Globulin 2.7 (1.7-4.1) g/dL Albumin/Globulin Ratio 1.6 (1.0-2.8) Lipase 263 (23-300) U/L Point of Care Testing Test Results Negative Urine Dip Bedside Urine Glucose Negative Bedside Urine Bilirubin - Negative Bedside Urine Ketone +/- 5 Urine Specific [place] 1.015 Bedside Urine Occult Blood - Negative Bedside Urine pH 6.0 Bedside Urine Protein - Negative Bedside Urine Urobilinogen - Negative Bedside Urine Nitrite - Negative Bedside Urine Leukocytes - Negative Esterase Point of care testing: Point of Care Testing Test Results Negative Urine Dip Bedside Urine Glucose Negative Bedside Urine Bilirubin - Negative Bedside Urine Ketone +/- 5 Urine Specific [place] 1.015 Bedside Urine Occult Blood - Negative Bedside Urine pH 6.0 Bedside Urine Protein - Negative Bedside Urine Urobilinogen - Negative Bedside Urine Nitrite - Negative Bedside Urine Leukocytes - Negative Esterase MDM Narrative Medical decision making narrative: Labs are unremarkable. Urine is unremarkable. Given the patient's history I have low suspicion of an acute intra-abdominal surgical issue such as appendicitis or bowel obstruction. Has no indication of pyelonephritis. Low suspicion for kidney stone. She is no skin changes over the area consistent with shingles. We discussed this with the patient. Advised that she continue to keep her appointment with the GI doctors. Informed patient that she would receive 1 dose of IV pain medication here in the emergency department and we would not be providing any more opioid medications here in the ER. She states that her primary doctor told her that she needs to come to the emergency department for pain got out of control. I advised her that her primary doctor would need to be the 1 to provide any further pain control of her chronic abdominal pain. She was given return precautions. Discharge Plan Departure Patient Disposition: Home Clinical Impression: Abdominal pain Instructions: DI for Abdominal Pain-Adult Activity Restrictions/Additional Instructions: Long-term will need to come from either your primary doctor or from a paint preparer. Your primary doctor can put in referrals for pain management if needed. Recommend that you continue to take all of your medications as directed. Keep your scheduled appointments with the GI doctors. Prescriptions: No Action Probiotic with Prebiotic 2 cap PO .QDAY albuterol sulfate [Ventolin HFA] 90 mcg/actuation HFA aerosol inhaler 2 puff INHALATION QIDP PRN (Reason: shortness of breath or wheezing) Qty: 1 3RF Hold Instructions: epinephrine [EpiPen 2-Al] 0.3 mg/0.3 mL auto-injector 0.3 mg IM ONCE Qty: 2 0RF Rx Instructions: as a single dose; may repeat once duloxetine 30 mg capsule,delayed release(DR/EC) 90 mg PO DAILY Qty: 270 1RF Rx Instructions: Total duloxetine dose of 90 mg daily oxycodone-acetaminophen [Percocet] 5-325 mg tablet 1 tab PO Q4-6H PRN (Reason: pain) Qty: 8 0RF valacyclovir [Valtrex] 1 gram tablet 1,000 mg PO TID Qty: 21 0RF hydrocodone-acetaminophen 5-325 mg tablet 1 tab PO Q6H PRN (Reason: pain) Qty: 12 0RF methylprednisolone [Medrol (Al)] 4 mg tablets,dose pack See Rx Instructions .ROUTE .COMPLEX Qty: 21 0RF Rx Instructions: orally per package directions ondansetron 4 mg tablet,disintegrating 4 mg PO Q8H PRN (Reason: nausea and vomiting) Qty: 10 0RF Referrals: Feroz Max ARNP [Primary Care Provider] - Stand Alone Forms: Patient Portal/API
[2022-10-07 22:17] LABS: Alanine Aminotransferase 14 IU/L (<35); Albumin 4.4 g/dL (3.5-5.0); Albumin Globulin Ratio 1.6 (1.0-2.8); Alkaline Phosphatase 62 U/L (38-126); Aspartate Aminotransferase 17 IU/L (14-36); BUN Creatinine Ratio 20.7 (6-22); Bilirubin Total 0.6 mg/dL (0.2-1.3); Blood Urea Nitrogen 12 mg/dL (7-17); Calcium 8.8 mg/dL (8.4-10.2); Carbon Dioxide 26 mmol/L (22-32); Chloride 103 mmol/L (98-107); Estimated Glomerular Filt Rate > 60 mL/min (>60); Globulin 2.7 g/dL (1.7-4.1); Glucose 150 mg/dL (70-100); HEMOLYSIS < 15 (0-50); Lipase 263 U/L (23-300); Potassium 3.3 mmol/L (3.4-5.1); Sodium 136 mmol/L (137-145); Total Protein 7.1 g/dL (6.3-8.2)
[2022-10-07] MEDS: HYDROCODONE/ACET 5/325 TABLET 1 TAB PO (22:24)
[2022-10-07 22:30] VITALS: BP 101/60; PULSE 77; O2SAT 94
[2022-10-07 22:46] VITALS: BP 110/60; PULSE 73; O2SAT 97
[2022-10-07 23:00] VITALS: BP 109/66; PULSE 80; O2SAT 94
[2022-10-07 23:30] VITALS: BP 113/64; PULSE 78; O2SAT 94
[2022-10-08] VITALS: BP 102/66; PULSE 82; O2SAT 92
[2022-10-08] MEDS: HYDROMORPHONE 0.5 MG INJ IV (00:07)
[2022-10-08 00:29] VITALS: BP 118/80; PULSE 76; RESP 18; O2SAT 98
== END 2022-10-08 00:30 | disposition home or self-care (01) ==
PROVIDERS: Emergency Provider Emergency Medicine; PCP Registered Nurse Diabetes Educator
DX: R10.9 Unspecified abdominal pain (principal)
CPT/HCPCS: 36415; 80053; 81003; 81025; 83690; 85025; 96374; 96375; 99284; J1170; J2405

== ENCOUNTER 2022-10-11 00:54 | Emergency (ER) | payer OTHER, MEDICAID, SELFPAY ==
[2022-10-11 01:13] VITALS: BP 111/68; PULSE 83; RESP 18; TEMP 36.8; O2SAT 97; BMI 20.9
[2022-10-11 01:31] LABS: Bacteria Urine Moderate (10-30); RBC Urine None Seen (0-5/HPF); Squamous Epithelial Cell Urine 1-5 /HPF (0-5/HPF); WBC Urine 5-10/HPF (0-5/HPF)
[2022-10-11 01:32] LABS: Culture Indicated Urine Specimen Cultured
--- NOTE | 2022-10-11 01:39 | ED.GENADULT ---
HPI - General Adult General Chief complaint: Urogenital-Female Stated complaint: UTI? Time Seen by Provider: 10/11/22 01:20 Source: patient Mode of arrival: Ambulatory Limitations: no limitations History of Present Illness HPI narrative: Patient is a 37-year-old female who is here for evaluation of dysuria, urgency, frequency and hesitancy. Symptoms been going on for approximately 24 hours. No vomiting. She reports 1 episode of diarrhea. No rashes. Not concerned about sexually transmitted infections. Has been taking Pyridium at home Related Data Home Medications Medication Instructions Recorded Confirmed Probiotic with Prebiotic 2 cap PO .QDAY 06/07/18 09/14/22 Previous Rx's Medication Instructions Recorded albuterol sulfate 90 mcg/actuation 2 puff inhalation QIDP PRN 09/29/17 aerosol inhaler (Ventolin HFA) shortness of breath or wheezing #1 ea epinephrine 0.3 mg/0.3 mL 0.3 mg (0.3 mL) IM ONCE #2 ea 08/14/20 injection, auto-injector (EpiPen 2-Al) oxycodone-acetaminophen 5 mg-325 1 tab PO Q4-6H PRN pain #8 tabs 06/09/22 mg tablet (Percocet) duloxetine 30 mg capsule,delayed 90 mg PO DAILY #270 caps 09/14/22 release hydrocodone 5 mg-acetaminophen 325 1 tab PO Q6H PRN pain #12 tabs 09/30/22 mg tablet methylprednisolone 4 mg tablets in See Rx Instructions PO .COMPLEX 09/30/22 a dose pack (Medrol (Al)) #21 ea ondansetron 4 mg disintegrating 4 mg PO Q8H PRN nausea and 09/30/22 tablet vomiting #10 tabs valacyclovir 1 gram tablet 1,000 mg PO TID #21 tabs 09/30/22 (Valtrex) cephalexin 500 mg capsule 500 mg PO BID 5 days #10 caps 10/11/22 Allergies Allergy/AdvReac Type Severity Reaction Status Date / Time venom-honey bee Allergy Severe TROUBLE Verified 09/14/22 11:10 [BEE VENOM (HONEY BEE)] BREATHING sertraline Allergy Intermediate Migraine Verified 09/14/22 11:10 cefaclor [CEFACLOR] Allergy Unknown I was Verified 09/14/22 11:10 young. I can't remember. Sulfa (Sulfonamide Allergy Unknown I was Verified 09/14/22 11:10 Antibiotics) young. I [SULFA (SULFONAMIDE can't ANTIBIOTICS)] remember. cyclobenzaprine AdvReac Intermediate Migraine Verified 09/14/22 11:10 escitalopram AdvReac Intermediate vertigo, Verified 09/14/22 11:10 headache, weak feeling, and extremely tired. methocarbamol AdvReac Intermediate Migraine Verified 09/14/22 11:10 metronidazole AdvReac Intermediate diarrhea Verified 09/14/22 11:10 and cramps ketorolac [From Toradol] AdvReac Headache Verified 09/14/22 11:10 Review of Systems Constitutional Constitutional: Reports system reviewed and no additional complaints, except as documented Gastrointestinal Gastrointestinal: Reports system reviewed and no additional complaints, except as documented Genitourinary Genitourinary: Reports system reviewed and no additional complaints, except as documented Musculoskeletal Musculoskeletal: Reports system reviewed and no additional complaints, except as documented Integumentary/Breasts Skin/Breast: Reports system reviewed and no additional complaints, except as documented Patient History Medical History Abnormal Pap smear of cervix (10/30/16) Admission for sterilization (~12/20/19) Alcohol abuse (~10/2015) Anxiety Arthritis Asthma Bacterial vaginosis Bilateral temporomandibular joint pain C. difficile colitis (09/2016) Chicken pox Chronic back pain Chronic migraine w/o aura w/o status migrainosus, not intractable Chronic neck pain Eczema Primary dysmenorrhea Scoliosis Surgical History Anesthesia History of umbilical hernia repair Status post appendectomy Family History Brother Age: 34 Asthma NF2 (neurofibromatosis 2) Mother Age: 68 Asthma Thyroid disease Diabetes mellitus Sister Age: 31 Thyroid disease Bipolar 1 disorder Son Alopecia Social History marital status: unmarried,living together household members: significant other and children pets and animals: Yes (indoor and outdoor cat - aware) education level: college occupational status: employed special krupa needs: No Smoking Status: Current every day smoker Tobacco: How many years used: 10 quit status: considering quitting second hand exposure: No alcohol intake: former substance use type: marijuana Smoking Status: Current every day smoker tobacco type: cigarettes alcohol intake frequency: holidays/special occasions only Substance Use Type: does not use Exam Initial Vital Signs Initial Vital Signs: Vital Signs Temperature 98.2 F 10/11/22 01:13 Pulse Rate 83 10/11/22 01:13 Respiratory Rate 18 10/11/22 01:13 Blood Pressure 111/68 10/11/22 01:13 Pulse Oximetry 97 10/11/22 01:13 Oxygen Delivery Method Room Air 10/11/22 01:13 HENMT Head: normal to inspection and normocephalic Resp Effort & Inspection: normal respiratory effort Cardio Rate: regular rate GI Inspection: normal to inspection Skin General: no rashes or lesions noted Neuro General: patient alert, patient awake and moves all extremities Extrem General: normal to inspection and capillary refill normal Course Orders Ordered: ED Orders 10/11/22 01:07 Urine Culture Stat Urine Microscopic Stat Discontinued Medications Cephalexin HCl (Cephalexin 250 Mg Capsule) 500 mg PO NOW ONE Stop: 10/11/22 01:40 Last Admin: 10/11/22 01:49 Dose: 500 mg Documented By: GLENROY Tramadol HCl (Tramadol 50 Mg Tablet) 50 mg PO NOW ONE Stop: 10/11/22 01:40 Last Admin: 10/11/22 01:49 Dose: 50 mg Documented By: GLENROY Vital Signs Vital signs: Vital Signs - 8 hr 10/11/22 01:13 10/11/22 01:53 Temperature 98.2 F 97.9 F Pulse Rate 83 77 Respiratory Rate 18 16 Blood Pressure 111/68 Pulse Oximetry 97 96 Oxygen Delivery Method Room Air Room Air Medical Decision Making Lab Data Labs: Lab Results 10/11/22 Range/Units 01:07 Urine RBC None seen (0-5/HPF) Urine WBC 5-10/hpf H (0-5/HPF) Ur Squamous Epith Cells 1-5 /hpf (0-5/HPF) Urine Bacteria Moderate (10-30) H (None) Ur Culture Indicated? Specimen cultured Urine Dip Bedside Urine Glucose 100 mg/dl Bedside Urine Bilirubin ++ 2 Bedside Urine Ketone - Negative Urine Specific [place] 1.01 Bedside Urine Occult Blood - Negative Bedside Urine pH 6 Bedside Urine Protein - Negative Bedside Urine Urobilinogen 2+ 4mg Bedside Urine Nitrite + Positive Bedside Urine Leukocytes ++ 125 Esterase Point of care testing: Urine Dip Bedside Urine Glucose 100 mg/dl Bedside Urine Bilirubin ++ 2 Bedside Urine Ketone - Negative Urine Specific [place] 1.01 Bedside Urine Occult Blood - Negative Bedside Urine pH 6 Bedside Urine Protein - Negative Bedside Urine Urobilinogen 2+ 4mg Bedside Urine Nitrite + Positive Bedside Urine Leukocytes ++ 125 Esterase MDM Narrative Medical decision making narrative: Urinalysis today is consistent with a urinary tract infection. Urine cultures pending at the time of discharge. Was given 1st dose of antibiotics here in the emergency department and prescription was sent to the pharmacy of her choice. She has Pyridium at home already. Patient is tolerating oral intake. No indication for admission to the hospital. She was given return precautions. She expressed understanding and agreement. Discharge Plan Departure Patient Disposition: Home Clinical Impression: Urinary tract infection Instructions: DI for Urinary Tract Infection (UTI) Activity Restrictions/Additional Instructions: I do recommend that you take the antibiotics as directed. You can continue to take the Pyridium as needed for discomfort along with Tylenol and ibuprofen. A urine culture was pending at the time of your discharge and we will contact you if we need to switch any antibiotics. Return to the emergency department for new or worsening symptoms. Prescriptions: New cephalexin 500 mg capsule 500 mg PO BID 5 Days Qty: 10 0RF No Action Probiotic with Prebiotic 2 cap PO .QDAY albuterol sulfate [Ventolin HFA] 90 mcg/actuation HFA aerosol inhaler 2 puff INHALATION QIDP PRN (Reason: shortness of breath or wheezing) Qty: 1 3RF Hold Instructions: epinephrine [EpiPen 2-Al] 0.3 mg/0.3 mL auto-injector 0.3 mg IM ONCE Qty: 2 0RF Rx Instructions: as a single dose; may repeat once duloxetine 30 mg capsule,delayed release(DR/EC) 90 mg PO DAILY Qty: 270 1RF Rx Instructions: Total duloxetine dose of 90 mg daily oxycodone-acetaminophen [Percocet] 5-325 mg tablet 1 tab PO Q4-6H PRN (Reason: pain) Qty: 8 0RF valacyclovir [Valtrex] 1 gram tablet 1,000 mg PO TID Qty: 21 0RF hydrocodone-acetaminophen 5-325 mg tablet 1 tab PO Q6H PRN (Reason: pain) Qty: 12 0RF methylprednisolone [Medrol (Al)] 4 mg tablets,dose pack See Rx Instructions .ROUTE .COMPLEX Qty: 21 0RF Rx Instructions: orally per package directions ondansetron 4 mg tablet,disintegrating 4 mg PO Q8H PRN (Reason: nausea and vomiting) Qty: 10 0RF Referrals: Feroz Max ARNP [Primary Care Provider] - Stand Alone Forms: Patient Portal/API
[2022-10-11] MEDS: cephALEXin 250 MG CAPSULE 500 MG PO (01:49)
[2022-10-11] MEDS: TRAMADOL 50 MG TABLET PO (01:49)
[2022-10-11 01:53] VITALS: PULSE 77; RESP 16; TEMP 36.6; O2SAT 96
== END 2022-10-11 02:12 | disposition home or self-care (01) ==
PROVIDERS: Emergency Provider Emergency Medicine; PCP Registered Nurse Diabetes Educator
DX: N39.0 Urinary tract infection, site not specified (principal)
CPT/HCPCS: 81003; 81015; 87086; 99283

== ENCOUNTER 2022-10-11 21:41 | Emergency (ER) | payer OTHER, MEDICAID, SELFPAY ==
[2022-10-11 22:00] VITALS: BP 113/59; PULSE 98; RESP 18; TEMP 37.1; O2SAT 97; BMI 20.9
[2022-10-11 22:15] VITALS: BP 119/60; PULSE 92; O2SAT 97
[2022-10-11 22:26] LABS: Add Manual Diff / Slide Review NO; Basophils Absolute Auto 100 /uL (0-100); Basophils Percent Auto 0.7 % (0-2); Eosinophils Absolute Auto 200 /uL (0-450); Hematocrit 35.7 % (36-46); Hemoglobin 12.2 g/dL (12.0-16.0); Lymphocytes Absolute Auto 4400 /uL (1100-4500); Lymphocytes Percent Auto 58.3 % (25-40); Mean Corpuscular HGB Conc 34.1 % (30-36); Mean Corpuscular Hemoglobin 31.4 PG (26-34); Monocytes Absolute Auto 600 /uL (0-900); Monocytes Percent Auto 7.5 % (3-14); Neutrophils Absolute Auto 2300 /uL (1500-7000); Neutrophils Percent Auto 30.5 % (50-75); Platelet Count 237 X10^3/uL (150-400); Red Blood Cell Count 3.89 X10^6/uL (4.0-5.2); White Blood Cell Count 7.6 X10^3/uL (4.5-11.0)
[2022-10-11 22:30] VITALS: PULSE 84; O2SAT 95
[2022-10-11 22:37] LABS: Alanine Aminotransferase 15 IU/L (<35); Albumin 4.2 g/dL (3.5-5.0); Albumin Globulin Ratio 1.6 (1.0-2.8); Alkaline Phosphatase 58 U/L (38-126); Aspartate Aminotransferase 23 IU/L (14-36); BUN Creatinine Ratio 16.4 (6-22); Bilirubin Total 0.4 mg/dL (0.2-1.3); Blood Urea Nitrogen 11 mg/dL (7-17); Calcium 8.3 mg/dL (8.4-10.2); Carbon Dioxide 24 mmol/L (22-32); Chloride 104 mmol/L (98-107); Estimated Glomerular Filt Rate > 60 mL/min (>60); Globulin 2.6 g/dL (1.7-4.1); Glucose 111 mg/dL (70-100); HEMOLYSIS < 15 (0-50); Lactate (Lactic Acid) 1.3 mmol/L (0.7-2.1); Lipase 100 U/L (23-300); Potassium 3.6 mmol/L (3.4-5.1); Sodium 136 mmol/L (137-145); Total Protein 6.8 g/dL (6.3-8.2)
[2022-10-11 23:00] VITALS: PULSE 85; O2SAT 95
--- NOTE | 2022-10-11 23:22 | ED_ITS ---
HPI - Female Genitourinary General Chief complaint: Urogenital-Female Stated complaint: Bladder infection, worsening Time Seen by Provider: 10/11/22 23:17 Source: patient Mode of arrival: Ambulatory History of Present Illness HPI Narrative: The patient 37-year-old female here for the 4th time this month. History of chronic abdominal pain and pelvic pain. She initially was seen on the diagnosis shingles her shoulder seen on the with abdominal pain had blood work but no imaging and seen early this morning at 1:00 a.m. for UTI symptoms. She presents today with worsening symptoms. She has severe pain going up her urethra she has some mild left lower quadrant pain. She says this does not feel like a normal UTI she has minimal back pain. No nausea vomiting or fevers. But generally does not feel well she feels like there might be some swelling in her labia is. She is no concern for STD she is been monogamous with the same partner for number of years. Related Data Home Medications Medication Instructions Recorded Confirmed Probiotic with Prebiotic 2 cap PO .QDAY 06/07/18 09/14/22 Previous Rx's Medication Instructions Recorded albuterol sulfate 90 mcg/actuation 2 puff inhalation QIDP PRN 09/29/17 aerosol inhaler (Ventolin HFA) shortness of breath or wheezing #1 ea epinephrine 0.3 mg/0.3 mL 0.3 mg (0.3 mL) IM ONCE #2 ea 08/14/20 injection, auto-injector (EpiPen 2-Al) oxycodone-acetaminophen 5 mg-325 1 tab PO Q4-6H PRN pain #8 tabs 06/09/22 mg tablet (Percocet) duloxetine 30 mg capsule,delayed 90 mg PO DAILY #270 caps 09/14/22 release hydrocodone 5 mg-acetaminophen 325 1 tab PO Q6H PRN pain #12 tabs 09/30/22 mg tablet methylprednisolone 4 mg tablets in See Rx Instructions PO .COMPLEX 09/30/22 a dose pack (Medrol (Al)) #21 ea ondansetron 4 mg disintegrating 4 mg PO Q8H PRN nausea and 09/30/22 tablet vomiting #10 tabs valacyclovir 1 gram tablet 1,000 mg PO TID #21 tabs 09/30/22 (Valtrex) cephalexin 500 mg capsule 500 mg PO BID 5 days #10 caps 10/11/22 fluconazole 150 mg tablet 150 mg PO Q3D 2 doses #2 tabs 10/12/22 (Diflucan) metronidazole 500 mg tablet 500 mg PO BID 7 days #14 tabs 10/12/22 phenazopyridine 100 mg tablet 100 mg PO TID PRN pain 6 doses #6 10/12/22 (Pyridium) tabs Allergies Allergy/AdvReac Type Severity Reaction Status Date / Time venom-honey bee Allergy Severe TROUBLE Verified 10/11/22 22:00 [BEE VENOM (HONEY BEE)] BREATHING sertraline Allergy Intermediate Migraine Verified 10/11/22 22:00 cefaclor [CEFACLOR] Allergy Unknown I was Verified 10/11/22 22:00 young. I can't remember. Sulfa (Sulfonamide Allergy Unknown I was Verified 10/11/22 22:00 Antibiotics) young. I [SULFA (SULFONAMIDE can't ANTIBIOTICS)] remember. cyclobenzaprine AdvReac Intermediate Migraine Verified 10/11/22 22:00 escitalopram AdvReac Intermediate vertigo, Verified 10/11/22 22:00 headache, weak feeling, and extremely tired. methocarbamol AdvReac Intermediate Migraine Verified 10/11/22 22:00 metronidazole AdvReac Intermediate diarrhea Verified 10/11/22 22:00 and cramps ketorolac [From Toradol] AdvReac Headache Verified 10/11/22 22:00 Review of Systems Review of Systems ROS Unobtainable: All systems reviewed & are unremarkable except as noted in HPI and below Patient History Medical History Abnormal Pap smear of cervix (10/30/16) Admission for sterilization (~12/20/19) Alcohol abuse (~10/2015) Anxiety Arthritis Asthma Bacterial vaginosis Bilateral temporomandibular joint pain C. difficile colitis (09/2016) Chicken pox Chronic back pain Chronic migraine w/o aura w/o status migrainosus, not intractable Chronic neck pain Eczema Primary dysmenorrhea Scoliosis Surgical History Anesthesia History of umbilical hernia repair Status post appendectomy Family History Brother Age: 34 Asthma NF2 (neurofibromatosis 2) Mother Age: 68 Asthma Thyroid disease Diabetes mellitus Sister Age: 31 Thyroid disease Bipolar 1 disorder Son Alopecia tobacco type: cigarettes alcohol intake frequency: holidays/special occasions only Last Alcoholic Drink: does not use Substance Use Type: does not use Exam Initial Vital Signs Initial Vital Signs: Vital Signs Temperature 98.8 F 10/11/22 22:00 Pulse Rate 98 H 10/11/22 22:00 Respiratory Rate 18 10/11/22 22:00 Blood Pressure 113/59 L 10/11/22 22:00 Pulse Oximetry 97 10/11/22 22:00 Oxygen Delivery Method Room Air 10/11/22 22:00 GENERAL: Alert 29-year-old female appears uncomfortable and in no acute distress. HEENT: Head atraumatic,EOMI, pupils reactive, face symmetric, moist mucous membranes CARDIOVASCULAR: Regular rate and rhythm without murmurs, rubs or gallops. RESPIRATORY: Breath sounds equal bilaterally, no wheezes rales or rhonchi. ABDOMEN: Soft, nontender. Normoactive bowel sounds all 4 quadrants. No guarding or rebound. PELVIC: External genitalia is normal, no vaginal bleeding, white thin vaginal discharge, no odor, cervical os is closed, no adnexal tenderness : No CVA tenderness EXTREMITIES: Normal range of motion, no clubbing or edema. Neurovascularly intact NEUROLOGICAL: Alert and oriented x4. SKIN: Warm, dry, no laceration, no petechiae, no rashes or lesions. Course Orders Ordered: ED Orders 10/11/22 22:15 Complete Blood Count AUTO DIFF Stat Comprehensive Metabolic Panel Stat Lactate (Lactic Acid) Stat Lipase Stat 10/11/22 23:28 CT abdomen pelvis w con Stat US pelvic complete Stat 10/12/22 01:10 Chlamydia/Gonoc/Myco Genital Stat Genital Culture Stat Wet Prep Tric BV Teagan Stat Discontinued Medications Hydrocodone Bitart/Acetaminophen (Hydrocodone/Acet 5/325 Prepack) 1 bottle MISC SEEINSTR ONE Stop: 10/12/22 01:26 Last Admin: 10/12/22 01:34 Dose: 1 bottle Documented By: MLM Hydromorphone HCl (Hydromorphone 0.5 Mg Inj) 0.5 mg IV NOW ONE Stop: 10/12/22 01:26 Last Admin: 10/12/22 01:34 Dose: 0.5 mg Documented By: ZAFAR Ceftriaxone Sodium 1,000 mg/ (Sodium Chloride) 100 mls @ 200 mls/hr IV NOW ONE Stop: 10/11/22 23:29 Last Infusion: 10/12/22 00:11 Dose: 0 mls/hr Documented By: Admin: 10/11/22 23:40 Dose: 200 mls/hr Documented By: ZAFAR Metronidazole (Metronidazole 500 Mg Tablet) 500 mg PO NOW ONE Stop: 10/12/22 01:41 Last Admin: 10/12/22 01:47 Dose: 500 mg Documented By: ZAFAR Vital Signs Vital signs: Vital Signs - 8 hr 10/11/22 22:00 10/11/22 23:56 10/11/22 22:15 Temperature 98.8 F 98.1 F Pulse Rate 98 H Respiratory Rate 18 Blood Pressure 113/59 L 119/60 Pulse Oximetry 97 Oxygen Delivery Method Room Air 10/11/22 22:15 10/11/22 22:30 10/11/22 23:00 Temperature Pulse Rate 92 H 84 85 Respiratory Rate Blood Pressure Pulse Oximetry 97 95 95 Oxygen Delivery Method 10/11/22 23:30 10/12/22 01:39 10/12/22 01:40 Temperature Pulse Rate 87 Respiratory Rate Blood Pressure 102/62 Pulse Oximetry 94 98 Oxygen Delivery Method 10/12/22 01:40 Temperature Pulse Rate 86 Respiratory Rate Blood Pressure Pulse Oximetry 97 Oxygen Delivery Method MDM - Female Genitourinary Lab Data 10/11/22 22:15 10/11/22 22:15 Labs: Lab Results 10/11/22 10/11/22 10/11/22 Range/Units 22:15 22:15 22:15 WBC 7.6 (4.5-11.0) X10^3/uL RBC 3.89 L (4.0-5.2) X10^6/uL Hgb 12.2 (12.0-16.0) g/dL Hct 35.7 L (36-46) % MCV 92.0 (80-100) fL MCH 31.4 (26-34) PG MCHC 34.1 (30-36) % RDW 13.0 (11.6-14.8) % Plt Count 237 (150-400) X10^3/uL Neut % (Auto) 30.5 L (50-75) % Lymph % (Auto) 58.3 H (25-40) % [place] % (Auto) 7.5 (3-14) % Eos % (Auto) 3.0 (2-4) % Baso % (Auto) 0.7 (0-2) % Neut # (Auto) 2300 (5942-0856) /uL Lymph # (Auto) 4400 (5283-1415) /uL [place] # (Auto) 600 (0-900) /uL Eos # (Auto) 200 (0-450) /uL Baso # (Auto) 100 (0-100) /uL Sodium 136 L (137-145) mmol/L Potassium 3.6 (3.4-5.1) mmol/L Chloride 104 (98-107) mmol/L Carbon Dioxide 24 (22-32) mmol/L BUN 11 (7-17) mg/dL Creatinine 0.67 (0.52-1.04) mg/dL Estimated GFR > 60 (>60) mL/min BUN/Creatinine Ratio 16.4 (6-22) Glucose 111 H (70-100) mg/dL Lactate 1.3 (0.7-2.1) mmol/L Calcium 8.3 L (8.4-10.2) mg/dL Total Bilirubin 0.4 (0.2-1.3) mg/dL AST 23 (14-36) IU/L ALT 15 (<35) IU/L Alkaline Phosphatase 58 (38-126) U/L Total Protein 6.8 (6.3-8.2) g/dL Albumin 4.2 (3.5-5.0) g/dL Globulin 2.6 (1.7-4.1) g/dL Albumin/Globulin Ratio 1.6 (1.0-2.8) Lipase 100 D (23-300) U/L Imaging Data US - MOBILE UI DESIGNER: Radiologist's Impression: PROCEDURE:? US PELVIC COMPLETE ? INDICATIONS:? LEFT SIDED PAIN ? TECHNIQUE:? Real-time scanning was performed of the pelvic organs, with image documentat ion.? Additional endovaginal scanning was necessary due to incomplete visualization of the adnexal and endometrial structures by transabdominal scanning.? ? COMPARISON:? [facility], CT, CT ABDOMEN PELVIS W CON, 10/11/2022, 23:49.? [facility], US, US PELVIC COMPLETE, 09/07/2022, 22:56. ? FINDINGS:? ?? Uterus:? Uterus is anteverted and normal in size at 8.3 x 4.1 x 6.0 cm. The myometrium is homogeneous. ? The endometrium measures 10 mm combined thickness.? ? Ovaries:? The right ovary measures 1.8 x 2.6 x 2.3 cm, with a calculated ovarian volume of 5.8 cc. The left ovary measures 1.9 x 3.0 x 2.0 cm, with a calculated ovarian volume of 5.7 cc. The ovaries have a normal sonographic appearance. Less than 12 follicles can be seen in each ovary.? No adnexal masses are seen.? Normal Doppler arterial flow is demonstrated to the left ovary.? Patient declined transvaginal exam, which mildly compromises evaluation of the uterus and ovaries.? Physiologic cyst seen in the left ovary on CT from the same day is not well visualized on transabdominal ultrasound. ? Other:? No pathologic free abdominal or pelvic fluid. ? IMPRESSION:? No acute sonographic abnormality.? ? We strive to produce accurate, complete, and clear reports of imaging services. To assist us in improving patient care, this report was composed using standard report templates and voice recognition software. Therefore, it may contain abnormal punctuation, insertions and/or omissions. Occasional wrong-word or sound-alike substitutions may occur. Though we review the report and make efforts to correct it, we do recommend that the report be read carefully in proper context to recognize any text inaccuracies. ? ? ? Approved by: Ancelmo Barney M.D. on 10/12/2022 at 0:28 CT scan - abdomen/pelvis: Radiologist's Impression: PROCEDURE:? CT ABDOMEN PELVIS W CON ? INDICATIONS:? left lower quad pain ? TECHNIQUE:? After the administration of intravenous contrast, axial sections acquired from the lung bases to the pubic symphysis.? Coronal and sagittal reformats were performed.? For radiation dose reduction, the following was used:? automated exposure control, adjustment of mA and/or kV according to patient size.? ? COMPARISON:? [facility], CT, CT KIDNEY URETER BLADDER (KUB), 07/29/2022, 22:47.? [facility], CT, CT ABDOMEN PELVIS W CON, 07/08/2022, 5:39.? [facility], CT, CT ABDOMEN PELVIS W CON, 02/09/2022, 18:53. ? FINDINGS:? Image quality:? Excellent.? ? Lung bases:? Dependent atelectasis is seen in the lung bases. Heart:? No significant findings. ? ABDOMEN: Liver:? Subcentimeter hypoattenuating lesion segment 4B is most likely a benign cyst or hemangioma. Gallbladder:? Mildly contracted and otherwise unremarkable. Biliary ducts:? Unremarkable.? ? Pancreas:? Unremarkable.? ? Spleen:? Unremarkable.? ? Adrenal Glands:? Unremarkable.? ? Kidneys and Ureters:? Punctate nonobstructing calculi of the superior poles of each kidney are better demonstrated on prior noncontrast exam.? No hydronephrosis. ? Stomach and Bowel:? Stomach, small bowel loops, and colon are unremarkable.? Status post appendectomy. Peritoneum:? No abnormal intraperitoneal fluid.? No free air.? ? Ventral Wall: ? No hernias.? Abdominal Nodes:? No retroperitoneal or mesenteric adenopathy by size criteria.? Vessels:? Aorta and inferior vena cava are normal in size.? ? PELVIS: Pelvic Organs:? Peripherally enhancing left ovarian 1.8 cm corpus luteal cyst is noted.? Right ovary and uterus are unremarkable. Bladder:? Unremarkable.? ? Pelvic Nodes: No enlarged lymph nodes.? Miscellaneous: No hernias are seen. ? ? ? Bones:? Unremarkable.? ? ? IMPRESSION:? 1. No acute inflammatory process identified in the abdomen or pelvis. 2. Left ovarian enhancing corpus luteal cyst, which could be associated with pain. 3. Bilateral tiny nonobstructing renal calculi.? No hydronephrosis.? Approved by: Ancelmo Barney M.D. on 10/12/2022 at 0:11? MDM Narrative Medical decision making narrative: The patient 2-year-old female presenting today with pelvic pain ongoing for last couple of days. She was diagnosed with UTI nitrates in her urine yesterday started on Keflex but still having quite severe pain. CT and ultrasound do not show any abnormality no evidence of ovarian cyst torsion or abscess, no evidence of nephrolithiasis diverticulitis bowel obstruction. Will work is reassuring w ithout leukocytosis elevated lactate electrolyte abnormality or [place]. Pelvic exam does show some whitish discharge when she does report is pruritic in nature history of yeast infections with antibiotic use. Cultures are taken gonorrhea chlamydia pelvic culture but low suspicion for PID at this time. She is given a dose of Rocephin for UTI. Wet mount returns with a few clue cells she is given a dose of Flagyl for bacterial vaginosis. Good for Pyridium see if that helps with any of her discomfort she was given 1 final dose of Dilaudid prior to discharge in a prepack of [employer]. She is an allergy to Toradol causing headache. Discharge Plan Departure Patient Disposition: Home Clinical Impression: UTI (urinary tract infection), Bacterial vaginosis Instructions: DI for Urinary Tract Infection (UTI) Activity Restrictions/Additional Instructions: *You have been diagnosed with UTI *What to do: At this time blood work ultrasound and CT scan are reassuring. Please keep taking your antibiotics until gone. *Continue to take medications as directed Diflucan 100 mg 1 tablet after antibiotics are now, may repeat 5-7 days if still having symptoms-> SENT TO [facility] [place] 1 tablet every 6 hours if needed for severe pain--> given in ED Pyridium 100 mg 3 times a day if needed for painful frequent urination--> SENT TO [facility] *Follow up with your primary care provider in 2-3 days or call [phone] *Return to ER if you should have increasing pain fever persistent vomiting or any new, worsening or concerning symptoms CONTROLLED SUBSTANCE DISCHARGE (Narcotoic/benzodiazepine/Flexeril/Phenergan) 1. You have been prescribed narcotic medications, it does have acetaminophen/Tylenol/paracetamol in it, DO NOT TAKE MORE THAN 4,00mg in 24 hours of Tylenol. TRAMADOL DOES NOT CONTAIN TYLENOL 2. Please understand that we cannot provide further refills of narcotics, benzodiazepines or controlled substances through the ED and her pain management will need to be through your provider. 3. While on these medications you cannot drive or operate heavy machinery. 4. You cannot sign legal documents or perform any duties such as this. 5. As long as you're taking opiate pain medications he should also be taking a stool softener such as Colace, Dulcolax, MiraLAX or prune juice, to help avoid constipation. Prescriptions: New fluconazole [Diflucan] 150 mg tablet 150 mg PO Q3D Qty: 2 0RF phenazopyridine [Pyridium] 100 mg tablet 100 mg PO TID PRN (Reason: pain) Qty: 6 0RF metronidazole 500 mg tablet 500 mg PO BID 7 Days Qty: 14 0RF No Action Probiotic with Prebiotic 2 cap PO .QDAY albuterol sulfate [Ventolin HFA] 90 mcg/actuation HFA aerosol inhaler 2 puff INHALATION QIDP PRN (Reason: shortness of breath or wheezing) Qty: 1 3RF Hold Instructions: epinephrine [EpiPen 2-Al] 0.3 mg/0.3 mL auto-injector 0.3 mg IM ONCE Qty: 2 0RF Rx Instructions: as a single dose; may repeat once duloxetine 30 mg capsule,delayed release(DR/EC) 90 mg PO DAILY Qty: 270 1RF Rx Instructions: Total duloxetine dose of 90 mg daily oxycodone-acetaminophen [Percocet] 5-325 mg tablet 1 tab PO Q4-6H PRN (Reason: pain) Qty: 8 0RF valacyclovir [Valtrex] 1 gram tablet 1,000 mg PO TID Qty: 21 0RF hydrocodone-acetaminophen 5-325 mg tablet 1 tab PO Q6H PRN (Reason: pain) Qty: 12 0RF methylprednisolone [Medrol (Al)] 4 mg tablets,dose pack See Rx Instructions .ROUTE .COMPLEX Qty: 21 0RF Rx Instructions: orally per package directions ondansetron 4 mg tablet,disintegrating 4 mg PO Q8H PRN (Reason: nausea and vomiting) Qty: 10 0RF cephalexin 500 mg capsule 500 mg PO BID 5 Days Qty: 10 0RF Referrals: Feroz Max ARNP [Primary Care Provider] - Stand Alone Forms: Patient Portal/API
--- NOTE | 2022-10-11 23:28 | DI.US.S_ITS ---
PROCEDURE: US PELVIC COMPLETE INDICATIONS: LEFT SIDED PAIN TECHNIQUE: Real-time scanning was performed of the pelvic organs, with image documentation. Additional endovaginal scanning was necessary due to incomplete visualization of the adnexal and endometrial structures by transabdominal scanning. COMPARISON: [facility], CT, CT ABDOMEN PELVIS W CON, 10/11/2022, 23:49. [facility], US, US PELVIC COMPLETE, 09/07/2022, 22:56. FINDINGS: Uterus: Uterus is anteverted and normal in size at 8.3 x 4.1 x 6.0 cm. The myometrium is homogeneous. The endometrium measures 10 mm combined thickness. Ovaries: The right ovary measures 1.8 x 2.6 x 2.3 cm, with a calculated ovarian volume of 5.8 cc. The left ovary measures 1.9 x 3.0 x 2.0 cm, with a calculated ovarian volume of 5.7 cc. The ovaries have a normal sonographic appearance. Less than 12 follicles can be seen in each ovary. No adnexal masses are seen. Normal Doppler arterial flow is demonstrated to the left ovary. Patient declined transvaginal exam, which mildly compromises evaluation of the uterus and ovaries. Physiologic cyst seen in the left ovary on CT from the same day is not well visualized on transabdominal ultrasound. Other: No pathologic free abdominal or pelvic fluid. IMPRESSION: No acute sonographic abnormality. We strive to produce accurate, complete, and clear reports of imaging services. To assist us in improving patient care, this report was composed using standard report templates and voice recognition software. Therefore, it may contain abnormal punctuation, insertions and/or omissions. Occasional wrong-word or sound-alike substitutions may occur. Though we review the report and make efforts to correct it, we do recommend that the report be read carefully in proper context to recognize any text inaccuracies. Approved by: Ancelmo Barney M.D. on 10/12/2022 at 0:28
--- NOTE | 2022-10-11 23:28 | DI.CT.S_ITS ---
PROCEDURE: CT ABDOMEN PELVIS W CON INDICATIONS: left lower quad pain TECHNIQUE: After the administration of intravenous contrast, axial sections acquired from the lung bases to the pubic symphysis. Coronal and sagittal reformats were performed. For radiation dose reduction, the following was used: automated exposure control, adjustment of mA and/or kV according to patient size. COMPARISON: [facility], CT, CT KIDNEY URETER BLADDER (KUB), 07/29/2022, 22:47. [facility], CT, CT ABDOMEN PELVIS W CON, 07/08/2022, 5:39. [facility], CT, CT ABDOMEN PELVIS W CON, 02/09/2022, 18:53. FINDINGS: Image quality: Excellent. Lung bases: Dependent atelectasis is seen in the lung bases. Heart: No significant findings. ABDOMEN: Liver: Subcentimeter hypoattenuating lesion segment 4B is most likely a benign cyst or hemangioma. Gallbladder: Mildly contracted and otherwise unremarkable. Biliary ducts: Unremarkable. Pancreas: Unremarkable. Spleen: Unremarkable. Adrenal Glands: Unremarkable. Kidneys and Ureters: Punctate nonobstructing calculi of the superior poles of each kidney are better demonstrated on prior noncontrast exam. No hydronephrosis. Stomach and Bowel: Stomach, small bowel loops, and colon are unremarkable. Status post appendectomy. Peritoneum: No abnormal intraperitoneal fluid. No free air. Ventral Wall: No hernias. Abdominal Nodes: No retroperitoneal or mesenteric adenopathy by size criteria. Vessels: Aorta and inferior vena cava are normal in size. PELVIS: Pelvic Organs: Peripherally enhancing left ovarian 1.8 cm corpus luteal cyst is noted. Right ovary and uterus are unremarkable. Bladder: Unremarkable. Pelvic Nodes: No enlarged lymph nodes. Miscellaneous: No hernias are seen. Bones: Unremarkable. IMPRESSION: 1. No acute inflammatory process identified in the abdomen or pelvis. 2. Left ovarian enhancing corpus luteal cyst, which could be associated with pain. 3. Bilateral tiny nonobstructing renal calculi. No hydronephrosis. Approved by: Ancelmo Barney M.D. on 10/12/2022 at 0:11
[2022-10-11 23:30] VITALS: PULSE 87; O2SAT 94
[2022-10-11] MEDS: cefTRIAXone 1,000 MG in SODIUM CHLORIDE 0.9% 100 ML 200 MG IV (23:40)
[2022-10-11 23:56] VITALS: TEMP 36.7
[2022-10-12] MEDS: HYDROMORPHONE 0.5 MG INJ IV (01:34)
[2022-10-12] MEDS: HYDROCODONE/ACET 5/325 PREPACK 1 BOTTLE MISC (01:34)
[2022-10-12 01:39] VITALS: O2SAT 98
[2022-10-12 01:40] VITALS: BP 102/62; PULSE 86; O2SAT 97
[2022-10-12] MEDS: metroNIDAZOLE 500 MG TABLET PO (01:47)
[2022-10-15 15:40] LABS: Chlamydia trachomatis Negative (Negative); Mycoplasma genitalium Negative (Negative); Neisseria gonorrhoeae Negative (Negative)
== END 2022-10-12 01:53 | disposition home or self-care (01) ==
PROVIDERS: Emergency Provider Emergency Medicine; PCP Registered Nurse Diabetes Educator
DX: N39.0 Urinary tract infection, site not specified (principal); N76.0 Acute vaginitis
CPT/HCPCS: 36415; 74177; 76856; 80053; 81003; 81015; 83605; 83690; 85025; 87070; 87077; 87086; 87205; 87210; 87491; 87563; 87591; 93976; 96365; 96375; 99283; 99284; J0696; J1170

== ENCOUNTER 2022-10-17 21:27 | Emergency (ER) | payer OTHER, MEDICAID, SELFPAY ==
[2022-10-17 21:31] VITALS: BP 117/69; PULSE 91; RESP 14; TEMP 36.9; O2SAT 97; BMI 20.9
--- NOTE | 2022-10-17 21:33 | ED_ITS ---
HPI - General Adult General Chief complaint: Abdominal Pain Stated complaint: Thinks ovarian cyst, Out of fibromyalgia meds Time Seen by Provider: 10/17/22 21:32 History of Present Illness HPI narrative: 37-year-old female daily smoker with history of UTIs, chronic migraines, TMJ pain, asthma, chronic neck and back pain presents with a chief complaint of left lower quadrant pain for the past 5 days and concern about the possibility of an ovarian cyst. She states she does not know how the pain came on but has been relatively persistent for the past 5 days. It gets worse with motion and improves with rest. She denies radiation of pain. She denies vaginal bleeding or discharge. She denies dysuria, frequency or urgency. Her last menstrual cycle was about 1 month ago. Additionally, she states that she is out of her duloxetine in his hoping for a refill Related Data Home Medications Medication Instructions Recorded Confirmed Probiotic with Prebiotic 2 cap PO .QDAY 06/07/18 09/14/22 Previous Rx's Medication Instructions Recorded albuterol sulfate 90 mcg/actuation 2 puff inhalation QIDP PRN 09/29/17 aerosol inhaler (Ventolin HFA) shortness of breath or wheezing #1 ea epinephrine 0.3 mg/0.3 mL 0.3 mg (0.3 mL) IM ONCE #2 ea 08/14/20 injection, auto-injector (EpiPen 2-Al) oxycodone-acetaminophen 5 mg-325 1 tab PO Q4-6H PRN pain #8 tabs 06/09/22 mg tablet (Percocet) duloxetine 30 mg capsule,delayed 90 mg PO DAILY #270 caps 09/14/22 release hydrocodone 5 mg-acetaminophen 325 1 tab PO Q6H PRN pain #12 tabs 09/30/22 mg tablet methylprednisolone 4 mg tablets in See Rx Instructions PO .COMPLEX 09/30/22 a dose pack (Medrol (Al)) #21 ea ondansetron 4 mg disintegrating 4 mg PO Q8H PRN nausea and 09/30/22 tablet vomiting #10 tabs valacyclovir 1 gram tablet 1,000 mg PO TID #21 tabs 09/30/22 (Valtrex) fluconazole 150 mg tablet 150 mg PO Q3D 2 doses #2 tabs 10/12/22 (Diflucan) metronidazole 500 mg tablet 500 mg PO BID 7 days #14 tabs 10/12/22 phenazopyridine 100 mg tablet 100 mg PO TID PRN pain 6 doses #6 10/12/22 (Pyridium) tabs duloxetine 30 mg capsule,delayed 90 mg PO DAILY #270 caps 10/18/22 release Allergies Allergy/AdvReac Type Severity Reaction Status Date / Time venom-honey bee Allergy Severe TROUBLE Verified 10/17/22 21:41 [BEE VENOM (HONEY BEE)] BREATHING sertraline Allergy Intermediate Migraine Verified 10/17/22 21:41 cefaclor [CEFACLOR] Allergy Unknown I was Verified 10/17/22 21:41 young. I can't remember. Sulfa (Sulfonamide Allergy Unknown I was Verified 10/17/22 21:41 Antibiotics) young. I [SULFA (SULFONAMIDE can't ANTIBIOTICS)] remember. cyclobenzaprine AdvReac Intermediate Migraine Verified 10/17/22 21:41 escitalopram AdvReac Intermediate vertigo, Verified 10/17/22 21:41 headache, weak feeling, and extremely tired. methocarbamol AdvReac Intermediate Migraine Verified 10/17/22 21:41 metronidazole AdvReac Intermediate diarrhea Verified 10/17/22 21:41 and cramps ketorolac [From Toradol] AdvReac Headache Verified 10/17/22 21:41 Review of Systems Review of Systems Narrative: GENERAL: Denies chills, fatigue, malaise, fever, sweats. HEENT: Denies sinus pain, ear pain, sore throat, difficulty swallowing, dizziness. RESPIRATORY: Denies dyspnea, cough, wheezing, hemoptysis, sputum. CARDIOVASCULAR: Denies chest pain, palpitations, orthopnea, edema, GASTROINTESTINAL: See HPI : See HPI MUSCULOSKELETAL: denies weakness, joint pain, or bony pain SKIN: Denies rash, skin lesions, or other NEUROLOGIC: Denies weakness, headache, numbness, change in speech, confusion, seizures, incoordination. PSYCHIATRIC: No concerning psychosocial issues. 12 point review of systems is negative except for those stated above Patient History Medical History Abnormal Pap smear of cervix (10/30/16) Admission for sterilization (~12/20/19) Alcohol abuse (~10/2015) Anxiety Arthritis Asthma Bacterial vaginosis Bilateral temporomandibular joint pain C. difficile colitis (09/2016) Chicken pox Chronic back pain Chronic migraine w/o aura w/o status migrainosus, not intractable Chronic neck pain Eczema Primary dysmenorrhea Scoliosis Surgical History Anesthesia History of umbilical hernia repair Status post appendectomy Family History Brother Age: 34 Asthma NF2 (neurofibromatosis 2) Mother Age: 68 Asthma Thyroid disease Diabetes mellitus Sister Age: 31 Thyroid disease Bipolar 1 disorder Son Alopecia Social History marital status: unmarried,living together household members: significant other and children pets and animals: Yes (indoor and outdoor cat - aware) education level: college occupational status: employed special krupa needs: No Smoking Status: Current every day smoker Tobacco: How many years used: 10 quit status: considering quitting second hand exposure: No alcohol intake: former substance use type: marijuana Smoking Status: Current every day smoker tobacco type: cigarettes alcohol intake frequency: holidays/special occasions only Substance Use Type: does not use Exam Narrative Exam Narrative: GENERAL: [37] year old patient appears stated age. Well-developed patient, in mild distress. HEAD: Atraumatic. Normocephalic. EYES: Pupils equal round and reactive. Extraocular motions intact. No scleral icterus. No injection or drainage. ENT: Nose without bleeding, purulent drainage. Throat without erythema, tonsillar hypertrophy or exudate. Airway patent. NECK: Trachea midline. Non tender CARDIOVASCULAR: Regular rate and rhythm without murmurs, gallops, or rubs. RESPIRATORY: Clear to auscultation. Breath sounds equal bilaterally. No wheezes, rales, or rhonchi. GASTROINTESTINAL: Abdomen soft, left lower quadrant pain r, nondistended. EXTREMITIES: No edema or joint tenderness. BACK: Nontender without deformity or crepitance. No flank tenderness. NEURO: AOx3. SKIN: No rash or erythema of visible areas Initial Vital Signs Initial Vital Signs: Vital Signs Temperature 98.4 F 10/17/22 21:31 Pulse Rate 91 H 10/17/22 21:31 Respiratory Rate 14 10/17/22 21:31 Blood Pressure 117/69 10/17/22 21:31 Pulse Oximetry 97 10/17/22 21:31 Oxygen Delivery Method Room Air 10/17/22 21:31 Course Orders Ordered: ED Orders 10/17/22 22:55 US pelvic complete Stat Vital Signs Vital signs: Vital Signs - 8 hr 10/17/22 21:31 Temperature 98.4 F Pulse Rate 91 H Respiratory Rate 14 Blood Pressure 117/69 Pulse Oximetry 97 Oxygen Delivery Method Room Air Medical Decision Making Lab Data Labs: Point of Care Testing Test Results Negative Urine Dip Bedside Urine Glucose Negative Bedside Urine Bilirubin - Negative Bedside Urine Ketone - Negative Urine Specific [place] 1.010 Bedside Urine Occult Blood - Negative Bedside Urine pH 6.0 Bedside Urine Protein - Negative Bedside Urine Urobilinogen - Negative Bedside Urine Nitrite - Negative Bedside Urine Leukocytes - Negative Esterase Point of care testing: Point of Care Testing Test Results Negative Urine Dip Bedside Urine Glucose Negative Bedside Urine Bilirubin - Negative Bedside Urine Ketone - Negative Urine Specific [place] 1.010 Bedside Urine Occult Blood - Negative Bedside Urine pH 6.0 Bedside Urine Protein - Negative Bedside Urine Urobilinogen - Negative Bedside Urine Nitrite - Negative Bedside Urine Leukocytes - Negative Esterase MDM Narrative Medical decision making narrative: [37] year old patient presents with left lower quadrant pain Multiple etiologies for patient's symptoms considered including, but not limited to: [Ovarian versus urinary versus bowel versus other] Prior Charts reviewed in our EMR Primary Historian: patient Labs reviewed and interpreted by myself: No significant abnormal findings Imaging reviewed: Pelvic ultrasound notes left ovarian cyst Patient's symptoms improved over duration of stay with above-stated therapies. Findings and discharge diagnosis discussed with patient/family followed by verbalization of understanding Return precautions discussed with patient/family whom verbalize understanding of diagnosis and plan Discharge Plan Departure Patient Disposition: Home Clinical Impression: Cyst of left ovary Instructions: DI for Ovarian Cyst Activity Restrictions/Additional Instructions: *You have been diagnosed with [left ovarian cyst] *What to do: *Please continue to take your regular medications as directed. [x ] New medication prescriptions sent to your pharmacy: [ [facility]] [ ] New medication written as a paper prescription [ ] No new medications given *Please follow up with your primary care provider in 2-3 days, call for an appointment. Let them know you were seen in the Emergency Department and that we ask that you be seen in follow up. We will electronically transmit a record of today's note if your PCP is in our system *If you do not have a primary care provider please contact the [facility] Resource line at [phone]. They will ask some questions about your medical history and help get you set up with a doctor in the community. *Return to Emergency Department if you should have any new, worsening or concerning symptoms, such as [fever greater than 101 F, shaking chills, worsening pain, persistent vomiting or other bothersome symptoms] Prescriptions: New duloxetine 30 mg capsule,delayed release(DR/EC) 90 mg PO DAILY Qty: 270 0RF No Action Probiotic with Prebiotic 2 cap PO .QDAY albuterol sulfate [Ventolin HFA] 90 mcg/actuation HFA aerosol inhaler 2 puff INHALATION QIDP PRN (Reason: shortness of breath or wheezing) Qty: 1 3 RF Hold Instructions: epinephrine [EpiPen 2-Al] 0.3 mg/0.3 mL auto-injector 0.3 mg IM ONCE Qty: 2 0RF Rx Instructions: as a single dose; may repeat once duloxetine 30 mg capsule,delayed release(DR/EC) 90 mg PO DAILY Qty: 270 1RF Rx Instructions: Total duloxetine dose of 90 mg daily oxycodone-acetaminophen [Percocet] 5-325 mg tablet 1 tab PO Q4-6H PRN (Reason: pain) Qty: 8 0RF valacyclovir [Valtrex] 1 gram tablet 1,000 mg PO TID Qty: 21 0RF hydrocodone-acetaminophen 5-325 mg tablet 1 tab PO Q6H PRN (Reason: pain) Qty: 12 0RF methylprednisolone [Medrol (Al)] 4 mg tablets,dose pack See Rx Instructions .ROUTE .COMPLEX Qty: 21 0RF Rx Instructions: orally per package directions ondansetron 4 mg tablet,disintegrating 4 mg PO Q8H PRN (Reason: nausea and vomiting) Qty: 10 0RF fluconazole [Diflucan] 150 mg tablet 150 mg PO Q3D Qty: 2 0RF phenazopyridine [Pyridium] 100 mg tablet 100 mg PO TID PRN (Reason: pain) Qty: 6 0RF metronidazole 500 mg tablet 500 mg PO BID 7 Days Qty: 14 0RF Referrals: Feroz Max ARNP [Primary Care Provider] - Stand Alone Forms: Patient Portal/API
--- NOTE | 2022-10-17 22:55 | DI.US.S_ITS ---
PROCEDURE: US PELVIC COMPLETE INDICATIONS: PAIN TECHNIQUE: Real-time scanning was performed of the pelvic organs, with image documentation. Additional endovaginal scanning was necessary due to incomplete visualization of the adnexal and endometrial structures by transabdominal scanning. COMPARISON: [facility], US, US PELVIC COMPLETE, 10/11/2022, 23:54. [facility], , US PELVIC COMPLETE, 09/07/2022, 22:56. FINDINGS: Uterus: Uterus is anteverted and normal in size at 4.2 x 4.8 x 7.6 cm. The myometrium is homogeneous. The endometrium measures 11.7 mm combined thickness. Homogeneous myometrial echotexture. Ovaries: The right ovary measures 2.5 x 2.3 x 2.7 cm, with a calculated ovarian volume of 8.1 cc. The left ovary measures 2.6 x 3.4 x 1.9 cm, with a calculated ovarian volume of 8.8 cc. The ovaries have a normal sonographic appearance. <<Less than 12 follicles can be seen in each ovary. No adnexal masses are seen. Note is made of a solid-appearing 1.5 x 1.4 x 2.0 cm structure within the left ovary with increased peripheral vascularity, potentially representing a hemorrhagic ovarian cyst. Other: No pathologic free abdominal or pelvic fluid. IMPRESSION: Presumed small hemorrhagic left ovarian cyst measuring up to 2.0 cm in maximal dimension. Follow-up pelvic ultrasound is recommended in 6-8 weeks to confirm resolution. We strive to produce accurate, complete, and clear reports of imaging services. To assist us in improving patient care, this report was composed using standard report templates and voice recognition software. Therefore, it may contain abnormal punctuation, insertions and/or omissions. Occasional wrong-word or sound-alike substitutions may occur. Though we review the report and make efforts to correct it, we do recommend that the report be read carefully in proper context to recognize any text inaccuracies. Dictated by: Antonio Pantoja M.D. on 10/17/2022 at 23:39 Approved by: Antonio Pantoja M.D. on 10/17/2022 at 23:42
[2022-10-18 02:17] VITALS: BP 114/68; PULSE 70; RESP 16; TEMP 36.5; O2SAT 99
== END 2022-10-18 02:18 | disposition home or self-care (01) ==
PROVIDERS: Emergency Provider Emergency Medicine; PCP Registered Nurse Diabetes Educator
DX: N83.202 Unspecified ovarian cyst, left side (principal)
CPT/HCPCS: 76830; 76856; 81003; 81025; 93975; 99282; 99283

== ENCOUNTER 2022-12-01 19:03 | Emergency (ER) | payer OTHER, MEDICAID, SELFPAY ==
[2022-12-01 19:07] VITALS: BP 114/69; PULSE 84; RESP 22; TEMP 36.7; O2SAT 98; BMI 20.9
[2022-12-01 19:47] LABS: Alanine Aminotransferase 12 IU/L (<35); Albumin Globulin Ratio 1.5 (1.0-2.8); Alkaline Phosphatase 56 U/L (38-126); Aspartate Aminotransferase 19 IU/L (14-36); BUN Creatinine Ratio 14.3 (6-22); Bilirubin Total 0.4 mg/dL (0.2-1.3); Blood Urea Nitrogen 9 mg/dL (7-17); Calcium 8.5 mg/dL (8.4-10.2); Carbon Dioxide 28 mmol/L (22-32); Chloride 103 mmol/L (98-107); Estimated Glomerular Filt Rate > 60 mL/min (>60); Globulin 2.6 g/dL (1.7-4.1); Glucose 83 mg/dL (70-100); HEMOLYSIS < 15 (0-50); Lipase 417 U/L (23-300); Potassium 3.7 mmol/L (3.4-5.1); Sodium 136 mmol/L (137-145); Total Protein 6.6 g/dL (6.3-8.2)
[2022-12-01 19:51] LABS: Add Manual Diff / Slide Review NO; Basophils Absolute Auto 100 /uL (0-100); Basophils Percent Auto 0.8 % (0-2); Eosinophils Absolute Auto 100 /uL (0-450); Eosinophils Percent Auto 1.5 % (2-4); Hematocrit 35.3 % (36-46); Hemoglobin 12.1 g/dL (12.0-16.0); Lymphocytes Absolute Auto 3400 /uL (1100-4500); Lymphocytes Percent Auto 35.3 % (25-40); Mean Corpuscular HGB Conc 34.2 % (30-36); Mean Corpuscular Hemoglobin 31.6 PG (26-34); Mean Corpuscular Volume 92.5 fL (80-100); Monocytes Absolute Auto 600 /uL (0-900); Monocytes Percent Auto 6.5 % (3-14); Neutrophils Absolute Auto 5300 /uL (1500-7000); Neutrophils Percent Auto 55.9 % (50-75); Platelet Count 259 X10^3/uL (150-400); Red Blood Cell Count 3.82 X10^6/uL (4.0-5.2); Red Cell Distribution Width 13.3 % (11.6-14.8); White Blood Cell Count 9.6 X10^3/uL (4.5-11.0)
[2022-12-01 21:06] VITALS: O2SAT 97
[2022-12-01 21:07] VITALS: BP 107/61; PULSE 76; O2SAT 99
--- NOTE | 2022-12-01 21:25 | ED_ITS ---
HPI - General Adult General Chief complaint: Abdominal Pain Stated complaint: Digestive problems Time Seen by Provider: 12/01/22 20:29 Source: patient Mode of arrival: Ambulatory History of Present Illness HPI narrative: Patient is a 37-year-old female. Has been seen here in the emergency department multiple times for abdominal pain. Has had a fairly extensive workup to include CT scans and ultrasounds. She is also seen her primary doctor. There has not been a specific diagnosis given to her. She is scheduled to see GI in [facility] 2 weeks. She states that over the past couple days she feels like her abdominal pain is worsen. She states that it hurts every time that she eats. She is not currently on any sort of reflux medicines but she states she is been on them in the past and it has not helped. She is not having any change in her stool. No urinary symptoms. No fevers. She stated that she contacted her primary doctor's office who told her to come to the emergency department. Related Data Home Medications Medication Instructions Recorded Confirmed Probiotic with Prebiotic 2 cap PO .QDAY 06/07/18 09/14/22 Previous Rx's Medication Instructions Recorded albuterol sulfate 90 mcg/actuation 2 puff inhalation QIDP PRN 09/29/17 aerosol inhaler (Ventolin HFA) shortness of breath or wheezing #1 ea epinephrine 0.3 mg/0.3 mL 0.3 mg (0.3 mL) IM ONCE #2 ea 08/14/20 injection, auto-injector (EpiPen 2-Al) oxycodone-acetaminophen 5 mg-325 1 tab PO Q4-6H PRN pain #8 tabs 06/09/22 mg tablet (Percocet) duloxetine 30 mg capsule,delayed 90 mg PO DAILY #270 caps 09/14/22 release hydrocodone 5 mg-acetaminophen 325 1 tab PO Q6H PRN pain #12 tabs 09/30/22 mg tablet methylprednisolone 4 mg tablets in See Rx Instructions PO .COMPLEX 09/30/22 a dose pack (Medrol (Al)) #21 ea ondansetron 4 mg disintegrating 4 mg PO Q8H PRN nausea and 09/30/22 tablet vomiting #10 tabs valacyclovir 1 gram tablet 1,000 mg PO TID #21 tabs 09/30/22 (Valtrex) fluconazole 150 mg tablet 150 mg PO Q3D 2 doses #2 tabs 10/12/22 (Diflucan) phenazopyridine 100 mg tablet 100 mg PO TID PRN pain 6 doses #6 10/12/22 (Pyridium) tabs duloxetine 30 mg capsule,delayed 90 mg PO DAILY #270 caps 10/18/22 release Allergies Allergy/AdvReac Type Severity Reaction Status Date / Time venom-honey bee Allergy Severe TROUBLE Verified 10/17/22 21:41 [BEE VENOM (HONEY BEE)] BREATHING sertraline Allergy Intermediate Migraine Verified 10/17/22 21:41 cefaclor [CEFACLOR] Allergy Unknown I was Verified 10/17/22 21:41 young. I can't remember. Sulfa (Sulfonamide Allergy Unknown I was Verified 10/17/22 21:41 Antibiotics) young. I [SULFA (SULFONAMIDE can't ANTIBIOTICS)] remember. cyclobenzaprine AdvReac Intermediate Migraine Verified 10/17/22 21:41 escitalopram AdvReac Intermediate vertigo, Verified 10/17/22 21:41 headache, weak feeling, and extremely tired. methocarbamol AdvReac Intermediate Migraine Verified 10/17/22 21:41 metronidazole AdvReac Intermediate diarrhea Verified 10/17/22 21:41 and cramps ketorolac [From Toradol] AdvReac Headache Verified 10/17/22 21:41 Review of Systems Constitutional Constitutional: Reports system reviewed and no additional complaints, except as documented Respiratory Respiratory: Reports system reviewed and no additional complaints, except as documented Gastrointestinal Gastrointestinal: Reports system reviewed and no additional complaints, except as documented Genitourinary Genitourinary: Reports system reviewed and no additional complaints, except as documented Integumentary/Breasts Skin/Breast: Reports system reviewed and no additional complaints, except as documented Hematologic/Lymphatic On Anticoagulants: No Patient History Medical History Abnormal Pap smear of cervix (10/30/16) Admission for sterilization (~12/20/19) Alcohol abuse (~10/2015) Anxiety Arthritis Asthma Bacterial vaginosis Bilateral temporomandibular joint pain C. difficile colitis (09/2016) Chicken pox Chronic back pain Chronic migraine w/o aura w/o status migrainosus, not intractable Chronic neck pain Eczema Primary dysmenorrhea Scoliosis Surgical History Anesthesia History of umbilical hernia repair Status post appendectomy Family History Brother Age: 35 Asthma NF2 (neurofibromatosis 2) Mother Age: 69 Asthma Thyroid disease Diabetes mellitus Sister Age: 32 Thyroid disease Bipolar 1 disorder Son Alopecia Social History marital status: unmarried,living together household members: significant other and children pets and animals: Yes (indoor and outdoor cat - aware) education level: college occupational status: employed special krupa needs: No Smoking Status: Current every day smoker Tobacco: How many years used: 10 quit status: considering quitting second hand exposure: No alcohol intake: former substance use type: marijuana Smoking Status: Current every day smoker tobacco type: cigarettes alcohol intake frequency: holidays/special occasions only Substance Use Type: does not use Exam Initial Vital Signs Initial Vital Signs: Vital Signs Temperature 98.0 F 12/01/22 19:07 Pulse Rate 84 12/01/22 19:07 Respiratory Rate 22 12/01/22 19:07 Blood Pressure 114/69 12/01/22 19:07 Pulse Oximetry 98 12/01/22 19:07 Oxygen Delivery Method Room Air 12/01/22 19:07 HENMT Head: normal to inspection and normocephalic Resp Effort & Inspection: normal respiratory effort Cardio Rate: regular rate GI Inspection: normal to inspection and non-distended Palpation: soft, No firm, No guarding and No rigid Neuro General: patient alert, patient awake and moves all extremities Extrem General: No edema Course Orders Ordered: ED Orders 12/01/22 19:20 Complete Blood Count AUTO DIFF Stat Comprehensive Metabolic Panel Stat Lipase Stat Discontinued Medications Ondansetron HCl (Ondansetron 4 Mg Odt) 4 mg PO NOW PRN PRN Reason: Nausea And Vomiting Ondansetron HCl (Ondansetron 4 Mg/2 Ml Inj) 4 mg IV NOW PRN PRN Reason: Nausea And Vomiting Vital Signs Vital signs: Vital Signs - 8 hr 12/01/22 19:07 12/01/22 21:06 12/01/22 21:07 Temperature 98.0 F Pulse Rate 84 Respiratory Rate 22 Blood Pressure 114/69 107/61 Pulse Oximetry 98 97 Oxygen Delivery Method Room Air 12/01/22 21:07 Temperature Pulse Rate 76 Respiratory Rate Blood Pressure Pulse Oximetry 99 Oxygen Delivery Method Room Air Medical Decision Making Medical Records Medical records reviewed: Yes I reviewed the patient's medical records. Lab Data Lab results reviewed: Yes I reviewed the patient's lab results. 12/01/22 19:20 12/01/22 19:20 Labs: Lab Results 12/01/22 12/01/22 Range/Units 19:20 19:20 WBC 9.6 (4.5-11.0) X10^3/uL RBC 3.82 L (4.0-5.2) X10^6/uL Hgb 12.1 (12.0-16.0) g/dL Hct 35.3 L (36-46) % MCV 92.5 (80-100) fL MCH 31.6 (26-34) PG MCHC 34.2 (30-36) % RDW 13.3 (11.6-14.8) % Plt Count 259 (150-400) X10^3/uL Neut % (Auto) 55.9 (50-75) % Lymph % (Auto) 35.3 (25-40) % [place] % (Auto) 6.5 (3-14) % Eos % (Auto) 1.5 L (2-4) % Baso % (Auto) 0.8 (0-2) % Neut # (Auto) 5300 (4675-2000) /uL Lymph # (Auto) 3400 (9991-6184) /uL [place] # (Auto) 600 (0-900) /uL Eos # (Auto) 100 (0-450) /uL Baso # (Auto) 100 (0-100) /uL Sodium 136 L (137-145) mmol/L Potassium 3.7 (3.4-5.1) mmol/L Chloride 103 (98-107) mmol/L Carbon Dioxide 28 (22-32) mmol/L BUN 9 (7-17) mg/dL Creatinine 0.63 (0.52-1.04) mg/dL Estimated GFR > 60 (>60) mL/min BUN/Creatinine Ratio 14.3 (6-22) Glucose 83 (70-100) mg/dL Calcium 8.5 (8.4-10.2) mg/dL Total Bilirubin 0.4 (0.2-1.3) mg/dL AST 19 (14-36) IU/L ALT 12 (<35) IU/L Alkaline Phosphatase 56 (38-126) U/L Total Protein 6.6 (6.3-8.2) g/dL Albumin 4.0 (3.5-5.0) g/dL Globulin 2.6 (1.7-4.1) g/dL Albumin/Globulin Ratio 1.5 (1.0-2.8) Lipase 417 H (23-300) U/L Urine Dip Bedside Urine Glucose Negative Bedside Urine Bilirubin - Negative Bedside Urine Ketone - Negative Urine Specific [place] 1.010 Bedside Urine Occult Blood - Negative Bedside Urine pH 6.0 Bedside Urine Protein - Negative Bedside Urine Urobilinogen 0.2 Bedside Urine Nitrite - Negative Bedside Urine Leukocytes - Negative Esterase Point of care testing: Urine Dip Bedside Urine Glucose Negative Bedside Urine Bilirubin - Negative Bedside Urine Ketone - Negative Urine Specific [place] 1.010 Bedside Urine Occult Blood - Negative Bedside Urine pH 6.0 Bedside Urine Protein - Negative Bedside Urine Urobilinogen 0.2 Bedside Urine Nitrite - Negative Bedside Urine Leukocytes - Negative Esterase MDM Narrative Medical decision making narrative: Patient does have a very benign abdominal exam. Have review of her medical record shows that she is had multiple CT scans and ultrasounds and given her history of feel that that we do not need to repeat that today. Afebrile. Her labs are unremarkable. Had a discussion with the patient regarding this. Unfortunately I do not have a specific explanation as to why she is having discomfort but she is on the right track to follow-up with gastroenterology. We discussed potentially putting her back on a proton pump inhibitor but she states she is been on those and it has not helped. Will discharge patient home with return precautions. Discharge Plan Departure Patient Disposition: Home Clinical Impression: Abdominal pain Instructions: DI for Abdominal Pain-Adult Activity Restrictions/Additional Instructions: Your labs here in the emergency department are all unremarkable. I recommend that you continue to keep your scheduled appointment with the quality assurance monitor. Contact your primary doctor for a follow-up. Prescriptions: No Action Probiotic with Prebiotic 2 cap PO .QDAY albuterol sulfate [Ventolin HFA] 90 mcg/actuation HFA aerosol inhaler 2 puff INHALATION QIDP PRN (Reason: shortness of breath or wheezing) Qty: 1 3RF Hold Instructions: epinephrine [EpiPen 2-Al] 0.3 mg/0.3 mL auto-injector 0.3 mg IM ONCE Qty: 2 0RF Rx Instructions: as a single dose; may repeat once duloxetine 30 mg capsule,delayed release(DR/EC) 90 mg PO DAILY Qty: 270 1RF Rx Instructions: Total duloxetine dose of 90 mg daily oxycodone-acetaminophen [Percocet] 5-325 mg tablet 1 tab PO Q4-6H PRN (Reason: pain) Qty: 8 0RF valacyclovir [Valtrex] 1 gram tablet 1,000 mg PO TID Qty: 21 0RF hydrocodone-acetaminophen 5-325 mg tablet 1 tab PO Q6H PRN (Reason: pain) Qty: 12 0RF methylprednisolone [Medrol (Al)] 4 mg tablets,dose pack See Rx Instructions .ROUTE .COMPLEX Qty: 21 0RF Rx Instructions: orally per package directions ondansetron 4 mg tablet,disintegrating 4 mg PO Q8H PRN (Reason: nausea and vomiting) Qty: 10 0RF fluconazole [Diflucan] 150 mg tablet 150 mg PO Q3D Qty: 2 0RF phenazopyridine [Pyridium] 100 mg tablet 100 mg PO TID PRN (Reason: pain) Qty: 6 0RF duloxetine 30 mg capsule,delayed release(DR/EC) 90 mg PO DAILY Qty: 270 0RF Referrals: Feroz Max ARNP [Primary Care Provider] - Stand Alone Forms: Patient Portal/API
== END 2022-12-01 21:28 | disposition home or self-care (01) ==
PROVIDERS: Emergency Provider Emergency Medicine; PCP Registered Nurse Diabetes Educator
DX: R10.9 Unspecified abdominal pain (principal)
CPT/HCPCS: 36415; 80053; 81003; 83690; 85025; 99283

== ENCOUNTER → 2023-01-05 13:37 | Outpatient (CLI) | payer SELFPAY ==
--- NOTE | 2023-01-05 13:38 | DI.RAD.S_ITS ---
PROCEDURE: XR SHOULDER RT MIN 2V INDICATIONS: Right shoulder injury TECHNIQUE: 3 views of the shoulder were acquired. COMPARISON: None. FINDINGS: Bones: No fractures or dislocations. No suspicious bony lesions. Visualized ribs appear intact. Soft tissues: No suspicious soft tissue calcifications. IMPRESSION: Unremarkable right shoulder radiographs Dictated by: Lion Napier M.D. on 01/05/2023 at 14:13 Approved by: Lion Napier M.D. on 01/05/2023 at 14:14
== END ==
PROVIDERS: PCP Registered Nurse Diabetes Educator; Referring Provider Registered Nurse Diabetes Educator; Visit Provider Registered Nurse Diabetes Educator
DX: M25.511 Pain in right shoulder (principal)
CPT/HCPCS: 73030

== ENCOUNTER 2023-01-05 14:59 | Emergency (ER) | payer SELFPAY ==
[2023-01-05 15:23] VITALS: BP 127/56; PULSE 89; RESP 16; TEMP 36.8; O2SAT 98; BMI 21.2
[2023-01-05 16:30] VITALS: BP 104/62; PULSE 85; RESP 18; O2SAT 98
== END 2023-01-05 16:54 | disposition left against medical advice (07) ==
PROVIDERS: Emergency Provider Student in an Organized Health Care Education/Training Program; PCP Registered Nurse Diabetes Educator
DX: M25.511 Pain in right shoulder (principal)
CPT/HCPCS: 99281

== ENCOUNTER 2025-04-06 14:06 | Emergency (ER) | payer OTHER, SELFPAY ==
[2025-04-06 14:22] VITALS: BP 115/81; PULSE 116; RESP 18; TEMP 37.1; O2SAT 98; BMI 24.1
[2025-04-06 14:50] LABS: Add Manual Diff / Slide Review NO; Hematocrit 35.9 % (36-46); Hemoglobin 12.2 g/dL (12.0-16.0); Lymphocytes Absolute Auto 2600 /uL (1100-4500); Mean Corpuscular HGB Conc 34.0 % (30-36); Mean Corpuscular Hemoglobin 31.3 PG (26-34); Mean Corpuscular Volume 92.3 fL (80-100); Platelet Count 270 X10^3/uL (150-400)
[2025-04-06 14:57] LABS: Alanine Aminotransferase 14 IU/L (<35); Albumin 4.4 g/dL (3.5-5.0); Albumin Globulin Ratio 1.5 (1.0-2.8); Alkaline Phosphatase 80 U/L (38-126); Blood Urea Nitrogen 14 mg/dL (7-17); Calcium 8.5 mg/dL (8.4-10.2); Carbon Dioxide 22 mmol/L (22-32); Chloride 107 mmol/L (98-107); Estimated Glomerular Filt Rate > 60 mL/min (>60); Globulin 2.9 g/dL (1.7-4.1); Glucose 86 mg/dL (70-99); HEMOLYSIS < 15 (0-50); Lipase 99 U/L (23-300); Potassium 4.5 mmol/L (3.4-5.1); Sodium 137 mmol/L (137-145); Total Protein 7.3 g/dL (6.3-8.2)
--- NOTE | 2025-04-06 15:14 | ED.GENADULT ---
HPI - General Adult General Chief complaint: Urogenital-Female Stated complaint: Severe abd pain rad all the way around Time Seen by Provider: 04/06/25 14:54 Source: patient Mode of arrival: Ambulatory History of Present Illness HPI narrative: 39-year-old woman with generalized abdominal pain low down more suprapubic radiating bilaterally to the back both sides equally painful. Started upon awakening this morning. Does not notice more vaginal discharge than usual. No new sexual partners. No particular smells, no flank pain slight nausea but no vomiting. No headaches or fevers. Related Data Home Medications ?Medication ?Instructions ?Recorded ?Confirmed Probiotic with Prebiotic 2 cap PO .QDAY 06/07/18 01/05/23 Previous Rx's ?Medication ?Instructions ?Recorded albuterol sulfate 90 mcg/actuation 2 puff inhalation QIDP PRN 09/29/17 aerosol inhaler (Ventolin HFA) shortness of breath or wheezing #1 ea epinephrine 0.3 mg/0.3 mL 0.3 mg (0.3 mL) IM ONCE #2 ea 08/14/20 injection, auto-injector (EpiPen 2-Al) oxycodone-acetaminophen 5 mg-325 1 tab PO Q4-6H PRN pain #8 tabs 06/09/22 mg tablet (Percocet) hydrocodone 5 mg-acetaminophen 325 1 tab PO Q6H PRN pain #12 tabs 09/30/22 mg tablet methylprednisolone 4 mg tablets in See Rx Instructions PO .COMPLEX 09/30/22 a dose pack (Medrol (Al)) #21 ea ondansetron 4 mg disintegrating 4 mg PO Q8H PRN nausea and 09/30/22 tablet vomiting #10 tabs valacyclovir 1 gram tablet 1,000 mg PO TID #21 tabs 09/30/22 (Valtrex) fluconazole 150 mg tablet 150 mg PO Q3D 2 doses #2 tabs 10/12/22 (Diflucan) phenazopyridine 100 mg tablet 100 mg PO TID PRN pain 6 doses #6 10/12/22 (Pyridium) tabs oxycodone-acetaminophen 5 mg-325 1 tab PO Q6H PRN pain #10 tabs 01/05/23 mg tablet (Percocet) duloxetine 30 mg capsule,delayed 90 mg (3 x 30 mg) PO DAILY #270 01/14/23 release caps amoxicillin 875 mg-potassium 1 tab PO BID #20 tabs 04/06/25 clavulanate 125 mg tablet doxycycline hyclate 100 mg capsule 100 mg PO BID #20 caps 04/06/25 fluconazole 150 mg tablet 150 mg PO Q3D 2 doses #2 tabs 04/06/25 oxycodone-acetaminophen 5 mg-325 1 tab PO Q8H PRN pain #10 tabs 04/06/25 mg tablet (Percocet) Allergies Allergy/AdvReac Type Severity Reaction Status Date / Time venom-honey bee (BEE VENOM Allergy Severe TROUBLE Verified 04/06/25 14:23 (HONEY BEE)) BREATHING sertraline Allergy Intermediate Migraine Verified 04/06/25 14:23 cefaclor (CEFACLOR) Allergy Unknown I was Verified 04/06/25 14:23 young. I can't remember. Sulfa (Sulfonamide Allergy Unknown I was Verified 04/06/25 14:23 Antibiotics) (SULFA young. I (SULFONAMIDE ANTIBIOTICS)) can't remember. cyclobenzaprine AdvReac Intermediate Migraine Verified 04/06/25 14:23 escitalopram AdvReac Intermediate vertigo, Verified 04/06/25 14:23 headache, weak feeling, and extremely tired. methocarbamol AdvReac Intermediate Migraine Verified 04/06/25 14:23 metronidazole AdvReac Intermediate diarrhea Verified 04/06/25 14:23 and cramps iodine AdvReac Headache Verified 04/06/25 14:24 ketorolac (From Toradol) AdvReac Headache Verified 04/06/25 14:23 Review of Systems Review of Systems Narrative: Pertinent positive and negative findings as per HPI Patient History Medical History Primary dysmenorrhea Chronic migraine w/o aura w/o status migrainosus, not intractable Bilateral temporomandibular joint pain Eczema Asthma Chicken pox Chronic neck pain Chronic back pain Admission for sterilization (~12/20/19) Scoliosis Bacterial vaginosis Anxiety Abnormal Pap smear of cervix (10/30/16) C. difficile colitis (09/2016) Alcohol abuse (~10/2015) Arthritis Surgical History Anesthesia History of umbilical hernia repair Status post appendectomy Family History Brother Age: 37 Asthma NF2 (neurofibromatosis 2) Mother Age: 71 Asthma Thyroid disease Diabetes mellitus Sister Age: 34 Thyroid disease Bipolar 1 disorder Son Alopecia Social History marital status: unmarried,living together household members: significant other and children pets and animals: Yes (indoor and outdoor cat - aware) education level: college occupational status: employed special krupa needs: No Tobacco: How many years used: 10 quit status: considering quitting second hand exposure: No alcohol intake: former substance use type: marijuana tobacco type: cigarettes alcohol intake frequency: holidays/special occasions only Exam Initial Vital Signs Initial Vital Signs: Vital Signs Temperature 98.7 F 04/06/25 14:22 Pulse Rate 116 H 04/06/25 14:22 Respiratory Rate 18 04/06/25 14:22 Blood Pressure 115/81 04/06/25 14:22 Pulse Oximetry 98 04/06/25 14:22 Oxygen Delivery Method Room Air 04/06/25 14:22 General: Healthy appearing, in no acute distress. Able to give a complete and coherent history. Well-nourished well-developed HEENT: Moist mucous membranes, normal sclera with reactive pupils, Respiratory: Lungs are clear to auscultation, no wheezing no rales no rhonchi. Full and symmetrical air movement Cardiac: Regular rate and rhythm no murmurs no bruits Abdomen: Low pelvic tenderness without rebound or guarding Pelvic exam: Healthy external genitalia with no rashes or vesicular lesions. No significant discharge appreciated. She does have some mild cervical motion tenderness that is not significantly within external palpation in the suprapubic area. Skin: Warm and dry, no rashes Neurologic: Grossly neurologically intact with no obvious asymmetries or abnormalities Extremities: No trauma, well perfused Psych: Cooperative, appropriate insight and affect Course Orders Ordered: ED Orders 04/06/25 14:25 Chlamydia Gonorrhea PCR -URINE Stat Urine Culture Stat Urine Microscopic Stat 04/06/25 14:40 Complete Blood Count AUTO DIFF Stat Comprehensive Metabolic Panel Stat Lipase Stat 04/06/25 15:17 CT abdomen pelvis wo con Stat 04/06/25 18:14 Wet Prep Tric BV Teagan Stat Hydromorphone HCl (Hydromorphone Hcl 0.5 Mg/0.5 Ml Syringe) 0.5 mg IV Q15MIN PRN PRN Reason: Pain, Last Admin: 04/06/25 20:10 Dose: 0.5 mg Documented By: Admin: 04/06/25 18:24 Dose: 0.5 mg Documented By: Admin: 04/06/25 17:12 Dose: 0.5 mg Documented By: Admin: 04/06/25 15:59 Dose: 0.5 mg Documented By: Admin: 04/06/25 15:32 Dose: 0.5 mg Documented By: VIVIAN Ondansetron HCl (Ondansetron 4 Mg/2 Ml Inj) 4 mg IV NOW PRN PRN Reason: Nausea And Vomiting Ondansetron HCl (Ondansetron 4 Mg Odt) 4 mg PO NOW PRN PRN Reason: Nausea And Vomiting Discontinued Medications Sodium Chloride (Normal Saline 0.9%) 1,000 mls @ 1,000 mls/hr IV BOLUS ONE Stop: 04/06/25 16:14 Last Infusion: 04/06/25 17:12 Dose: Infused Documented By: Admin: 04/06/25 15:31 Dose: 1,000 mls/hr Documented By: VIVIAN Ceftriaxone Sodium 2,000 mg/ (Sodium Chloride) 100 mls @ 200 mls/hr IV NOW ONE Stop: 04/06/25 18:15 Last Infusion: 04/06/25 18:59 Dose: Infused Documented By: Admin: 04/06/25 18:24 Dose: 200 mls/hr Documented By: CHRISTOPHER Ondansetron HCl (Ondansetron 4 Mg/2 Ml Inj) 4 mg IV NOW ONE Stop: 04/06/25 15:16 Last Admin: 04/06/25 15:32 Dose: 4 mg Documented By: VIVIAN Oxycodone/Acetaminophen (Oxycodone/Acetaminophen 5/325 Tablet) 2 tab PO NOW ONE Stop: 04/06/25 21:28 Oxycodone/Acetaminophen (Oxycodone/Apap 5/325 Prepack) 1 bottle MISC DIRECTED ONE Stop: 04/06/25 21:28 Vital Signs Vital signs: Vital Signs - 8 hr 04/06/25 14:22 04/06/25 16:17 04/06/25 18:44 Temperature 98.7 F 98.4 F Pulse Rate 116 H 80 79 Respiratory Rate 18 16 16 Blood Pressure 115/81 112/65 126/65 Pulse Oximetry 98 96 98 Oxygen Delivery Method Room Air Room Air Room Air Medical Decision Making Lab Data 04/06/25 14:40 04/06/25 14:40 Labs: Lab Results 04/06/25 04/06/25 Range/Units 14:25 14:40 WBC 15.4 H (4.5-11.0) X10^3/uL RBC 3.89 L (4.0-5.2) X10^6/uL Hgb 12.2 (12.0-16.0) g/dL Hct 35.9 L (36-46) % MCV 92.3 (80-100) fL MCH 31.3 (26-34) PG MCHC 34.0 (30-36) % RDW 13.8 (11.6-14.8) % Plt Count 270 (150-400) X10^3/uL Neut % (Auto) 76.6 H (50-75) % Lymph % (Auto) 16.5 L (25-40) % Schuyler % (Auto) 5.7 (3-14) % Eos % (Auto) 0.6 L (2-4) % Baso % (Auto) 0.6 (0-2) % Neut # (Auto) 41899 H (9629-0554) /uL Lymph # (Auto) 2600 (5191-0895) /uL Schuyler # (Auto) 900 (0-900) /uL Eos # (Auto) 100 (0-450) /uL Baso # (Auto) 100 (0-100) /uL Sodium 137 (137-145) mmol/L Potassium 4.5 (3.4-5.1) mmol/L Chloride 107 (98-107) mmol/L Carbon Dioxide 22 (22-32) mmol/L BUN 14 (7-17) mg/dL Creatinine 0.75 (0.52-1.04) mg/dL Estimated GFR > 60 (>60) mL/min BUN/Creatinine Ratio 18.7 (6-22) Glucose 86 (70-99) mg/dL Calcium 8.5 (8.4-10.2) mg/dL Total Bilirubin 0.3 (0.2-1.3) mg/dL AST 26 (14-36) IU/L ALT 14 (<35) IU/L Alkaline Phosphatase 80 (38-126) U/L Total Protein 7.3 (6.3-8.2) g/dL Albumin 4.4 (3.5-5.0) g/dL Globulin 2.9 (1.7-4.1) g/dL Albumin/Globulin Ratio 1.5 (1.0-2.8) Lipase 99 (23-300) U/L Urine RBC 0-1/hpf (0-5/HPF) Urine WBC 5-10/hpf H (0-5/HPF) Ur Squamous Epith Cells 5-10 /hpf H (0-5/HPF) Ur Renal Epithelial Cell 0-1/hpf (0-1/HPF) Urine Bacteria Many (>30) H (None) Urine Mucus 2+ H (Negative) Ur Culture Indicated? Specimen cultured Vol Urine Centrifuged 10ml (spun) Ur Chlamydia DNA (PCR) Not detected N gonorrhoeae DNA (PCR) Not detected Point of Care Testing Test Results Negative Urine Dip Bedside Urine Glucose Negative Bedside Urine Bilirubin - Negative Bedside Urine Ketone - Negative Urine Specific Prescott 1.025 Bedside Urine Occult Blood ++ Bedside Urine pH 6.0 Bedside Urine Protein + 30 Bedside Urine Urobilinogen - Negative Bedside Urine Nitrite + Positive Bedside Urine Leukocytes + 70 Esterase Point of care testing: Point of Care Testing Test Results Negative Urine Dip Bedside Urine Glucose Negative Bedside Urine Bilirubin - Negative Bedside Urine Ketone - Negative Urine Specific [place] 1.025 Bedside Urine Occult Blood ++ Bedside Urine pH 6.0 Bedside Urine Protein + 30 Bedside Urine Urobilinogen - Negative Bedside Urine Nitrite + Positive Bedside Urine Leukocytes + [address] scan - abdomen/pelvis: Radiologist's Impression: PROCEDURE: CT ABDOMEN PELVIS WO CON INDICATIONS: abd pain TECHNIQUE: CT of the abdomen and pelvis was obtained without intravenous contrast. Coronal and sagittal reformats were performed. For radiation dose reduction, the following was used: automated exposure control, adjustment of mA and/or kV according to patient size. COMPARISON: None. FINDINGS: Image quality: Diagnostic. Lower Chest: No significant findings. ABDOMEN: Liver: No contour-deforming mass. Gallbladder: No radiopaque gallstones or wall thickening. Biliary ducts: No biliary dilation. Pancreas: No ductal dilation. Spleen: Size is within normal limits. Adrenal Glands: No adrenal nodules. Kidneys and Ureters: No hydronephrosis. No contour-deforming mass. Single punctate nonobstructive calculus seen at the right middle 3rd collecting system. Stomach and Bowel: Normal colonic caliber, without significant wall thickening. Peritoneum: No abnormal intraperitoneal fluid. No free air. Ventral Wall: No significant hernia. Abdominal Nodes: No retroperitoneal or mesenteric adenopathy by size criteria. Vessels: Aorta and inferior vena cava are normal in size. PELVIS: Pelvic Organs: Unremarkable. Bladder: Unremarkable. Pelvic Nodes: No enlarged lymph nodes. Miscellaneous: No inguinal hernias are seen. Bones: No aggressive osseous abnormality. IMPRESSION: Nonobstructive punctate right renal collecting system calculus, otherwise normal. Source of pain is not seen. Dictated by: Antonio Pantoja M.D. on 04/06/2025 at 16:12 MDM Narrative Medical decision making narrative: 39-year-old woman presents with abdominal pelvic pain starting this morning Differential includes diverticulitis, urinary tract infection, pyelonephritis, appendicitis, pelvic inflammatory disease, doubt ovarian torsion Physical exam: Low abdominal tenderness, slight cervical motion tenderness without significant discharge on bimanual exam. No rebound or guarding CBC show white blood cell count elevated at 15.4 Chemistries are reassuring Urine has white cells some squamous many bacteria some mucus specimen has been culture Lipase is normal 39-year-old woman with low pelvic pain questionable urine, unremarkable CT scan, mild cervical motion tenderness. No evidence of appendicitis, diverticulitis, intra-abdominal abscess. At this point we will opt to treat her for pyelonephritis as well as pelvic inflammatory disease. Wet mount has been sent and patient is discharge prior to results, if abnormal we will need treatment. She notes that she typically gets yeast infections with oral antibiotics so she is also given 2 doses of Diflucan he has after the Augmentin. We will opt to use Augmentin to treat for pyelonephritis as well as Diflucan with concerns for pelvic inflammatory disease. Findings reviewed with her, questions are answered, there was no indication for hospitalization she is safely discharge Discharge Plan Departure Patient Disposition: Home Clinical Impression: Pyelonephritis, Acute pelvic inflammatory disease Instructions: DI for Kidney Infection, DI for Pelvic Inflammatory Disease (PID) Activity Restrictions/Additional Instructions: Thank you for coming in today, I am sorry that you are so comfortable Your workup showed an elevated white blood cell count that is certainly does seem like infection. Your CT scan was actually quite reassuring. It did not show significantly inflamed kidneys, appendicitis, diverticulitis, significant intra-abdominal or pelvic absces On exam you do have some tenderness with moving your cervix which can suggest pelvic inflammatory disease. Your urine also lift like it could be infected. At this point I am going to choose to treat you for both pyelonephritis/kidney infection as well as pelvic inflammatory disease. This means 10 days of doxycycline and 10 days of Augmentin. You mentioned that you do get yeast infections after antibiotics. I have given you 2 doses of Diflucan, take the 1st one after the antibiotics are completed and the 2nd one 3 days later. I am also given you a small prescription for Percocet. This is a narcotic and will make you constipated. Please use it sparingly and do take a stool softener. Using 400 mg of ibuprofen (2 [id number] pills) and 1 Tylenol every 6 hours can be very helpful in controlling pain. If you find that you are getting worse or develop any new symptoms, please feel free to return to the emergency department for further evaluation. All prescriptions were sent to [facility] Prescriptions: New amoxicillin-pot clavulanate 875-125 mg tablet 1 tab PO BID Qty: 20 0RF doxycycline hyclate 100 mg capsule 100 mg PO BID Qty: 20 0RF fluconazole 150 mg tablet 150 mg PO Q3D Qty: 2 0RF Rx Instructions: may repeat second dose 72 hrs after first dose if symptoms persist oxycodone-acetaminophen [Percocet] 5-325 mg tablet 1 tab PO Q8H PRN (Reason: pain) Qty: 10 0RF No Action Probiotic with Prebiotic 2 cap PO .QDAY albuterol sulfate [Ventolin HFA] 90 mcg/actuation HFA aerosol inhaler 2 puff INHALATION QIDP PRN (Reason: shortness of breath or wheezing) Qty: 1 3RF oxycodone-acetaminophen [Percocet] 5-325 mg tablet 1 tab PO Q6H PRN (Reason: pain) Qty: 10 0RF duloxetine 30 mg capsule,delayed release(DR/EC) 90 mg PO DAILY Qty: 270 1RF Rx Instructions: Total duloxetine dose of 90 mg daily epinephrine [EpiPen 2-Al] 0.3 mg/0.3 mL auto-injector 0.3 mg IM ONCE Qty: 2 0RF Rx Instructions: as a single dose; may repeat once oxycodone-acetaminophen [Percocet] 5-325 mg tablet 1 tab PO Q4-6H PRN (Reason: pain) Qty: 8 0RF valacyclovir [Valtrex] 1 gram tablet 1,000 mg PO TID Qty: 21 0RF hydrocodone-acetaminophen 5-325 mg tablet 1 tab PO Q6H PRN (Reason: pain) Qty: 12 0RF methylprednisolone [Medrol (Al)] 4 mg tablets,dose pack See Rx Instructions .ROUTE .COMPLEX Qty: 21 0RF Rx Instructions: orally per package directions ondansetron 4 mg tablet,disintegrating 4 mg PO Q8H PRN (Reason: nausea and vomiting) Qty: 10 0RF fluconazole [Diflucan] 150 mg tablet 150 mg PO Q3D Qty: 2 0RF phenazopyridine [Pyridium] 100 mg tablet 100 mg PO TID PRN (Reason: pain) Qty: 6 0RF Stand Alone Forms: Patient Portal/API
[2025-04-06 15:16] LABS: Culture Indicated Urine Specimen Cultured
--- NOTE | 2025-04-06 15:17 | DI.CT.S_ITS ---
PROCEDURE: CT ABDOMEN PELVIS WO CON INDICATIONS: abd pain TECHNIQUE: CT of the abdomen and pelvis was obtained without intravenous contrast. Coronal and sagittal reformats were performed. For radiation dose reduction, the following was used: automated exposure control, adjustment of mA and/or kV according to patient size. COMPARISON: None. FINDINGS: Image quality: Diagnostic. Lower Chest: No significant findings. ABDOMEN: Liver: No contour-deforming mass. Gallbladder: No radiopaque gallstones or wall thickening. Biliary ducts: No biliary dilation. Pancreas: No ductal dilation. Spleen: Size is within normal limits. Adrenal Glands: No adrenal nodules. Kidneys and Ureters: No hydronephrosis. No contour-deforming mass. Single punctate nonobstructive calculus seen at the right middle 3rd collecting system. Stomach and Bowel: Normal colonic caliber, without significant wall thickening. Peritoneum: No abnormal intraperitoneal fluid. No free air. Ventral Wall: No significant hernia. Abdominal Nodes: No retroperitoneal or mesenteric adenopathy by size criteria. Vessels: Aorta and inferior vena cava are normal in size. PELVIS: Pelvic Organs: Unremarkable. Bladder: Unremarkable. Pelvic Nodes: No enlarged lymph nodes. Miscellaneous: No inguinal hernias are seen. Bones: No aggressive osseous abnormality. IMPRESSION: Nonobstructive punctate right renal collecting system calculus, otherwise normal. Source of pain is not seen. Dictated by: Antonio Pantoja M.D. on 04/06/2025 at 16:12 Approved by: Antonio Pantoja M.D. on 04/06/2025 at 16:14
[2025-04-06] MEDS: SODIUM CHLORIDE 0.9% 1,000 ML 1000 ML IV (15:31)
[2025-04-06] MEDS: ONDANSETRON 4 MG/2 ML INJ IV (15:32)
[2025-04-06 16:17] VITALS: BP 112/65; PULSE 80; RESP 16; O2SAT 96
[2025-04-06] MEDS: cefTRIAXone 2,000 MG in SODIUM CHLORIDE 0.9% 100 ML 200 MG IV (18:24)
[2025-04-06 18:44] VITALS: BP 126/65; PULSE 79; RESP 16; TEMP 36.9; O2SAT 98
[2025-04-06 20:35] LABS: Urine N gonorrhoeae NOT DETECTED
[2025-04-06 20:36] LABS: Urine Chlamydia NOT DETECTED
[2025-04-06 21:55] VITALS: BP 137/65; PULSE 80; RESP 16; O2SAT 97
== END 2025-04-06 22:15 | disposition home or self-care (01) ==
PROVIDERS: Physician Assistant; Emergency Provider Emergency Medicine
DX: N12 Tubulo-interstitial nephritis, not specified as acute or chronic (principal); N73.0 Acute parametritis and pelvic cellulitis
CPT/HCPCS: 36415; 74176; 80053; 81003; 81015; 81025; 83690; 85025; 87077; 87086; 87186; 87210; 87491; 87591; 96361; 96365; 96375; 96376; 99284; J0696; J1171; J2405; J7030; J7050